=== PATIENT | female | born 1985 | race Caucasian/White ===

== ENCOUNTER → 2023-06-21 | Outpatient (CLI) | payer OTHER, SELFPAY ==
[2023-06-21 10:41] LABS: Allen Test Positive; Base Excess -2 mmol/L (-2 to +2); Bicarbonate 22.4 mmol/L (22-26); Mode Not entered; O2 Delivery Device Room Air; PO2 45 mmHG (75-100); SITE R Radial; SO2 82 % (95-99); Total Carbon Dioxide 24 mmol/L; pH 7.41 (7.35-7.45)
[2023-06-21 11:26] LABS: Blood Gas Specimen Type VEN
== END | disposition home or self-care (01) ==
PROVIDERS: PCP Radiologic Technologist Bone Densitometry; Referring Provider Nurse Practitioner Acute Care; Visit Provider Nurse Practitioner Acute Care
DX: E66.2 Morbid (severe) obesity with alveolar hypoventilation (principal)
CPT/HCPCS: 36600; 82803

== ENCOUNTER → 2023-07-11 | Outpatient (CLI) | payer OTHER, SELFPAY | END | disposition home or self-care (01) | LOC: SL 20:03 | PROVIDERS: PCP Radiologic Technologist Bone Densitometry; Referring Provider Nurse Practitioner Acute Care; Visit Provider Nurse Practitioner Acute Care | DX: G47.33 Obstructive sleep apnea (adult) (pediatric) (principal) | CPT/HCPCS: 95810 ==

== ENCOUNTER → 2023-07-15 | Outpatient (CLI) | payer OTHER, SELFPAY ==
[2023-07-15 13:10] LABS: Absolute Lymphocyte Count 2.37 X10^3/uL (0.83-4.51); Absolute Neutrophil Count 8.1 X10^3/uL (2.0-7.7); Basophil# 0.02 X10^3/uL; Basophil% 0.2 % (0-1); Eosinophil# 0.01 X10^3/uL; Eosinophils% 0.1 % (0-5); Hemoglobin 11.5 g/dL (12.0-15.0); Lymphocyte # 2.37 X10^3/ul (0.83-4.51); Lymphocyte % 21.8 % (19-41); Mean Corp Hgb Conc 30.3 g/dL (32-36); Mean Corpuscular Hgb 22.5 pg (27.0-32.0); Mean Corpuscular Volume 74.2 fL (81-99); Mean Platelet Vol. 10.5 fl (6.2-12.0); Monocyte# 0.37 X10^3/uL; Monocyte% 3.4 % (0-10); NRBC Flagged by Analyzer 0 % (0-5); Neutrophil # 8.06 X10^3/uL (2.7-7.7); Neutrophil % 73.9 % (47-70); Platelet Count 507 K/mm3 (150-450); RBC Distribution Width CV 15.8 % (11.6-14.6); RBC Distribution Width SD 41.9 fl (35.1-43.9); Red Blood Count 5.12 M/mm3 (4.2-5.4); White Blood Count 10.9 K/mm3 (4.4-11.0)
[2023-07-15 13:43] LABS: AST(SGOT) 28 U/L (15-37); Alanine Aminotransfer ALT/SGPT 63 U/L (13-56); Albumin, Serum 3.4 g/dL (3.2-5.0); Alkaline Phosphatase 202 U/L (45-117); Bilirubin, Direct 0.13 mg/dL (0.00-0.30); Ferritin 23 ng/mL (8-252); Free T3 2.4 pg/mL (2.18-3.98); GGTP 166 U/L (5-55); Globulin 4.5 g/dL (2.2-4.2); Iron 31 ug/dL (50-170); Iron Binding Capacity,Total 413 ug/dL (250-450); PERCENT IRON SATURATION 7.5 % (15.0-55.0); Protein, Total 7.9 g/dL (6.4-8.2); T4 Free Direct 1.03 ng/dL (0.76-1.46); Thyroid Stim Hormone (TSH) 2.88 uIU/mL (0.358-3.74)
== END | disposition home or self-care (01) ==
LOC: LAB 12:49
PROVIDERS: PCP Radiologic Technologist Bone Densitometry
DX: R94.6 Abnormal results of thyroid function studies (principal); R79.89 Other specified abnormal findings of blood chemistry; D64.9 Anemia, unspecified; D75.839 Thrombocytosis, unspecified
CPT/HCPCS: 36415; 80076; 82728; 82977; 83540; 83550; 84439; 84443; 84481; 85025

== ENCOUNTER → 2023-09-26 | Outpatient (CLI) | payer OTHER, SELFPAY ==
--- NOTE | 2023-09-26 08:03 | US_ITS ---
STUDY: ABDOMINAL ULTRASOUND - RIGHT UPPER QUADRANT REASON FOR VISIT: Female, 38 years old ELEVATED LFT TECHNIQUE: Ultrasound evaluation of the right upper quadrant was performed with real-time and static whipple-scale imaging. TECHNICAL QUALITY: Adequate. COMPARISON: None. FINDINGS: Liver: The liver is enlarged and measures 20.3 cm. There is increased echogenicity consistent with fatty infiltration. The bile ducts are within normal limits. There is hepatic color flow. The direction of portal flow is hepatopetal. There is no demonstrated mass lesion. Gallbladder: The patient is status post cholecystectomy. Common Bile Duct (C.B.D.): The common bile duct measures 4 mm. Pancreas: There is nonvisualization of the pancreas. Right Kidney: Normal size of the right kidney. The right kidney measures 12.1 cm x 6.6 x 5.6 cm. Normal renal cortex. The right cortex measures 1.6 cm. There is no demonstrated renal mass or cyst. There is no right hydronephrosis. US/Abdomen Limited IMPRESSION: Hepatomegaly. Fatty infiltration of the liver. The patient is status post cholecystectomy. Electronically Signed: Sergio Snow MD at 13:48 EDT ,
== END | disposition home or self-care (01) ==
LOC: US 08:02
PROVIDERS: PCP Radiologic Technologist Bone Densitometry
DX: R79.89 Other specified abnormal findings of blood chemistry (principal)
CPT/HCPCS: 76705

== ENCOUNTER 2024-02-02 17:30 | Emergency (ER) | payer OTHER, SELFPAY ==
[2024-02-02 17:31] VITALS: BP 176/102; PULSE 100; RESP 18; TEMP 36.3; O2SAT 100; BMI 59.9
--- NOTE | 2024-02-02 18:23 | EDS_ITS ---
HPI <BARRERA Ashley - Last Filed: 02/02/24 19:35> History of Present Illness Chief Complaint: Other, Pain/Inj Narrative Narrative: Patient presenting today with rectal pain that she has had since Tuesday or Tuesday of this week. She has felt what feels like an external hemorrhoid. She does report occasional constipation and straining on the toilet, she tries to avoid this by taking docusate and MiraLAX and over the last few days she has had looser stools. She has been using Preparation H on the area with minimal relief. She denies abdominal pain, fevers, and chills. PFSH <BARRERA Ashley - Last Filed: 02/02/24 19:35> [facility] Medical History Family history of heart disease Breast pain Snoring Cervical high risk HPV (human papillomavirus) test positive Family history of colon cancer in mother PMS (premenstrual syndrome) Oral contraceptive pill surveillance Adult acne Esophageal ulcer Pulmonary hypertension Anemia Vitamin D deficiency Obesity, morbid, BMI 50 or higher Erythema Anxiety Depression, endogenous GERD (gastroesophageal reflux disease) Constipation in female Family history of early CAD Fatigue COVID-19 Home Medications ?Medication ?Instructions ?Recorded ?Last Taken ?Type buspirone 5 mg tablet 5 mg PO BID 06/10/23 Unknown History omeprazole 40 mg capsule,delayed 40 mg PO BID 06/10/23 Unknown History release spironolactone 50 mg tablet 50 mg PO BID 06/10/23 Unknown History venlafaxine 150 mg 150 mg PO DAILY 06/10/23 Unknown History capsule,extended release 24 hr venlafaxine 75 mg capsule,extended 75 mg PO DAILY 06/10/23 Unknown History release 24 hr cholecalciferol (vitamin D3) 50 50 mcg PO DAILY 06/13/23 Unknown History mcg (2,000 unit) capsule docusate sodium 100 mg capsule 100 mg PO BID 06/13/23 Unknown History hydrocortisone 1 %-pramoxine 1 % 1 applic [place] TID #10 grams 02/02/24 Unknown Rx rectal foam (Proctofoam HC) lidocaine 5 % topical cream 1 applic topical TID PRN pain #15 02/02/24 Unknown Rx (RectiCare) grams ropinirole 0.25 mg tablet 0.25 mg PO QHS 02/02/24 Unknown History trazodone 50 mg tablet 50 - 100 mg PO QHS 02/02/24 Unknown History Allergy/AdvReac Type Severity Reaction Status Date / Time No Known Allergies Allergy Verified 02/02/24 17:31 Family History Mother , age 62 Colon cancer age 59 Hypertension Grandfather Heart disease Maternal Grandmother Heart disease maternal Aunt Hypertension Maternal Uncle Diabetes Paternal Grandmother Diabetes Paternal Surgical History History of tonsillectomy and adenoidectomy Hx of cholecystectomy H/O LEEP Social History household members: spouse current occupational status: employed Smoking Status: Never smoker alcohol intake: current alcohol intake frequency: holidays/special occasions only substance use type: does not use seatbelt use: always ROS <BARRERA Ashley - Last Filed: 02/02/24 19:35> ROS ED Constitutional Constitutional ED: Denies chills or fever(s) Cardiovascular Cardiovascular: Denies chest pain Respiratory/Chest Respiratory/Chest: Denies cough or dyspnea Gastrointestinal Gastrointestinal: Reports other Details: Rectal pain ; Denies abdominal pain, nausea or vomiting Musculoskeletal Musculoskeletal: Denies arthralgias or myalgias Integumentary Denies rash Neurologic Neurologic: Denies weakness EXAM <BARRERA Ashley - Last Filed: 02/02/24 19:35> Physical Exam Const Vital Signs: 02/02/24 17:31 02/02/24 18:56 Temperature 97.4 F L 97.4 F L Temperature Source Temporal Pulse Rate 100 90 Respiratory Rate 18 18 Blood Pressure 176/102 H 145/87 H Blood Pressure Mean 126 106 Pulse Ox 100 100 Oxygen Delivery Method Room Air Positive well nourished, well developed and no apparent distress General Appearance ED: well developed HEENT Reports normocephalic and head/scalp atraumatic Mouth ED: Yes moist mucous membranes normal Eyes PERRL and EOMs intact bilaterally Neck full ROM and supple Chest Wall inspection of chest normal Resp normal respiratory effort and clear to auscultation bilaterally Cardio regular rate and regular rhythm GI soft to palpation, non-tender, non-distended and no masses GI Narrative: Rectal: Small nonthrombosed external hemorrhoid at the 11 o'clock position, small anal fissure at the 5 o'clock position, small anal fissure at the 7 o'clock position Back/Spine normal ROM and normal to inspection Extremity normal to inspection and full ROM Neuro oriented x3, CN's II-XII intact bilaterally, moves all extremities, no focal motor deficits and no sensory deficits noted Sensorium / Orientation: awake and alert Psych mental status grossly normal and thought process normal Skin no rashes or lesions noted and no wounds <Dr. Saul Wong DO - Last Filed: 02/02/24 23:48> Physical Exam Const Vital Signs: 02/02/24 17:31 02/02/24 18:56 Temperature 97.4 F L 97.4 F L Temperature Source Temporal Pulse Rate 100 90 Respiratory Rate 18 18 Blood Pressure 176/102 H 145/87 H Blood Pressure Mean 126 106 Pulse Ox 100 100 Oxygen Delivery Method Room Air [facility] <BARRERA Ashley - Last Filed: 02/02/24 19:35> [facility] Narrative Medical decision making narrative: Patient presenting today with rectal pain she has had over the last several days. She is nontoxic-appearing and in no acute distress. She does have a small nonthrombosed external hemorrhoid and 2 small anal fissures that are causing her pain. She does not have any evidence of abscess or fluctuance. I will give her a prescription for Proctofoam, recommended sitz bath's, she can continue the stool softeners to help keep her bowel movements soft and regular. She does have a GI doctor she can follow-up with. She will be discharged home in stable condition. <Dr. Saul Wong DO - Last Filed: 02/02/24 23:48> [facility] Narrative Medical decision making narrative: Patient presenting today with rectal pain she has had over the last several days. She is nontoxic-appearing and in no acute distress. She does have a small nonthrombosed external hemorrhoid and 2 small anal fissures that are causing her pain. She does not have any evidence of abscess or fluctuance. I will give her a prescription for Proctofoam, recommended sitz bath's, she can continue the stool softeners to help keep her bowel movements soft and regular. She does have a GI doctor she can follow-up with. She will be discharged home in stable condition. Attending note: I have personally performed a face to face assessment of the patient and have reviewed the LUDY note. I personally made/approved the management plan and take responsibility for the patient management. I performed a substantive portion of the visit including all aspects of the following. My haney findings include: Rectal pain since Tuesday worse with sitting. No fevers or chills. No abdominal pain. Examination with the teasel setter nonthrombosed very small hemorrhoid anterior rectum. There are small fissures posteriorly no active bleeding. No indurations palpated around the anal region. No fluctuance. Discussed patient no clear abscess this time no thrombosed hemorrhoids. She will continue her stool softeners she is provided Proctofoam and topical lidocaine. Return precautions. All questions were answered. Discharge Plan Triage Chief Complaint: Other, Pain/Inj ED Midlevel Provider: Nydia Fraser ED Provider: Saul Wong Dx/Rx/DC Orders Clinical Impression: Hemorrhoid, Rectal fissure Instructions: ED Understanding Anal Fissures, ED Hemorrhoids Prescriptions: New lidocaine [RectiCare] 5 % cream 1 applic topical TID PRN (Reason: pain) Qty: 15 0RF Proctofoam HC 1-1 % foam 1 applic [place] TID Qty: 10 0RF No Action omeprazole 40 mg capsule,delayed release(DR/EC) 40 mg PO BID buspirone 5 mg tablet 5 mg PO BID venlafaxine 75 mg capsule,extended release 24hr 75 mg PO DAILY venlafaxine 150 mg capsule,extended release 24hr 150 mg PO DAILY spironolactone 50 mg tablet 50 mg PO BID cholecalciferol (vitamin D3) 50 mcg (2,000 unit) capsule 50 mcg PO DAILY docusate sodium 100 mg capsule 100 mg PO BID trazodone 50 mg tablet 50 - 100 mg PO QHS ropinirole 0.25 mg tablet 0.25 mg PO QHS Primary Care Provider: Vasquez Keen Referrals: Vasquez Keen MD [Primary Care Provider] - Activity Restrictions/Additional Instructions: Follow-up with GI, perform sitz bath's 2-3 times daily. Continue stool softe ners/fiber supplementation. Print Language: Ukrainian Disposition Disposition: Home, Self Care Discharge Date/Time: 02/02/24 18:58
[2024-02-02] MEDS: Lidocaine 1% /Epi 1:100 (20ml) 20 ML Vial 10 ML INFILT (18:29)
[2024-02-02 18:56] VITALS: BP 145/87; PULSE 90; RESP 18; TEMP 36.3; O2SAT 100
== END 2024-02-02 18:58 | disposition home or self-care (01) ==
PROVIDERS: Emergency Provider Emergency Medicine; PCP Radiologic Technologist Bone Densitometry; Visit Provider Emergency Medicine
DX: K64.9 Unspecified hemorrhoids (principal); K60.2 Anal fissure, unspecified; Z90.49 Acquired absence of other specified parts of digestive tract; Z86.16 Personal history of COVID-19; Z80.0 Family history of malignant neoplasm of digestive organs
CPT/HCPCS: 99282

== ENCOUNTER 2024-02-15 13:10 | Inpatient (IN) | payer OTHER, SELFPAY ==
[2024-02-15] VITALS (9 sets, daily range): BP systolic 134–178; BP diastolic 78–127; PULSE 116–138; RESP 18–30; TEMP 36.6–37.9; O2SAT 94–100; BMI 61.7; BMI 61.6
--- NOTE | 2024-02-15 13:34 | CT_ITS ---
STUDY: CTA CHEST REASON FOR EXAM: Female, 38 years old. pulmonary embolism s/p ebg this am PATIENT HAD EGD AT [facility] THIS MORNING. ON THE WAY HOME SHE STARTED TO EXPERIENCE SOB, CHILLS. SHE WAS TOLD THE HER SPO2 WENT LOW DURING THE PROCEDURE. RADIATION DOSAGE (If Supplied By Facility): CTDIvol = ( 15.04 ) mGy, DLP = ( 500.28 ) mGycm TECHNIQUE: The examination was performed with the intravenous administration of IV 100mL Isovue-370. Post-processing of the angiographic images was performed, with multiplanar reformation and 3D reconstruction. Individualized dose optimization techniques were used for this CT. COMPARISON: None. FINDINGS: Mild to moderate patchy consolidation is intermixed with linear atelectasis in the mid to inferior aspect of the left upper lobe with extension to the hilar region. Surrounding groundglass edema and tree-in-bud opacities are present in the same region. Mild patchy pneumonic consolidation with groundglass edema and tree-in-bud opacities are also seen in the lateral aspect of the left upper lobe from superior to inferior. The right lung is clear. No visualized pleural effusion. There is limited enhancement of the main pulmonary artery and right and left pulmonary arteries. There is limited enhancement of the bilateral peripheral pulmonary arteries. There is no demonstrated obvious a large pulmonary embolism. Normal thoracic aorta and visualized great vessels. There is no demonstrated aortic dissection. Normal heart and pericardium. There are no demonstrated calcifications of the coronary arteries. Normal mediastinum. Normal hilar regions. Normal visualized trachea and bronchi. The lungs are well expanded. Normal pleura. Normal chest wall structures. There are degenerative changes of thoracic spine. Normal visualized upper abdomen. CT/CTA Chest W/WO Contrast IMPRESSION: 1. Probable aspiration pneumonia = Mild to moderate patchy consolidation is intermixed with linear atelectasis in the mid to inferior aspect of the left upper lobe with extension to the hilar region. Surrounding groundglass edema and tree-in-bud opacities are present in the same region. Mild patchy pneumonic consolidation with groundglass edema and tree-in-bud opacities are also seen in the lateral aspect of the left upper lobe from superior to inferior. 2. The left lung consolidation should be followed up to resolution to ensure no underlying occult process. 3. Suboptimal contrast opacification of the pulmonary arteries = There is limited enhancement of the main pulmonary artery and right and left pulmonary arteries. There is limited enhancement of the bilateral peripheral pulmonary arteries. There is no demonstrated obvious a large pulmonary embolism. Consider nuclear medicine lung perfusion scan symptoms persist. Electronically Signed: Steven Polk MD at 14:55 EST ,
--- NOTE | 2024-02-15 13:40 | EX.ED.DYSGE1 ---
HPI History of Present Illness Chief Complaint: General Illness Informant: patient and parent Narrative Narrative: 38-year-old female presenting to the emergency room with dyspnea. Patient states she woke up this morning feeling fine. She went to [place] to [facility] and had upper endoscopy performed. She states on the way home she began to feel feverish and chilled. She felt short of breath and experienced nausea. Symptoms progressed and once they got home talked with her doctor who advised her coming to the hospital. States she feels her heart racing. It is worse with exertion. Surgeon noted that she did have an episode of hypoxia during the procedure but the anesthesiologist was able to remedy it. She notes a bit of a sore throat but states that was expected after the procedure. [facility] Medical History Family history of heart disease Breast pain Snoring Cervical high risk HPV (human papillomavirus) test positive Family history of colon cancer in mother PMS (premenstrual syndrome) Oral contraceptive pill surveillance Adult acne Esophageal ulcer Pulmonary hypertension Anemia Vitamin D deficiency Obesity, morbid, BMI 50 or higher Erythema Anxiety Depression, endogenous GERD (gastroesophageal reflux disease) Constipation in female Family history of early CAD Fatigue COVID-19 Home Medications ?Medication ?Instructions ?Recorded ?Last Taken ?Type buspirone 5 mg tablet 5 mg PO BID 06/10/23 Unknown History omeprazole 40 mg capsule,delayed 40 mg PO BID 06/10/23 Unknown History release spironolactone 50 mg tablet 50 mg PO BID 06/10/23 Unknown History venlafaxine 150 mg 150 mg PO DAILY 06/10/23 Unknown History capsule,extended release 24 hr venlafaxine 75 mg capsule,extended 75 mg PO DAILY 06/10/23 Unknown History release 24 hr cholecalciferol (vitamin D3) 50 50 mcg PO DAILY 06/13/23 Unknown History mcg (2,000 unit) capsule docusate sodium 100 mg capsule 100 mg PO BID 06/13/23 Unknown History hydrocortisone 1 %-pramoxine 1 % 1 applic MS TID #10 grams 02/02/24 Unknown Rx rectal foam (Proctofoam HC) lidocaine 5 % topical cream 1 applic topical TID PRN pain #15 02/02/24 Unknown Rx (RectiCare) grams ropinirole 0.25 mg tablet 0.25 mg PO QHS 02/02/24 Unknown History trazodone 50 mg tablet 50 - 100 mg PO QHS 02/02/24 Unknown History Allergy/AdvReac Type Severity Reaction Status Date / Time No Known Allergies Allergy Verified 02/15/24 13:14 Family History Mother , age 62 Colon cancer age 59 Hypertension Grandfather Heart disease Maternal Grandmother Heart disease maternal Aunt Hypertension Maternal Uncle Diabetes Paternal Grandmother Diabetes Paternal Surgical History History of tonsillectomy and adenoidectomy Hx of cholecystectomy H/O LEEP Social History household members: spouse current occupational status: employed Smoking Status: Never smoker alcohol intake: current alcohol intake frequency: holidays/special occasions only substance use type: does not use seatbelt use: always ROS ROS ED Constitutional Constitutional ED: Reports chills, fever(s) and subjective; Denies weight loss Eyes Eyes: Denies change in vision or diplopia ENT ENT ED: Denies ear pain, rhinorrhea or sore throat Cardiovascular Cardiovascular: Reports racing heartbeat; Denies chest pain, orthopnea or palpitations Respiratory/Chest Respiratory/Chest: Reports dyspnea; Denies cough or orthopnea Gastrointestinal Gastrointestinal: Reports nausea; Denies abdominal pain, diarrhea or vomiting Genitourinary Genitourinary ED: Denies dysuria, hematuria or urinary frequency Musculoskeletal Musculoskeletal: Denies arthralgias or myalgias Integumentary Denies abscess or rash Neurologic Neurologic: Denies headache(s) or weakness Psychiatric Psychiatric: Denies anxiety, depression, suicidal ideation or suicidal thoughts Endocrine Endocrinology: Denies polydipsia, polyphagia or polyuria Allergic/Immunologic Allergic/Immunologic ED: Denies mouth swelling, tongue swelling or urticaria EXAM Physical Exam Const Vital Signs: 02/15/24 13:11 02/15/24 13:12 02/15/24 14:48 Temperature 100.3 F H 99.3 F H Temperature Source Oral Oral Pulse Rate 138 H 124 H Respiratory Rate 22 H 18 Respiratory Effort Normal Respiratory Pattern Tachypnea Blood Pressure 178/127 H 134/78 H Blood Pressure Mean 144 96 Pulse Ox 100 95 Oxygen Delivery Method Room Air Room Air Positive well nourished, well developed and obese General Appearance ED: well developed and NAD Nutritional Appearance: obese HEENT Reports normocephalic, head/scalp atraumatic and moist mucous membranes HEENT Narrative: Mild oropharyngeal erythema is noted particularly around the soft palate. The uvula Eyes PERRL and EOMs intact bilaterally Neck no lymphadenopathy, supple and no JVD Resp normal respiratory effort and clear to auscultation bilaterally Cardio regular rate, regular rhythm and no murmurs Rate: tachycardic GI normal to inspection, nondistended, normoactive bowel sounds and non-tender Palpation: soft Back/Spine no CVA tenderness and normal ROM Extremity normal to inspection General Extremety ED: Negative for edema General Extremity: Negative for edema Neuro oriented x3 and CN's II-XII intact bilaterally Sensorium / Orientation: alert Motor Exam: strength 5/5 throughout Psych mental status grossly normal Mood & Affect: Negative for depressed or tearful Skin no rashes or lesions noted and no wounds MDM MDM MDM Narrative Medical decision making narrative: Differential diagnosis includes but not limited to esophageal perforation pneumothorax aspiration pneumonia viral syndrome dehydration cardiac dysrhythmia electrolyte abnormalities White count elevated 24.2 platelet count of 517 hemoglobin 11.4 BMP shows a sodium 134 glucose 143 lipase is 25 ALT 67 alk phos 223. CTA of the chest was obtained to the recent EGD. This shows changes consistent with pneumonia on the left. Went back and spoke with the patient. There is no report of vomiting or possible aspiration during the procedure only a brief episode of hypoxia was reported to the patient. She does note now that she has had a very mild URI symptoms over the past couple days. Patient received IV fluids and still remains tachycardic at around 133. With ambulation she has not become hypoxic but her heart rate does still remain elevated in the 140s. Patient received breathing treatment. For ceftriaxone and azithromycin but we did give consideration for possible aspiration. However given the recent URI over the past couple days it is difficult to say if this would be a community-acquired pneumonia instead. Patient has been resting comfortably not requiring oxygen. I am going to speak with the hospitalist regarding admission. Additional labs including lactic acid coags will be obtained in addition to blood cultures. History & Record Review Discussion w/independent historian: Patient and Significant other Lab Data Attestation: I reviewed the patient's lab results. Labs: Laboratory Results - last 24 hr 02/15/24 14:00 WBC 24.2 H RBC 5.21 Hgb 11.4 L Hct 38.3 MCV 73.5 L MCH 21.9 L MCHC 29.8 L RDW Std Deviation 44.0 H RDW Coeff of Lino 16.8 H Plt Count 517 H MPV 10.2 Immature Gran % (Auto) 0.600 Neut % (Auto) 91.4 H Lymph % (Auto) 6.1 L Toole % (Auto) 1.8 Eos % (Auto) 0.0 Baso % (Auto) 0.1 Absolute Neuts (auto) 22.1 H Absolute Lymphs (auto) 1.48 Nucleated RBC % 0 Differential Comment COMMENT Sodium 134 L Potassium 4.0 Chloride 102 Carbon Dioxide 27.0 Anion Gap 5 BUN 16 Creatinine 0.77 Estim Creat Clear Calc 161.86 Est GFR (MDRD) Af Amer 108 Est GFR (MDRD) Non-Af 89 BUN/Creatinine Ratio 20.7 H Glucose 143 H Calcium 9.7 Total Bilirubin 0.40 Direct Bilirubin 0.16 AST 25 ALT 67 H Alkaline Phosphatase 223 H Total Protein 8.3 H Albumin 3.7 Globulin 4.6 H Lipase 25 Radiography Diagnostic Testing: Clinical Impression(s) from Imaging Studies Chest CTA 02/15/24 13:34 IMPRESSION: 1. Probable aspiration pneumonia = Mild to moderate patchy consolidation is intermixed with linear atelectasis in the mid to inferior aspect of the left upper lobe with extension to the hilar region. Surrounding groundglass edema and tree-in-bud opacities are present in the same region. Mild patchy pneumonic consolidation with groundglass edema and tree-in-bud opacities are also seen in the lateral aspect of the left upper lobe from superior to inferior. 2. The left lung consolidation should be followed up to resolution to ensure no underlying occult process. 3. Suboptimal contrast opacification of the pulmonary arteries = There is limited enhancement of the main pulmonary artery and right and left pulmonary arteries. There is limited enhancement of the bilateral peripheral pulmonary arteries. There is no demonstrated obvious a large pulmonary embolism. Consider nuclear medicine lung perfusion scan symptoms persist. Electronically Signed: Steven Polk MD at 14:55 EST , EKG Initial EKG: Attestation: I personally reviewed and interpreted this EKG as follows: Comments: Sinus tachycardia ventricular rate of 129 beats Management Discussion w/another healthcare provider: Hospitalist (Dr Willoughby) Discharge Plan Triage Chief Complaint: General Illness ED Provider: Edy Christensen Dx/Rx/DC Orders Prescriptions: No Action omeprazole 40 mg capsule,delayed release(DR/EC) 40 mg PO BID buspirone 5 mg tablet 5 mg PO BID venlafaxine 75 mg capsule,extended release 24hr 75 mg PO DAILY venlafaxine 150 mg capsule,extended release 24hr 150 mg PO DAILY spironolactone 50 mg tablet 50 mg PO BID cholecalciferol (vitamin D3) 50 mcg (2,000 unit) capsule 50 mcg PO DAILY docusate sodium 100 mg capsule 100 mg PO BID trazodone 50 mg tablet 50 - 100 mg PO QHS ropinirole 0.25 mg tablet 0.25 mg PO QHS lidocaine [RectiCare] 5 % cream 1 applic topical TID PRN (Reason: pain) Qty: 15 0RF Proctofoam HC 1-1 % foam 1 applic MS TID Qty: 10 0RF Primary Care Provider: Vasquez Keen Referrals: Vasquez Keen MD [Primary Care Provider] - Print Language: Zimbabwean
--- NOTE | 2024-02-15 13:43 | EKG12_ITS ---
Test Reason : DYSP Blood Pressure : */* mmHG Vent. Rate : 129 BPM Atrial Rate : 129 BPM P-R Int : 150 ms QRS Dur : 90 ms QT Int : 302 ms P-R-T Axes : 45 68 8 degrees QTcB Int : 442 [address] N[address]pecific [address] abnormality Abnormal ECG Confirmed by KATHY LOPEZ, KAYDEN ([id number]), avid editor WINDY HAZEL ([id number]) on 02/16/2024 10:57:32 AM Referred By: EAN Confirmed By: KAYDEN CHAVEZ MD
[2024-02-15] MEDS: 0.9% Normal Saline (1000mL) 1,000 ML 1000 ML IV (13:59)
[2024-02-15 14:12] LABS: Absolute Lymphocyte Count 1.48 X10^3/uL (0.83-4.51); Absolute Neutrophil Count 22.1 X10^3/uL (2.0-7.7); Basophil# 0.03 X10^3/uL; Basophil% 0.1 % (0-1); Hematocrit 38.3 % (37-47); Hemoglobin 11.4 g/dL (12.0-15.0); Lymphocyte # 1.48 X10^3/ul (0.83-4.51); Lymphocyte % 6.1 % (19-41); Mean Corp Hgb Conc 29.8 g/dL (32-36); Mean Corpuscular Hgb 21.9 pg (27.0-32.0); Mean Corpuscular Volume 73.5 fL (81-99); Mean Platelet Vol. 10.2 fl (6.2-12.0); Monocyte# 0.44 X10^3/uL; Monocyte% 1.8 % (0-10); NRBC Flagged by Analyzer 0 % (0-5); Neutrophil # 22.11 X10^3/uL (2.7-7.7); Neutrophil % 91.4 % (47-70); POSITIVE DIFFERENTIAL YES; Platelet Count 517 K/mm3 (150-450); RBC Distribution Width CV 16.8 % (11.6-14.6); Red Blood Count 5.21 M/mm3 (4.2-5.4); White Blood Count 24.2 K/mm3 (4.4-11.0)
[2024-02-15 14:15] LABS: Differential Indicated SCAN CRITERIA MET
[2024-02-15 14:58] LABS: AST(SGOT) 25 U/L (15-37); Alanine Aminotransfer ALT/SGPT 67 U/L (13-56); Albumin, Serum 3.7 g/dL (3.2-5.0); Alkaline Phosphatase 223 U/L (45-117); Anion Gap 5 (5-15); BUN 16 mg/dL (7-18); BUN/Creat Ratio 20.7 RATIO (10-20); Bilirubin, Direct 0.16 mg/dL (0.00-0.30); Calcium,Total 9.7 mg/dL (8.5-10.1); Chloride 102 mmol/L (98-107); Creatinine, Serum 0.77 mg/dL (0.55-1.02); EST Glomerular Filtration Rate 89 mL/min (>60); Est Glom Filt Rate - Afr Amer 108 mL/min (>60); Estimated Creatinine Clearance 161.86 ml/min; Globulin 4.6 g/dL (2.2-4.2); Glucose 143 mg/dL (74-106); Lipase 25 U/L (13-75); Protein, Total 8.3 g/dL (6.4-8.2); Sodium Level 134 mmol/L (136-145)
[2024-02-15] MEDS: Ceftriaxone 1 GM/50 ML BAG IV (15:10)
[2024-02-15] MEDS: Ipratropium/Albuterol Sulfate 3 ML AMPUL.NEB INHALATION ×2 (15:19→20:16)
--- NOTE | 2024-02-15 15:32 | PCM.HP.STD ---
HPI - General General Date of Admission: 02/15/24 Date of Service: 02/15/24 Chief Complaint: SOB HPI Narrative CHIO BUCIO, is a 38-year-old female with history of current anxiety who presented [facility] ED 02/15/2024 with dyspnea. Woke up feeling fine but she went to [place] to [facility] and had upper endoscopy performed. On the way home she began to feel feverish and chilled as well as short of breath and experienced nausea. She had progressive symptoms when she got home and spoke with her doctor who advised her to come to the hospital. The surgeon did note that she had episode of hypoxia during procedure but resolved with anesthesiology intervention. In the ED she had white blood cell count of 24 with heart rate in 120s to 130s with Tmax 100.3. CTA showed left-sided consolidation and groundglass changes concerning for aspiration pneumonia. Patient given a breathing treatment and CAP coverage and hospitalist contacted for mission. Patient evaluated at bedside and reports she was encompass for an EGD, there was concern for an ulcer in June 2022 but her endoscopy was just scheduled now (reportedly only showed esophageal erosion) and she felt fine on her way down but on her way home she developed a headache and nausea with slight cough and shortness of breath and felt generally unwell. Had a little bit of a cough yesterday but denied any other URI-like symptoms. Is feeling little bit better after fluids, antibiotics, breathing treatment with her nausea resolving and breathing improving. Denies any chest pain or noted fever, no swelling or extremities, no changes in bowel or bladder. Slight sore throat after EGD. [facility] Medical History Family history of heart disease Breast pain Snoring Cervical high risk HPV (human papillomavirus) test positive Family history of colon cancer in mother PMS (premenstrual syndrome) Oral contraceptive pill surveillance Adult acne Esophageal ulcer Pulmonary hypertension Anemia Vitamin D deficiency Obesity, morbid, BMI 50 or higher Erythema Anxiety Depression, endogenous GERD (gastroesophageal reflux disease) Constipation in female Family history of early CAD Fatigue COVID-19 Home Medications ?Medication ?Instructions ?Recorded ?Last Taken ?Type buspirone 5 mg tablet 5 mg PO BID 06/10/23 Unknown History omeprazole 40 mg capsule,delayed 40 mg PO BID 06/10/23 Unknown History release spironolactone 50 mg tablet 50 mg PO BID 06/10/23 Unknown History venlafaxine 150 mg 150 mg PO DAILY 06/10/23 Unknown History capsule,extended release 24 hr venlafaxine 75 mg capsule,extended 75 mg PO DAILY 06/10/23 Unknown History release 24 hr cholecalciferol (vitamin D3) 50 50 mcg PO DAILY 06/13/23 Unknown History mcg (2,000 unit) capsule docusate sodium 100 mg capsule 100 mg PO BID 06/13/23 Unknown History hydrocortisone 1 %-pramoxine 1 % 1 applic ID TID #10 grams 02/02/24 Unknown Rx rectal foam (Proctofoam HC) lidocaine 5 % topical cream 1 applic topical TID PRN pain #15 02/02/24 Unknown Rx (RectiCare) grams ropinirole 0.25 mg tablet 0.25 mg PO QHS 02/02/24 Unknown History trazodone 50 mg tablet 50 - 100 mg PO QHS 02/02/24 Unknown History Allergy/AdvReac Type Severity Reaction Status Date / Time No Known Allergies Allergy Verified 02/15/24 13:14 Family History Mother , age 62 Colon cancer age 59 Hypertension Grandfather Heart disease Maternal Grandmother Heart disease maternal Aunt Hypertension Maternal Uncle Diabetes Paternal Grandmother Diabetes Paternal Surgical History History of tonsillectomy and adenoidectomy Hx of cholecystectomy H/O LEEP Social History household members: spouse current occupational status: employed Smoking Status: Never smoker alcohol intake: current alcohol intake frequency: holidays/special occasions only substance use type: does not use seatbelt use: always ROS ROS Narrative General: Did not note any fever at home HENT: Does have headache, denies stuffy nose, slight sore throat EYES: Denies changes in vision Resp: Cough, non productive, increased SOB Cardiac: Denies chest pain GI: Denies abdominal pain, denies changes in bowel, nausea resolved : Denies changes in urination Extremity: Denies swelling MSK: Denies weakness Neuro: Denies any numbness/tingling Heme: Denies any bleeding or bruising Skin: Denies rashes Psychiatric: No complaints voiced Vital Signs Vital Signs Vital Signs: 02/15/24 13:11 02/15/24 13:12 02/15/24 14:48 Temperature 100.3 F H 99.3 F H Temperature Source Oral Oral Pulse Rate 138 H 124 H Respiratory Rate 22 H 18 Respiratory Effort Normal Respiratory Pattern Tachypnea Blood Pressure 178/127 H 134/78 H Blood Pressure Mean 144 96 Pulse Ox 100 95 Oxygen Delivery Method Room Air Room Air 02/15/24 15:00 02/15/24 15:20 Temperature 97.9 F Temperature Source Temporal Pulse Rate 130 H 129 H Respiratory Rate 30 H 20 H Respiratory Effort Respiratory Pattern Normal Blood Pressure 158/109 H Blood Pressure Mean 125 Pulse Ox 98 Oxygen Delivery Method Room Air Weight Weight: 168.283 kg Body Mass Index (BMI) 61.7 Physical Exam Narrative General: Alert, oriented, no apparent distress HEENT: Atraumatic, normocephalic Eyes: Anicteric, normal conjunctiva, extraocular movements grossly intact Neck: Supple Respiratory: Slightly tachypneic, diminished at the bases with some coarse breath sounds on the left Cardiovascular: Sinus tachycardia GI: Soft, nontender, nondistended Extremities: No edema Musculoskeletal: Moving all extremities Neuro: No overt focal neurological deficits Skin: No rashes appreciated Psych: Cooperative Results Lab / Micro Data 02/15/24 14:00 02/15/24 14:00 Labs: Laboratory Results - last 24 hr 02/15/24 14:00: WBC 24.2 H, RBC 5.21, Hgb 11.4 L, Hct 38.3, MCV 73.5 L, MCH 21.9 L, MCHC 29.8 L, RDW Std Deviation 44.0 H, RDW Coeff of Lino 16.8 H, Plt Count 517 H, MPV 10.2, Immature Gran % (Auto) 0.600, Neut % (Auto) 91.4 H, Lymph % (Auto) 6.1 L, [place] % (Auto) 1.8, Eos % (Auto) 0.0, Baso % (Auto) 0.1, Absolute Neuts (auto) 22.1 H, Absolute Lymphs (auto) 1.48, Nucleated RBC % 0, Differential Comment COMMENT, Sodium 134 L, Potassium 4.0, Chloride 102, Carbon Dioxide 27.0, Anion Gap 5, BUN 16, Creatinine 0.77, Estim Creat Clear Calc 161.86, Est GFR (MDRD) Af Amer 108, Est GFR (MDRD) Non-Af 89, BUN/Creatinine Ratio 20.7 H, Glucose 143 H, Calcium 9.7, Total Bilirubin 0.40, Direct Bilirubin 0.16, AST 25, ALT 67 H, Alkaline Phosphatase 223 H, Total Protein 8.3 H, Albumin 3.7, Globulin 4.6 H, Lipase 25 Micro: Microbiology 02/15/24 14:00 Mucosa - Nasopharyngeal SARS-CoV-2, Influenza & RSV (PCR) - Final Imaging Radiology Impression Chest CTA 02/15/24 13:34 IMPRESSION: 1. Probable aspiration pneumonia = Mild to moderate patchy consolidation is intermixed with linear atelectasis in the mid to inferior aspect of the left upper lobe with extension to the hilar region. Surrounding groundglass edema and tree-in-bud opacities are present in the same region. Mild patchy pneumonic consolidation with groundglass edema and tree-in-bud opacities are also seen in the lateral aspect of the left upper lobe from superior to inferior. 2. The left lung consolidation should be followed up to resolution to ensure no underlying occult process. 3. Suboptimal contrast opacification of the pulmonary arteries = There is limited enhancement of the main pulmonary artery and right and left pulmonary arteries. There is limited enhancement of the bilateral peripheral pulmonary arteries. There is no demonstrated obvious a large pulmonary embolism. Consider nuclear medicine lung perfusion scan symptoms persist. Electronically Signed: Steven Polk MD at 14:55 EST Reading Location ID and State: [address] [place] [address] , Service support , Assessment & Plan Assessment/Plan (1) Pneumonia: PLAN: Plan # Pneumonia, suspect community-acquired -Imaging: CTA with left lung consolidation with some groundglass changes as well -Unclear if this is community-acquired pneumonia or aspiration pneumonia -Patient had slight cough yesterday but developed most symptoms today after EGD and her surgeon did note she was briefly hypoxic -Would not expect such significant changes on imaging and significance of white count however if this only happened a few hours ago though cannot rule it out -DuoNebs and as needed albuterol -Sputum culture, COVID negative, respiratory panel ordered -Urine antigens -Mucinex, I/S -Will cover for community-acquired pneumonia -CTA suboptimal contrast timing but no large clots appreciated # Esophageal erosion -Seen on EGD today -Continue patient's home PPI #Depression/anxiety -Continue home medications #Morbid obesity -BMI documented as 61.7 kg/m? at time of admission -Complicates treatment, prognosis, outcomes -Recommend weight loss and lifestyle changes #DVT ppx: Lovenox SQ twice daily Jo-Ann Willoughby MD Charges/Coding Visit Charges Inpatient E&M: 96757 Init Hosp L2
[2024-02-15] MEDS: Azithromycin 500 MG in Dextrose 5%-Water (250mL Bag) 250 ML 250 MG IV (15:59)
[2024-02-15 16:23] LABS: Lactic Acid 2.3 mmol/L (0.4-1.9)
[2024-02-15 16:50] LABS: Partial Thromboplast Time 27.6 Seconds (24.1-36.2); Prothrombin Time (Protime)PT. 13.2 SECONDS (11.7-14.9)
[2024-02-15] MEDS: 0.9% Normal Saline (1000mL) 1,000 ML 50 ML IV (16:58)
[2024-02-15] MEDS: Ampicillin/Sulbactam 3 GM in 0.9% Normal Saline (100mL MB+) 100 ML IV ×2 (17:43→23:32)
--- NOTE | 2024-02-15 17:49 | ECHOL_ITS ---
Reason For Study: EVALUATE EJECTION FRACTION Procedure This was a limited 2D transthoracic echocardiogram. Exam performed portable in patient room. Left Ventricle Normal LV size. Left ventricular systolic function is normal. The left ventricular ejection fraction is 65 %. No regional wall motion abnormalities noted. Right Ventricle Normal RV size. Normal systolic function. Great Vessels Normal aortic root. Pericardium/Pleural No pericardial effusion. MMode/2D Measurements & Calculations LVIDd: 4.4 cm IVSd: 1.0 cm LVOT diam: 2.1 cm LVIDs: 2.0 cm LVPWd: 0.97 cm LVOT area: 3.3 cm2 RVDd: 3.4 cm FS: 54.9 % LAV(MOD-bp): 55.9 ml LVAd ap4: 28.5 cm2 LVAd ap2: 23.4 cm2 LAV(MOD-bp) Indexed: 21.7 ml/m2 LVLd ap4: 8.4 cm LVLd ap2: 8.7 cm LAV(MOD-sp2): 58.1 ml EDV(MOD-sp4): 79.3 ml EDV(MOD-sp2): 53.8 ml LAV(MOD-sp4): 52.3 ml EDV(sp4-el): 82.7 ml EDV(sp2-el): 53.5 ml LVAs ap4: 14.0 cm2 LVAs ap2: 11.8 cm2 LVLs ap4: 7.2 cm LVLs ap2: 6.9 cm ESV(MOD-sp4): 24.8 ml ESV(MOD-sp2): 19.6 ml ESV(sp4-el): 23.1 ml ESV(sp2-el): 17.1 ml EF(MOD-sp4): 68.7 % EF(MOD-sp2): 63.6 % EF(sp4-el): 72.1 % SV(MOD-sp4): 54.5 ml SV(MOD-sp2): 34.2 ml SV(sp4-el): 59.6 ml SI(MOD-sp4): 21.2 ml/m2 SI(MOD-sp2): 13.3 ml/m2 Ao sinus diam: 2.8 cm LA A4 area: 18.8 cm2 LA dimension(2D): 4.2 cm TAPSE: 2.0 cm RA A4 area: 10.5 cm2 Time Measurements MV dec time: 0.19 sec Doppler Measurements & Calculations MV E max yoan: 94.8 cm/sec Lat Peak E' Yoan: 15.4 cm/sec Med Peak E' Yoan: 10.1 cm/sec MV A max yoan: 75.4 cm/sec E/E' lat: 6.2 E/E' med: 9.4 MV E/A: 1.3 MV dec slope: 510.0 cm/sec2 TR max yoan: 219.4 cm/sec TR max P.3 mmHg ECHO/Echo, Limited Study Interpretation Summary Normal LV size. Left ventricular systolic function is normal. The left ventricular ejection fraction is 65 %. No pericardial effusion. The study was technically limited. Ordering Physician: Jo-Ann Willoughby Performed By: Jo Lozano RDCS
--- NOTE | 2024-02-15 17:51 | PCM.HOSP.N ---
Hospitalist Note Given patient's persistent sinus tachycardia 120s to 140s despite being normotensive, afebrile, and not hypoxic we will order a limited echo to eval EF in the event there could be another underlying cause for her sinus tachycardia. Patient did have CTA on presentation without large PE but it was a suboptimal study, could always consider looking this further if this does not resolve or improve however given her lack of tachypnea, hypoxia, hypotension lower suspicion for this. Will check TSH
[2024-02-15 19:46] LABS: Reflex Lactate? Y
[2024-02-15 20:48] LABS: Lactic Acid 2.3 mmol/L (0.4-1.9)
[2024-02-15] MEDS: Acetaminophen 325 MG Tablet 650 MG PO (21:01)
[2024-02-15] MEDS: Spironolactone 50 MG Tablet PO (22:03)
[2024-02-15] MEDS: busPIRone 5 MG Tablet PO (22:03)
[2024-02-15] MEDS: traZODone 50 MG Tablet PO (22:04)
[2024-02-15] MEDS: Enoxaparin 40 MG/0.4 ML Syringe SC (22:04)
[2024-02-15] MEDS: Pantoprazole Sodium 40 MG Tablet PO (22:04)
[2024-02-15] MEDS: Pramipexole Di-HCl 0.125 MG Tablet PO (22:04)
[2024-02-16 04:00] VITALS: BP 143/98; PULSE 86; RESP 16; TEMP 36.8; TEMP 36.9; O2SAT 96
[2024-02-16] MEDS: Ampicillin/Sulbactam 3 GM in 0.9% Normal Saline (100mL MB+) 100 ML IV ×2 (05:39→12:48)
[2024-02-16 07:10] LABS: Absolute Neutrophil Count 14.7 X10^3/uL (2.0-7.7); Basophil# 0.03 X10^3/uL; Basophil% 0.2 % (0-1); Eosinophil# 0.03 X10^3/uL; Eosinophils% 0.2 % (0-5); Hematocrit 35.4 % (37-47); Hemoglobin 10.7 g/dL (12.0-15.0); Lymphocyte % 16.7 % (19-41); Mean Corp Hgb Conc 30.2 g/dL (32-36); Mean Corpuscular Hgb 22.1 pg (27.0-32.0); Mean Platelet Vol. 10.6 fl (6.2-12.0); Monocyte# 0.61 X10^3/uL; Monocyte% 3.3 % (0-10); NRBC Flagged by Analyzer 0 % (0-5); Neutrophil # 14.72 X10^3/uL (2.7-7.7); Neutrophil % 79.1 % (47-70); Platelet Count 476 K/mm3 (150-450); RBC Distribution Width CV 17.1 % (11.6-14.6); RBC Distribution Width SD 44.6 fl (35.1-43.9); Red Blood Count 4.85 M/mm3 (4.2-5.4); White Blood Count 18.6 K/mm3 (4.4-11.0)
[2024-02-16 08:03] LABS: Anion Gap 7 (5-15); BUN 13 mg/dL (7-18); BUN/Creat Ratio 21.3 RATIO (10-20); Calcium,Total 9.4 mg/dL (8.5-10.1); Chloride 107 mmol/L (98-107); Creatinine, Serum 0.61 mg/dL (0.55-1.02); EST Glomerular Filtration Rate 118 mL/min (>60); Est Glom Filt Rate - Afr Amer 143 mL/min (>60); Estimated Creatinine Clearance 204.09 ml/min; Glucose 113 mg/dL (74-106); Potassium 3.8 mmol/L (3.5-5.1); Sodium Level 139 mmol/L (136-145)
[2024-02-16 08:21] VITALS: O2SAT 93; O2SAT 98
[2024-02-16 09:18] VITALS: BP 149/92; PULSE 85; RESP 14; TEMP 36.6; O2SAT 95
[2024-02-16] MEDS: Azithromycin 500 MG in 0.9% Normal Saline (250mL Bag) 250 ML 250 MG IV (09:20)
[2024-02-16] MEDS: Venlafaxine XR 75 MG Capsule PO (09:21)
[2024-02-16] MEDS: Enoxaparin 40 MG/0.4 ML Syringe SC (09:21)
[2024-02-16] MEDS: busPIRone 5 MG Tablet PO (09:21)
[2024-02-16] MEDS: Pantoprazole Sodium 40 MG Tablet PO (09:21)
[2024-02-16] MEDS: Spironolactone 50 MG Tablet PO (09:21)
[2024-02-16] MEDS: Venlafaxine XR 150 MG Capsule PO (09:21)
--- NOTE | 2024-02-16 12:09 | CASEMGMT ---
RN CM Assessment ? Face to Face with patient for initial?transition planning/care coordination assessment. RN CM introduced self and role at [facility], pt voices understanding. Pt is A&Ox4 and is resting comfortably in bed and is calm. Patient at bedside. Care providers, pharmacy, and demographics verified. ? Admitting dx: ?pneumonia LACE Strata: ?1 PCP: ?Vasquez Nimeth Specialists: ?Kristin (GI), Rahat (GI), Dave (Hematology/Oncology) Preferred Pharmacy: ?[facility] Insurance: ?[facility] [employer] Prescription Benefit: Yes? LNOK: ?Jamar Chirinos () Living Arrangements: ?patient lives with her in a single-story home with a flat entrance ADLs/IADLs: independent? Transportation: ?self, . Denies concern DME: ?patient denies any DME uses or needs HHC/SNF: ?denies history or needs Pt?s goal:?return home Plan: ?anticipate discharge today. Patient states that she feel safe returning home. Per the RN O2 testing, the patient did not qualify for home oxygen. Six click score is 24. Patient denies the need for home healthcare, outpatient therapy, or CCN. Patient and patient request that the medication(s) be delivered to the patient bedside at time of DC. Patient inquires if [facility] can charge the ?s badge since he works at [employer] [facility] [employer]. Telephone call to [facility], [facility] states that they will be able to charge the patient's 's badge for the prescription costs. Patient and patient updated and aware. patient and patient deny any further questions or concerns at this time. Report given to [facility]PECT[facility] CM.
[2024-02-16 13:26] VITALS: PULSE 112; RESP 20
[2024-02-16] MEDS: Ipratropium/Albuterol Sulfate 3 ML AMPUL.NEB INHALATION (13:26)
--- NOTE | 2024-02-16 14:06 | PCM.DC.SUM ---
Providers Date of Admission: 02/15/24 Date of Discharge: 02/16/24 Primary Care Physician: Dr. Vasquez Keen MD Reason For Visit: PNEUMONIA Diagnosis Discharge Diagnosis (1) Pneumonia: Status: Acute Code(s): J18.9 - Pneumonia, unspecified organism Medications at Discharge Home Medications buspirone 5 mg tablet 5 mg PO BID anxiety 06/10/23 omeprazole 40 mg capsule,delayed release 40 mg PO BID md ordered 06/10/23 spironolactone 50 mg tablet 50 mg PO BID md ordered 06/10/23 venlafaxine 150 mg capsule,extended release 24 hr 150 mg PO DAILY depression 06/10/23 venlafaxine 75 mg capsule,extended release 24 hr 75 mg PO DAILY depression 06/10/23 cholecalciferol (vitamin D3) 50 mcg (2,000 unit) capsule 50 mcg PO DAILY md ordered 06/13/23 docusate sodium 100 mg capsule 100 mg PO BID md ordered 06/13/23 hydrocortisone 1 %-pramoxine 1 % rectal foam (Proctofoam HC) 1 applic MT TID md ordered #10 grams 02/02/24 lidocaine 5 % topical cream (RectiCare) 1 applic topical TID PRN pain #15 grams 02/02/24 ropinirole 0.25 mg tablet 0.25 mg PO QHS restless leg 02/02/24 trazodone 50 mg tablet 50 mg PO QHS md ordered 02/02/24 amoxicillin 875 mg-potassium clavulanate 125 mg tablet 1 tab PO BID #12 tabs 02/16/24 Hospital Course Operations None Procedures EKG and - (CTA chest) Summary of Care Provided Minutes Spent on Discharge: 37 Hospital Course: Ms Orozco is a 38-year-old white female who presented to the emergency department at [facility] on 02/15/2020 for complaining of shortness of breath. She indicated she woke up feeling fine and went to [place] to have an upper endoscopy performed at [facility]. She reported on the way home she began to feel feverish and chilled and was short of breath and had some nausea. Her symptoms progressively got worse and she spoke to her primary care physician who suggested she come to the emergency department. It was noted by the proceduralist at the outside hospital that there was an episode of hypoxia during the procedure but it resolved with anesthesiology intervention. Vital signs on presentation showed a temperature of 100.3, heart rate 138, respiratory rate 22, blood pressure was 178/127 with a repeat of 134/78 and pulse ox was 100% on room air. CBC showed a white count of 24.2 and a platelet count of 517,000. Chemistry panel showed mild hyponatremia with a sodium of 134 and hyperglycemia with a blood sugar of 143 however this was not fasting. Lipase was normal at 25. Her lactic was mildly elevated at 2.3 but resolved quickly. EKG showed sinus tachycardia. CTA of the chest was performed and demonstrated probable aspiration pneumonia with mild to moderate patchy consolidation in the left upper lobe with surrounding groundglass edema and tree-in-bud opacities with negative imaging for PE however contrast was not optimally times. Patient was admitted to hospital and placed on antibiotics for suspected aspiration pneumonia versus community-acquired pneumonia with Unasyn and azithromycin. She was given ceftriaxone emergency department. Aggressive pulmonary toilet and Mucinex were prescribed as well. Patient was found to be positive for rhinovirus. An echocardiogram was performed and showed a normal EF at 65% with no effusion or valvular abnormalities. No diastolic dysfunction was identified either. She was admitted due to the fact that her heart rate became quite fast with exertion up in the 140s. TSH was assessed and found to be normal at 1.62. She was never hypoxic during her hospital stay. Her tachycardia improved significantly to the point where she was in the 80s with intermittent rates in the low 100s with exertion. By the a.m. of 02/16/2024 her white count had come down to 18.6 and a platelet count had improved to 476,000. She was feeling much better and still not requiring any oxygen. Given the improvement in her heart rate and the fact that she was feeling much better we felt she was stable for discharge home. As noted above she was found to be rhinovirus positive but given the suspected aspiration event and the consolidation on her chest x-ray will completed 7-day course of antibiotics with Augmentin. Patient was able to be discharged in stable condition on 02/16/2024. She was encouraged to continue using incentive spirometer Acapella and asked to follow-up with her primary care physician within the next week after discharge. Discharge diagnoses: Rhinovirus infection Suspected aspiration pneumonia Leukocytosis Thrombocytosis Lactic acidosis Chronic microcytic anemia Esophageal erosions Morbid obesity Restless leg syndrome GERD Anxiety/depression Physical Exam Const alert, oriented x3, no apparent distress, no limitations and well nourished; Negative for average body habitus or healthy appearing Constitutional Narrative: Morbidly obese, white female, lying in bed, family at bedside, appears comfortable, nontoxic General Appearance: cooperative, comfortable, well kempt and well developed Orientation / Consciousness: awake, oriented to person, oriented to place and oriented to time Exam Limitations: no limitations Nutritional Appearance: morbidly obese HEENT normocephalic, head/scalp atraumatic, hearing grossly normal bilaterally and moist oral mucous membranes HEENT Narrative: Mallampati 3 Eyes EOMs intact bilaterally Eyes Narrative: No scleral icterus Neck supple Neck Narrative: Trachea midline Resp normal respiratory effort, no retractions, no use of accessory muscles and clear to auscultation bilaterally Auscultation: Negative for rales, rhonchi or wheezes Cardio regular rate, regular rhythm, S1 normal heart sound, S2 normal heart sound, no murmurs, no rub, no gallops and no clicks GI normal to inspection, nondistended, normoactive bowel sounds, soft to palpation and non-tender Extremity no clubbing, cyanosis or edema Extremity Narrative: 2+ pedal and radial pulses Skin no jaundice, no petechiae and no mottling Neuro oriented x3, moves all extremities and no focal motor deficits Speech: speech normal Psych affect normal Psych Narrative: Very pleasant, interacts appropriately Weight / BMI Weight Weight: 168 kg Body Mass Index (BMI) 61.6 ABG / Lab / Microbiology Data 02/16/24 06:45 02/16/24 06:45 Laboratory: Laboratory Results - last 24 hr 02/15/24 14:00: WBC 24.2 H, RBC 5.21, Hgb 11.4 L, Hct 38.3, MCV 73.5 L, MCH 21.9 L, MCHC 29.8 L, RDW Std Deviation 44.0 H, RDW Coeff of Lino 16.8 H, Plt Count 517 H, MPV 10.2, Immature Gran % (Auto) 0.600, Neut % (Auto) 91.4 H, Lymph % (Auto) 6.1 L, Oldham % (Auto) 1.8, Eos % (Auto) 0.0, Baso % (Auto) 0.1, Absolute Neuts (auto) 22.1 H, Absolute Lymphs (auto) 1.48, Nucleated RBC % 0, Differential Comment COMMENT, PT 13.2, INR 1.0, APTT 27.6, Sodium 134 L, Potassium 4.0, Chloride 102, Carbon Dioxide 27.0, Anion Gap 5, BUN 16, Creatinine 0.77, Estim Creat Clear Calc 161.86, Est GFR (MDRD) Af Amer 108, Est GFR (MDRD) Non-Af 89, BUN/Creatinine Ratio 20.7 H, Glucose 143 H, Calcium 9.7, Total Bilirubin 0.40, Direct Bilirubin 0.16, AST 25, ALT 67 H, Alkaline Phosphatase 223 H, Total Protein 8.3 H, Albumin 3.7, Globulin 4.6 H, Lipase 25 02/15/24 15:05: Lactic Acid 2.3 H* 02/15/24 19:38: Lactic Acid 2.3 H* 02/16/24 06:45: WBC 18.6 H, RBC 4.85, Hgb 10.7 L, Hct 35.4 L, MCV 73.0 L, MCH 22.1 L, MCHC 30.2 L, RDW Std Deviation 44.6 H, RDW Coeff of Lino 17.1 H, Plt Count 476 H, MPV 10.6, Immature Gran % (Auto) 0.500, Neut % (Auto) 79.1 H, Lymph % (Auto) 16.7 L, Oldham % (Auto) 3.3, Eos % (Auto) 0.2, Baso % (Auto) 0.2, Absolute Neuts (auto) 14.7 H, Absolute Lymphs (auto) 3.10, Nucleated RBC % 0, Sodium 139, Potassium 3.8, Chloride 107, Carbon Dioxide 25.0, Anion Gap 7, BUN 13, Creatinine 0.61, Estim Creat Clear Calc 204.09, Est GFR (MDRD) Af Amer 143, Est GFR (MDRD) Non-Af 118, BUN/Creatinine Ratio 21.3 H, Glucose 113 H, Calcium 9.4, TSH 1.620 Microbiology: Microbiology 02/15/24 17:08 Mucosa - Nasopharyngeal Respiratory Panel (PCR) - Final Rhinovirus 02/15/24 17:50 Urine, Clean Catch Legionella Antigen - Final 02/15/24 17:50 Urine, Clean Catch Streptococcus pneumoniae Antigen (M - Final 02/15/24 14:00 Mucosa - Nasopharyngeal SARS-CoV-2, Influenza & RSV (PCR) - Final Radiography Diagnostic Testing: Radiology Impression Chest CTA 02/15/24 13:34 IMPRESSION: 1. Probable aspiration pneumonia = Mild to moderate patchy consolidation is intermixed with linear atelectasis in the mid to inferior aspect of the left upper lobe with extension to the hilar region. Surrounding groundglass edema and tree-in-bud opacities are present in the same region. Mild patchy pneumonic consolidation with groundglass edema and tree-in-bud opacities are also seen in the lateral aspect of the left upper lobe from superior to inferior. 2. The left lung consolidation should be followed up to resolution to ensure no underlying occult process. 3. Suboptimal contrast opacification of the pulmonary arteries = There is limited enhancement of the main pulmonary artery and right and left pulmonary arteries. There is limited enhancement of the bilateral peripheral pulmonary arteries. There is no demonstrated obvious a large pulmonary embolism. Consider nuclear medicine lung perfusion scan symptoms persist. Electronically Signed: Steven Polk MD at 14:55 [facility] Reading Location ID and State: [address] [place] [address] , Service support , Echocardiogram 02/15/24 17:49 Interpretation Summary Normal LV size. Left ventricular systolic function is normal. The left ventricular ejection fraction is 65 %. No pericardial effusion. The study was technically limited. Ordering Physician: Jo-Ann Willoughby Performed By: Jo Lozano RDCS D/C Instructions Discharge Diet: Low fat / Low cholesterol Discharge Activity: Return to Normal Activity Return to work on: 02/17/24 DC O2, CPAP, BIPAP Needs RN Home O2 Qualification: Home O2 Qualification: Is the patient on home oxygen No 02/16/24 08:21 Home O2 Qualification: AT REST 1- Pulse Ox at rest 98 02/16/24 08:21 Home O2 Qualification: WITH AMBULATION 1- Pulse Ox with ambulation 93 02/16/24 08:21 1- Oxygen Flow Rate with 0 02/16/24 08:21 ambulation Home O2 Discharge instructions: No Meaningful Use Info Meaningful Use Meaningful Use Diagnoses (Choose all that apply): None applicable Ischemic Stroke Statin Dosing Therapy Reference: STATIN DOSE THERAPY REFERENCE: * Patients > 75 years receive moderate or high dose statin therapy. * Patients 75 years or YOUNGER should receive HIGH intensity statin dose unless contraindicated. You will be required to document reason for non-treatment if statin daily dose does not meet guidelines. HIGH DOSE STATIN THERAPY DAILY Atorvastatin > than or = to 40 mg Rosuvastatin > than or = to 20 mg Amlodipine + Atorvastatin > than or = to 2.5/40 mg Ezetimibe + Simvastatin 10/80 mg Simvastatin 80mg Discharge Plan Admission Admit Date/Time: 02/15/24 15:32 Primary Reason for Your Visit: Shortness of breath Attending Provider: Belgica Juarez Primary Care Provider: Vasquez Keen Consulting Providers: Jo-Ann Willoughby Discharge Orders/Prescriptions Prescriptions: New amoxicillin-pot clavulanate 875-125 mg tablet 1 tab PO BID Qty: 12 0RF Continued omeprazole 40 mg capsule,delayed release(DR/EC) 40 mg PO BID buspirone 5 mg tablet 5 mg PO BID venlafaxine 75 mg capsule,extended release 24hr 75 mg PO DAILY venlafaxine 150 mg capsule,extended release 24hr 150 mg PO DAILY spironolactone 50 mg tablet 50 mg PO BID cholecalciferol (vitamin D3) 50 mcg (2,000 unit) capsule 50 mcg PO DAILY docusate sodium 100 mg capsule 100 mg PO BID trazodone 50 mg tablet 50 mg PO QHS ropinirole 0.25 mg tablet 0.25 mg PO QHS lidocaine [RectiCare] 5 % cream 1 applic topical TID PRN (Reason: pain) Qty: 15 0RF Proctofoam HC 1-1 % foam 1 applic MT TID Qty: 10 0RF Referrals / Follow Up: Vasquez Keen MD [Primary Care Provider] - Within 1 Week Disposition Disposition (needs filled in before D/C Order can be placed): Home, Self Care Charges/Coding Visit Charges Inpatient E&M: 57791 Disch Hosp >30min
[2024-02-16 14:25] VITALS: BP 132/73; PULSE 95; RESP 11; TEMP 36.8; O2SAT 96
--- NOTE | 2024-02-16 15:36 | CASEMGMT ---
Patient has order for discharge. Patient does not qualify for home oxygen. RN CM in to discuss needs at discharge. Patient denies needs or help at discharge. Patient had no further questions or concerns.
== END 2024-02-16 15:55 | disposition home or self-care (01) | DRG 178 ==
LOC: ED 15:10 → PCU 15:44
PROVIDERS: Admitting Provider Internal Medicine; Emergency Provider Emergency Medicine; PCP Radiologic Technologist Bone Densitometry; Visit Provider Internal Medicine
DX: J69.0 Pneumonitis due to inhalation of food and vomit (principal); Z68.44 Body mass index [BMI] 60.0-69.9, adult; E87.20 Acidosis, unspecified; K22.10 Ulcer of esophagus without bleeding; F32.A Depression, unspecified; G25.81 Restless legs syndrome; D50.9 Iron deficiency anemia, unspecified; E66.01 Morbid (severe) obesity due to excess calories; K21.9 Gastro-esophageal reflux disease without esophagitis; F41.9 Anxiety disorder, unspecified; R00.0 Tachycardia, unspecified; Z86.16 Personal history of COVID-19; Z80.0 Family history of malignant neoplasm of digestive organs; B34.8 Other viral infections of unspecified site
CPT/HCPCS: 36415; 71275; 80048; 80076; 83605; 83690; 84443; 85025; 85610; 85730; 87040; 87449; 87631; 87633; 93005; 93308; 94640; 94668; 99285; Q9957; Q9967; A4216; J0295

== ENCOUNTER → 2024-02-25 | Outpatient (CLI) | payer OTHER, SELFPAY ==
--- NOTE | 2024-02-25 11:09 | RAD_ITS ---
INDICATION: PNEUMONIA INVOLVING LEFT LUNG -- J18.9 EXAMINATION/TECHNIQUE: X-RAY - XR Chest 2 Views COMPARISON: None. FINDINGS: The lungs are clear. The cardiomediastinal silhouette is unremarkable. No pleural effusion or pneumothorax. No acute osseous abnormalities. RAD/Chest PA and Lateral IMPRESSION: No acute radiographic abnormalities. Electronically Signed: Te Ferguson MD at 20:48 EST ,
== END | disposition home or self-care (01) ==
PROVIDERS: PCP Radiologic Technologist Bone Densitometry; Referring Provider Nurse Practitioner Family; Visit Provider Nurse Practitioner Family
DX: J18.9 Pneumonia, unspecified organism (principal)
CPT/HCPCS: 71046

== ENCOUNTER → 2024-08-09 | Outpatient (CLI) | payer OTHER, SELFPAY | END | disposition home or self-care (01) | LOC: SL 20:22 | PROVIDERS: PCP Radiologic Technologist Bone Densitometry; Referring Provider Internal Medicine Sleep Medicine; Visit Provider Internal Medicine Sleep Medicine | DX: G47.10 Hypersomnia, unspecified (principal); R06.81 Apnea, not elsewhere classified; R06.83 Snoring | CPT/HCPCS: 95810 ==

== ENCOUNTER → 2024-08-28 | Outpatient (CLI) | payer OTHER, SELFPAY | END | disposition home or self-care (01) | LOC: SL 10:05 | PROVIDERS: PCP Radiologic Technologist Bone Densitometry; Visit Provider Internal Medicine Sleep Medicine | DX: Z46.89 Encounter for fitting and adjustment of other specified devices (principal) ==

== ENCOUNTER → 2024-11-16 | Outpatient (CLI) | payer OTHER, SELFPAY ==
--- NOTE | 2024-11-16 12:40 | RAD_ITS ---
PROCEDURE: L/S SPINE MIN 4 VIEWS 11/16/2024 REASON FOR EXAM: LOW BACK PAIN TECHNIQUE: Procedure Code: [id number] Modality: DX Procedure: L/S SPINE MIN 4 VIEWS COMPARISON: None. FINDINGS: BONES: Five [id number] lumbar vertebral bodies. No fracture or focal osseous lesion. Anatomic spinal alignment. Mild lumbar levoscoliosis. DISC/DEGENERATIVE CHANGES: Disc spaces are preserved. SOFT TISSUES: No acute abnormality seen. Right mid abdominal surgical clips. RAD/L/S Spine Min 4 Views IMPRESSION: No acute abnormality. Reading Location: [id number]
== END | disposition home or self-care (01) ==
LOC: RAD 12:15
PROVIDERS: PCP Radiologic Technologist Bone Densitometry; Referring Provider Chiropractor; Visit Provider Chiropractor
DX: M54.50 Low back pain, unspecified (principal)
CPT/HCPCS: 72110

== ENCOUNTER 2024-11-30 11:00 | Outpatient (RCR) | payer OTHER, SELFPAY ==
--- NOTE | 2024-10-26 12:02 | HP.PTEVAL ---
Patient's Visit Information Visit Information Visit Information: CHIO BUCIO is a 39 year old F referred to Physical Therapy by Dr. Ayden Mchugh MD with a diagnosis of URGE INCONTINENCE. Date of Evaluation: 10/17/24 Physical Therapist: Daniella Menchaca PT, Cert MDT Visit Plan Frequency: 1x/Week Duration: 6-8 WKS Plan: BLADDER RETRAINING. PF THERAPY FOR STRENGTHENING AND ENDURANCE TRAINING. URINARY URGE AND FREQUENCY EDUCATION. HEALTHY BLADDER, BACK AND POSTURE HABIT EDUCATION. TRAINING IN COORDINATION OF PELVIC FLOOR MUSCULATURE WITH HIP AND CORE (TRANSVERSE ABDOMINUS) MUSCULATURE. CORE STRENGTHENING. GERALD LE ROM, STRETCHING AND STRENGTHENING. TRAINING IN ABDOMINAL CAVITY PRESSURE MGMT WITH ADL'S. 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 LIKES HIKING. Disability: NO Present symptoms: WAS HAVING URINARY INCONTINENCE AND FREQUENCY BUT CURRENTLY ONLY HAVING A FEW DROPS OF UI OCCASIONALLY WHEN WORKING AND DELAYS URINATING AND THEN TRYING TO MAKE IT TO THE BATHROOM. Present since: A COUPLE OF YEARS Pain Scale: N/A Is it getting better, worse or staying the same: GETTING BETTER Commenced as a result of: NO APPARENT REASON Worse: UNKNOWN Better: ESTROGEN CREAM - TOPICAL, METFORMIN Previous history/Previous treatment: NONE Treatment this episode: PRESCRIBED OXYBUTYNIN BY DR. MCHUGH BUT DID NOT TAKE IT. TOPICAL ESTROGEN CREAM STARTING 10/06/24 IN VAGINAL AREA AND METFORMIN PRESCRIBED BY DR. EARLY (OBGYN) VIA ONLINE [facility]. Coughing/sneezing: NOT CURRENTLY HAVING UI WITH COUGHING AND SNEEZING. Gait: NORMAL How long can you delay the need to urinate: 30 MIN Prolapse (Falling out feeling): NO Frequency of Urination: APPROX EVERY 2 HRS BUT NOT SURE. Fluid Intake: 6-8, 8 oz glasses a day. Ability to stop urine flow: PATIENT DOES NOT KNOW IF SHE CAN CURRENTLY Ability to initiate urine stream: NO Dyspareunia: NO Bowel Incontinence: NO Accidents: NO Unexplained weight loss: NO Imaging: NO PMH/Recent major surgery: CHRONIC LOW BACK PAIN TREATED WITH CHIROPRACTIC ADJUSTMENTS. CHRONIC SHLD TENSION TREATED WITH CHIROPRACTIC. Morbid obesity Cervical high risk HPV (human papillomavirus) test positive Esophageal ulcer Pulmonary hypertension Anemia Vitamin D deficiency Anxiety Depression, endogenous GERD (gastroesophageal reflux disease) Fatigue COVID-19 History of tonsillectomy and adenoidectomy Hx of cholecystectomy H/O LEEP Sleep Apnea Objective Objective: Sitting/Standing Posture: PATIENT STANDS IN ANT PELVIC TILT. INCREASED LORDOSIS. INCREASED KYPHOSIS. NO RELEVANT LATERAL LUMBAR SHIFT. Other Observations: INDEP GAIT AND TRANSFERS Sensory deficit: GERALD LE LIGHT TOUCH SENSATION GROSSLY INTACT AND SYMMETRICAL. ROM deficit: GERALD LE HIP FLEXOR AND CALF TIGHTNESS. GERALD HIP IR/ER TIGHTNESS. Motor deficit: GERALD LE'S GROSSLY 5/5 EXCEPT HIP ROTATORS AND ABDUCTORS 4/5. Dural Signs: NEGATIVE GERALD LE'S. Lumbar mvmt loss: flex - MOD ext - MOD R SG - MOD L SG - MOD PATIENT C/O LBP WITH LUMBAR EXT TESTING BUT NW A RESULT. REFUSES LB PALPATION AND STATES SHE REALLY DOESN'T LIKE ANYONE TO TOUCH IT AND EVEN THOUGH SHE GOES TO THE CHIROPRACTOR SHE REALLY DOESN'T TALK TO THEM ABOUT HER LOW BACK PAIN. STATES SHE HAS CONSIDERED TALKING TO HER PCP ABOUT HER LBP. Core strength: POOR Other: Issued Bladder Diary Pelvic organ prolapse distress inventory 6: 3 Colorectal-Anal distress inventory 8: 5 Urinary distress inventory 6: 21 Goals Goal 1:: NORMALIZE VOIDING FREQUENCEY TO EVERY 3-4 HOURS. Goal Time Frame: 4-6 Weeks Goal 2:: PATIENT ABLE TO STATE 5 OF 5 URGE SUPPRESSION/BLADDER RETRAINING STRATEGIES Goal Time Frame: 4-6 Weeks Goal 3:: PATIENT WILL SUCCESSFULLY DELAY VOIDING LONG NEEDED WHEN URGENCY OCCURS TO SUCCESSFULLY MAKE IT TO THE BATHROOM. Goal Time Frame: 6-8 Weeks Goal 4:: DEVELOP HEALTHY FLUID INTAKE HABITS WITH FLUID INTAKE OF ? BODY WEIGHT IN OUNCES PER DAY AND 2/3 BEING WATER. Goal Time Frame: 2-4 Weeks Goal 5:: IMPROVE PELVIC FLOOR MUSCLE STRENGTH AND ENDURANCE TO IMPROVE URINARY INCONTINENCE AND ORGAN SUPPORT. Goal Time Frame: 6-8 Weeks Goal 6:: PATIENT WILL BE INDEP WITH A HEP/HOME INSTRUCTIONS FOR CONTINUED IMPROVEMENT ONCE FORMAL PHYSICAL THERAPY CONCLUDES. Goal Time Frame: 6-8 Weeks Rehabilitation Potential Physical Therapy Diagnosis: URINARY FREQUENCY, CORE AND LE STIFFNESS AND WEAKNESS WITH SIGNS OF PELVIC FLOOR WEAKNESS AND MIXED INCONTINENCE. Rehabilitation Potential: Good Anticipated Interventions Patient/Client Instruction: Educate patient on: Condition, Plan of Care and Risk Factors For the Purpose of:: To improve self management Therapeutic Exercise to Include: Strength training, Body mechanics, Postural training, Flexibilty training and Neuromotor development For the Purpose of:: To improve muscle performance and motor function, To increase tolerance to activity/condition/position, To improve ability of physical actions for home/community/work/leisure, To improve self management and To improve ability to perform tasks related to life management Text: Thank you for the opportunity to evaluate your patient. For Medicare and Medicare HMO plans, please review the plan of care and approve it. It will need to be FAXED BACK to us at [phone] for Medicare purposes. For Medicare only, by signing this I certify the plan of care. Please let me know if there are questions or concerns regarding this plan of care. Physician Signature: Date:
--- NOTE | 2024-11-30 12:09 | HP.PTDCSUM_ITS ---
Discharge Summary D/C summary: It has been my pleasure to treat CHIO BUCIO referred by Dr. Ayden Vanegas MD, with the diagnosis of URGE INCONTINENCE for a total of 5 visit(s). Discharge Date: 11/30/24 Please see the following information for a summary of their discharge status. Subjective Subjective: PATIENT REPORTS IT IS GOING PRETTY GOOD WITH HER BLADDER RETRAINING AND HER FREQUENCY HAS DEFINATELY IMPROVED. SHE REPORTS SHE CAN DEFINATELY GO TW O SESSIONS INSTEAD OF JUST ONE WITHOUT GOING TO THE BATHROOM NOW. PATIENT REPORTS CANCELLING HER F/U LUDY'T WITH DR. VANEGAS. NO PELVIC AREA PAIN BUT IS HAVING INCREASED LOW BACK PAIN FOR NO APPARENT REASON. SAW HER CHIROPACTOR TUESDAY AND SHE THINKS IT MIGHT HAVE HELPED SOME. PLANS TO SEE HER PCP 12/06/24 ABOUT HER BACK PAIN. Overall Improvement % Improvement: 60 Objective Objective/Function: THIS PATIENT HAS MADE GOOD PROGRESS WITH BLADDER RETRAINING FOR URGE INCONTINENCE AND NO LONGER PLANS TO FOLLOW UP WITH DR. VANEGAS AT THIS TIME. SHE STATES SHE PLANS TO SEE HER PCP TO PURSUE TREATMENT FOR HER LOW BACK PAIN. SHE PLANS TO CONTINUE BLADDER MEDICATION THROUGH HER ONLINE OBGYN UNTIL INPERSON EXAM WITH AN OBGYN IN FEBRUARY 2025. AT THAT TIME SHE WILL CONSIDER FURTHER PELVIC FLOOR THERAPY. Pelvic organ prolapse distress inventory 6: 4 Colorectal-Anal distress inventory 8: 7 Urinary distress inventory 6: 11 Goals Goal 1:: NORMALIZE VOIDING FREQUENCEY TO EVERY 3-4 HOURS. Goal Progress: Progressing Goal 2:: PATIENT ABLE TO STATE 5 OF 5 URGE SUPPRESSION/BLADDER RETRAINING STRATEGIES Goal Progress: Goal Met Goal 3:: PATIENT WILL SUCCESSFULLY DELAY VOIDING LONG NEEDED WHEN URGENCY OCCURS TO SUCCESSFULLY MAKE IT TO THE BATHROOM. Goal Progress: Progressing Goal 4:: DEVELOP HEALTHY FLUID INTAKE HABITS WITH FLUID INTAKE OF ? BODY WEIGHT IN OUNCES PER DAY AND 2/3 BEING WATER. Goal Progress: Progressing Goal 5:: IMPROVE PELVIC FLOOR MUSCLE STRENGTH AND ENDURANCE TO IMPROVE URINARY INCONTINENCE AND ORGAN SUPPORT. Goal Progress: Progressing Goal 6:: PATIENT WILL BE INDEP WITH A HEP/HOME INSTRUCTIONS FOR CONTINUED IMPROVEMENT ONCE FORMAL PHYSICAL THERAPY CONCLUDES. Goal Progress: Goal Met Plan Plan: D/C OF PLEVIC FLOOR THERAPY FOR URGE INCONTINENCE WITH PATIENT REPORTING 60% IMPROVEMENT ON INDEP WITH HEP AND 5 BLADDER RETRAINING STRATEGIES. PATIENT AGREEABLE. D/C Information d/c sentence: If there are questions or concerns regarding this patient's physical therapy, please feel free to call me at [phone]. Thank you for the referral of this patient. Sincerely, Daniella Menchaca, PT, Cert MDT Balance/Gait/Functional tests Improvement % Improvement: 60
== END 2024-11-30 19:00 | disposition home or self-care (01) ==
LOC: PT 11:00
PROVIDERS: PCP Radiologic Technologist Bone Densitometry; Referring Provider Urology; Visit Provider Urology
DX: N39.46 Mixed incontinence (principal)
CPT/HCPCS: 97162; 97530

== ENCOUNTER → 2024-11-30 | Outpatient (CLI) | payer OTHER, SELFPAY ==
[2024-11-30 15:39] LABS: AST(SGOT) 35 U/L (<=31); Alanine Aminotransfer ALT/SGPT 65 U/L (<=34); Albumin, Serum 4.3 g/dL (3.5-5.0); Alkaline Phosphatase 139 U/L (35-104); Bilirubin, Direct 0.11 mg/dL (0.00-0.30); Globulin 3.1 g/dL (2.2-4.2)
== END | disposition home or self-care (01) ==
LOC: LAB 14:14
PROVIDERS: PCP Radiologic Technologist Bone Densitometry; Referring Provider Radiologic Technologist Bone Densitometry; Visit Provider Radiologic Technologist Bone Densitometry
DX: R79.89 Other specified abnormal findings of blood chemistry (principal)
CPT/HCPCS: 36415; 80076; 84439; 84443

== ENCOUNTER → 2024-12-05 | Outpatient (CLI) | payer OTHER, SELFPAY ==
--- NOTE | 2024-12-05 10:20 | RAD_ITS ---
EXAM: XR Lumbosacral Spine, 4 or 5 Views CLINICAL INDICATION: BACK PAIN TECHNIQUE: Frontal, lateral and bilateral oblique views of the lumbar spine. COMPARISON: No relevant prior studies available. FINDINGS: VERTEBRAE: Mild facet arthropathy of L3-S1. Normal alignment. No fracture or significant dynamic instability. SACRUM/COCCYX: Unremarkable as visualized. No acute fracture. DISC SPACES: No acute findings. No significant narrowing. SOFT TISSUES: Unremarkable. RAD/L/S Spine Comp/w Bending Views IMPRESSION: Degenerative changes as above. Reading Location: [id number]
== END | disposition home or self-care (01) ==
LOC: RAD 10:14
PROVIDERS: PCP Radiologic Technologist Bone Densitometry; Referring Provider Student in an Organized Health Care Education/Training Program; Visit Provider Student in an Organized Health Care Education/Training Program
DX: M54.9 Dorsalgia, unspecified (principal)
CPT/HCPCS: 72114

== ENCOUNTER → 2024-12-11 | Outpatient (CLI) | payer OTHER, SELFPAY ==
[2024-12-11 11:00] LABS: CORTISOL AM 0.58 ug/dL (6.02-18.40)
== END | disposition home or self-care (01) ==
LOC: MTLAB 07:55 → LAB 09:12
PROVIDERS: PCP Radiologic Technologist Bone Densitometry; Referring Provider Nurse Practitioner Family; Visit Provider Nurse Practitioner Family
DX: R63.5 Abnormal weight gain (principal)
CPT/HCPCS: 36415; 82024; 82533; 82627; 82626

== ENCOUNTER → 2024-12-17 | Outpatient (CLI) | payer OTHER, SELFPAY ==
--- NOTE | 2024-12-17 09:00 | MRI_ITS ---
PROCEDURE: SPINE LUMBAR (ROUTINE) 12/17/2024 REASON FOR EXAM: PAIN, BILATERAL RADICULOPATHY TECHNIQUE: Procedure Code: MRISPL Modality: MR Procedure: SPINE LUMBAR (ROUTINE) FINDINGS: Normal lumbar alignment and vertebral body height. Mildly limited study secondary to patient conditions. Normal conus. No tethered cord. Normal cauda equina. No subluxation. No marrow edema. No compression fracture. At L5-S1 there is a small central protrusion abutting the ventral thecal sac without nerve root compression MRI/Spine Lumbar (Routine) IMPRESSION: Small central protrusion at L5-S1 abutting the thecal sac without thecal sac co mpression or nerve impingement. Reading Location: [facility]
== END | disposition home or self-care (01) ==
LOC: MRI 08:54
PROVIDERS: PCP Radiologic Technologist Bone Densitometry; Referring Provider Student in an Organized Health Care Education/Training Program; Visit Provider Student in an Organized Health Care Education/Training Program
DX: M54.16 Radiculopathy, lumbar region (principal)
CPT/HCPCS: 72148

== ENCOUNTER → 2025-02-15 | Outpatient (CLI) | payer OTHER, SELFPAY ==
--- OUTSIDE RECORDS SUMMARY | 2025-02-15 09:41 | XMS RPT_ITS | CCD ---
Author Organization [facility] Care Team Providers Care Driver Merchandiser Name Role Phone Doup, Maryjo Horn Primary Care Provider JAIME JOHNSTON Attending Unavailab marck SNYDER, PHYSICIAN Primary Care Unavailable VASQUEZ IRWIN Primary Care UnavailSHANE Michael Attending Unavailable Vasquez Irwin Primary Care Provider Nancy HOLISTIC SPECIALIST, HOLISTIC SPECIALIST-C Maryann Attending Provider Vasquez Irwin MD Primary Care Provider VASQUEZ IRWIN Primary Care Unavailable DANICA V~[id number], DANICA GIACOMO Attending Un available DANICA V~[id number], DANICA MICHELIAN Referring Un available Vasquez Irwin Primary Care Provider [phone] Vasquez Irwin MD Primary Care Provider [phone] MARYANN CRUZ Referring Unavailable MARYANN CRUZ Referring Unavailable VASQUEZ IRWIN Primary Care Unavailable Dr. Vasquez Irwin MD Primary Care Provider Dr. Vasquez Irwin MD Referring Provider Nancy OTTO-CMaryann Attending Provider Dr. Bartolome Bella DO Attending Provider Dr. Bartolome Bella DO Referring Provider QUETA OLIVEIRA Attending Unavailable VASQUEZ IRWIN Primary Care UnavailHALEIGH Gonzales Attending Unavailable VASQUEZ IRWIN Primary Care UnavailQUETA Stone Attending Unavailable VASQUEZ IRWIN Primary Care Unavailsloan e RAN SNIDER II Referring Unavailabl e COOPERRIDRAN WOOTEN II Attending Unavailabl e NIMETH, VASQUEZ ESPARZA Primary Care Unavailabl e GABRIELLA MARQUES Attending Unavailable ALIDA, VASQUEZ ESPARZA Primary Care Unavailsloan e Alida LOPEZ, Dr. Ovalle Primary Care Physician [phone] Shayne ARITA, Dr. Mancuso Attending Physician Jeison LOPEZ, Dr. Ayden Willis Attending Physician Jeison LOPEZ, Dr. Ayden Willis Referring Provider Micheal LONG, Dr. Haider Dale Attending Physician Micheal LONG, Dr. Haider Dale Referring Provider Jeison LOPEZ, Dr. Ayden Willis Attending Physician Jeison LOPEZ, Dr. Ayden Willis Referring Provider Alida LOPEZ, Dr. Ovalle Attending Physician Alida LOPEZ, Dr. Ovalle Referring Provider ORALIA PROFESSOR OF RHETORIC~[id number], ORALIA JESSICA D Attend ing Unavailable ORALIA PROFESSOR OF RHETORIC~[id number], ORALIA JESSICA D Primar y Care Unavailable ORALIA PROFESSOR OF RHETORIC, JESSICA D Consulting Unavailab le ORALIA PROFESSOR OF RHETORIC~[id number], ORALIA JESSICA D Admitt ing Unavailable ORALIA PROFESSOR OF RHETORIC, JESSICA D Consulting Unavailab le ORALIA PROFESSOR OF RHETORIC, JESSICA D Consulting Unavailab le ORALIA PROFESSOR OF RHETORIC~[id number], ORALIA JESSICA D Attend ing Unavailable ORALIA PROFESSOR OF RHETORIC~[id number], ORALIA JESSICA D Primar y Care Unavailable ORALIA PROFESSOR OF RHETORIC~[id number], ORALIA JESSICA D Admitt ing Unavailable OARLIA PROFESSOR OF RHETORIC, JESSICA D Consulting Unavailab le ORALIA PROFESSOR OF RHETORIC~[id number], ORALIA JESSICA D Admitt ing Unavailable ORALIA PROFESSOR OF RHETORIC~[id number], ORALIA JESSICA D Attend ing Unavailable ORALIA PROFESSOR OF RHETORIC, JESSICA D Consulting Unavailab le ORALIA PROFESSOR OF RHETORIC~[id number], ORALIA JESSICA D Primar y Care Unavailable ORALIA PROFESSOR OF RHETORIC, JESSICA D Consulting Unavailab le ORALIA PROFESSOR OF RHETORIC~[id number], ORALIA JESSICA D Attend ing Unavailable ORALIA PROFESSOR OF RHETORIC, JESSICA D Consulting Unavailab le ORALIA PROFESSOR OF RHETORIC~[id number], ORALIA JESSICA D Primar y Care Unavailable ORALIA PROFESSOR OF RHETORIC~[id number], ORALIA JESSICA D Admitt ing Unavailable ORALIA PROFESSOR OF RHETORIC, JESSICA D Consulting Unavailab le ORALIA PROFESSOR OF RHETORIC~[id number], ORALIA JESSICA D Attend ing Unavailable ORALIA PROFESSOR OF RHETORIC, JESSICA D Consulting Unavailab le ORALIA PROFESSOR OF RHETORIC~[id number], ORALIA JESSICA D Primar y Care Unavailable ORALIA PROFESSOR OF RHETORIC~[id number], ORALIA JESSICA D Admitt ing Unavailable ORALIA PROFESSOR OF RHETORIC, JESSICA D Consulting Unavailab le ORALIA PROFESSOR OF RHETORIC~[id number], ORALIA JESSICA D Primar y Care Unavailable FLORI LOPEZ, DR LINDQUIST Attending Unavailsloan RUBY MD, DR LINDQUIST Admitting Unavailabl e ORALIA PROFESSOR OF RHETORIC, JESSICA D Consulting Unavailab le ORALIA PROFESSOR OF RHETORIC, JESSICA D Consulting Unavailab marck RUBY MD, DR LINDQUIST Consulting Unavailsloan RUBY MD, DR LINDQUIST Consulting Unavailabl e ORALIA PROFESSOR OF RHETORIC~[id number], ORALIA JESSICA D Primar y Care Unavailable FLORI LOPEZ, DR LINDQUIST Attending Unavailsloan RUBY MD, DR LINDQUIST Admitting Unavailabl e ORALIA PROFESSOR OF RHETORIC, JESSICA D Consulting Unavailab le ORALIA PROFESSOR OF RHETORIC, JESSICA D Consulting Unavailab marck RUBY MD, DR LINDQUIST Consulting Unavailsloan RUBY MD, DR LINDQUIST Consulting Unavailabl dashawn Irwin MD, Dr. Ovalle Primary Care Physician [phone] Dr. Bartolome Bella DO Attending Physician Jasmine Dias Attending Physician Jasmine Dias Referring Provider Oralia HOLISTIC SPECIALIST-C, Jessica Attending Physician [phone] Oralia HOLISTIC SPECIALIST-C, Jessica Referring Provider Vasquez Irwin Referring Unavailable Jasmine Heath Attending Unavailable Vasquez Irwin Primary Care Unavailable Nimeth, Vasquez Primary Care Unavailable Maryann Cruz NP Attending Unavailable Nimeth, Vasquez Referring Unavailable Nimeth, Vasquez Primary Care Unavailable Jo-Ann Willoughby Consulting Unavailable Jo-Ann Willoughby Admitting Unavailable Belgica Juarez Attending Unavailable Nimeth, Vasquez Primary Care Unavailable Kumar, Jasmine Referring Unavailable Kumar, Jasmine Attending Unavailable Oralia, Jessica Referring Unavailable Oralia, Jessica Attending Unavailable Nimeth, Vasquez Primary Care Unavailable Nimeth, Vasquez Primary Care Unavailable Bartolome Bella Referring Unavailable Bartolome Bella Attending Unavailable JeisonAyden Referring Unavailable Jeison, Goyo Attending Unavailable Nimeth, Vasquez Primary Care Unavailable Nimeth, Vasquez Primary Care Unavailable Bartolome Bella Attending Unavailable Harshanemetz, Haider J Referring Unavailable Stinemetz Haider J Attending Unavailable Nimeth, Vasquez Primary Care Unavailable Oralia, Jessica Attending Unavailable Nimeth, Vasquez Primary Care Unavailable Nimeth, Vasquez Primary Care Unavailable Kumar, Jasmine Referring Unavailable Kumar, Jasmine Attending Unavailable Nimeth, Vasquez Primary Care Unavailable Jeff Grigsby Attending Unavailable Nimeth, Vasquez Attending Unavailable Nimeth, Vasquez Primary Care Unavailable Nimeth, Vasquez Referring Unavailable Kumar, Jasmine Attending Unavailable Nimeth, Vasquez Primary Care Unavailable Kumar, Jasmine Referring Unavailable Oralia, Jessica Referring Unavailable Oralia, Jessica Attending Unavailable Nimeth, Vasquez Primary Care Unavailable Nimeth, Vasquez Primary Care Unavailable Saul Wong Attending Unavailable Nimeth, Vasquez Primary Care Unavailable Jo-Ann Willoughby Consulting Unavailable Jo-Ann Willoughby Admitting Unavailable Belgica Juarez Attending Unavailable Belgica Juarez Consulting Unavailable Jo-Ann Willoughby Attending Unavailable Nimeth, Vasquez Referring Unavailable Nimeth, Vasquez Primary Care Unavailable Kumar, Jasmine Attending Unavailable Allergies Allergy Classification Reported Allergen(s) Allergy Type Date of Onset Reaction(s) Facility (10 sources) Sulfonamides (Antibiotic); Translations: [SULFA (SULFONAMIDE ANTIBIOTICS)] Drug Allergy 4 Rash [facility] (6 sources) Amoxicillin-Pot Clavulanate; Translations: [AMOXICILLIN-POT CLAVULANATE] Propensity to adverse reactions to drug 5 Itching, Rash [facility] (5 sources) Amoxicillin Drug Allergy 5 Rash [facility] (5 sources) Clavulanate Drug Allergy 5 Rash [facility] (1 source) Amoxicillin / Clavulanate Drug Allergy [facility] (1 source) Amoxicillin Drug Allergy 5 [facility] (1 source) Clavulanate Drug Allergy 5 [facility] Medications Current Medications Medication Drug Class(es) Dates Sig (Normalized) Sig (Original) benoxinate hydrochloride 4 mg/ml / fluorescein sodium 3 mg/ml ophthalmic solution (5 sources) Diagnostic Dye Start: 09-26-2024 End: 09-26-2024 fluorescein-benoxi barbara 0.3-0.4 % 1 drop (FLURESS) Start: 09-26-2024 End: 09-26-2024 1 drop, BOTH EYES, DIRECT ED, Starting on Tue09/26/24 at 1100, Until Tue09/26/24 at 2259, Administer for applanation tonometry. In the event of a Fluress shortage, administer Steffanie-Fluor 1 drop into both eyes as directed for applanation tonometry Start: 09-21-2023 End: 09-21-2023 fluorescein-benoxinate 0.3-0 .4 % 1 Drop (FLURESS) Start: 08-25-2022 End: 08-26-2022 fluorescein-benoxinate 0.25- 0.4 % 1 Drop (FLURESS) busPIRone hydrochloride 5 mg oral tablet (17 sources) Start: 06-10-2023 take 1 tablet by [place]ver[place] twice daily Start: 09-17-2021 busPIRone 10 M G tablet Take by mouth 2 times daily. 09/17/2021 Active Comment on above: Take 5 mg by mouth t wice daily. cholecalciferol 0.05 mg oral capsule (11 sources) Vitamin D Start: 06-26-2024 take 1 capsule by mouth once daily Start: 06-13-2023 take 1 capsule by mouth once d aily Cholecalciferol (vitamin D) 4000 Units capsule (1 source) Start: 07-03-2023 Cholecalcifero l (vitamin D) 4000 Units capsule 07/03/2023 Active CPAP - Continuous Positive Airway Pressure([facility] INFORMATIONAL USE ONLY) (1 source) Start: 12-10-2024 CPAP - Continu ous Positive Airway Pressure([facility] INFORMATIONAL USE ONLY) Active 0 .Route .MEDSUPPLY December 10, 2024 12:00am AUTOCPAP 4-14 DME- DASCO MASK- RESMED P30i NASAL PILLOWS SMALL FRAME, SMALL CUSHION docusate sodium 100 mg oral capsule (7 sources) Start: 06-13-2023 take 1 capsule by mouth twice daily Start: 06-13-2023 take 100 mg by mouth twice essence ly Docusate Sodium Active 100 MG PO TWICE A DAY June 13, 2023 12:00am take 1 capsule by mo uth once daily docusate sodium (COLACE) 100 mg capsule Take 1 capsule (100 mg total) by mouth 1 (one) time each day. Active ergocalciferol 1.25 mg oral capsule (8 sources) Provitamin D2 Compound Start: 07-28-2019 VITAMIN D2 1,250 mcg (50,000 unit) capsule 07/28/2019 Active Start: 07-28-2019 take 1 capsule by mouth once V ITAMIN D2 1,250 mcg (50,000 unit) capsule TAKE 1 CAPSULE BY MOUTH EVERY TUESDAY AND Tuesday07/28/2019 Active Comment on above: TAKE 1 CAPSULE BY [facility] EVERY TUESDAY AND TUESDAY hydrocortisone acetate 10 mg/ml / pramoxine hydrochloride 10 mg/ml rectal foam (5 sources) Corticosteroid Start: 4 lidocaine 50 mg/ml rectal cream (5 sources) Antiarrhythmic, Amide Local Anesthetic Start: 4 lisdexamfetamine dimesylate 50 mg oral capsule (9 sources) Central Nervous System Stimulant Start: 5 lisdexamfetamine (VYVANSE) 50 mg capsule 08/27/2024 Active Start: 06-26-2024 take 1 capsule by mouth once d aily in the morning metFORMIN hydrochloride 850 mg oral tablet (1 source) Biguanide Start: 12-11-2024 nitrofurantoin, macrocrystals 25 mg / nitrofurantoin, monohydrate 75 mg oral capsule (2 sources) Nitrofuran Antibacterial Start: 09-11-2024 End: 09-18-2024 take 1 capsule by mouth twice daily nitrofurantoin monohydrate and macrocrystal (MACROBID) 100 mg capsule Indications: Acute cystitis without hematuria Take 1 capsule by mouth two times a day for 7 days. 14 capsule 09/11/2024 09/18/2024 Active omeprazole 40 mg delayed release oral capsule (16 sources) Proton Pump Inhibitor Start: 07-15-2022 take 1 capsule by mouth twice daily take 2 capsules by mouth twice d aily omeprazole (PriLOSEC) [address] capsule Take 2 capsules (40 mg total) by mouth 2 (two) times a day. Do not crush or chew. Active Comment on above: Take 40 mg by mouth. phenazopyridine hydrochloride 200 mg oral tablet (2 sources) Start: 09-12-19 End: 09-15-19 take 1 tablet by mouth three times daily as needed phenazopyridine (PYRIDIUM) 200 mg tablet Indications: Acute cystitis without hematuria Take 1 tablet by mouth three times a day as needed for up to 3 days. 9 tablet 09/11/2024 09/14/2024 Active phenylephrine hydrochloride 25 mg/ml ophthalmic solution (2 sources) alpha-1 Adrenergic Agonist Start: 09-21-19 End: 09-21-19 PHENYLephrine 2.5 % 1 Drop (AK-DILATE, NEREIDA-SYNEPHRINE) Polyethylene Glycols (1 source) polyethylene gly col 3350 (MIRALAX ORAL) Take by mouth 1 (one) time each day. Active polysaccharide iron complex 391 mg oral capsule (7 sources) Start: 09-01-19 take 1 capsule by mouth once PRO FE 180 mg iron cap Take 1 capsule by mouth every afternoon. 09/01/2023 Active psyllium husk (METAMUCIL ORAL) (1 source) psyllium husk (METAMUCIL ORAL) Take by mouth 1 (one) time each day. Active rOPINIRole 0.5 mg oral tablet (16 sources) Nonergot Dopamine Agonist Start: 06-02-19 take 1 tablet by mouth at bedtime Start: 02-02-2024 End: 06-26-2024 take 1 tablet by mouth at bedtime Ropinirole 0.25 mg tablet Discontinued 0.25 mg PO AT BEDTIME February 02, 2024 1:00am June 26, 2024 9:04am restless leg semaglutide (WEGOVY SUBQ) (1 source) semaglutide (WEG OVY SUBQ) Inject under the skin. Active semaglutide, weight loss, (WEGOVY) 0.25 mg/0.5 mL pen injector (4 sources) inject 0.25 mg by subcutaneous injection every week semaglutide, weight loss, (WEGOVY) 0.25 mg/0.5 mL pen injector Inject 0.25 mg subcutaneously one time a week. Active spironolactone 50 mg oral tablet (16 sources) Aldosterone Antagonist Start: 2019 take 1 tablet by mouth twice daily Comment on above: TAKE 1 TABLET BY [place] TWICE DAILY DO NOT GET ON THIS MEDICATION traZODone hydrochloride 50 mg oral tablet (13 sources) Serotonin Reuptake Inhibitor Start: 2023 take 1 tablet by mouth at bedtime tropicamide 10 mg/ml ophthalmic solution (5 sources) Anticholinergic Start: 2024 End: 2024 tropicamide 1 % 1 drop (MYDRIACYL) Start: 09-26-2024 End: 09-26-2024 1 drop, BOTH EYES, DIRECT ED, Starting on Tue09/26/24 at 1100, Until Tue09/26/24 at 2259, Administer for dilation Start: 09-21-2023 End: 09-21-2023 tropicamide 1 % 1 Drop (MYDR IACYL) Start: 08-25-2022 End: 08-26-2022 tropicamide 0.5 % 1 Drop (MY DRIACYL) 24 hr venlafaxine 75 mg extended release oral capsule (20 sources) Serotonin and Norepinephrine Reuptake Inhibitor Start: 06-10-2023 take 1 capsule by mouth once daily Start: 06-10-2023 take 1 capsule by [facility] once daily Start: 10-11-2018 Effexor XR 75 MG Cap SR 24HR capsule XR 10/11/2018 Active Start: 04-27-2018 take 1 capsule by [facility] once daily venlafaxine XR (EFFEXOR-XR) 150 mg 24 hr capsule Take 225 mg by mouth 1 (one) time each day at the same time. 04/27/2018 Active Start: 08-04-2016 Effexor XR 150 MG Cap SR 24HR capsule XR 08/04/2016 Active take 75 mg by mouth once daily v enlafaxine HCl (EFFEXOR ORAL) Take 75 mg by mouth once daily. Active venlafaxine HCl (EFFEXOR ORAL) Take by mouth. Active venlafaxine HCl (EFFEXOR ORAL) Take by mouth. 0 Active Comment on above: Take by mouth. Completed/Discontinued Medications Medication Drug Class(es) Dates Sig (Normalized) Sig (Original) amoxicillin 875 mg / clavulanate 125 mg oral tablet (5 sources) Penicillin-class Antibacterial Start: 02-16-2024 End: 06-26-2024 Amoxicillin-Pot Clavulanate 875-125 mg tablet Discontinued 1 {tbl} PO TWICE A DAY 12 0 February 16, 2024 1:00am June 26, 2024 9:03am Ethinyl Estradiol / Levonorgestrel (5 sources) Progestin, Estrogen, Progestin-containin g Intrauterine Device Start: 07-28-2019 End: 11-14-2023 take 1 tablet by mouth once daily AVIANE 0.1-20 mg-mcg per tablet Take 1 tablet by mouth once daily. 07/28/2019 11/14/2023 Discontinued (Course of therapy completed) Start: 07-28-2019 take 1 tablet by [place] th once daily AVIANE 0.1-20 mg-mcg per tablet Take 1 tablet by mouth once daily. 07/28/2019 Active Start: 07-28-2019 take 1 tablet by [place]ly th once daily AVIANE 0.1-20 mg-mcg per tablet Take 1 tablet by mouth once daily. 0 07/28/2019 Active Comment on above: Take 1 tablet by beverly th once daily. ferrous sulfate 325 mg delayed release oral tablet (5 sources) Start: 08-21-2019 End: 11-14-2023 take 1 tablet by mouth once daily ferrous sulfate 325 mg (65 mg iron) EC tablet Take 1 tablet by mouth once daily. 08/21/2019 11/14/2023 Discontinued (Course of therapy completed) Comment on above: Take 1 tablet by beverly th once daily. melatonin 1 mg oral tablet (5 sources) End: 11-14-2023 take 1 tablet by mouth once daily at bedtime melatonin 1 mg tab Take 1 mg by mouth daily at bedtime. 11/14/2023 Discontinued (Course of therapy completed) Comment on above: Take 1 mg by mouth d aily at bedtime. norgestimate-ethinyl estradiol (TRI-SPRINTEC, 28, ORAL) (5 sources) End: 11-14-2023 norgestimate-ethinyl estradiol (TRI-SPRINTEC, 28, ORAL) Take by mouth. 11/14/2023 Discontinued (Course of therapy completed) norgestimate-eth inyl estradiol (TRI-SPRINTEC, 28, ORAL) Take by mouth. Active norgestimate-eth inyl estradiol (TRI-SPRINTEC, 28, ORAL) Take by mouth. 0 Active Comment on above: Take by mouth. PARoxetine hydrochloride 40 mg oral tablet (5 sources) Serotonin Reuptake Inhibitor End: 11-14-19 take 1 tablet by mouth once daily PARoxetine (PAXIL) 40 mg tablet Take 40 mg by mouth once daily. 11/14/2023 Discontinued (Course of therapy completed) Comment on above: Take 40 mg by mouth once daily. 1000 ml sodium chloride 9 mg/ml injection (1 source) Start: 02-15-20 End: 02-19-20 take 50 mL intravenously every hour 50 mL/hr, intravenous, Continuous, Starting on Tue02/15/24 at 0830, Preprocedure vitamin b6 50 mg oral capsule (5 sources) End: 11-14-19 take 1 capsule by mouth once daily pyridoxine, vitamin B6, (VITAMIN B-6) 50 mg cap Take 50 mg by mouth once daily. 11/14/2023 Discontinued (Course of therapy completed) Comment on above: Take 50 mg by mouth once daily. Problems Active Problems Problem Classification Problem Date Documented Date Episodic/Chronic Anal and rectal conditions (5 sources) Disorder of rectum; Translations: [Anal fissure, unspecified] 02-10-2024 Episodic Blindness and vision defects (17 sources) Bilateral myopia of eyes; Translations: [Myopia, bilateral] Onset: 02-20-2014 Episodic Cardiac dysrhythmias (5 sources) Sinus tachycardia; Translations: [Tachycardia, unspecified] 02-15-2024 Episodic Deficiency and other anemia (5 sources) Anemia; Translations: [Anemia, unspecified] 09-15-2023 Episodic Deficiency and other anemia (3 sources) Iron deficiency anemia, unspecified; Translations: [IRON DEFICIENCY ANEMIA UNSPECIFIED] Onset: 09-03-2024 Episodic Diseases of white blood cells (1 source) Elevated white blood cell count, unspecified; Translations: [ELEVATED WHITE BLOOD CELL COUNT UNS] Onset: 05-17-2024 Chronic Esophageal disorders (3 sources) Ulcer of esophagus without bleeding; Translations: [Ulcer of esophagus] Onset: 02-15-2024 02-15-2024 Chronic Essential hypertension (1 source) Essential hypertension; Translations: [Essential (primary) hypertension] Onset: 10-02-2024 10-02-2024 Chronic Genitourinary symptoms and ill-defined conditions (1 source) Urinary incontinence; Translations: [Unspecified urinary incontinence] Onset: 10-02-2024 10-02-2024 Chronic Genitourinary symptoms and ill-defined conditions (2 sources) Increased frequency of urination; Translations: [Frequency of micturition] Onset: 09-11-2024 09-11-2024 Episodic Immunizations and screening for infectious disease (2 sources) Patient encounter status; Translations: [Encounter for screening for human papillomavirus (HPV)] 11-14-2023 Episodic Menstrual disorders (1 source) Excessive and frequent menstruation with regular cycle; Translations: [EXCESS FREQ MENSTRUATION W/REG CYCL] Onset: 05-17-2024 Chronic Miscellaneous mental health disorders (1 source) Binge eating disorder; Translations: [Binge eating disorder] Onset: 10-02-2024 10-02-2024 Chronic Nutritional deficiencies (2 sources) Vitamin D deficiency; Translations: [Vitamin D deficiency, unspecified] Onset: 05-29-2024 10-02-2024 Chronic Other hereditary and degenerative nervous system conditions (6 sources) Restless legs; Translations: [Restless legs syndrome] Onset: 10-02-2024 09-15-2023 Chronic Other inflammatory condition of skin (1 source) Psoriasis; Translations: [Psoriasis, unspecified] Onset: 10-02-2024 10-02-2024 Chronic Other injuries and conditions due to external causes (2 sources) Unspecified injury of head, initial encounter; Translations: [Unspecified injury of head, initial encounter] Onset: 07-31-2022 Episodic Other lower respiratory disease (1 source) Snoring; Translations: [Snoring] 07-18-2024 Episodic Other lower respiratory disease (1 source) Apnea; Translations: [Apnea, not elsewhere classified] 07-18-2024 Episodic Other nervous system disorders (9 sources) Narcolepsy; Translations: [Narcolepsy without cataplexy] Chronic Other nutritional; endocrine; and metabolic disorders (13 sources) Morbid obesity; Translations: [Morbid (severe) obesity due to excess calories] 06-13-2023 Chronic Other nutritional; endocrine; and metabolic disorders (6 sources) Alveolar hypoventilation; Translations: [Morbid (severe) obesity with alveolar hypoventilation] 06-13-2023 Chronic Other nutritional; endocrine; and metabolic disorders (1 source) Morbid (severe) obesity with alveolar hypoventilation; Translations: [Obesity hypoventilation syndrome] 06-13-2023 Chronic Other nutritional; endocrine; and metabolic disorders (2 sources) Morbid (severe) obesity due to excess calories; Translations: [Morbid obesity] Onset: 05-29-2024 06-13-2023 Chronic Other nutritional; endocrine; and metabolic disorders (1 source) Severe obesity; Translations: [Morbid (severe) obesity due to excess calories] 11-14-2023 Chronic Other nutritional; endocrine; and metabolic disorders (1 source) Body mass index (BMI) 60.0-69.9, adult; Translations: [Class 3 severe obesity without serious comorbidity with body mass index (BMI) of 60.0 to 69.9 in adult, unspecified obesity type (HCC)] Onset: 10-02-2024 Chronic Other nutritional; endocrine; and metabolic disorders (4 sources) Abnormal weight gain; Translations: [ABNORMAL WEIGHT GAIN] Onset: 12-06-2024 Episodic Other screening for suspected conditions (not mental disorders or infectious disease) (6 sources) Cancer cervix screening status; Translations: [Encounter for screening for malignant neoplasm of cervix] Onset: 05-29-2024 11-14-2023 Episodic Rehabilitation care; fitting of prostheses; and adjustment of devices (1 source) Encounter for fitting and adjustment of other specified devices; Translations: [Encounter for fitting and adjustment of other specified devices] Onset: 09-05-2024 Chronic Residual codes; unclassified (1 source) Hypersomnia; Translations: [Hypersomnia, unspecified] 07-18-2024 Chronic Residual codes; unclassified (1 source) Hypersomnia, unspecified; Translations: [Hypersomnia, unspecified] Onset: 08-15-2024 Chronic Residual codes; unclassified (4 sources) History of repair of tear of retina by laser photocoagulation; Translations: [Other specified postprocedural states] Episodic Residual codes; unclassified (1 source) Other specified postprocedural states; Translations: [History of repair of retinal tear by laser photocoagulation] Onset: 09-26-2024 Episodic Spondylosis; intervertebral disc disorders; other back problems (1 source) Arthritis of facet joint of lumbar spine; Translations: [Spondylosis without myelopathy or radiculopathy, lumbar region] 12-11-2024 Chronic Spondylosis; intervertebral disc disorders; other back problems (6 sources) Lumbar radiculopathy; Translations: [Radiculopathy, lumbar region] Onset: 12-24-2024 Episodic Sprains and strains (2 sources) Sprain of unspecified part of left wrist and hand, initial encounter; Translations: [Sprain of unspecified part of left wrist and hand, initial encounter] Onset: 07-31-2022 Episodic Superficial injury; contusion (4 sources) Contusion of left upper arm, initial encounter; Translations: [Abrasion of other part of head, initial encounter] Onset: 07-31-2022 Episodic Unclassified (1 source) ICD-10 ERRONEOUS ENCOUNTER-DISREGARD; Translations: [ICD-10 ERRONEOUS ENCOUNTER-DISREGARD] Onset: 07-03-2024 Unclassified (3 sources) G47.419 - Narcolepsy without cataplexy Unclassified (1 source) Class 3 severe obesity without serious comorbidity with body mass index (BMI) of 60.0 to 69.9 in adult, unspecified obesity type (HCC); Translations: [Class 3 severe obesity without serious comorbidity with body mass index (BMI) of 60.0 to 69.9 in adult, unspecified obesity type (HCC)] Onset: 10-02-2024 Unclassified (1 source) OTHER THROMBOCYTOSIS; Translations: [OTHER THROMBOCYTOSIS] Onset: 09-19-2024 Unclassified (2 sources) M54.16 - Radiculopathy, lumbar region Unclassified (1 source) Low back pain, unspecified; Translations: [Low back pain, unspecified] Onset: 11-28-2024 Urinary tract infections (2 sources) Acute cystitis; Translations: [Acute cystitis without hematuria] Onset: 09-11-2024 09-11-2024 Episodic Past or Other Problems Problem Classification Problem Date Documented Da te Episodic/Chronic Diabetes mellitus without complication (1 source) Prediabetes; Translations: [PREDIABETES] Onset: 05-29-2024 Episodic E Codes: Adverse effects of medical drugs (1 source) Adverse effect of iron and its compounds, initial encounter; Translations: [ADVRS EFF IRON ITS COMPOUND INITIAL] Onset: 05-17-2024 Episodic Hemorrhoids (6 sources) Hemorrhoids; Translations: [Unspecified hemorrhoids] Onset: 03-06-2024 02-10-2024 Episodic Malaise and fatigue (3 sources) Other fatigue; Translations: [Other fatigue] Onset: 07-25-2022 Episodic Other gastrointestinal disorders (1 source) Constipation, unspecified; Translations: [CONSTIPATION UNSPECIFIED] Onset: 05-17-2024 Episodic Other lower respiratory disease (1 source) Shortness of breath; Translations: [Shortness of breath] Onset: 03-01-2024 Episodic Pneumonia (except that caused by tuberculosis or sexually transmitted disease) (7 sources) Pneumonia; Translations: [Pneumonia, unspecified organism] Onset: 02-16-2024 02-15-2024 Episodic Residual codes; unclassified (6 sources) Family history of cancer of colon; Translations: [Family history of malignant neoplasm of digestive organs] Onset: 11-14-2023 11-14-2023 Episodic Retinal detachments; defects; vascular occlusion; and retinopathy (14 sources) Horseshoe tear of retina of left eye without detachment; Translations: [Horseshoe tear of retina without detachment, left eye] Onset: 02-20-2014 Episodic Unclassified (1 source) ICD-10 ERRONEOUS ENCOUNTER-DISREGAR D; Translations: [ICD-10 ERRONEOUS ENCOUNTER-DISREGAR D] Onset: 07-03-2024 Results Test Name Value Interpretation Reference Range Facility Orthopedic Visit Reporton Orthopedic Visit Report [facility] [address] [place] [address] OFFICE VISIT Date of Service: 01/07/25 MR#: [id number] Acct: [id number] Name: CHIO BUCIO Rep #: [id number] : 1985 Provider: BARRERA Perry Age/Sex: 39/F Location: [facility] Status: Signed Intake Vital Signs 12/11/24 08:15 01/07/25 09:06 Height 5 ft 5 in 5 ft 5 in Weight: 381 lb 380 lb BMI 63.3 63.2 Intake Visit Reasons: LUMBAR SPINE Chief Complaint: Lumbar spine MRI review Accompanied by: Is patient in pain?: Yes Pain scale (1-10): 4 Allergies amoxicillin (From Augmentin) Allergy (Verified 01/07/25 09:09) Rash clavulanic acid (From Augmentin) Allergy (Verified 01/07/25 09:09) Rash Medications ???Medication ???Instructions ???Recorded ???Confirmed ???Type buspirone 5 mg tablet 5 mg PO BID anxiety 06/10/2301/07 History omeprazole 40 mg capsule,delayed 40 mg PO BID md ordered 06/10/23 1 03/09/24 History release spironolactone 50 mg tablet 50 mg PO BID md ordered 06/10/23 1 03/09/24 History venlafaxine 150 mg 150 mg PO DAILY depression 4 01/07/25 History capsule,extended release 24 hr venlafaxine 75 mg capsule,extended 75 mg PO DAILY depression 01/07/25 History release 24 hr cholecalciferol (vitamin D3) 50 50 mcg PO DAILY md ordered 4 01/07/25 History mcg (2,000 unit) capsule docusate sodium 100 mg capsule 100 mg PO BID md ordered 06/13/23 01/07/25 History hydrocortisone 1 %-pramoxine 1 % 1 applic MA TID md ordered #10 07/2101/07/25 Rx rectal foam (Proctofoam HC) grams lidocaine 5 % topical cream 1 applic topical TID PRN pain #15 02/02/24 01/07/25 Rx (RectiCare) grams trazodone 50 mg tablet 50 mg PO QHS md ordered 02/02/24 1 03/09/24 History cholecalciferol (vitamin D3) 50 100 mcg PO QDAY 06/26/24 01/07/25 History mcg (2,000 unit) capsule lisdexamfetamine 30 mg capsule 30 mg PO QAM 06/26/24 01/07/25 His tory ropinirole 0.5 mg tablet 0.5 mg PO QHS 06/26/24 01/07/25 Hi story CPAP - Continuous Positive Airway 12/10/24 01/07/25 History Pressure([facility] INFORMATIONAL USE ONLY) metformin 850 mg tablet mg PO 12/11/24 01/07/25 History baclofen 5 mg tablet 5 - 10 mg PO Q8 PRN 01/07/2501/07 History celecoxib 100 mg capsule (Celebrex) 100 mg PO BID PRN pain #60 caps 01/07/25 01/07/25 Rx Have you fallen in the past year?: No [facility] Medical History Morbid obesity Family history of heart disease Breast pain Snoring Cervical high risk HPV (human papillomavirus) test positive Family history of colon cancer in mother PMS (premenstrual syndrome) Oral contraceptive pill surveillance Adult acne Esophageal ulcer Pulmonary hypertension Anemia Vitamin D deficiency Obesity, morbid, BMI 50 or higher Erythema Anxiety Depression, endogenous GERD (gastroesophageal reflux disease) Constipation in female Family history of early CAD Fatigue COVID-19 Surgical History History of tonsillectomy and adenoidectomy Hx of cholecystectomy H/O LEEP Family History Mother , age 62 Colon cancer age 59 Hypertension Grandfather Heart disease Maternal Grandmother Heart disease maternal Aunt Hypertension Maternal Uncle Diabetes Paternal Grandmother Diabetes Paternal Social History household members: spouse current occupational status: employed Smoking Status: Never smoker alcohol intake: current alcohol intake frequency: holidays/special occasions only substance use type: does not use seatbelt use: always HPI LUMBAR SPINE Details: This documentation accurately reflects the service provided and the decisions made by me, BARRERA Perry 01/07/25905. Part of today???s visit was documented by Cheryle Page MA, acting as scribe. CHIO BUCIO is a 39 year old F here today for lumbar spine MRI review. Patient states that her pain is a 4 today. She would like to go over the MRI results to discuss what the next step would be. Patient hasn't had any injections in her lower back. She is starting physical therapy today [facility]. She has seen Dr. Rivas who has given her baclofen, this has been mildly beneficial. Plans to follow-up with him after the MRI to discuss injections. HPI from 12/11/24: CHIO BUCIO is a 39 year old F here today for lumbar spine. Patient states that her pain is a 3 today. Her pain is going across the lower back. The pain goes into both glutes, equal on both sides. She states that the pain is "achy and throbbing" (more content not included)... [facility] Inital Evaluation (1) - PTon 12-28-2024 Inital Evaluation (1) - PT [facility] [address] [place] [address] / REHABILITATION SERVICES INITIAL EVALUATION MR#: [id number] Acct: [id number] Name: CHIO BUCIO Rep #: [id number] : 1985 39 From: Daniella Menchaca PT, Cert. MDT Referring Dr.: BARRERA Perry Status: REG RCR Insurance: [employer]/[facility] SELF PAY INSURANCE Patient's Visit Information Visit Information Visit Information: CHIO BUCIO is a 39 year old F referred to Physical Therapy by BARRERA Perry with a diagnosis of LUMBAR RADICULOPATHY. Date of Evaluation: 12/28/24 Physical Therapist: Daniella Menchaca, PT, Cert MDT Visit Plan Frequency: 2x /Week Duration: 6-8 WKS Plan: AQUATIC THERAPY FOR PAIN RELIEF, POSTURE CORRECTION/STRENGTHEN ING, INSTRUCTION IN APPROPRIATE BODY MECHANICS AND ACTIVITY MODIFICATIONS. DLS STARTING WITH A NEUTRAL SPINE PROGRESSING ROM TOLERATED. GERALD LE ROM, STRETCHING AND STRENGTHENING. HEP INSTRUCTION. 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 HOBBIES - ENJOYS HIKING. Present symptoms: LOW BACK PAIN R>L. LOW BACK WEAKNESS. GERALD LE PAIN TO FEET. LEG CRAMPS. LEGS GET HEAVY. LE'S ALSO GET TINGLY. Present since: CHRONIC. Pain Scale: WORST 8/10, LEAST 3/10 Currently: 3/10 Is it getting better, worse or staying the same: STAYING THE SAME Commenced as a result of: NO APPARENT REASON Symptoms at onset: LOW/UPPER BUTTOCK BACK PAIN Worse: STANDING, WALKING, BENDING, SITTING, CERTAIN SEATS, MORNING, R SDLY WHEN INFLAMMED. Better: ALEVE, TYLONOL, CHILDSPOSE STRETCH, Disturbed sleep: SOMETIMES Previous history/Previous treatment: CHIROPRACTIC - HURTS REALLY BAD BUT SOMETIMES HELPS HIP A LITTLE BIT IF IT IS OUT (LAST VISIT WAS ABOUT 6 WKS AGO. USUALLY GOES FOR NECK AND HEADACHES). MASSAGE - HURTS REALLY BAD - LAST VISIT WAS ABOUT 10 YEARS AGO. Treatment this episode: [facility] CONSULT AND REFERRAL TO PAIN MGMT WITH [facility] PENDING WITH DR. RIVAS Tuesday12/31/24. ORTHO F/U PENDING 01/07/25. Coughing/sneezing/str aining: NE THAT PATIENT IS AWARE OF. Gait: NO FALLS. LEGS START TO FEEL HEAVY AFTER ABOUT 6 TO 7 MIN OF WALKING. NO AD'S. SX'S ALLEVIATE IN SITTING. Bowel or Bladder Dysfunction: MIXED UI - FOLLOWING UP WITH [facility] AND ON BLADDER CONTROL MEDICATION. NO BOWEL INCONTINENCE. Accidents: NO Unexplained weight loss: NO. ON WEIGHT LOSS MEDICATION. Imagin12/17/24 LUMBAR MRI: IMPRESSION: Small central protrusion at L5-S1 abutting the thecal sac without thecal sac compression or nerve impingement. 12/11/24 [facility] LUMBAR X-RAY interpretation: X-rays show mild facet arthropathy from L3-S1. No significant degenerative disc disease. No instability on dynamic views. No acute fractures. PMH/Recent major surgery: PCOS, HTN, SLEEP APNEA, ANXIETY AND DEPRESSION, RLS, H/O ANEMIA. OTHER: PATIENT REPORTS SHE HAS TRIED NEW SHOES IN ORDER TO BE MORE ACTIVE (WALK ON TREADMILL, GO FOR HIKES) BUT UNABLE DUE TO BACK AND LEG PAIN/HEAVINESS/CRAMPS TO THE POINT OF CAUSING TEARS. DIFFICULTY TO EVEN PLAY POOL WITH - ENDS UP LEANING ON POOL TABLE TO TRY TO ALLEVIATE THE PAIN. Objective Objective: Objective: Sitting/Standing Posture: PATIENT STANDS IN ANT PELVIC TILT. INCREASED LORDOSIS. INCREASED KYPHOSIS. NO RELEVANT LATERAL LUMBAR SHIFT. Other Observations: INDEP GAIT AND TRANSFERS Sensory deficit: GERALD LE LIGHT TOUCH SENSATION GROSSLY INTACT AND SYMMETRICAL. ROM deficit: GERALD LE HIP FLEXOR AND CALF TIGHTNESS. GERALD HIP IR/ER TIGHTNESS. Motor deficit: GERALD LE'S GROSSLY 5/5 EXCEPT HIP ROTATORS AND ABDUCTORS 4/5. Dural Signs: NEGATIVE GERALD LE'S. Lumbar mvmt loss: flex - MOD ext - MOD R SG - MOD L SG - MOD PATIENT C/O LBP WITH LUMBAR EXT TESTING BUT NW A RESULT. REFUSES LB PALPATION AND STATES SHE REALLY DOESN'T LIKE ANYONE TO TOUCH IT AND EVEN THOUGH SHE GOES TO THE CHIROPRACTOR. Core strength: POOR Balance/Special Test Scores Oswestry Low Back Score: 20 Goals Goal 1:: DECREASE C/O BACK AND LE SX'S BY AT LEAST 50% TO EASE ADL'S. Goal Time Frame: 6-8 Weeks Goal 2:: IMPROVE LIFTING, WALKING, SITTING, STANDING, SOCIAL LIFE, TRAVEL, WORK AND HOMEMAKING FUNCTION WITH AT LEAST 5 POINT IMPROVMENT IN BACK OSWESTRY SCORE. Goal Time Frame: 6-8 Weeks Goal 3:: INSTRUCT IN PROPHYLAXIS Goal Time Frame: 6-8 Weeks Rehabilitation Potential Physical Therapy Diagnosis: CORE AND LE WEAKNESS AND STIFFNESS. Rehabilitation Potential: Good Anticipated Interventions Patient/Client Instruction: Educate patient on: Condition, Plan of Care and Risk Factors For the Purpose of:: To improve self management Therapeutic Exercise to Include: Strength training, Body mechanics, Postural training, Flexibilty training, Gait and locomotor training, Neuromotor development, "In an aquatic setting" a (more content not included)... [facility] Adrenocorticotropic Hormoneo n 12-27-2024 ACTH [facility] Comment on above: Order Comment: N Result Comment: TEST RESULTS LIMITS ACTH, Plasma 2.2 Low pg/mL 7.2-63.3 ACTH reference interval for samples collected between 7 and 10 AM. TESTING PERFORMED AT [facility]. ORIGINAL REPORT ON FILE IN LAB CONTAINS ADDITIONAL TEST SITE INFORMATION. Performed By: #### L 3300.1000, L3300.1500, L3410.9992, L509.6001 ####[facility] [address] [place], [address] DHEA Sulfateon 12-27-2024 DHEA SULFATE [facility] Comment on above: Order Comment: N Result Comment: TEST RESULTS LIMITS DHEA-Sulfate 108.0 ug/dL 57.3-279.2 [facility] ORIGINAL REPORT ON FILE IN LAB CONTAINS ADDITIONAL TEST SITE INFORMATION. Performed By: #### L 3300.1000, L3300.1500, L3410.9992, L509.6001 ####[facility] [address] [place], [address] L3410.9992on 12-17-2024 [facility] Misc. COMMENT Normal . [facility] Comment on above: Order Comment: [id number] 8DEXAMETHASONE SERUM FROZEN Result Comment: Test Ordered: [id number] Dexamethasone, Serum Dexamethasone, Serum 354 ng/dL ES Reference Range: . This test was developed and its performance characteristics determined by [employer]. It has not been cleared or approved by the Food and Drug Administration. Reference Range: Adults baseline: <30 8:00 AM following 1 mg dexamethasone previous evenin - 295 8:00 AM following 8 mg dexamethasone (4 x 2 mg doses) previous day: 1600 - 2850 Performed at: [facility] [address] [place] [id number] Oem Sales Manager: Ewa Persaud MD, Phone: [phone] Performed at: [facility] [id number] Oem Sales Manager: Eren Bedolla PhD, Phone: [phone] Performed By: #### L 3300.1000, L3300.1500, L3410.9992, L509.6001 ####[facility] [address] [place], [place], [id number] Spine Lumbar (Routine)on Spine Lumbar (Routine) [facility] Imaging Services [address] [place] [address] Spine Lumbar (Routine) MR#: [id number] Acct: [id number] Name: CHIO BUCIO Rep #: [id number] : 1985 F 39 From: Patrice Wilson MD PCP: Dr. Vasquez Irwin MD Status: REG CLI Study: Spine Lumbar (Routine) Date of Exam: 12/17/24 Exam# [id number] Ordering Dr: Jasmine Heath PROCEDURE: SPINE LUMBAR (ROUTINE) 12/17/2024 REASON FOR EXAM: PAIN, BILATERAL RADICULOPATHY TECHNIQUE: Procedure Code: MRISPL Modality: MR Procedure: SPINE LUMBAR (ROUTINE) FINDINGS: Normal lumbar alignment and vertebral body height. Mildly limited study secondary to patient conditions. Normal conus. No tethered cord. Normal cauda equina. No subluxation. No marrow edema. No compression fracture. At L5-S1 there is a small central protrusion abutting the ventral thecal sac without nerve root compression MRI/Spine Lumbar (Routine) IMPRESSION: Small central protrusion at L5-S1 abutting the thecal sac without thecal sac compression or nerve impingement. Reading [facility] CC: BARRERA Perry; Dr. Vasquez Irwin MD Forestry Aid Technician: Signed [facility] L509.6001on 12-11-2024 CORTISOL 0.58 ug/dL Low 6.02-18.40 [facility] Comment on above: Order Comment: N Result Comment: CEDRIC ENT WAS LATE FOR DR. OLIVEIRA BUT DID NOT RETURN FOR LABWORK Performed By: #### L 3300.1000, L3300.1500, L3410.9992, L509.6001 ####[facility] [address] [place], [address] Orthopedic Visit Reporton Orthopedic Visit Report [facility] [address] [place] [address] [address] [place] [address] OFFICE VISIT Date of Service: 12/11/24 MR#: [id number] Acct: [id number] Name: CHIO BUCIO Rep #: [id number] : 1985 Provider: BARRERA Perry Age/Sex: 39/F Location: [facility] Status: Signed Intake Vital Signs 06/26/24 07:51 12/11/24 08:15 Height 5 ft 5 in 5 ft 5 in Weight: 381 lb BMI 63.3 Intake Visit Reasons: LUMBAR SPINE Chief Complaint: Lumbar spine pain Accompanied by: Is patient in pain?: Yes Pain scale (1-10): 3 Allergies amoxicillin (From Augmentin) Allergy (Verified 12/11/24 08:22) Rash clavulanic acid (From Augmentin) Allergy (Verified 12/11/24 08:22) Rash Medications ???Medication ???Instructions ???Recorded ???Confirmed ???Type buspirone 5 mg tablet 5 mg PO BID anxiety 06/10/2312/11 History omeprazole 40 mg capsule,delayed 40 mg PO BID md ordered 06/10/23 1 History release spironolactone 50 mg tablet 50 mg PO BID md ordered 06/10/23 1 History venlafaxine 150 mg 150 mg PO DAILY depression 4 12/11/24 History capsule,extended release 24 hr venlafaxine 75 mg capsule,extended 75 mg PO DAILY depression 12/11/24 History release 24 hr cholecalciferol (vitamin D3) 50 50 mcg PO DAILY md ordered 4 12/11/24 History mcg (2,000 unit) capsule docusate sodium 100 mg capsule 100 mg PO BID md ordered 06/13/23 12/11/24 History hydrocortisone 1 %-pramoxine 1 % 1 applic MA TID md ordered #10 07/2112/11/24 Rx rectal foam (Proctofoam HC) grams lidocaine 5 % topical cream 1 applic topical TID PRN pain #15 02/02/24 12/11/24 Rx (RectiCare) grams trazodone 50 mg tablet 50 mg PO QHS md ordered 02/02/24 1 History cholecalciferol (vitamin D3) 50 100 mcg PO QDAY 06/26/24 12/11/24 History mcg (2,000 unit) capsule lisdexamfetamine 30 mg capsule 30 mg PO QAM 06/26/24 12/11/24 His tory ropinirole 0.5 mg tablet 0.5 mg PO QHS 06/26/24 12/11/24 Hi story CPAP - Continuous Positive Airway 12/10/24 12/11/24 History Pressure([facility] INFORMATIONAL USE ONLY) metformin 850 mg tablet mg PO 12/11/24 12/11/24 History Have you fallen in the past year?: No [facility] Medical History Morbid obesity Family history of heart disease Breast pain Snoring Cervical high risk HPV (human papillomavirus) test positive Family history of colon cancer in mother PMS (premenstrual syndrome) Oral contraceptive pill surveillance Adult acne Esophageal ulcer Pulmonary hypertension Anemia Vitamin D deficiency Obesity, morbid, BMI 50 or higher Erythema Anxiety Depression, endogenous GERD (gastroesophageal reflux disease) Constipation in female Family history of early CAD Fatigue COVID-19 Surgical History History of tonsillectomy and adenoidectomy Hx of cholecystectomy H/O LEEP Family History Mother , age 62 Colon cancer age 59 Hypertension Grandfather Heart disease Maternal Grandmother Heart disease maternal Aunt Hypertension Maternal Uncle Diabetes Paternal Grandmother Diabetes Paternal Social History household members: spouse current occupational status: employed Smoking Status: Never smoker alcohol intake: current alcohol intake frequency: holidays/special occasions only substance use type: does not use seatbelt use: always HPI LUMBAR SPINE Details: This documentation accurately reflects the service provided and the decisions made by me, BARRERA Perry 12/11/24 0815. Part of today???s visit was documented by Cheryle Page MA, acting as scribe. CHIO BUCIO is a 39 year old F here today for lumbar spine. Patient states that her pain is a 3 today. Her pain is going across the lower back. The pain goes into both glutes, equal on both sides. She states that the pain is "achy and throbbing". Patient has had this pain for 20 years. Her pain has been gradually getting worse. Says that it has been worsening over the last year. Walking and standing do not seem to worsen the pain. She states that she has always had this pain. Patient state that that she hasn't had any lower back surgeries. She hasn't injured anything. Patient states that when someone touches her lower back, the pain gets worse. Bending forward makes the pain worse. When she is walking she will get really bad tightness in her legs. Says that she gets muscle spasms in her calfs and feet bilaterally. She has not found any position that makes the pain better. She says that she lives w (more content not included)... [facility] Serum or plasma cortisol yulisa surement (mass/volume)Ordered By: Jessica Barton on 12-11-2024 Cortisol [Mass/Vol] 0.58 ug/dL Low 6.02-18.40 [facility] L/S Spine Comp/w Bending Vie wson 12-05-2024 L/S Spine Comp/w Bending Views [facility] Imaging Services [address] [place], [place] [address] L/S Spine Comp/w Bending Views MR#: [id number] Acct: [id number] Name: CHIO BUCIO LOWELL Rep #: [id number] : 1985 F 39 From: Charlie Wong MD PCP: Dr. Vasquez Irwin MD Status: REG CLI Study: L/S Spine Comp/w Bending Views Date of Exam: Exam# [id number] Ordering Dr: Jasmine Heath EXAM: XR Lumbosacral Spine, 4 or 5 Views CLINICAL INDICATION: BACK PAIN TECHNIQUE: Frontal, lateral and bilateral oblique views of the lumbar spine. COMPARISON: No relevant prior studies available. FINDINGS: VERTEBRAE: Mild facet arthropathy of L3-S1. Normal alignment. No fracture or significant dynamic instability. SACRUM/COCCYX: Unremarkable as visualized. No acute fracture. DISC SPACES: No acute findings. No significant narrowing. SOFT TISSUES: Unremarkable. RAD/L/S Spine Comp/w Bending Views IMPRESSION: Degenerative changes as above. Reading Location: [facility] CC: BARRERA Perry; Dr. Vasquez Irwin MD Forestry Aid Technician: Signed [facility] Bilirubin directOrdered By: Vasquez Irwin on 11-30-2024 Bilirubin.direct [Mass/Vol] 0.11 mg/dL 0.00-0.3 0 [facility] Bilirubin, totalOrdered By: Vasquez Irwin on 11-30-2024 Bilirubin [Mass/Vol] 0.28 mg/dL 0.00-1.30 [facility] Laboratory - Chemistry and C hemistry - challengeOrdered By: Vasquez Irwin on 11-30-2024 AST [Catalytic activity/Vol] 35 U/L High <32 [facility] Liver Profileon 11-30-2024 Albumin [Mass/Vol] 4.3 g/dL Normal 3.5-5.0 [facility] Comment on above: Performed By: #### M 200.1000 #### [facility] [address] [place], [address] ALK PHOS 139 U/L High 35-104 [facility] Comment on above: Performed By: #### M 200.1000 #### [facility] [address] [place], [address] ALT [Catalytic activity/Vol] 65 U/L High <=34 [facility] Comment on above: Performed By: #### M 200.1000 #### [facility] [address] [place], [address] AST [Catalytic activity/Vol] 35 U/L High <=31 [facility] Comment on above: Performed By: #### M 200.1000 #### [facility] [address] [place], [address] Bilirubin [Mass/Vol] 0.28 mg/dL Normal 0.00-1.30 [facility] Comment on above: Performed By: #### M 200.1000 #### [facility] [address] [place], [address] Bilirubin.direct [Mass/Vol] 0.11 mg/dL Normal 0.00-0.3 0 [facility] Comment on above: Performed By: #### M 200.1000 #### [facility] [address] [place], [address] Globulin (S) [Mass/Vol] 3.1 g/dL Normal 2.2-4.2 [facility] Comment on above: Performed By: #### M 200.1000 #### [facility] [address] [place], [address] T PROT 7.4 g/dL Normal 5.9-8.4 [facility] Comment on above: Performed By: #### M 200.1000 #### [facility] [address] [place], [address] PT D/C Summary (1)on 025 PT D/C Summary (1) [facility] [address] [place] [address] / REHABILITATION SERVICES DISCHARGE SUMMARY MR#: [id number] Acct: [id number] Name: CHIO BUCIO Rep #: [id number] : 1985 39 From: Daniella Menchaca PT, Cert. MDT Referring Dr.: Dr. Ayden Vanegas MD Status: REG RCR Insurance: [employer]/[facility] SELF PAY INSURANCE Discharge Summary D/C summary: It has been my pleasure to treat CHIO BUCIO referred by Dr. Ayden Vanegas MD, with the diagnosis of URGE INCONTINENCE for a total of 5 visit(s). Discharge Date: 11/30/24 Please see the following information for a summary of their discharge status. Subjective Subjective: PATIENT REPORTS IT IS GOING PRETTY GOOD WITH HER BLADDER RETRAINING AND HER FREQUENCY HAS DEFINATELY IMPROVED. SHE REPORTS SHE CAN DEFINATELY GO TWO SESSIONS INSTEAD OF JUST ONE WITHOUT GOING TO THE BATHROOM NOW. PATIENT REPORTS CANCELLING HER F/U [facility]UD[facility] WITH DR. VANEGAS. NO PELVIC AREA PAIN BUT IS HAVING INCREASED LOW BACK PAIN FOR NO APPARENT REASON. SAW HER CHIROPACTOR TUESDAY AND SHE THINKS IT MIGHT HAVE HELPED SOME. PLANS TO SEE HER PCP 12/06/24 ABOUT HER BACK PAIN. Overall Improvement % Improvement: 60 Objective Objective/Function: THIS PATIENT HAS MADE GOOD PROGRESS WITH BLADDER RETRAINING FOR URGE INCONTINENCE AND NO LONGER PLANS TO FOLLOW UP WITH DR. VANEGAS AT THIS TIME. SHE STATES SHE PLANS TO SEE HER PCP TO PURSUE TREATMENT FOR HER LOW BACK PAIN. SHE PLANS TO CONTINUE BLADDER MEDICATION THROUGH HER ONLINE OBGYN UNTIL INPERSON EXAM WITH AN OBGYN IN FEBRUARY 2025. AT THAT TIME SHE WILL CONSIDER FURTHER PELVIC FLOOR THERAPY. Pelvic organ prolapse distress inventory 6: 4 Colorectal-Anal distress inventory 8: 7 Urinary distress inventory 6: 11 Goals Goal 1:: NORMALIZE VOIDING FREQUENCEY TO EVERY 3-4 HOURS. Goal Progress: Progressing Goal 2:: PATIENT ABLE TO STATE 5 OF 5 URGE SUPPRESSION/BLADDER RETRAINING STRATEGIES Goal Progress: Goal Met Goal 3:: PATIENT WILL SUCCESSFULLY DELAY VOIDING LONG NEEDED WHEN URGENCY OCCURS TO SUCCESSFULLY MAKE IT TO THE BATHROOM. Goal Progress: Progressing Goal 4:: DEVELOP HEALTHY FLUID INTAKE HABITS WITH FLUID INTAKE OF ??? BODY WEIGHT IN OUNCES PER DAY AND 2/3 BEING WATER. Goal Progress: Progressing Goal 5:: IMPROVE PELVIC FLOOR MUSCLE STRENGTH AND ENDURANCE TO IMPROVE URINARY INCONTINENCE AND ORGAN SUPPORT. Goal Progress: Progressing Goal 6:: PATIENT WILL BE INDEP WITH A HEP/HOME INSTRUCTIONS FOR CONTINUED IMPROVEMENT ONCE FORMAL PHYSICAL THERAPY CONCLUDES. Goal Progress: Goal Met Plan Plan: D/C OF PLEVIC FLOOR THERAPY FOR URGE INCONTINENCE WITH PATIENT REPORTING 60% IMPROVEMENT ON INDEP WITH HEP AND 5 BLADDER RETRAINING STRATEGIES. PATIENT AGREEABLE. D/C Information d/c sentence: If there are questions or concerns regarding this patient's physical therapy, please feel free to call me at [phone]. Thank you for the referral of this patient. Sincerely, Daniella Menchaca, PT, Cert MDT Balance/Gait/Function al tests Improvement % Improvement: 60 11/30/24 1210 CC: Dr. Vasquez Irwin MD; Dr. Ayden Vanegas MD LATIA Signed Normal [facility] Serum globulin measurementOr dered By: Vasquez Irwin on 11-30-2024 Globulin (S) [Mass/Vol] 3.1 g/dL 2.2-4.2 [facility] Serum or plasma alanine hurtado otransferase (ALT) measurementOrdered By: Vasquez Irwin on 11-30-2024 ALT [Catalytic activity/Vol] 65 U/L High <35 [facility] Serum or plasma albumin israel urement (mass/volume)Ordered By: Vasquez Irwin on 11-30-2024 Albumin [Mass/Vol] 4.3 g/dL 3.5-5.0 [facility] Serum or plasma alkaline lisa sphatase measurementOrdered By: Vasquez Irwin on 11-30-2024 ALP [Catalytic activity/Vol] 139 U/L High 35-104 [facility] T4 Free Directon 11-30-2024 T4 FREE DIRECT 1.10 ng/dL Normal 0.76-1.46 [facility] Comment on above: Performed By: #### M 200.1000 #### [facility] [place], [address] T4 freeOrdered By: Vasquez martinez on 11-30-2024 Free T4 [Mass/Vol] 1.10 ng/dL 0.76-1.46 [facility] TSH DL <= 0.005 mIU/L QnOrde red By: Vasquez Irwin on 11-30-2024 TSH Qn 3.820 uIU/mL 0.300-4.20 0 [facility] Thyroid Stim Hormone (TSH)on 11-30-2024 TSH 3.820 uIU/mL Normal 0.300-4.20 0 [facility] Comment on above: Performed By: #### M 200.1000 #### [facility] [address] [place], [place], [address] Total proteinOrdered By: Gaby Irwin on 11-30-2024 Protein [Mass/Vol] 7.4 g/dL 5.9-8.4 [facility] L/S Spine Min 4 Viewson 10-29 L/S Spine Min 4 Views [facility] Imaging Services [address] [place], [place] [address] L/S Spine Min 4 Views MR#: [id number] Acct: [id number] Name: CHIO BUCIO LOWELL Rep #: [id number] : 1985 F 39 From: Jo Newman MD PCP: Dr. Vasquez Irwin MD Status: REG CLI Study: L/S Spine Min 4 Views Date of Exam: 11/16/24 Exam# [id number] Ordering Dr: Haider Burton PROCEDURE: L/S SPINE MIN 4 VIEWS 11/16/2024 REASON FOR EXAM: LOW BACK PAIN TECHNIQUE: Procedure Code: RADSPLS Modality: DX Procedure: L/S SPINE MIN 4 VIEWS COMPARISON: None. FINDINGS: BONES: Five [id number] lumbar vertebral bodies. No fracture or focal osseous lesion. Anatomic spinal alignment. Mild lumbar levoscoliosis. DISC/DEGENERATIVE CHANGES: Disc spaces are preserved. SOFT TISSUES: No acute abnormality seen. Right mid abdominal surgical clips. RAD/L/S Spine Min 4 Views IMPRESSION: No acute abnormality. Reading Location: [id number] CC: MERCEDES Burton; Dr. Vasquez Irwin MD Forestry Aid Technician: Signed Normal [facility] Inital Evaluation (1) - PTon 10-26-2024 Inital Evaluation (1) - PT [facility] [address] [place] [address] / REHABILITATION SERVICES INITIAL EVALUATION MR#: [id number] Acct: [id number] Name: CHIO BUCIO Rep #: [id number] : 1985 39 From: Daniella Menchaca PT, Cert. MDT Referring Dr.: Dr. Ayden Vanegas MD Status: REG RCR Insurance: [employer] SELF PAY INSURANCE Patient's Visit Information Visit Information Visit Information: CHIO BUCIO is a 39 year old F referred to Physical Therapy by Dr. Ayden Vanegas MD with a diagnosis of URGE INCONTINENCE. Date of Evaluation: 10/17/24 Physical Therapist: Daniella Menchaca, PT, Cert MDT Visit Plan Frequency: 1x/Week Duration: 6-8 WKS Plan: BLADDER RETRAINING. PF THERAPY FOR STRENGTHENING AND ENDURANCE TRAINING. URINARY URGE AND FREQUENCY EDUCATION. HEALTHY BLADDER, BACK AND POSTURE HABIT EDUCATION. TRAINING IN COORDINATION OF PELVIC FLOOR MUSCULATURE WITH HIP AND CORE (TRANSVERSE ABDOMINUS) MUSCULATURE. CORE STRENGTHENING. GERALD LE ROM, STRETCHING AND STRENGTHENING. TRAINING IN ABDOMINAL CAVITY PRESSURE MGMT WITH ADL'S. 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 LIKES HIKING. Disability: NO Present symptoms: WAS HAVING URINARY INCONTINENCE AND FREQUENCY BUT CURRENTLY ONLY HAVING A FEW DROPS OF UI OCCASIONALLY WHEN WORKING AND DELAYS URINATING AND THEN TRYING TO MAKE IT TO THE BATHR OOM. Present since: A COUPLE OF YEARS Pain Scale: N/A Is it getting better, worse or staying the same: GETTING BETTER Commenced as a result of: NO APPARENT REASON Worse: UNKNOWN Better: ESTROGEN CREAM - TOPICAL, METFORMIN Previous history/Previous treatment: NONE Treatment this episode: PRESCRIBED OXYBUTYNIN BY DR. VANEGAS BUT DID NOT TAKE IT. TOPICAL ESTROGEN CREAM STARTING 10/06/24 IN VAGINAL AREA AND METFORMIN PRESCRIBED BY DR. EARLY (OBGYN) VIA ONLINE LUDY. Coughing/sneezing: NOT CURRENTLY HAVING UI WITH COUGHING AND SNEEZING. Gait: NORMAL How long can you delay the need to urinate: 30 MIN Prolapse (Falling out feeling): NO Frequency of Urination: APPROX EVERY 2 HRS BUT NOT SURE. Fluid Intake: 6-8, 8 oz glasses a day. Ability to stop urine flow: PATIENT DOES NOT KNOW IF SHE CAN CURRENTLY Ability to initiate urine stream: NO Dyspareunia: NO Bowel Incontinence: NO Accidents: NO Unexplained weight loss: NO Imaging: NO PMH/Recent major surgery: CHRONIC LOW BACK PAIN TREATED WITH CHIROPRACTIC ADJUSTMENTS. CHRONIC SHLD TENSION TREATED WITH CHIROPRACTIC. Morbid obesity Cervical high risk HPV (human papillomavirus) test positive Esophageal ulcer Pulmonary hypertension Anemia Vitamin D deficiency Anxiety Depression, endogenous GERD (gastroesophageal reflux disease) Fatigue COVID-19 History of tonsillectomy and adenoidectomy Hx of cholecystectomy H/O LEEP Sleep Apnea Objective Objective: Sitting/Standing Posture: PATIENT STANDS IN ANT PELVIC TILT. INCREASED LORDOSIS. INCREASED KYPHOSIS. NO RELEVANT LATERAL LUMBAR SHIFT. Other Observations: INDEP GAIT AND TRANSFERS Sensory deficit: GERALD LE LIGHT TOUCH SENSATION GROSSLY INTACT AND SYMMETRICAL. ROM deficit: GERALD LE HIP FLEXOR AND CALF TIGHTNESS. GERALD HIP IR/ER TIGHTNESS. Motor deficit: GERALD LE'S GROSSLY 5/5 EXCEPT HIP ROTATORS AND ABDUCTORS 4/5. Dural Signs: NEGATIVE GERALD LE'S. Lumbar mvmt loss: flex - MOD ext - MOD R SG - MOD L SG - MOD PATIENT C/O LBP WITH LUMBAR EXT TESTING BUT NW A RESULT. REFUSES LB PALPATION AND STATES SHE REALLY DOESN'T LIKE ANYONE TO TOUCH IT AND EVEN THOUGH SHE GOES TO THE [facility] SHE REALLY DOESN'T TALK TO THEM ABOUT HER LOW BACK PAIN. STATES SHE HAS CONSIDERED TALKING TO HER PCP ABOUT HER LBP. Core strength: POOR Other: Issued Bladder Diary Pelvic organ prolapse distress inventory 6: 3 Colorectal-Anal distress inventory 8: 5 Urinary distress inventory 6: 21 Goals Goal 1:: NORMALIZE VOIDING FREQUENCEY TO EVERY 3-4 HOURS. Goal Time Frame: 4-6 Weeks Goal 2:: PATIENT ABLE TO STATE 5 OF 5 URGE SUPPRESSION/BLADDER RETRAINING STRATEGIES Goal Time Frame: 4-6 Weeks Goal 3:: PATIENT WILL SUCCESSFULLY DELAY VOIDING LONG NEEDED WHEN URGENCY OCCURS TO SUCCESSFULLY MAKE IT TO THE BATHROOM. Goal Time Frame: 6-8 Weeks Goal 4:: DEVELOP HEALTHY FLUID INTAKE HABITS WITH FLUID INTAKE OF ??? BODY WEIGHT IN OUNCES PER DAY AND 2/3 BEING WATER. Goal Time Frame: 2-4 Weeks Goal 5:: IMPROVE PELVIC FLOOR MUSCLE STRENGTH AND ENDURANCE TO IMPROVE URINARY INCONTINENCE AND ORGAN SUPPORT. Goal Time Frame: 6-8 Weeks Goal 6:: PATIENT WILL BE INDEP WITH A HEP/HOME INSTRUCTIONS FOR CONTINUED IMPROVEMENT ONCE FORMAL PHYSICAL THERAPY CONCLUDES. Goal Time Frame: 6-8 Weeks Rehabilitation Potential Physical Therapy Diagnosis: URINARY FREQUENCY, CORE AND LE STIFFNESS AND WEAKNESS (more content not included)... Normal [facility] 10-08-2024 [facility] Telephone (EIQ) CHIO BUCIO ([id number]) 1985 F Date Time Provider Department 10/08/24 RAN SNIDER II EIEdi During your visit today, we recorded the following information about you: Jeanette Shepard 10/08/2024 12:59 PM Signed Patient is calling and wanting to order her original contacts the clarity, please advise patient with any further questions Allergies As of Date: 10/08/2024 Noted Allergy Reaction AMOXICILLIN-POT CLAVULANATE 07/02/2024 9 - Itching 2 - Rash SULFA (SULFONAMIDE ANTIBIOTICS) 12/19/2013 2 - Rash Date Reviewed: 10/02/2024 Reviewed by: Haleigh Araujo APRN.CAR STOWER - Fully Assessed Reason for Visit: Patient Update [1234] Prescriptions as of 10/27/2024 - venlafaxine ER (EFFEXOR XR) 150 mg 24 hr capsule Take 150 mg by mouth once daily. - lisdexamfetamine (VYVANSE) 50 mg capsule - rOPINIRole (REQUIP) 0.5 mg tablet - traZODone (DESYREL) 50 mg tablet Take 50-100 mg by mouth daily at bedtime. - PRO FE 180 mg iron cap Take 1 capsule by mouth every afternoon. - omeprazole (PRILOSEC) 40 mg capsule Take 40 mg by mouth. - buspirone HCl (BUSPAR ORAL) Take 5 mg by mouth twice daily. - spironolactone (ALDACTONE) 50 mg tablet TAKE 1 TABLET BY MOUTH TWICE DAILY DO NOT GET ON THIS MEDICATION - venlafaxine HCl (EFFEXOR ORAL) Take 75 mg by mouth once daily. Problem List As Of Date 10/08/2024 Noted Resolved Horseshoe tear of retina without detachment [H3*02/20/2014 Myopia [H52.10] 02/20/2014 Family history of colon cancer in mother [Z80.0]11/14/2023 Restless legs syndrome [G25.81] 10/02/2024 Psoriasis [L40.9] 10/02/2024 Vitamin D deficiency [E55.9] 10/02/2024 Essential (primary) hypertension [I10] 10/02/2024 Urinary incontinence [R32] 10/02/2024 Binge eating disorder [F50.819] 10/02/2024 Encounter Status:Closed by JEANETTE SHEPARD on 10/27/24 [facility] CNOVon 10-02-2024 CNOV Office Visit (OBGYWM ) CHIO BUCIO ([id number]) 1985 F Date Time Provider Department 10/02/24 9:30 AM HALEIGH ARAUJO During your visit today, we recorded the following information about you: Blood pressure Weight Last Period 130/84 173.7 kg 10/01/24 Haleigh Araujo APRN.CAR STOWER 10/02/2024 7:26 PM Signed [facility] [place] [employer]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 Patient/authorized sales representative agreed to proceed CHIEF COMPLAINT: CC: Patient is a 39-year-old female presenting for concerns of suspected hormonal imbalance due to multiple health problems. HPI: HPI: Hormonal Imbalance: - Reports mood fluctuations, irritability, insomnia, fatigue, low libido, and urinary incontinence. - Experiences "sugar crashes" if not eating for about five hours. - Has difficulty losing weight and has dry skin diagnosed as psoriasis by a dye tub tender. - Menstrual periods occur every three weeks, lasting about five days; had an unusual shorter interval in June. - Sexually active; partner has had a vasectomy. - No diagnosis of PCOS; no history of male pattern baldness, hirsutism, irregular menses. - Has been on control in the past (Aviane and another unspecified pill). Medical History: - Diagnosed with major depressive disorder; seeing a therapist and taking Effexor XR. - Has restless leg syndrome, treated with Requip. - Diagnosed with sleep apnea; recently started using a CPAP machine. - Has binge eating disorder diagnosed by weight management, treated with Vyvanse. - Taking spironolactone since 3667-5667 for acne and high blood pressure. - Previously on Wegovy for weight management but discontinued due to severe stomach upset, constipation, and anal fissures. - Has vitamin D deficiency, currently taking 2000 IU of vitamin D3; previously required a weekly supplement. - Has anemia; received an iron infusion in March; cause of anemia is unknown despite endoscopy and colonoscopy. Menstrual flow is light/moderate. - Past medical history includes use of phentermine in 2019 for weight loss, resulting in a 15-pound loss. - Recent labs show a TSH of 5.250 with a normal free T4 level; primary care provider plans to retest in November. Weight History: - Began gaining weight about three years ago while working two jobs; has been unable to lose weight since. - Weight at high school graduation was approximately 180 pounds; current height is 5'5". HISTORY: OB History Gravida0 Para0 Term0 Preterm0 AB0 Living0 SAB0 IAB0 Ectopic0 Multiple0 Live Births0 Counterintelligence Analyst History LMP: 10/01/2024 (Exact Date), Having periods Age at Menarche: Age at First : Age at Menopause: Counterintelligence Analyst History Comments: Sexual Activity: Yes; Male Contraception: Vasectomy PAST MEDICAL HISTORY Diagnosis Date Anemia Depression Floaters Hypertension Retinal tear PAST SURGICAL HISTORY Procedure Laterality Date CERVIX UTERI CONIZA LP ELCTRO EXCI 2019 CHOLEYCYSTOGRAM GALL BLADDER MIDDLE EAR EXPL THRU POSTAUR/EAR CANAL INC PAST SURGICAL HISTORY OF Laser Photocoagulation, Retinal tear TONSILLECTOMY AND ADENOIDECTOMY HX FAMILY HISTORY Problem Relation Age of Onset Colon Cancer Mother 62 Cataract Mother Cataract Father Thyroid Paternal Grandfather Social History Tobacco Use Smoking status: Never Smokeless tobacco: Never Vaping Use Vaping status: Never Used Substance Use Topics Alcohol use: Yes Comment: social Drug use: No Current Outpatient Medications Medication Sig lisdexamfetamine (VYVANSE) 50 mg capsule rOPINIRole (REQUIP) 0.5 mg tablet traZODone (DESYREL) 50 mg tablet Take 50-100 mg by mouth daily at bedtime. omeprazole (PRILOSEC) 40 mg capsule Take 40 mg by mouth. buspirone HCl (BUSPAR ORAL) Take 5 mg by mouth twice daily. spironolactone (ALDACTONE) 50 mg tablet TAKE 1 TABLET BY MOUTH TWICE DAILY DO NOT GET ON THIS MEDICATION venlafaxine HCl (EFFEXOR ORAL) Take 75 mg by mouth once daily. venlafaxine ER (EFFEXOR XR) 150 mg 24 hr capsule Take 150 mg by mouth once daily. PRO FE 180 mg iron cap Take 1 capsule by mouth every afternoon. (Patient not taking: Reported on 09/11/2024) No current facility-administered medications for this visit. ALLERGIES Allergen Reactions Amoxicillin-Pot Cla* Itching, Rash Sulfa (Sulfonamide * Rash REVIEW OF SYSTEMS: Constitutional: (+) fatigue, (+) weight gain Genitourinary: (+) urinary incontinence, (+) decreased libido Skin: (+) dry skin, (-) alopecia Psychiatric: (+) mood swings, (+) irritability, (+) insomnia Endocrine: (+) hypoglycemic episodes Objective SENSITIVE EXAM: Sensitive exam not performed. PHYSICAL EXAM: BP 130/84 Wt 383 lb (173.7k (more content not included)... Normal [facility] Bacteria Ur Culton 5 Bacteria identified Cx Nom (U) ORGANISM ID: 1 10,000 -<50,000 CFU/ml Normal urogenital [place] Streptococcus agalactiae (Group B streptococcus) was identified in this specimen, which is clinically relevant if the individual is . Normal [facility] Comment on above: Performed By: #### 6 30-4 #### [facility] DIMITRISIA [id number] [address] [place] [address] [place] CNOVon 09-11-2024 CNOV Office Visit (WOUCA) CHIO BUCIO ([id number]) 1985 F Date Time Provider Department 09/11/24 12:30 PM GABRIELLA MARQUES During your visit today, we recorded the following information about you: Temperature Pulse Respiration Blood pressure 98.6 degrees 111/minute 16/minute 144/84 Weight 169.9 kg Gabriella Marques MD 09/11/2024 12:34 PM Signed Urinary Tract Infection Adult You have been diagnosed with a basic urinary tract infection (UTI). This means it does not involve your kidneys or areas other than your bladder. A UTI is an infection in your bladder. Your doctor diagnosed it by testing your urine. UTIs usually causes burning when you urinate (pee) or urinating often. It might make you feel like you have to urinate even when you don't. UTI is usually treated with antibiotics and medicine to help with pain. It is very important that you fill your prescription and take all of the antibiotics as directed. If a urinary tract infection goes untreated for too long, it can become a kidney infection. For Women: To reduce the risk of getting another UTI: Always urinate before and after sexual intercourse. Always wipe from front to back after urinating or having a bowel movement. Do not wipe from back to front. Drink plenty of fluids. Try to drink cranberry or blueberry juice. These juices have a chemical that stops bacteria from sticking to the bladder. Return here or go to the nearest Emergency Department immediately if: You have a fever (temperature higher than 100.4?F / 38?C) or shaking chills. You feel nauseated (sick to your stomach) or vomit (throw up). You have pain in your side or back. You don't get better after taking all of your antibiotics. You have any new symptoms or concerns. You feel worse or do not improve. If you can't follow up with your doctor, or if at any time you feel you need to be rechecked or seen again, come back here or go to the nearest emergency department. Gabriella Marques MD 09/11/2024 12:38 PM Signed [facility] Subjective Chio Bucio is a 38 year old female. Patient presents with: Urinary Frequency: Frequency and urgency x 2 days Pt here with 1 year hx of urinary urgency seen by her pcp and sent to urologist but last 2 days developed frequency and felt like a UTI no fever no chills no dysuria no n/v no abd/flank pain Review of Systems Constitutional: Negative for chills, fatigue and fever. Gastrointestinal: Negative for abdominal pain, nausea and vomiting. Genitourinary: Positive for frequency and urgency. Negative for dysuria, flank pain, hematuria and pelvic pain. Objective BP 144/84 Pulse 111 Temp 37 ?C (98.6 ?F) (Tympanic) Resp 16 Wt (!) 169.9 kg (374 lb 9 oz) LMP 11/04/2023 (Within Days) SpO2 98% BMI 62.33 kg/m? Physical Exam Vitals and nursing note reviewed. Constitutional: Appearance: Normal appearance. She is not ill-appearing. Abdominal: General: Bowel sounds are normal. Palpations: Abdomen is soft. Tenderness: There is no abdominal tenderness. There is no right CVA tenderness, left CVA tenderness, guarding or rebound. Neurological: General: No focal deficit present. Mental Status: She is alert and oriented to person, place, and time. Psychiatric: Behavior: Behavior normal. Results for orders placed or performed in visit on 09/11/24 UA DIP, URINE (POC) Result Value Ref Range GLUCOSE UA (POCT) Negative Negative mg/dL BILIRUBIN UA (POCT) Negative Negative KETONE UA (POCT) Negative Negative mg/dL SPECIFIC GRAVITY UA (POCT) 1.020 1.005 - 1.030 HEMOGLOBIN/BLOOD UA (POCT) Negative Negative PH UA (POCT) 8.0 4.5 - 8.0 PROTEIN UA (POCT) Negative Negative mg/dL UROBILINOGEN UA (POCT) 0.2 Normal E.U./dL NITRITE UA (POCT) Negative Negative LEUKOCYTES UA (POCT) Negative Negative COLOR UA (POCT) Yellow CLARITY UA (POCT) Clear {ASSESSMENT/PLAN: 1. Urinary frequency - ICD9: 788.41, ICD10: R35.0 (primary diagnosis) Follow up with urologist as arranged - UA DIP, URINE (POC) - BACTERIAL CULTURE, URINE 2. Acute cystitis without hematuria - ICD9: 595.0, ICD10: N30.00 - NITROFURANTOIN MONOHYDRATE AND MACROCRYSTAL 100 MG ORAL CAP - PHENAZOPYRIDINE 200 MG TABLET Gabriella Marques MD History and Record Review External record(s) reviewed: prior outpatient record. Differential Diagnoses - urinary urgency unknown cause is more likely for the following reason(s): suggested by HANDP and consistent with laboratory studies - uti is less likely for the following reason(s): pt treated but suspect negative culture, HANDP not suggestive and laboratory studies not suggestive Procedures Allergies As of Date: 09/11/2024 Noted Allergy Reaction AMOXICILLIN-POT CLAVULANATE 07/02/2024 9 - Itching 2 - Rash SULFA (SULFONAMIDE ANTIBIOTICS) 12/19/2013 2 - Rash Date Reviewed: 09/11/2024 Reviewed (more content not included)... Normal [facility] UA DIP, URINE (POC)on 2024 BILIRUBIN UA (POCT) Negative Negative [facility] CLARITY UA (POCT) Clear [facility] COLOR UA (POCT) [facility] GLUCOSE UA (POCT) Negative Negative mg/dL [facility] Hemoglobin Ql (U) Negative Negative [facility] KETONE UA (POCT) Negative Negative mg/dL [facility] LEUKOCYTES UA (POCT) Negative Negative [facility] NITRITE UA (POCT) Negative Negative [facility] PH UA (POCT) 8 4.5 - 8.0 [facility] Protein Ql (U) Negative Negative mg/dL [facility] SPECIFIC GRAVITY UA (POCT) 1.02 1 .005 - 1.030 [facility] UROBILINOGEN UA (POCT) 0.2 Luna l E.U./dL [facility] Location:[facility] [place], [address], [place], [place], [id number] [place] [address] POINT OF CARE [facility] CBC W Auto Differential pane l (Bld)on 09-03-2024 Basophils (Bld) [#/Vol] 0.02 10*3/uL Normal <=0.70 [facility] Comment on above: Performed By: #### 2 498-4, 2499- #### [facility] [address] [place] [address] Electric Arc Furnace Operator - Sydnie Funk CLIA [id number] Basophils/100 WBC (Bld) 0.2 % Normal <=2.0 [facility] Comment on above: Performed By: #### 2 498-4, 2499- #### [facility] [address] [place] [address] Electric Arc Furnace Operator - Sydnie SHANKSIA [id number] Eosinophils (Bld) [#/Vol] 0.01 10*3/uL Normal <=0.70 [facility] Comment on above: Performed By: #### 2 498-4, 2499-08 #### [facility] [address] [place] [address] Electric Arc Furnace Operator - Sydnie Funk CLIA [id number] Eosinophils/100 WBC (Bld) 0.1 % Normal <=10.0 [facility] Comment on above: Performed By: #### 2 498-4, 2499- #### [facility] [address] [place] [address] Electric Arc Furn[employer] Operator - Sydnie Funk CLIA [id number] Erythrocyte distribution width (RBC) [Entitic vol] 42.5 fL Normal 36.4-46.3 [facility] Comment on above: Performed By: #### 2 498-4, 2499- #### [facility] [address] [place] [address] Electric [employer] Furnace Operator - Sydnie SHANKSIA [id number] Hematocrit (Bld) [Volume fraction] 39.1 % Normal 37.0-47.0 [facility] Comment on above: Performed By: #### 2 498-4, 2499-08 #### [facility] [address] [place] [address] Electric Arc Furnace Operator - Sydnie SHANKSIA [id number] Hemoglobin (Bld) [Mass/Vol] 12.7 g/dL Normal 12.0-16. 0 [facility] Comment on above: Performed By: #### 2 498-4, 2499-08 #### [place] [address] [place] [address] Electric Arc Furnace Operator - Sydnie SHANKSIA [id number] Immature granulocytes (Bld) [#/Vol] 0.10 10*3/uL Normal <=0.10 [facility] Comment on above: Performed By: #### 2 498-4, 2499-08 #### [place] [address] [employer] - Sydnie SHANKSIA [id number] Immature granulocytes/100 WBC (Bld) 0.80 % Normal <=1.50 [facility] Comment on above: Performed By: #### 2 498-4, 2499-08 #### [address] [place] [address] [employer] - Sydnie Funk CLIA [id number] Lymphocytes (Bld) [#/Vol] 3.00 10*3/uL Normal 1.20-3.[address] [facility] Comment on above: Performed By: #### 2 498-4, 2499-08 #### [address] [place] [address] [employer] - Sydnie Funk CLIA [id number] Lymphocytes/100 WBC (Bld) 24.0 % Normal 20.0-40.0 [facility] Comment on above: Performed By: #### 2 498-4, 2499-08 #### [address] [place] [address] [employer] - Sydnie SHANKSIA [id number] MCH (RBC) [Entitic mass] 25.5 pg Low 27.0-31.0 [facility] Comment on above: Performed By: #### 2 498-4, 2499-08 #### [facility] [address] [place] [address] [employer] - Sydnie BANERJEE [id number] MCHC (RBC) [Mass/Vol] 32.5 g/dL Normal 32.0-36.0 [facility] Comment on above: Performed By: #### 2 498-4, 2499-08 #### [facility] [address] [place] [address] [employer] - Sydnie BANERJEE [id number] MCV (RBC) [Entitic vol] 78.4 fL Low 80.0-100.0 [facility] Comment on above: Performed By: #### 2 498-4, 2499-08 #### [place] [address] [facility]. [place] [address] [employer] - Sydnie BANERJEE [id number] Monocytes (Bld) [#/Vol] 0.46 10*3/uL Normal 0.10-0.60 [facility] Comment on above: Performed By: #### 2 498-4, 2499-08 #### [place] [address] [facility]. [place] [address] [employer] - Sydnie SHANKSIA [id number] Monocytes/100 WBC (Bld) 3.7 % Normal <=8.0 [facility] Comment on above: Performed By: #### 2 498-4, 2499-08 #### [facility] [address] [place] [address] [employer] - Sydnie SHANKSIA [id number] Neutrophils (Bld) [#/Vol] 8.91 10*3/uL High 1.40-6.[address] [facility] Comment on above: Performed By: #### 2 498-4, 2499-08 #### [facility] [address] [place] [address] [employer] - Sydnie Funk CLIA [id number] Neutrophils/100 WBC (Bld) 71.2 % High 50.0-70.0 [facility] Comment on above: Performed By: #### 2 498-4, 2499-08 #### [facility] [address] [place] [address] [employer] - Sydnie BANERJEE [id number] Nucleated RBC (Bld) [#/Vol] 0.00 10*3/uL Normal <=0.10 [facility] Comment on above: Performed By: #### 2 498-4, 2499-08 #### [facility] [address] [place] [address] [employer] - Sydnie BANERJEE [id number] Platelet mean volume (Bld) [Entitic vol] 10.6 fL Normal 9.0-13.0 [facility] Comment on above: Performed By: #### 2 498-4, 2499-08 #### [facility] [address] [place] [address] [employer] - Sydnie SHANKSIA [id number] Platelets (Bld) [#/Vol] 419 10*3/uL High 130-400 [facility] Comment on above: Performed By: #### 2 498-4, 2499-08 #### [facility] [address] [place] [address] [employer] - Sydnie BANERJEE [id number] RBC (Bld) [#/Vol] 4.99 10*6/uL Normal 4.00-6.30 [facility] Comment on above: Performed By: #### 2 498-4, 2499-08 #### [facility] [address] [place] [address] [employer] - Sydnie BANERJEE [id number] WBC (Bld) [#/Vol] 12.50 10*3/uL High 4.80-10.80 [facility] Comment on above: Performed By: #### 2 498-4, 2499-08 #### [facility] [address] [place] [address] [employer] - Sydnie BANERJEE [id number] FERRITINon 09-03-2024 Ferritin [Mass/Vol] 83 ng/mL Normal 6-137 [facility] Comment on above: Performed By: #### 2 276-4 #### [facility] [address] [place] [address] [employer] - Sydnie BANERJEE [id number] Iron and Iron binding capaci ty panelon 09-03-2024 Iron [Mass/Vol] 34 ug/dL Low 50-170 [facility] Comment on above: Performed By: #### 2 498-4, 2499-7 #### [facility] [address] [place] [address] [employer] - Sydnie BANERJEE [id number] Iron binding capacity [Mass/Vol] 327 ug/dL Normal 250-450 [facility] Comment on above: Performed By: #### 2 498-4, 2499-7 #### [facility] [address] [place] [address] [employer] - Sydnie BANERJEE [id number] Iron saturation [Mass fraction] 11 % Low 25-50 [facility] Comment on above: Performed By: #### 2 498-4, 2499-7 #### [facility] [address] [place] [address] [employer] - Sydnie BANERJEE [id number] THYROID PEROXIDASE Abon 07-0 Thyroid Peroxidase (TPO) Ab 12 IU/mL Normal 0-34 [facility] Comment on above: Performed By: #### 2 498-4, 2499-7 #### [facility] [address] [place] [address] [employer] - Sydnie BANERJEE [id number] Comprehensive metabolic 2000 panelon 08-28-2024 Albumin [Mass/Vol] 3.4 g/dL Normal 3.4-5.0 [facility] Comment on above: Performed By: #### 2 4323-8 #### [facility] [address] [place] [address] [employer] - Sydnie BANERJEE [id number] ALP [Catalytic activity/Vol] 171 U/L High 50-136 [facility] Comment on above: Performed By: #### 2 4323-8 #### [facility] [address] [place] [address] [employer] - Sydnie Funk CLIA [id number] ALT [Catalytic activity/Vol] 45 U/L Normal 14-59 [facility] Comment on above: Performed By: #### 2 4323-8 #### [facility] [address] [place] [address] [employer] - Sydnie Funk CLIA [id number] Anion gap [Moles/Vol] 9.0 mmol/L Normal <=15.0 [facility] Comment on above: Performed By: #### 2 4323-8 #### [facility] [address] [place] [address] [employer] - Sydnie Funk CLIA [id number] Bilirubin [Mass/Vol] 0.4 mg/dL Normal 0.2-1.0 [facility] Comment on above: Performed By: #### 2 4323-8 #### [facility] [address] [place] [address] [employer] - Sydnie Funk CLIA [id number] Calcium [Mass/Vol] 9.9 mg/dL Normal 8.5-10.1 [facility] Comment on above: Performed By: #### 2 4323-8 #### [facility] [address] [place] [address] [employer] - Sydnie Funk CLIA [id number] Chloride [Moles/Vol] 102 mmol/L Normal 98-107 [facility] Comment on above: Performed By: #### 2 4323-8 #### [facility] [address] [place] [address] [employer] - Sydnie Funk CLIA [id number] CO2 [Moles/Vol] 26 mmol/L Normal 21-32 [facility] Comment on above: Performed By: #### 2 4323-8 #### [facility] [address] [place] [address] [employer] - Sydnie Briggsrell CLIA [id number] Creatinine [Mass/Vol] 0.53 mg/dL Normal 0.51-0.95 [facility] Comment on above: Performed By: #### 2 4323-8 #### [facility] [address] [place] [address] [employer] - Sydnie BANERJEE [id number] GFR/1.73 sq M.predicted MDRD (S/P/Bld) [Vol rate/Area] mL/min/{1.73_m2} Normal >=60 [facility] Comment on above: Performed By: #### 2 4323-8 #### [facility] [address] [place] [address] [employer] - Sydnie BANERJEE [id number] Glucose [Mass/Vol] 94 mg/dL Normal 74-106 [facility] Comment on above: Performed By: #### 2 4323-8 #### [facility] [address] [place] [address] [employer] - Sydnie BANERJEE [id number] HGFR GLOMERULAR FILTRATIO N RATE INTERPRETATION~The eGFR is calculated using the MDRD equation.~This equation has been validated in patients with chronic kidney disease;~however, it underestimates the GFR in healthy patients with GFR's over 60 mL/min.~The equation is not valid in children under the age of 18.~NOTE: Criteria for Chronic Kidney Disease:~ ~1. Kidney damage for at least three months, as defined~by structural or functional abnormalities of the kidney,~with or without decreased glomerular filtration rate, manifested by either:~* Pathological abnormalities or~* Markers of Kidney damage, including abnormalities in~the composition of the blood or urine or abnormalities in imaging tests.~ ~2. GFR <60 mL/min/1.73 m squared for at least three months, with or without kidney damage.~ Normal [facility] Comment on above: Performed By: #### 2 4323-8 #### [facility] [address] [place] [address] [employer] - Sydnie BANERJEE [id number] Potassium [Moles/Vol] 4.3 mmol/L Normal 3.5-5.1 [facility] Comment on above: Performed By: #### 2 4323-8 #### [facility] [address] [place] [address] [employer] - Sydnie BANERJEE [id number] Protein [Mass/Vol] 7.0 g/dL Normal 6.4-8.2 [facility] Comment on above: Performed By: #### 2 4323-8 #### [facility] [address] [place] [address] [employer] - Sydnie BANERJEE [id number] Sodium [Moles/Vol] 137 mmol/L Normal 136-145 [facility] Comment on above: Performed By: #### 2 4323-8 #### [facility] [address] [place] [address] [employer] - Sydnie BANERJEE [id number] Urea nitrogen [Mass/Vol] 18 mg/dL High 7-17 [facility] Comment on above: Performed By: #### 2 4323-8 #### [facility] [address] [place] [address] [employer] - Sydnie BANERJEE [id number] FREE T4on 08-28-2024 Free T4 [Mass/Vol] 1.20 ng/dL Normal 0.76-1.46 [facility] Comment on above: Performed By: #### 2 498-4, 2499-7 #### [facility] [address] [place] [address] [employer] - Sydnie BANERJEE [id number] THYROID CASCADE PROFILEon TSH Qn 5.250 uIU/mL High 0.358-3.[address] [facility] Comment on above: Performed By: #### 2 498-4, 2499-7 #### [facility] [address] [place] [address] [employer] - Sydnie BANERJEE [id number] Pulmonary Visit Reporton Pulmonary Visit Report [facility] [address] [place] [address] OFFICE VISIT Date of Service: 06/26/24 MR#: [id number] Acct: [id number] Name: CHIO BUCIO Rep #: [id number] : 1985 Provider: MELISSA Cruz Age/Sex: 38/F Location: [facility] Status: Signed Assessment and Plan Assessment and Plan (1) Narcolepsy: Status: Acute Plan: Previous polysomnogram negative, however no REM sleep was witnessed. The patient has concerns for narcolepsy, which I explained we do not treat nor test for. For this reason, I am referring her to [facility] for evaluation and management. The patient may follow-up here as needed. (2) Super obese: Status: Chronic Plan: Complicates exam, plan, care and prognosis. There is certainly concern for obesity hypoventilation syndrome. Encourage weight loss. The patient has been successful at a 10 pound weight loss since starting Vyvanse. Orders: Referrals Neurology G47.419 - Narcolepsy without cataplexy Plan Details Additional Comments: This note was generated with Webstep dictation software. It may contain incorrect words, spelling, and punctuation that were not noted in checking the note before signing. HPI HEIDY Follow Up Chief Complaint: Test results HPI Comments Details: This patient presents to the office today to discuss test results. She is ambulatory, currently on room air and accompanied today by her . The patient reports that in approximately January she experienced a complication after an endoscopy. She was diagnosed with aspiration pneumonia requiring an overnight hospital stay. Unfortunately, she then found out that she is allergic to Augmentin. Since then, she has not been seen in the ED for any respiratory illness. She has not required any antibiotics or prednisone for breathing problems. She does have shortness of breath with exertion. She denies any cough, sputum production or hemoptysis. She denies any wheezing, chest tightness, chest pain or palpitations. She also denies any fever, chills or body aches. She does not feel rested in the morning. She was recently started on Vyvanse for weight loss and has noticed that it has helped with her daytime fatigue. She believes that she had undiagnosed ADHD as well, and has responded well to the Vyvanse. She continues to not feel rested upon arising in the morning. She uses trazodone, 25 mg of Benadryl and melatonin prior to bedtime each night. She wakes up at least 4 times nightly. Her reports that she snores significantly and he is concerned that she is having apneic events. She is a very restless sleeper. Her primary care doctor has concerns that the patient may have narcolepsy. Test results personally reviewed with patient: Polysomnogram completed on July 11, 2023. Overall AHI was 0.2 events per hour. No REM sleep documented. Overall the patient did have 97 minutes in the supine position. AHI in the supine position was 0.7 events per hour. Intake Vital Signs 02/15/24 16:28 06/26/24 07:51 Height 5 ft 5 in 5 ft 5 in Weight: 370 lb BMI 61.5 BP 131/93 H Blood Pressure Location Rt brachial Position Sitting Respiration 20 H Pulse 98 Pulse Source Monitor Temp 97.3 F L Temperature Source Temporal Artery Pulse Oximetry (%) 97 Oxygen Delivery Method room air Intake Visit Reasons: HEIDY Follow Up [employer] Required: No DME Vendor: n/a Accompanied by: Other Is patient in pain?: No Allergies amoxicillin (From Augmentin) Allergy (Verified 06/26/24 09:01) Rash clavulanic acid (From Augmentin) Allergy (Verified 06/26/24 09:01) Rash Medications ???Medication ???Instructions ???Recorded ???Confirmed ???Type buspirone 5 mg tablet 5 mg PO BID anxiety 06/10/2302/14 History omeprazole 40 mg capsule,delayed 40 mg PO BID md ordered 06/10/23 1 04/17/23 History release spironolactone 50 mg tablet 50 mg PO BID md ordered 06/10/23 1 04/17/23 History venlafaxine 150 mg 150 mg PO DAILY depression 4 02/15/24 History capsule,extended release 24 hr venlafaxine 75 mg capsule,extended 75 mg PO DAILY depression 02/15/24 History release 24 hr cholecalciferol (vitamin D3) 50 50 mcg PO DAILY md ordered 4 02/15/24 History mcg (2,000 unit) capsule docusate sodium 100 mg capsule 100 mg PO BID md ordered 06/13/23 02/15/24 History hydrocortisone 1 %-pramoxine 1 % 1 applic MA TID md ordered #10 07/2102/15/24 Rx rectal foam (Proctofoam HC) grams lidocaine 5 % topical cream 1 applic topical TID PRN pain #15 02/02/24 02/15/24 Rx (RectiCare) grams trazodone 50 mg tablet 50 mg PO QHS md ordered 02/02/24 1 04/17/23 History cholecalciferol (vitamin D3) 50 100 mcg PO QDAY 06/26/24 06/26/24 History (more content not included)... Normal [facility] 25-hydroxyvitamin D [Mass/Vo l]on 05-26-2024 25-hydroxyvitamin D3 [Mass/Vol] 31.5 ng/mL Normal 30.0-100.0 [facility] Comment on above: Performed By: #### 2 4323-8, 81554-0, 93663-8 #### [facility] [address] [place] [address] [employer] - Sydnie BANERJEE [id number] HVITD VITAMIN D INTERPRETATION VITAMIN D STATUS RANGE -------- DEFICIENCY <20 ng/mL INSUFFICIENCY 20-30 ng/mL SUFFICIENCY 30-100 ng/mL TOXICITY >100 ng/mL Normal [facility] Comment on above: Performed By: #### 2 4323-8, 63141-5, 98815-2 #### [facility] [address] [place] [address] [employer] - Sydnie BANERJEE [id number] CBC panel Auto (Bld)on 05-26 Erythrocyte distribution width (RBC) [Entitic vol] 48.7 fL High 36.4-46.3 [facility] Comment on above: Performed By: #### 2 498-4, 2500-7 #### [facility] [address] [place] [address] [employer] - Sydnie BANERJEE [id number] Hematocrit (Bld) [Volume fraction] 37.9 % Normal 37.0-47.0 [facility] Comment on above: Performed By: #### 2 498-4, 2499-7 #### [facility] [address] [place] [address] [employer] - Sydnie BANERJEE [id number] Hemoglobin (Bld) [Mass/Vol] 12.3 g/dL Normal 12.0-16. 0 [facility] Comment on above: Performed By: #### 2 498-4, 2499-08 #### [place] [address] [place] [address] [employer] - Sydnie BANERJEE [id number] MCH (RBC) [Entitic mass] 24.6 pg Low 27.0-31.0 [facility] Comment on above: Performed By: #### 2 498-4, 2499-08 #### [facility] [address] [place] [address] [employer] - Sydnie BANERJEE [id number] MCHC (RBC) [Mass/Vol] 32.5 g/dL Normal 32.0-36.0 [facility] Comment on above: Performed By: #### 2 498-4, 2499-08 #### [address] [place] [address] [employer] - Sydnie BANERJEE [id number] MCV (RBC) [Entitic vol] 76.0 fL Low 80.0-100.0 [facility] Comment on above: Performed By: #### 2 498-4, 2499- #### [facility] [address] [place] [address] [employer] - Sydnie BANERJEE [id number] Platelet mean volume (Bld) [Entitic vol] 10.7 fL Normal 9.0-13.0 [facility] Comment on above: Performed By: #### 2 498-4, 2499-7 #### [address] [place] [address] [employer] - Sydnie SHANKSIA [id number] Platelets (Bld) [#/Vol] 436 10*3/uL High 130-400 [facility] Comment on above: Performed By: #### 2 498-4, 2499-7 #### [facility] [address] [place] [address] [employer] - Sydnie SHANKSIA [id number] RBC (Bld) [#/Vol] 4.99 10*6/uL Normal 4.00-6.30 [facility] Comment on above: Performed By: #### 2 498-4, 2499-7 #### [address] [place] [address] [employer] - Sydnie SHANKSIA [id number] WBC (Bld) [#/Vol] 10.40 10*3/uL Normal 4.80-10.80 [facility] Comment on above: Performed By: #### 2 498-4, 2499-7 #### [address] [place] [address] [employer] - Sydnie SHANKSIA [id number] Comprehensive metabolic 2000 panelon 05-26-2024 Albumin [Mass/Vol] 3.8 g/dL Normal 3.4-5.0 [facility] Comment on above: Performed By: #### 2 4323-8, 06832-7, 38090-9 #### [place] [address] [place] [address] [employer] - Sydnie SHANKSIA [id number] ALP [Catalytic activity/Vol] 169 U/L High 50-136 [facility] Comment on above: Performed By: #### 2 4323-8, 50657-8, 52258-3 #### [facility] [address] [place] [address] [employer] - Sydnie SHANKSIA [id number] ALT [Catalytic activity/Vol] 74 U/L High 14-59 [facility] Comment on above: Performed By: #### 2 4323-8, 76618-4, 62514-0 #### [facility] [address] [place] [address] [employer] - Sydnie Funk CLIA [id number] Anion gap [Moles/Vol] 9.0 mmol/L Normal <=15.0 [facility] Comment on above: Performed By: #### 2 4323-8, 07731-3, 74099-7 #### [facility] [address] [place] [address] [employer] - Sydnie Funk CLIA [id number] AST [Catalytic activity/Vol] 28 U/L Normal 15-37 [facility] Comment on above: Performed By: #### 2 4323-8, 47717-3, 36553-0 #### [facility] [address] [place] [address] [employer] - Sydnie SHANKSIA [id number] Bilirubin [Mass/Vol] 0.4 mg/dL Normal 0.2-1.0 [facility] Comment on above: Performed By: #### 2 4323-8, 54015-1, 19421-9 #### [facility] [address] [place] [address] [employer] - Sydnie SHANKSIA [id number] Calcium [Mass/Vol] 10.0 mg/dL Normal 8.5-10.1 [facility] Comment on above: Performed By: #### 2 4323-8, 37251-0, 77105-4 #### [facility] [address] [place] [address] [employer] - Sydnie Funk CLIA [id number] Chloride [Moles/Vol] 102 mmol/L Normal 98-107 [facility] Comment on above: Performed By: #### 2 4323-8, 77500-3, 94620-1 #### [facility] [address] [place] [address] [employer] - Sydnie Funk CLIA [id number] CO2 [Moles/Vol] 28 mmol/L Normal 21-32 [facility] Comment on above: Performed By: #### 2 4323-8, 89473-5, 08560-5 #### [facility] [address] [place] [address] [employer] - Sydnie BANERJEE [id number] Creatinine [Mass/Vol] 0.58 mg/dL Normal 0.51-0.95 [facility] Comment on above: Performed By: #### 2 4323-8, 55230-4, 78600-1 #### [facility] [address] [place] [address] [employer] - Sydnie Briggsrell LAVONNE [id number] GFR/1.73 sq M.predicted MDRD (S/P/Bld) [Vol rate/Area] mL/min/{1.73_m2} Normal >=60 [facility] Comment on above: Performed By: #### 2 4323-8, 35274-0, 50189-6 #### [facility] [address] [place] [address] [employer] - Sydnie SHANKSIA [id number] Glucose [Mass/Vol] 91 mg/dL Normal 74-106 [facility] Comment on above: Performed By: #### 2 4323-8, 06417-5, 08432-1 #### [facility] [address] - Sydnie Funk LAVONNE [id number] HGFR GLOMERULAR FILTRATIO N RATE INTERPRETATION~The eGFR is calculated using the MDRD equation.~This equation has been validated in patients with chronic kidney disease;~however, it underestimates the GFR in healthy patients with GFR's over 60 mL/min.~The equation is not valid in children under the age of 18.~NOTE: Criteria for Chronic Kidney Disease:~ ~1. Kidney damage for at least three months, as defined~by structural or functional abnormalities of the kidney,~with or without decreased glomerular filtration rate, manifested by either:~* Pathological abnormalities or~* Markers of Kidney damage, including abnormalities in~the composition of the blood or urine or abnormalities in imaging tests.~ ~2. GFR <60 mL/min/1.73 m squared for at least three months, with or without kidney damage.~ Normal [facility] Comment on above: Performed By: #### 2 4323-8, 67048-8, 40436-8 #### [facility] [address] [place] [address] [employer] - Sydnie BANERJEE [id number] Potassium [Moles/Vol] 4.9 mmol/L Normal 3.5-5.1 [facility] Comment on above: Performed By: #### 2 4323-8, 18517-1, 45080-9 #### [facility] [address] [place] [address] [employer] - Sydnie SHANKSIA [id number] Protein [Mass/Vol] 7.4 g/dL Normal 6.4-8.2 [facility] Comment on above: Performed By: #### 2 4323-8, 32836-0, 81908-3 #### [facility] [address] [place] [address] [employer] - Sydnie BAENRJEE [id number] Sodium [Moles/Vol] 139 mmol/L Normal 136-145 [facility] Comment on above: Performed By: #### 2 4323-8, 07891-4, 94267-1 #### [facility] [address] [place] [address] [employer] - Sydnie BANERJEE [id number] Urea nitrogen [Mass/Vol] 21 mg/dL High 7-17 [facility] Comment on above: Performed By: #### 2 4323-8, 94319-9, 85391-1 #### [facility] [address] [place] [address] [employer] - Sydnie BANERJEE [id number] HbA1c Calc (Bld) [Mass fract ion]on 05-26-2024 Average glucose Estimated from glycated hemoglobin (Bld) [Mass/Vol] 108 mg/dL Normal 68-125 [facility] Comment on above: Performed By: #### 1 7855-8 #### [facility] [address] [place] [address] [employer] - Sydnie BANERJEE [id number] HA1C A1C INTERPRETATION %A1c (NGSP) Interpretation <5.7 Non-Diabetic Range 5.7 - 6.4 Prediabetic >6.5 Action Suggested The eAG (estimated average glucose) is an estimation of one?s average blood glucose level, calculated based on A1C test results, reported using the same units (mg/dL) seen on blood glucose meters. Normal [facility] Comment on above: Performed By: #### 1 7855-8 #### [facility] [address] [place] [address] [employer] - Sydnie BANERJEE [id number] HbA1c (Bld) [Mass fraction] 5.4 %A1C Normal 4.2-6.3 [facility] Comment on above: Performed By: #### 1 7855-8 #### [facility] [address] [place] [address] [employer] - Sydnie BANERJEE [id number] Lipid panel with direct LDLo n 05-26-2024 Cholesterol [Mass/Vol] 187 mg/dL Normal <=200 [facility] Comment on above: Performed By: #### 2 4323-8, 70887-1, 36681-0 #### [facility] [address] [place] [address] [employer] - Sydnie BANERJEE [id number] Cholesterol in HDL [Mass/Vol] 45 mg/dL Normal 40-59 [facility] Comment on above: Performed By: #### 2 4323-8, 94335-2, 08579-9 #### [facility] [address] [place] [address] [employer] - Sydnie BANERJEE [id number] Cholesterol in LDL [Mass/Vol] 111 mg/dL High 5-100 [facility] Comment on above: Performed By: #### 2 4323-8, 89189-2, 88903-2 #### [facility] [address] [place] [address] [employer] - Sydnie BANERJEE [id number] Cholesterol in LDL/Cholesterol in HDL [Mass ratio] 2.5 {ratio} Normal [facility] Comment on above: Performed By: #### 2 4323-8, 53471-9, 68867-8 #### [facility] [address] [place] [address] [employer] - Sydnie BANERJEE [id number] Cholesterol.total/Cholester ol in HDL [Mass ratio] 4.2 {ratio} Normal [facility] Comment on above: Performed By: #### 2 4323-8, 95685-5, 33068-2 #### [facility] [address] [facility] [place] [address] [employer] - Sydnie BANERJEE [id number] HCHOL CHOLESTEROL INTERPRETATION Desirable <200 Borderline High 200-239 High >[address] [facility] Comment on above: Performed By: #### 2 4323-8, 12203-1, 13550-3 #### [facility] [address] [facility] [place] [address] [employer] - Sydnie BANERJEE [id number] HLDL LDL INTERPRETATION Desirable <100 Near Optimal 100-129 Borderline High 130-159 High 160-190 Very High >[address] [facility] Comment on above: Performed By: #### 2 4323-8, 83681-2, 46215-2 #### [facility] [address] [facility] [place] [address] [employer] - Sydnie BANERJEE [id number] HLIPID ATEROSCLEROSIS RISK FACTORS FOR LDL, HDL, AND CHOLESTEROL RISK FACTOR SEX LDL/HDL CHOL/HDL 1/2 Average M 1.00 3.43 F 1.47 3.27 Average M 3.55 4.97 F 3.22 4.44 2X Average M 6.25 9.55 F 5.03 7.05 3X Average M 7.99 23.39 F 6.[address] [facility] Comment on above: Performed By: #### 2 4323-8, 46775-5, 94806-6 #### [facility] [address] [place] [address] [employer] - Sydnie BANERJEE [id number] HTRIG TRIGLYCERIDES INTERPRETATION Normal <150 Borderline High 150-199 High 200-499 Very High >[address] [facility] Comment on above: Performed By: #### 2 4323-8, 83121-5, 56641-0 #### [facility] [address] [place] [address] [employer] - Sydnie BANERJEE [id number] Triglyceride [Mass/Vol] 152 mg/dL High <=150 [facility] Comment on above: Performed By: #### 2 4323-8, 58794-4, 66907-2 #### [facility] [address] [place] [address] [employer] - Sydnie Funk CLIA [id number] CBC W Auto Differential pane l (Bld)on 05-11-2024 Basophils (Bld) [#/Vol] 0.02 10*3/uL Normal <=0.70 [facility] Comment on above: Performed By: #### 5 7021-8 #### [facility] [address] [place] [address] [employer] - Sydnie BANERJEE [id number] Basophils/100 WBC (Bld) 0.2 % Normal <=2.0 [facility] Comment on above: Performed By: #### 5 7021-8 #### [facility] [address] [place] [address] [employer] - Sydnie SHANKSIA [id number] Eosinophils (Bld) [#/Vol] 0.01 10*3/uL Normal <=0.70 [facility] Comment on above: Performed By: #### 5 7021-8 #### [facility] [address] [place] [address] [employer] - Sydnie Funk CLIA [id number] Eosinophils/100 WBC (Bld) 0.1 % Normal <=10.0 [facility] Comment on above: Performed By: #### 5 7021-8 #### [address] [place] [address] [employer] - Sydnie SHANKSIA [id number] Erythrocyte distribution width (RBC) [Entitic vol] 50.1 fL High 36.4-46.3 [facility] Comment on above: Performed By: #### 5 7021-8 #### [address] [place] [address] [employer] - Sydnie SHANKSIA [id number] Hematocrit (Bld) [Volume fraction] 38.2 % Normal 37.0-47.0 [facility] Comment on above: Performed By: #### 5 7021-8 #### [address] [place] [address] [employer] - Sydnie Funk CLIA [id number] Hemoglobin (Bld) [Mass/Vol] 12.3 g/dL Normal 12.0-16. 0 [facility] Comment on above: Performed By: #### 5 7021-8 #### [address] [place] [address] [employer] - Sydnie Funk CLIA [id number] Immature granulocytes (Bld) [#/Vol] 0.04 10*3/uL Normal <=0.10 [facility] Comment on above: Performed By: #### 5 7021-8 #### [address] [place] [address] [employer] - Sydnie Funk CLIA [id number] Immature granulocytes/100 WBC (Bld) 0.40 % Normal <=1.50 [facility] Comment on above: Performed By: #### 5 7021-8 #### [address] [place] [address] [employer] - Sydnie Funk CLIA [id number] Lymphocytes (Bld) [#/Vol] 2.55 10*3/uL Normal 1.20-3.[address] [facility] Comment on above: Performed By: #### 5 7021-8 #### [facility] [address] [facility] [place] [address] [employer] - Sydnie SHANKSIA [id number] Lymphocytes/100 WBC (Bld) 23.0 % Normal 20.0-40.0 [facility] Comment on above: Performed By: #### 5 7021-8 #### [address] [place] [address] [employer] - Sydnie BANERJEE [id number] MCH (RBC) [Entitic mass] 24.4 pg Low 27.0-31.0 [facility] Comment on above: Performed By: #### 5 7021-8 #### [address] [place] [address] [employer] - Sydnie BANERJEE [id number] MCHC (RBC) [Mass/Vol] 32.2 g/dL Normal 32.0-36.0 [facility] Comment on above: Performed By: #### 5 7021-8 #### [address] [place] [address] [employer] - Sydnie BANERJEE [id number] MCV (RBC) [Entitic vol] 75.6 fL Low 80.0-100.0 [facility] Comment on above: Performed By: #### 5 7021-8 #### [place] [address] [place] [address] [employer] - Sydnie SHANKSIA [id number] Monocytes (Bld) [#/Vol] 0.48 10*3/uL Normal 0.10-0.60 [facility] Comment on above: Performed By: #### 5 7021-8 #### [address] [place] [address] [employer] - Sydnie SHANKSIA [id number] Monocytes/100 WBC (Bld) 4.3 % Normal <=8.0 [facility] Comment on above: Performed By: #### 5 7021-8 #### [facility] [address] [place] [address] [employer] - Sydnie SHANKSIA [id number] Neutrophils (Bld) [#/Vol] 7.99 10*3/uL High 1.40-6.[address] [facility] Comment on above: Performed By: #### 5 7021-8 #### [facility] [address] [place] [address] [employer] - Sydnie SHANKSIA [id number] Neutrophils/100 WBC (Bld) 72.0 % High 50.0-70.0 [facility] Comment on above: Performed By: #### 5 7021-8 #### [place] [address] [place] [address] [employer] - Sydnie SHANKSIA [id number] Nucleated RBC (Bld) [#/Vol] 0.00 10*3/uL Normal <=0.10 [facility] Comment on above: Performed By: #### 5 7021-8 #### [facility] [address] [place] [address] [employer] - Sydnie SHANKSIA [id number] Platelet mean volume (Bld) [Entitic vol] 9.8 fL Normal 9.0-13.0 [facility] Comment on above: Performed By: #### 5 7021-8 #### [place] [address] [place] [address] [employer] - Sydnie SHANKSIA [id number] Platelets (Bld) [#/Vol] 428 10*3/uL High 130-400 [facility] Comment on above: Performed By: #### 5 7021-8 #### [place] [address] [place] [address] [employer] - Sydnie SHANKSIA [id number] RBC (Bld) [#/Vol] 5.05 10*6/uL Normal 4.00-6.30 [facility] Comment on above: Performed By: #### 5 7021-8 #### [facility] [place] [address] [employer] - Sydnie SHANKSIA [id number] WBC (Bld) [#/Vol] 11.09 10*3/uL High 4.80-10.80 [facility] Comment on above: Performed By: #### 5 7021-8 #### [place] [address] [employer] - Sydnie SHANKSIA [id number] CBC W Auto Differential pane l (Bld)on 03-23-2024 Basophils (Bld) [#/Vol] 0.02 10*3/uL Normal <=0.70 [facility] Comment on above: Performed By: #### 2 498-4, 2499-08 #### [place] [address] [employer] - Sydnie SHANKSIA [id number] Basophils/100 WBC (Bld) 0.2 % Normal <=2.0 [facility] Comment on above: Performed By: #### 2 498-4, 2499-7 #### [place] [address] [employer] - Sydnie SHANKSIA [id number] Eosinophils (Bld) [#/Vol] 0.05 10*3/uL Normal <=0.70 [facility] Comment on above: Performed By: #### 2 498-4, 2499-08 #### [place] [address] [employer] - Sydnie SHANKSIA [id number] Eosinophils/100 WBC (Bld) 0.4 % Normal <=10.0 [facility] Comment on above: Performed By: #### 2 498-4, 2499-7 #### [place] [address] [employer] - Sydnie SHANKSIA [id number] Erythrocyte distribution width (RBC) [Entitic vol] 41.7 fL Normal 36.4-46.3 [facility] Comment on above: Performed By: #### 2 498-4, 2500-7 #### [facility] [address] [place] [address] [employer] - Sydnie SHANKSIA [id number] Hematocrit (Bld) [Volume fraction] 36.8 % Low 37.0-47.0 [facility] Comment on above: Performed By: #### 2 498-4, 2499-08 #### [place] [address] [facility]. [place] [address] [employer] - Sydnie SHANKSIA [id number] Hemoglobin (Bld) [Mass/Vol] 11.8 g/dL Low 12.0-16. 0 [facility] Comment on above: Performed By: #### 2 498-4, 2499-08 #### [address] [place] [address] [employer] - Sydnie SHANKSIA [id number] Immature granulocytes (Bld) [#/Vol] 0.09 10*3/uL Normal <=0.10 [facility] Comment on above: Performed By: #### 2 498-4, 2499-08 #### [address] [place] [address] [employer] - Sydnie SHANKSIA [id number] Immature granulocytes/100 WBC (Bld) 0.70 % Normal <=1.50 [facility] Comment on above: Performed By: #### 2 498-4, 2499-08 #### [address] [place] [address] [employer] - Sydnie SHANKSIA [id number] Lymphocytes (Bld) [#/Vol] 3.01 10*3/uL Normal 1.20-3.[address] [facility] Comment on above: Performed By: #### 2 498-4, 2499-08 #### [address] [facility] [place] [address] [employer] - Sydnie SHANKSIA [id number] Lymphocytes/100 WBC (Bld) 24.1 % Normal 20.0-40.0 [facility] Comment on above: Performed By: #### 2 498-4, 2499-08 #### [facility] [address] [place] [address] [employer] - Sydnie BANERJEE [id number] MCH (RBC) [Entitic mass] 22.5 pg Low 27.0-31.0 [facility] Comment on above: Performed By: #### 2 498-4, 2499-08 #### [place] [address] [place] [address] [employer] - Sydnie BANERJEE [id number] MCHC (RBC) [Mass/Vol] 32.1 g/dL Normal 32.0-36.0 [facility] Comment on above: Performed By: #### 2 498-4, 2499-08 #### [place] [address] [place] [address] [employer] - Sydnie BANERJEE [id number] MCV (RBC) [Entitic vol] 70.2 fL Low 80.0-100.0 [facility] Comment on above: Performed By: #### 2 498-4, 2499-08 #### [address] [place] [address] [employer] - Sydnie BANERJEE [id number] Monocytes (Bld) [#/Vol] 0.49 10*3/uL Normal 0.10-0.60 [facility] Comment on above: Performed By: #### 2 498-4, 2499-08 #### [address] [place] [address] [employer] - Sydnie BANERJEE [id number] Monocytes/100 WBC (Bld) 3.9 % Normal <=8.0 [facility] Comment on above: Performed By: #### 2 498-4, 2499-08 #### [address] [facility] [place] [address] [employer] - Sydnie BANERJEE [id number] Neutrophils (Bld) [#/Vol] 8.82 10*3/uL High 1.40-6.[address] [facility] Comment on above: Performed By: #### 2 498-4, 2499-08 #### [facility] [address] [place] [address] [employer] - Sydnie SHANKSIA [id number] Neutrophils/100 WBC (Bld) 70.7 % High 50.0-70.0 [facility] Comment on above: Performed By: #### 2 498-4, 2499-08 #### [place] [address] [place] [address] [employer] - Sydnie BANERJEE [id number] Nucleated RBC (Bld) [#/Vol] 0.00 10*3/uL Normal <=0.10 [facility] Comment on above: Performed By: #### 2 498-4, 2499-08 #### [address] [facility] [place] [place] [address] [employer] - Sydnie SHANKSIA [id number] Platelet mean volume (Bld) [Entitic vol] 10.3 fL Normal 9.0-13.0 [facility] Comment on above: Performed By: #### 2 498-4, 2499-08 #### [address] [facility] [place] [place] [address] [employer] - Sydnie SHANKSIA [id number] Platelets (Bld) [#/Vol] 573 10*3/uL High 130-400 [facility] Comment on above: Performed By: #### 2 498-4, 2499-08 #### [address] [place] [address] [employer] - Sydnie SHANKSIA [id number] RBC (Bld) [#/Vol] 5.24 10*6/uL Normal 4.00-6.30 [facility] Comment on above: Performed By: #### 2 498-4, 2499-08 #### [place] [address] [place] [address] [employer] - Sydnie SHANKSIA [id number] WBC (Bld) [#/Vol] 12.48 10*3/uL High 4.80-10.80 [facility] Comment on above: Performed By: #### 2 498-4, 2499-7 #### [facility] [address] [place] [address] [employer] - Sydnietaisha BriggsFunk CLIA [id number] FERRITINon 03-23-2024 Ferritin [Mass/Vol] 17 ng/mL Normal 6-137 [facility] Comment on above: Performed By: #### 2 498-4, 2499-7 #### [facility] [address] [place] [address] [employer] - Sydnie Briggscalvin SHANKSIA [id number] IRONon 03-23-2024 Iron [Mass/Vol] 33 ug/dL Low 50-170 [facility] Comment on above: Performed By: #### 2 498-4, 2499-7 #### [facility] [address] [place] [address] [employer] - [facility] DIMITRISIA [id number] IRON BINDING CAPACITYon 03-01 Iron binding capacity [Mass/Vol] 403 ug/dL Normal 250-450 [facility] Comment on above: Performed By: #### 2 498-4, 2499-7 #### [facility] [address] [place] [address] [employer] - [facility] DIMITRISBERNIEC [id number] Chest PA and Lateralon 02-24 Chest PA and Lateral [facility] Services [address] [place], [place] [address] Chest PA and Lateral MR#: [id number] Acct: [id number] Name: CHIO BUCIO KEON LOWELL Rep #: [id number] : 1985 F 38 From: Te shrestha MD PCP: Dr. Vasquez Irwin MD Status: REG CLI Study: Chest PA and Lateral Date of Exam: 02/25/24 Exam# [id number] Ordering Dr: Jessica Barton HOLISTIC SPECIALIST-C [id number] INDICATION: PNEUMONIA INVOLVING LEFT LUNG -- J18.9 EXAMINATION/TECHNIQUE : X-RAY - XR Chest 2 Views COMPARISON: None. FINDINGS: The lungs are clear. The cardiomediastinal silhouette is unremarkable. No pleural effusion or pneumothorax. No acute osseous abnormalities. RAD/Chest PA and Lateral IMPRESSION: No acute radiographic abnormalities. Electronically Signed: Te Ferguson MD at 20:48 EST , CC: MELISSA Barton; Dr. 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 Normal [facility] Comment on above: Performed By: #### M 200.1000 #### [facility] [address] [facility] [place], [address] Pathology studyOrdered By: Mary Chavez on 02-17-2024 Citation Norbert (Reference lab test) k2hrsCGxFPFyt3ogPTDzp GFuZzEwMzNcZnRuYmpcdW ZtDWvcgmEiTYidz4EtP3D yMjAwMFxhbnNpXGRlZmxh jaqmQJQyIRZ2abWoWICjV VpqKTKgGJgdCe9gcRFtgL ijLqMoRZOgr9jfqfKPDQq pHPYAVRq1j6ftNRHvWkS9 tVRxTWtpD7gvkaXcxWAqE 0Sgt3PiJFc4kF87YYYfiA 7ujQKmTVakhcFjHgU2YAn vBQCrLbN3XRZslQPcVNFx V2qzKESpRAlbgkPhwmO9Z ZNgfLEuDJX0RDHqUJPrL1 KwAY2vNHQhmLWoVKz0e0i rlCxtMQNmUFH2u6roCVtx sfEfPX2xdg4qiBr2v1nrn zEgRGVmYXVsdCBQYXJhZ3 IimAkxZp5riBo8aEmmXzd eGXL8Itb6IY6tho71fzh2 vHhxSLJwquenBqZ1HHkoN QAmpdonIXw5VPptIXIrzX S5IZOknCQbR9WiWJCrQZ5 maqk1ZTR4MTgjNEDyEnT3 NDBcaGVhZGVyeTcyMFxmb 780QLZ1FqRwQJ9fT7Lxp8 O3vL8axSWmBOIjmXIzFlA aVPByiy3arULeAMtpr8Lx XUU7moZ1sQFqrQOrOIPlA R59Zzzii6ZxJbemUNJ7CR PhefLgv2Mlt9gkByMlhjQ yW1xgW7VyVWBkMRDaLOFh YeSjruTef1Jhq3HexFWjr Jw2n5xzKONzQFStjSmkh2 vwYMD6XABsL0X3sSMbe2d wLGywDBPxkTJ9jeM0NQBs uMBlD7RwvX6tNNKvNB7tb ln2v4lhOGQ8IPwsUUGiYq D4qeX4ERGofEAqXYLhzUq dHZhoo817OGO3FnDqOMVk x7IsO1LszManA21ayNevR 08qNNBcgXtdpW5nuSpusX 5cZjBcZnMyNFxxbFxwbGF dckmcOBcrakF3WYfbwhqq YYRxVEnoL0xjEoLwMNAjl LawHLnty9PyGQZyMEIhRb alabA5FPosNE91YZyblGB am2kad1MtP0xaeLbqvPG2 IO2sAEWpYTDiSTihl7Sqt P0haGFqSEDfwsJ4vRNxuC 45JMZxliU6MDAeg94wb9D gdGhpcyBjYXNlIHdhcyBw OQSpu9XfWOWnBZFdAJ03e aNsD7NsvLYvBHCuhjMePL zhrB3rw1q0ULwkLl8gJPd gn5HtzXPanZWxxPU2XCTq v1GcBmHtlmHjaPLsnrViY O4wFNAnmZRdbvLdSXA4NX UkTPSPNbBhMGUgn2GeRO1 zBPCgjHvbNSPvgM3qt3Ws WLLjg10hMRAiJENSXSGjg GFzIGRldGVybWluZWQgdG hhdCBzdWNoIGNsZWFyYW5 nCJNlknGkeIYqb1NopSGs rvCal8LxxhTfWWFxFMI9T pMSjNAyDVP4KUG7xoAitp HtsYXwQWJpj3MiN8mqlsq wXNwkkHGmlD9dHZUpLA9e RPNfs5CjSRUht8RfYoZdr dAtQTIzPLFwOISgsY22XA R5tMezxGgerpLyLJ1jHYK npkPlHCDtSHMjxS9vSLqp dcHsNCFzhhV0n9O1VLlpO KYhawIvDczqLSQ0jnKgXX Hmz6JgKWdmO2obL37ulVn dwDt0hNV3SOH9dA7nOKVf ZGVyIHRoZSBDbGluaWNhb GXUCDJkmsA5h7M0IPrudL HzlpJwCH62RFCeTP7boWA clBIam2GoKLj2ZO4tHYqo VXJoxzMfh8niJAVer4woA ZJjjv5qkrczxINducDjQ0 Oelvd9dS4ypTWmJLGsbe3 9KHA3OjBjQJ3ecBtlEUJm LE1dYPQuY3aceB6cqzg7C uHwv7nyfWMzTVMbpSLsIn TfEWSwVJNbr2sjJPAiuFJ uZzEwMzNcZnRuYmpcdWMx NFPxTxWok3rsk366fMMpk 8oiDKSfCbL9cYRoOXExT3 9jNGRYG464YDToZSiie9c nm4QwRSBtzYWht1Q5HNIK FHwfSICJOPl4rXqeU67ix 8B8SlmtO7eqTSNvYYWhX3 MsTT5yAMPfXuz5KRV5WFW 5ZHVoCZF4EBwsOTIyRFHy Xqv0WRJ1ZSmqkqEeWKDvV GdyZWVuMTQzXGJsdWUxND OaT4qrTTPqHQvmFAJlMBp ajCPmYWG3mJklx8E5hDOy aGVldHtcZjBcZnMyMiBOb 4DmHVk2zEowR3YiTCYsPw V5wRMnZOBuAWbsHGVaFCU nbuL1jB25IPyrlcN5pPEi h4Euo02yl156bE0cjDFrJ KR1KBAsZNUhcAVmXOChFF Q3FVCalHQqA2boVJRlRT2 hcmdyMTgwMFxtYXJndDE0 EFRvjSEzH8UcIBVrMSugR IEuccr5GoOrOa7ptYPsiU dzTDnep7iwo3wkdOKhQsz 0TDMxOrUhWfofQQqis6Iv e9mtDZPhjy0mODP7iZIdq Iasu4L2lBJwXBYrxCQzww LmOTUpTcT5LZhyAU2qhk8 7NZCrWOV5xo4rzPRylOvu vxSboELwVVftS9XuXYHqb 390SAKqM1CjZALtx8E3aa SrRmJpRKKlySV8qnM9QFW fPOw0qIYsulW0hmZrbVUv B6azmQ0iZOXmCN7vfclbw 0uvHVuvRAqqTUPmwFC8mx M6FPEgtPSrJ6WhwB3dAMP kADgtUWDemuj8RqMxEg8d dGVyeTcyMFxzYmtwYWdlX HBnbmNvbnRccGduZGVjXH BsYWluXHBsYWluXGYwXGZ pTlGhnRwnnZikzZ5fTcCz PiTgHOudVT2jWXQjU2amo XCaKAMfBLJpG5idEyXgiD 9jaFxmMVxjZjJcZnMxOFx iHIKqTRU1XGOezzhwGUrd J47edR5aXS54FVjepqWaU MZpb7QbHOGxYYYnPNljKT GssnQcPCeaoA6dw9q8CSo vRl1jBPJugnbiJMH8PyVt HF61GyqizHQwOAVFvbUdU ENvbHVtYnVzLCBPaGlvID NlWgQ2NjVCqJHsp9Aew7W dZzYlpLIejS4dsEwiulF8 MBSnnPVsCl5oyCZxPlaeU ZGcxMiqyV3fHaEkQtEpEL uoRQ9oDDYdN3tkuYXcIFE cVPFdR9ghCbAojS1riQfj MVxjZjNcZnMxOFxpXHBhc n19fQ== [employer] Work Phone: Microscopic description Norbert (Endomyocardium) n7xrfKCuRBAqxCGVRTP5N JItUF8ruAuuiHs4nThwSD WjqeM7cSIfPFubk3cbLJQ 9x0cuijGMNtgzWJUdSP4a SRntBMVuIU5rXjCkIRCmK mYyXHBhcGVydzEyMjQwXH ElzFRkaMZ6RIGfSE7zzzd fDKotOOuwUBDiyhC7ROFs iHYiB3DgBVEmNQ8crojhQ WV0DVWNMirgRs5psIMkwJ ANCntcZjFcZmNoYXJzZXQ dKGRtx0uqdkZTzlljgVr2 JZm8EYKxGKQdaWOsc3A8A Usoq1xpx8SvU7Whh7JwQV u8mD2RAiweMQL0XTITOxl xXjbvnBgyz6WxsPEaMYMd IFxcaWQgNTEwMDAgXFxkY pHRRkPzSjJ4GPThAGK6JH ZrJDg6QEwsOzRJOACkKHp xYsFrFLg7MZipOQuqgGBe NIJmQUFkUYUbZXjzjdF6j 5piLJPvqGGdPRF2SDkqu0 hpEJxzEVM6FCZuFfOzZSR oFN8NVlXaGUnbMVVpFDk7 SiS3CSf6XMFJMnFcUyVsV jE2AFinWyReKPy3CAl7FC nXKxE9AGQ7Xzn9JVH7RJA 8MnD9XXlsjHRhKMdlo4Yn FpMmCPYhEXhkxjO1BPQft dDcUAoabDwpnA5bKmEzGq SlEVKGZuIBbW7aPCVjWXR KCEP4gcuuDDU9SweotGEw blxsdHJjaFxmczIyXHBhc eGCKbdhRQHvAP0NOCLeGI kbYPq0ucOwGEVeHzIsBCQ hS51lx1HHm6RiMC6KFLz2 cnBhciANClxmMVxmczIwI SFmE1DdoeMzHYncKPTauo 9tyEllTLauBcQqAANlw2s 9nWR5vYFgdVM0xHVdmOzs SD8fqQGvCU9uIPZzMGK0j xzyWJLth9GcqSUwZMGhOZ EuJfQjZ26uwzZdXG9iHCK qmkU3bCFanKPwQgUsaFNr VwQaWM09DJAsLmDgGuiat IRlYCMroX10eaGuRR5uo5 ggYmFnIGFuZCBlbnRpcmV dxEJobBQhhAY3MKFrnR7p H8Atd4W7vKUmYIPrILLqm iANClxzYTMwXGVwaWNYc2 EzMCANCihMUlMpDQpcZXB aT57dq4NSp4Oky7vabEkl n6OzjCVlDI5qkBWhBK1Ad 3dgIBJycPHaKLB6NMuew2 aeUIzrECR2GKVpRhYiYUY rTS8XIlOtELycBMVsNTz8 HhZ7NAk4HMNRHxMnYqBuX kA4XGmdSvPqKMm8RYw3PE sIIvG2VFL2AfctWPkrBQS 9KdD2UTavkBVgRGmkd7Tr SmIyCJJmFXnbbfN5BEOns rAyj5IrEXBrVRVwO6jmJs EwNSANClxmMlxmczIyXGY tTOEmDvNaPv6vTYNuxQgc W9OyWSIAMBHzcZ7xwCspe iBCeDpcZjJcZnMyMlxwYX IgDQpccGFyZCANClxwbGF pblxsdHJjaFxmczIyXGVw sUMJASB0TR6ySKKKZlxgc PTlGPNyg0McWXridApfYI KtEsEwh7AuINndkWnuHFC hMzAgDQpcZjFcZnMyMCBS GDMdtIDnOHGsonTxa1LlN WxpbiBsYWJlbGVkIHdpdG ggdGhlIHBhdGllbnQncyB pQH8gHICkLTVmM5BuaoTo Y2Vdm21xFYHqGPZpYTLqG FglCJ19juEbXbCzjfM6TU Swt8F7MLLgoy3uCQAiUK1 qZxTqP65rMHTFrId1SHGo ZCBpbnRvIGEgbWVzaCBiY WdfLQ0vWBNtqUvlMCh5BW W5Eu6lsDJlPDMxxwMlGMO hPPJ2BUJRUH9SNufjgLuc KdApzEEkIbF9XJJgtKYlX LA1WI9xqLcwGWNqE6WcM0 SyyuI6EXSqdvPNBxoqCVG pLQ8BEJLnIXFwPiXlTYg0 [employer] Work Phone: Pathology report final diagnosis Narrative o1mazUMjSWWzkUHqQOdjJ rkqfrWsYKHxxDSfC7Voko psTQweGE1sSB3qzHpzkCE skOVzJMYvClWnp0hfo628 iFKlb4odQSRNvldoeVz1w YszR08ph0Y6HdieQ3ytLA QwXGdyZWVuMFxibHVlMDt 9XHBhcGVydzEyMjQwXHBh oQUfmGR3DPYyUJ0dkwzsD QfuVGyuZVFrifX7ZGRgxV OrC5ZeRZIbBI9ivxcyUET 8MCbbPYNoFTG3GyFdGDXu k4Gfgan0RjGrlNu9a4yvU IIzGZClzEazr9yqLLC9MQ HdbXJoQ7kveZ4wVCPbQL4 gmievz5gxURxiOXlcUOLu vTO6czX1VIPexQEnO5Zsi H4aLRNiZNTzhgNfzVpsfO 6cLhtoNaPaLTOfPTFKwY3 rYQEwVVAusA6xe4c9FNBy apOYbsNaYZgbDD0lPYT2s vZyUmV9sIWgEF56R98gUI Z1sSYqQI6hiOYkQ5nla46 qYfQwGTF8yjv1oMKcPTEf vyCHzQ53ic2mjKJpoiIed 3IgSGVsaWNvYmFjdGVyIH O0lR8ixUTcACR0XHCfMPD htnKgDCqjoSa5HG7yvYBg XBXfkfKEHuCdU4KikVElZ BZelArfM1AzoYRzrW4wrO ainfgjOxlxeHV1PzklPMQ aI5KunFRuSdQ6gOJpIG50 D90zSPW3wVHiPV9gcCZpH 5fas91tLhQwizVnKT4zGO Tor45oRHMzweHEYKpcyVd 5LFJbl3JwfJ99POF2wZ0i tUXfGDVuzTegl3fvYtraZ XJ9 [employer] Phone: [employer] Phone: Basic Metabolic Profile (BMP )on 02-16-2024 BUN/CRE 21.3 RATIO High 10-20 [facility] Comment on above: Performed By: #### L 100.0100, L500.2500, L501.9520 #### [facility] [address] [place], [address] CA,Total 9.4 mg/dL Normal 8.5-10.1 [facility] Comment on above: Performed By: #### L 100.0100, L500.2500, L501.9520 #### [facility] [address] [place], [address] Chloride [Moles/Vol] 107 mmol/L Normal 98-107 [facility] Comment on above: Performed By: #### L 100.0100, L500.2500, L501.9520 #### [facility] [address] [place], [address] CO2 [Moles/Vol] 25.0 mmol/L Normal 21.0-32.0 [facility] Comment on above: Performed By: #### L 100.0100, L500.2500, L501.9520 #### [facility] [address] [place], [address] Creatinine [Mass/Vol] 0.61 mg/dL Normal 0.55-1.02 [facility] Comment on above: Result Comment: The validity of the calculated GFR GFRAA in patients over 70 years has not been determined. Clinical correlation is essential. Performed By: #### L 100.0100, L500.2500, L501.9520 #### [facility] [address] [place], [address] ECRCL 204.09 ml/min Normal [facility] Comment on above: Performed By: #### L 100.0100, L500.2500, L501.9520 #### [facility] [address] [place], [address] EST GFR - AA 143 mL/min Normal >60 [facility] Comment on above: Result Comment: Afri can [place] GFR Calc Performed By: #### L 100.0100, L500.2500, L501.9520 #### [facility] [address] [place], [address] GAP 7 Normal 5-15 [facility] Comment on above: Performed By: #### L 100.0100, L500.2500, L501.9520 #### [facility] [address] [place], [address] GFR/1.73 sq M.predicted among non-blacks MDRD (S/P/Bld) [Vol rate/Area] 118 mL/min/{1.73_m2} Normal >60 [facility] Comment on above: Result Comment: Non- GFR Calc Performed By: #### L 100.0100, L500.2500, L501.9520 #### [facility] [address] [place], [address] Glucose [Mass/Vol] 113 mg/dL High 74-106 [facility] Comment on above: Result Comment: Fast ing Glucose result from 100 to 125 mg/dL suggests IMPAIRED HOMEOSTASIS per A.D.A. criteria. Performed By: #### L 100.0100, L500.2500, L501.9520 #### [facility] [address] [place], [address] Potassium [Moles/Vol] 3.8 mmol/L Normal 3.5-5.1 [facility] Comment on above: Performed By: #### L 100.0100, L500.2500, L501.9520 #### [facility] [address] [place], [address] Sodium [Moles/Vol] 139 mmol/L Normal 136-145 [facility] Comment on above: Performed By: #### L 100.0100, L500.2500, L501.9520 #### [facility] [address] [place], [address] Urea nitrogen [Mass/Vol] 13 mg/dL Normal 7-18 [facility] Comment on above: Performed By: #### L 100.0100, L500.2500, L501.9520 #### [facility] [address] [place], [address] CBC W/Diff, Automatedon 01-28 Absolute Lymph 3.10 X10 3/uL Normal 0.83-4.51 [facility] Comment on above: Performed By: #### L 100.0100, L500.2500, L501.9520 #### [facility] [address] [place], [address] Absolute Neut 14.7 X10 3/uL High 2.0-7.7 [facility] Comment on above: Performed By: #### L 100.0100, L500.2500, L501.9520 #### [facility] [address] [place], [address] Basophils/100 WBC (Bld) 0.2 % Normal 0-1 [facility] Comment on above: Performed By: #### L 100.0100, L500.2500, L501.9520 #### [facility] [address] [place], [address] Eosinophils/100 WBC (Bld) 0.2 % Normal 0-5 [facility] Comment on above: Performed By: #### L 100.0100, L500.2500, L501.9520 #### [facility] [address] [place], [address] Erythrocyte distribution width (RBC) [Ratio] 17.1 % High 11.6-14.6 [facility] Comment on above: Performed By: #### L 100.0100, L500.2500, L501.9520 #### [facility] [address] [place], [address] Hematocrit (Bld) [Volume fraction] 35.4 % Low 37-47 [facility] Comment on above: Performed By: #### L 100.0100, L500.2500, L501.9520 #### [facility] [address] [place], [address] Hemoglobin (Bld) [Mass/Vol] 10.7 g/dL Low 12.0-15. 0 [facility] Comment on above: Performed By: #### L 100.0100, L500.2500, L501.9520 #### [facility] [address] [place], [address] IG% 0.500 Normal 0.0-0.9 [facility] Comment on above: Result Comment: IG% - Immature Granulocytes (promyelocytes, myelocytes and metamyelocytes) > 1% indicates that a LEFT SHIFT is Present. Performed By: #### L 100.0100, L500.2500, L501.9520 #### [facility] [address] [place], [address] Lymphocytes/100 WBC (Bld) 16.7 % Low 19-41 [facility] Comment on above: Performed By: #### L 100.0100, L500.2500, L501.9520 #### [facility] [address] [place], [address] MCH (RBC) [Entitic mass] 22.1 pg Low 27.0-32.0 [facility] Comment on above: Performed By: #### L 100.0100, L500.2500, L501.9520 #### [facility] [address] [place], [address] MCHC (RBC) [Mass/Vol] 30.2 g/dL Low 32-36 [facility] Comment on above: Performed By: #### L 100.0100, L500.2500, L501.9520 #### [facility] [address] [place], [address] MCV (RBC) [Entitic vol] 73.0 fL Low 81-99 [facility] Comment on above: Performed By: #### L 100.0100, L500.2500, L501.9520 #### [facility] [address] [place], [address] Monocytes/100 WBC (Bld) 3.3 % Normal 0-10 [facility] Comment on above: Performed By: #### L 100.0100, L500.2500, L501.9520 #### [facility] [address] [place], [address] Neutrophils/100 WBC (Bld) 79.1 % High 47-70 [facility] Comment on above: Performed By: #### L 100.0100, L500.2500, L501.9520 #### [facility] [address] [place], [address] Nucleated RBC (Bld) [#/Vol] 0 10*3/uL Normal 0-5 [facility] Comment on above: Performed By: #### L 100.0100, L500.2500, L501.9520 #### [facility] [address] [place], [address] Platelet mean volume (Bld) [Entitic vol] 10.6 fL Normal 6.2-12.0 [facility] Comment on above: Performed By: #### L 100.0100, L500.2500, L501.9520 #### [facility] [address] [place], [address] Platelets (Bld) [#/Vol] 476 10*3/uL High 150-450 [facility] Comment on above: Performed By: #### L 100.0100, L500.2500, L501.9520 #### [facility] [address] [place], [address] RBC (Bld) [#/Vol] 4.85 10*6/uL Normal 4.2-5.4 [facility] Comment on above: Performed By: #### L 100.0100, L500.2500, L501.9520 #### [facility] [address] [place], [address] RDW SD 44.6 fl High 35.1-43.9 [facility] Comment on above: Performed By: #### L 100.0100, L500.2500, L501.9520 #### [facility] [address] [place], [address] WBC (Bld) [#/Vol] 18.6 10*3/uL High 4.4-11.0 [facility] Comment on above: Performed By: #### L 100.0100, L500.2500, L501.9520 #### [facility] [address] [place], [address] Thyroid Stim Hormone (TSH)on 02-16-2024 TSH 1.620 uIU/mL Normal 0.358-3.74 0 [facility] Comment on above: Performed By: #### L 100.0100, L500.2500, L501.9520 #### [facility] [address] [place], [address] 12 Lead EKGon 02-15-2024 12 Lead EKG [facility] [address] [place] [address] 12 Lead EKG 02/15/24 1351 MR#: [id number] Acct: [id number] Name: CHIO BUCIO Rep #: [id number] : 1985 38 From: Jeff Grigsby MD Attending Dr: Dr. Belgica Juarez, DO Status: ADM I N Ordering Dr: Edy Christensen DO Date: 02/15/24 Location: [facility] Sex: F C Admitted: 02/15/24 Test Reason : DYSP Blood Pressure : */* mmHG Vent. Rate : 129 BPM Atrial Rate : 129 BPM P-R Int : 150 ms QRS Dur : 90 ms QT Int : 302 ms P-R-T Axes : 45 68 8 degrees QTcB Int : 442 ms Sinus tachycardia Nonspecific ST abnormality Abnormal ECG Confirmed by KATHY LOPEZ, JEFF ([id number]), assistant film editor WINDY HAZEL ([id number]) on 02/16/2024 10:57:32 AM Referred By: EAN Confirmed By: JEFF GRIGSBY MD 02/16/24 1057 Date Jeff Grigsby MD CC: Dr. Vasquez Irwin MD; Dr. Edy Christensen DO; Dr. Belgica Juarez DO Signed Normal [facility] Basic Metabolic Profile (BMP )on 02-15-2024 BUN/CRE 20.7 RATIO High 10-20 [facility] Comment on above: Performed By: #### L 500.2500, L501.2450, L100.0100, L500.3400 ####[facility] [address] [place], [address] CA,Total 9.7 mg/dL Normal 8.5-10.1 [facility] Comment on above: Performed By: #### L 500.2500, L501.2450, L100.0100, L500.3400 ####[facility] [address] [place], [address] Chloride [Moles/Vol] 102 mmol/L Normal 98-107 [facility] Comment on above: Performed By: #### L 500.2500, L501.2450, L100.0100, L500.3400 ####[facility] [address] [place], [address] CO2 [Moles/Vol] 27.0 mmol/L Normal 21.0-32.0 [facility] Comment on above: Performed By: #### L 500.2500, L501.2450, L100.0100, L500.3400 ####[facility] [address] [place], [address] Creatinine [Mass/Vol] 0.77 mg/dL Normal 0.55-1.02 [facility] Comment on above: Result Comment: The validity of the calculated GFR GFRAA in patients over 70 years has not been determined. Clinical correlation is essential. Performed By: #### L 500.2500, L501.2450, L100.0100, L500.3400 ####[facility] [address] [place], [address] ECRCL 161.86 ml/min Normal [facility] Comment on above: Performed By: #### L 500.2500, L501.2450, L100.0100, L500.3400 ####[facility] [address] [place], [address] EST GFR - AA 108 mL/min Normal >60 [facility] Comment on above: Result Comment: Afri can [place] GFR Calc Performed By: #### L 500.2500, L501.2450, L100.0100, L500.3400 ####[facility] [address] [place], [address] GAP 5 Normal 5-15 [facility] Comment on above: Performed By: #### L 500.2500, L501.2450, L100.0100, L500.3400 ####[facility] [address] [place], [address] GFR/1.73 sq M.predicted among non-blacks MDRD (S/P/Bld) [Vol rate/Area] 89 mL/min/{1.73_m2} Normal >60 [facility] Comment on above: Result Comment: Non- GFR Calc Performed By: #### L 500.2500, L501.2450, L100.0100, L500.3400 ####[facility] [address] [place], [address] Glucose [Mass/Vol] 143 mg/dL High 74-106 [facility] Comment on above: Result Comment: Fast ing Glucose result greater than or equal to 126 mg/dL suggests DIABETES MELLITUS per A.D.A. criteria. Performed By: #### L 500.2500, L501.2450, L100.0100, L500.3400 ####[facility] [address] [place], [address] Potassium [Moles/Vol] 4.0 mmol/L Normal 3.5-5.1 [facility] Comment on above: Performed By: #### L 500.2500, L501.2450, L100.0100, L500.3400 ####[facility] [address] [place], [address] Sodium [Moles/Vol] 134 mmol/L Low 136-145 [facility] Comment on above: Performed By: #### L 500.2500, L501.2450, L100.0100, L500.3400 ####[facility] [address] [place], [address] Urea nitrogen [Mass/Vol] 16 mg/dL Normal 7-18 [facility] Comment on above: Performed By: #### L 500.2500, L501.2450, L100.0100, L500.3400 ####[facility] [address] [place], [address] CBC W/Diff, Automatedon 12- SMEAR COMMENT COMMENT Normal [facility] Comment on above: Result Comment: NEUT ROPHILIA. Performed By: #### L 500.2500, L501.2450, L100.0100, L500.3400 ####[facility] [address] [place], [address] CTA Chest W/WO Contraston CTA Chest W/WO Contrast [facility] Imaging Services [address] [place] [address] CTA Chest W/WO Contrast MR#: [id number] Acct: [id number] Name: CHIO BUCIO LOWELL Rep #: [id number] : 1985 F 38 From: Steven horn MD PCP: Dr. Vasquez Irwin MD Status: REG ER Study: CTA Chest W/WO Contrast Date of Exam: 02/15/24 Exam# [id number] Ordering Dr: Edy Christensen DO [id number] STUDY: CTA CHEST REASON FOR EXAM: Female, 38 years old. pulmonary embolism s/p ebg this am PATIENT HAD EGD AT [facility] THIS MORNING. ON THE WAY HOME SHE STARTED TO EXPERIENCE SOB, CHILLS. SHE WAS TOLD THE HER SPO2 WENT LOW DURING THE PROCEDURE. RADIATION DOSAGE (If Supplied By Facility): CTDIvol = ( 15.04 ) mGy, DLP = ( 500.28 ) mGycm TECHNIQUE: The examination was performed with the intravenous administration of IV 100mL Isovue-370. Post-processing of the angiographic images was performed, with multiplanar reformation and 3D reconstruction. Individualized dose optimization techniques were used for this CT. COMPARISON: None. FINDINGS: Mild to moderate patchy consolidation is intermixed with linear atelectasis in the mid to inferior aspect of the left upper lobe with extension to the hilar region. Surrounding groundglass edema and tree-in-bud opacities are present in the same region. Mild patchy pneumonic consolidation with groundglass edema and tree-in-bud opacities are also seen in the lateral aspect of the left upper lobe from superior to inferior. The right lung is clear. No visualized pleural effusion. There is limited enhancement of the main pulmonary artery and right and left pulmonary arteries. There is limited enhancement of the bilateral peripheral pulmonary arteries. There is no demonstrated obvious a large pulmonary embolism. Normal thoracic aorta and visualized great vessels. There is no demonstrated aortic dissection. Normal heart and pericardium. There are no demonstrated calcifications of the coronary arteries. Normal mediastinum. Normal hilar regions. Normal visualized trachea and bronchi. The lungs are well expanded. Normal pleura. Normal chest wall structures. There are degenerative changes of thoracic spine. Normal visualized upper abdomen. CT/CTA Chest W/WO Contrast IMPRESSION: 1. Probable aspiration pneumonia = Mild to moderate patchy consolidation is intermixed with linear atelectasis in the mid to inferior aspect of the left upper lobe with extension to the hilar region. Surrounding groundglass edema and tree-in-bud opacities are present in the same region. Mild patchy pneumonic consolidation with groundglass edema and tree-in-bud opacities are also seen in the lateral aspect of the left upper lobe from superior to inferior. 2. The left lung consolidation should be followed up to resolution to ensure no underlying occult process. 3. Suboptimal contrast opacification of the pulmonary arteries = There is limited enhancement of the main pulmonary artery and right and left pulmonary arteries. There is limited enhancement of the bilateral peripheral pulmonary arteries. There is no demonstrated obvious a large pulmonary embolism. Consider nuclear medicine lung perfusion scan symptoms persist. Electronically Signed: Steven Polk MD at 14:55 EST Reading Location ID and State: [facility] / [place] , Service support , CC: Dr. Vasquez Irwin MD; Dr. Edy Christensen DO Forestry Aid Technician: Signed [facility] 02-15-2024 [address] [facility] Patient Name: Chio Bucio Procedure Date: 02/15/2024 8:20 AM Date of : 1985 Age: 38 Gender: Female Procedure: Upper GI endoscopy Indications: Follow-up of esophageal ulcer Patient Profile: Refer to note in patient chart for documentation of history and physical. Providers: Giacomo Giang MD, ISAIAS CARUSO MD Referring MD: VASQUEZ IRWIN MD Medicines: See the Anesthesia note for documentation of the administered medications Moderate Sedation: Sedation provided by anesthesia provider Complications: No immediate complications. Procedure: Pre-Anesthesia Assessment: - Prior to the procedure, a History and Physical was performed, and patient medications and allergies were reviewed. The patient is competent. The risks and benefits of the procedure and the sedation options and risks were discussed with the patient. All questions were answered and informed consent was obtained. Patient identification and proposed procedure were verified by the physician in the pre-procedure area. Mental Status Examination: alert and oriented. Airway Examination: normal oropharyngeal airway and neck mobility. Respiratory Examination: clear to auscultation. CV Examination: normal. Prophylactic Antibiotics: The patient does not require prophylactic antibiotics. Prior Anticoagulants: The patient has taken no anticoagulant or antiplatelet agents. After reviewing the risks and benefits, the patient was deemed in satisfactory condition to undergo the procedure. The anesthesia plan was to use monitored anesthesia care (MAC). Immediately prior to administration of medications, the patient was re-assessed for adequacy to receive sedatives. The heart rate, respiratory rate, oxygen saturations, blood pressure, adequacy of pulmonary ventilation, and response to care were monitored throughout the procedure. The physical status of the patient was re-assessed after the procedure. After obtaining informed consent, the endoscope was passed under direct vision. Throughout the procedure, the patient's blood pressure, pulse, and oxygen saturations were monitored continuously. The [id number] Endoscope was introduced through the mouth, and advanced to the second part of duodenum. The upper GI endoscopy was accomplished without difficulty. The patient tolerated the procedure well. Findings: The examined esophagus was normal. The Z-line was irregular and was found 34 cm from the incisors. This was biopsied with a cold forceps for histology. A medium-sized hiatal hernia was found. The hiatal narrowing was 37 cm from the incisors. The Z-line was 34 cm from the incisors. A single erosion with no stigmata of recent bleeding was found in the gastric antrum. This was biopsied with a cold forceps for histology. The examined duodenum was normal. Procedure Code(s): --- Professional --- 80216, Esophagogastroduodeno scopy, flexible, transoral; with biopsy, single or multiple Diagnosis Code(s): --- Professional --- K22.89, Other specified disease of esophagus K44.9, Diaphragmatic hernia without obstruction or gangrene K31.89, Other diseases of stomach and duodenum K22.10, Ulcer of esophagus without bleeding CPT copyright 2021 [employer]. All rights reserved. The codes documented in this report are preliminary and upon primary special educator review may be revised to meet current compliance requirements. MD Giacomo Macias MD 02/15/2024 9:00:28 AM This report has been signed electronically. Estimated Blood Loss: Estimated blood loss: none. Number of Addenda: 0 Note Initiated On: 02/15/2024 8:20 AM Total Procedure Duration Time 0 hours 13 minutes 35 seconds [address] [place] [address] IMPRESSION: - Normal esophagus. - Z-line irregular, 34 cm from the incisors. Biopsied. - Medium-sized hiatal hernia. - Erosive gastropathy with no stigmata of recent bleeding. Biopsied. - Normal examined duodenum. Recommendation: - Discharge patient to home. - Patient has a contact number available for emergencies. The signs and symptoms of potential delayed complications were discussed with the patient. Return to normal activities tomorrow. Written discharge instructions were provided to the patient. - Advance diet as tolerated. - Continue present medications. - Await pathology results. Normal [facility] EGD Study observation Narrat donaldo 02-15-2024 - Normal esophagus. - Z-line irregular, 34 cm from the incisors. Biopsied. - Medium-sized hiatal hernia. - Erosive gastropathy with no stigmata of recent bleeding. Biopsied. - Normal examined duodenum. Recommendation: - Discharge patient to home. - Patient has a contact number available for emergencies. The signs and symptoms of potential delayed complications were discussed with the patient. Return to normal activities tomorrow. Written discharge instructions were provided to the patient. - Advance diet as tolerated. - Continue present medications. - Await pathology results. [facility] Patient Name: Chio Bucio Procedure Date: 02/15/2024 8:20 AM Date of : 1985 Age: 38 Gender: Female Procedure: Upper GI endoscopy Indications: Follow-up of esophageal ulcer Patient Profile: Refer to note in patient chart for documentation of history and physical. Providers: Giacomo Giang MD, ISAIAS CARUSO MD Referring MD: VASQUEZ IRWIN MD Medicines: See the Anesthesia note for documentation of the administered medications Moderate Sedation: Sedation provided by anesthesia provider Complications: No immediate complications. Procedure: Pre-Anesthesia Assessment: - Prior to the procedure, a History and Physical was performed, and patient medications and allergies were reviewed. The patient is competent. The risks and benefits of the procedure and the sedation options and risks were discussed with the patient. All questions were answered and informed consent was obtained. Patient identification and proposed procedure were verified by the physician in the pre-procedure area. Mental Status Examination: alert and oriented. Airway Examination: normal oropharyngeal airway and neck mobility. Respiratory Examination: clear to auscultation. CV Examination: normal. Prophylactic Antibiotics: The patient does not require prophylactic antibiotics. Prior Anticoagulants: The patient has taken no anticoagulant or antiplatelet agents. After reviewing the risks and benefits, the patient was deemed in satisfactory condition to undergo the procedure. The anesthesia plan was to use monitored anesthesia care (MAC). Immediately prior to administration of medications, the patient was re-assessed for adequacy to receive sedatives. The heart rate, respiratory rate, oxygen saturations, blood pressure, adequacy of pulmonary ventilation, and response to care were monitored throughout the procedure. The physical status of the patient was re-assessed after the procedure. After obtaining informed consent, the endoscope was passed under direct vision. Throughout the procedure, the patient's blood pressure, pulse, and oxygen saturations were monitored continuously. The GIF-H190 [id number] Endoscope was introduced through the mouth, and advanced to the second part of duodenum. The upper GI endoscopy was accomplished without difficulty. The patient tolerated the procedure well. Findings: The examined esophagus was normal. The Z-line was irregular and was found 34 cm from the incisors. This was biopsied with a cold forceps for histology. A medium-sized hiatal hernia was found. The hiatal narrowing was 37 cm from the incisors. The Z-line was 34 cm from the incisors. A single erosion with no stigmata of recent bleeding was found in the gastric antrum. This was biopsied with a cold forceps for histology. The examined duodenum was normal. Procedure Code(s): --- Professional --- 01753, Esophagogastroduodeno scopy, flexible, transoral; with biopsy, single or multiple Diagnosis Code(s): --- Professional --- K22.89, Other specified disease of esophagus K44.9, Diaphragmatic hernia without obstruction or gangrene K31.89, Other diseases of stomach and duodenum K22.10, Ulcer of esophagus without bleeding CPT copyright 2021 [employer]. All rights r (more content not included)... [facility] Giacomo Giang V - 02/15/2024 [facility] GI Patient Name: Chio Bucio Procedure Date: 02/15/2024 8:20 AM Date of : 1985 Age: 38 Gender: Female Procedure: Upper GI endoscopy Indications: Follow-up of esophageal ulcer Patient Profile: Refer to note in patient chart for documentation of history and physical. Providers: Giacomo Giang MD, ISAIAS CARUSO MD Referring MD: VASQUEZ IRWIN MD Medicines: See the Anesthesia note for documentation of the administered medications Moderate Sedation: Sedation provided by anesthesia provider Complications: No immediate complications. Procedure: Pre-Anesthesia Assessment: - Prior to the procedure, a History and Physical was performed, and patient medications and allergies were reviewed. The patient is competent. The risks and benefits of the procedure and the sedation options and risks were discussed with the patient. All questions were answered and informed consent was obtained. Patient identification and proposed procedure were verified by the physician in the pre-procedure area. Mental Status Examination: alert and oriented. Airway Examination: normal oropharyngeal airway and neck mobility. Respiratory Examination: clear to auscultation. CV Examination: normal. Prophylactic Antibiotics: The patient does not require prophylactic antibiotics. Prior Anticoagulants: The patient has taken no anticoagulant or antiplatelet agents. After reviewing the risks and benefits, the patient was deemed in satisfactory condition to undergo the procedure. The anesthesia plan was to use monitored anesthesia care (MAC). Immediately prior to administration of medications, the patient was re-assessed for adequacy to receive sedatives. The heart rate, respiratory rate, oxygen saturations, blood pressure, adequacy of pulmonary ventilation, and response to care were monitored throughout the procedure. The physical status of the patient was re-assessed after the procedure. After obtaining informed consent, the endoscope was passed under direct vision. Throughout the procedure, the patient's blood pressure, pulse, and oxygen saturations were monitored continuously. The GIF-[id number] Endoscope was introduced through the mouth, and advanced to the second part of duodenum. The upper GI endoscopy was accomplished without difficulty. The patient tolerated the procedure well. Findings: The examined esophagus was normal. The Z-line was irregular and was found 34 cm from the incisors. This was biopsied with a cold forceps for histology. A medium-sized hiatal hernia was found. The hiatal narrowing was 37 cm from the incisors. The Z-line was 34 cm from the incisors. A single erosion with no stigmata of recent bleeding was found in the gastric antrum. This was biopsied with a cold forceps for histology. The examined duodenum was normal. Procedure Code(s): --- Professional --- 23878, Esophagogastroduodeno scopy, flexible, transoral; with biopsy, single or multiple Diagnosis Code(s): --- Professional --- K22.89, Other specified disease of esophagus K44.9, Diaphragmatic hernia without obstruction or gangrene K31.89, Other diseases of stomach and duodenum K22.10, Ulcer of esophagus without bleeding CPT copyright 2021 [employer]. All rights reserved. The codes documented in this report are preliminary and upon primary special educator review may be revised to meet current compliance requirements. MD Giacomo Macias MD 02/15/2024 9:00:28 AM This report has been signed electronically. Estimated Blood Loss: Estimated blood loss: none. Number of Addenda: 0 Note Initiated On: 02/15/2024 8:20 AM Total Procedure Duration Time 0 hours 13 minutes 35 seconds [address] [place] [address] IMPRESSION: - Normal esophagus. - Z-line irregular, 34 cm from the incisors. Biopsied. - Medium-sized hiatal hernia. - Erosive gastropathy with no stigmata of recent bleeding. Biopsied. - Normal examined duodenum. Recommendation: - Discharge patient to home. - Patient has a contact number available for emergencies. The signs and symptoms of potential delayed complications were discussed with the patient. Return to normal activities tomorrow. Written discharge instructions were provided to the patient. - Advance diet as tolerated. - Continue present medications. - Await pathology results. [facility] Radiology Study observation (narrative) [facility] Echo, Limited Studyon 2023 Echo, Limited Study [facility] [address] [place] [address] Echo, Limited Study 02/16/24 0839 MR#: [id number] Acct: [id number] Name: CHIO BUCIO Rep #: [id number] : 1985 38 From: Jeff Grigsby MD Attending Dr: Dr. Belgica Juarez, DO Status: ADM I N Ordering Dr: Jo-Ann Willoughby MD Date: 02/15/24 Location: [facility] Sex: F C Admitted: 02/15/24 Reason For Study: EVALUATE EJECTION FRACTION Procedure This was a limited 2D transthoracic echocardiogram. Exam performed portable in patient room. Left Ventricle Normal LV size. Left ventricular systolic function is normal. The left ventricular ejection fraction is 65 %. No regional wall motion abnormalities noted. Right Ventricle Normal RV size. Normal systolic function. Great Vessels Normal aortic root. Pericardium/Pleural No pericardial effusion. MMode/2D Measurements Calculations LVIDd: 4.4 cm IVSd: 1.0 cm LVOT diam: 2.1 cm LVIDs: 2.0 cm LVPWd: 0.97 cm LVOT area: 3.3 cm2 RVDd: 3.4 cm FS: 54.9 % LAV(MOD-bp): 55.9 ml LVAd ap4: 28.5 cm2 LVAd ap2: 23.4 cm2 LAV(MOD-bp) Indexed: 21.7 ml/m2 LVLd ap4: 8.4 cm LVLd ap2: 8.7 cm LAV(MOD-sp2): 58.1 ml EDV(MOD-sp4): 79.3 ml EDV(MOD-sp2): 53.8 ml LAV(MOD-sp4): 52.3 ml EDV(sp4-el): 82.7 ml EDV(sp2-el): 53.5 ml LVAs ap4: 14.0 cm2 LVAs ap2: 11.8 cm2 LVLs ap4: 7.2 cm LVLs ap2: 6.9 cm ESV(MOD-sp4): 24.8 ml ESV(MOD-sp2): 19.6 ml ESV(sp4-el): 23.1 ml ESV(sp2-el): 17.1 ml EF(MOD-sp4): 68.7 % EF(MOD-sp2): 63.6 % EF(sp4-el): 72.1 % SV(MOD-sp4): 54.5 ml SV(MOD-sp2): 34.2 ml SV(sp4-el): 59.6 ml SI(MOD-sp4): 21.2 ml/m2 SI(MOD-sp2): 13.3 ml/m2 Ao sinus diam: 2.8 cm LA A4 area: 18.8 cm2 LA dimension(2D): 4.2 cm TAPSE: 2.0 cm RA A4 area: 10.5 cm2 Time Measurements MV dec time: 0.19 sec Doppler Measurements Calculations MV E max farzana: 94.8 cm/sec Lat Peak E' Farzana: 15.4 cm/sec Med Peak E' Farzana: 10.1 cm/sec MV A max farzana: 75.4 cm/sec E/E' lat: 6.2 E/E' med: 9.4 MV E/A: 1.3 MV dec slope: 510.0 cm/sec2 TR max farzana: 219.4 cm/sec TR max P.3 mmHg ECHO/Echo, Limited Study Interpretation Summary Normal LV size. Left ventricular systolic function is normal. The left ventricular ejection fraction is 65 %. No pericardial effusion. The study was technically limited. Ordering Physician: Jo-Ann Willoughby Performed By: Jo Lozano RDCS 02/16/24 105 Date Jeff Grigsby MD CC: Dr. Vasquez Irwin MD; Dr. Belgica Juarez DO; Dr. Jo-Ann Willoughby MD Date Dictated: 02/16/2439 Date Transcribed: 02/16/24 1053 Forestry Aid Technician: Signed [facility] Emergency Department Summary on 02-15-2024 Emergency Department Summary [facility] Medical Records Department [address] [place] [address] Emergency Department Summary 02/15/24 MR#: [id number] Acct: [id number] Name: CHIO BUCIO Rep #: [id number] : 1985 38 From: Edy Christensen DO PCP: Dr. Vasquez Irwin MD Status:ADM IN Location: [place] [id number] HPI History of Present Illness Chief Complaint: General Illness Informant: patient and parent Narrative Narrative: 38-year-old female presenting to the emergency room with dyspnea. Patient states she woke up this morning feeling fine. She went to [place] to [facility] and had upper endoscopy performed. She states on the way home she began to feel feverish and chilled. She felt short of breath and experienced nausea. Symptoms progressed and once they got home talked with her doctor who advised her coming to the hospital. States she feels her heart racing. It is worse with exertion. Surgeon noted that she did have an episode of hypoxia during the procedure but the anesthesiologist was able to remedy it. She notes a bit of a sore throat but states that was expected after the procedure. [facility] Medical History Family history of heart disease Breast pain Snoring Cervical high risk HPV (human papillomavirus) test positive Family history of colon cancer in mother PMS (premenstrual syndrome) Oral contraceptive pill surveillance Adult acne Esophageal ulcer Pulmonary hypertension Anemia Vitamin D deficiency Obesity, morbid, BMI 50 or higher Erythema Anxiety Depression, endogenous GERD (gastroesophageal reflux disease) Constipation in female Family history of early CAD Fatigue COVID-19 Home Medications ???Medication ???Instructions ???Recorded ???Last Taken ???Type buspirone 5 mg tablet 5 mg PO BID 06/10/23 Unknown History omeprazole 40 mg capsule,delayed 40 mg PO BID 06/10/23 Unknown History release spironolactone 50 mg tablet 50 mg PO BID 06/10/23 Unknown History venlafaxine 150 mg 150 mg PO DAILY 06/10/23 Unknown History capsule,extended release 24 hr venlafaxine 75 mg capsule,extended 75 mg PO DAILY 06/10/23 Unknown History release 24 hr cholecalciferol (vitamin D3) 50 50 mcg PO DAILY 06/13/23 Unknown History mcg (2,000 unit) capsule docusate sodium 100 mg capsule 100 mg PO BID 06/13/23 Unknown History hydrocortisone 1 %-pramoxine 1 % 1 applic MA TID #10 grams 02/02/24 Unknown Rx rectal foam (Proctofoam HC) lidocaine 5 % topical cream 1 applic topical TID PRN pain #15 02/02/24 Unknown Rx (RectiCare) grams ropinirole 0.25 mg tablet 0.25 mg PO QHS 02/02/24 Unknown History trazodone 50 mg tablet 50 - 100 mg PO QHS 02/02/24 Unknown History Allergy/AdvReac Type Severity Reaction Status Date / Time No Known Allergies Allergy Verified 02/15/24 13:14 Family History Mother , age 62 Colon cancer age 59 Hypertension Grandfather Heart disease Maternal Grandmother Heart disease maternal Aunt Hypertension Maternal Uncle Diabetes Paternal Grandmother Diabetes Paternal Surgical History History of tonsillectomy and adenoidectomy Hx of cholecystectomy H/O LEEP Social History household members: spouse current occupational status: employed Smoking Status: Never smoker alcohol intake: current alcohol intake frequency: holidays/special occasions only substance use type: does not use seatbelt use: always ROS ROS ED Constitutional Constitutional ED: Reports chills, fever(s) and subjective; Denies weight loss Eyes Eyes: Denies change in vision or diplopia ENT ENT ED: Denies ear pain, rhinorrhea or sore throat Cardiovascular Cardiovascular: Reports racing heartbeat; Denies chest pain, orthopnea or palpitations Respiratory/Chest Respiratory/Chest: Reports dyspnea; Denies cough or orthopnea Gastrointestinal Gastrointestinal: Reports nausea; Denies abdominal pain, diarrhea or vomiting Genitourinary Genitourinary ED: Denies dysuria, hematuria or urinary frequency Musculoskeletal Musculoskeletal: Denies arthralgias or myalgias Integumentary Denies abscess or rash Neurologic Neurologic: Denies headache(s) or weakness Psychiatric Psychiatric: Denies anxiety, depression, suicidal ideation or suicidal thoughts Endocrine Endocrinology: Denies polydipsia, polyphagia or polyuria Allergic/Immunologic Allergic/Immunologic ED: Denies mouth swelling, tongue swelling or urticaria EXAM Physical Exam Const Vital Signs: 02/15/24 13:11 02/15/24 13:12 02/15/24 14:48 Temperature 100.3 F H 99.3 F H Temperature Source Oral O (more content not included)... [facility] H AND P Exam - [facility] 02-15-2024 H&P Exam - Hospitalist [facility] Medical Records Department [address] [place] [address] H P Exam - Hospitalist 02/15/24 1532 MR#: [id number] Acct: [id number] Name: CHIO BUCIO LOWELL Rep #: [id number] : 1985 38 From: Jo-Ann Willoughby MD PCP: Dr. Vasquez Irwin MD Status:ADM IN Location: [facility] ALC302-5 HPI - General General Date of Admission: 02/15/24 Date of Service: 02/15/24 Chief Complaint: SOB HPI Narrative CHIO BUCIO, is a 38-year-old female with history of current anxiety who presented [facility] ED 02/15/2024 with dyspnea. Woke up feeling fine but she went to [place] to [facility] and had upper endoscopy performed. On the way home she began to feel feverish and chilled as well as short of breath and experienced nausea. She had progressive symptoms when she got home and spoke with her doctor who advised her to come to the hospital. The surgeon did note that she had episode of hypoxia during procedure but resolved with anesthesiology intervention. In the ED she had white blood cell count of 24 with heart rate in 120s to 130s with Tmax 100.3. CTA showed left-sided consolidation and groundglass changes concerning for aspiration pneumonia. Patient given a breathing treatment and CAP coverage and hospitalist contacted for mission. Patient evaluated at bedside and reports she was encompass for an EGD, there was concern for an ulcer in June 2022 but her endoscopy was just scheduled now (reportedly only showed esophageal erosion) and she felt fine on her way down but on her way home she developed a headache and nausea with slight cough and shortness of breath and felt generally unwell. Had a little bit of a cough yesterday but denied any other URI-like symptoms. Is feeling little bit better after fluids, antibiotics, breathing treatment with her nausea resolving and breathing improving. Denies any chest pain or noted fever, no swelling or extremities, no changes in bowel or bladder. Slight sore throat after EGD. [facility] Medical History Family history of heart disease Breast pain Snoring Cervical high risk HPV (human papillomavirus) test positive Family history of colon cancer in mother PMS (premenstrual syndrome) Oral contraceptive pill surveillance Adult acne Esophageal ulcer Pulmonary hypertension Anemia Vitamin D deficiency Obesity, morbid, BMI 50 or higher Erythema Anxiety Depression, endogenous GERD (gastroesophageal reflux disease) Constipation in female Family history of early CAD Fatigue COVID-19 Home Medications ???Medication ???Instructions ???Recorded ???Last Taken ???Type buspirone 5 mg tablet 5 mg PO BID 06/10/23 Unknown History omeprazole 40 mg capsule,delayed 40 mg PO BID 06/10/23 Unknown History release spironolactone 50 mg tablet 50 mg PO BID 06/10/23 Unknown History venlafaxine 150 mg 150 mg PO DAILY 06/10/23 Unknown History capsule,extended release 24 hr venlafaxine 75 mg capsule,extended 75 mg PO DAILY 06/10/23 Unknown History release 24 hr cholecalciferol (vitamin D3) 50 50 mcg PO DAILY 06/13/23 Unknown History mcg (2,000 unit) capsule docusate sodium 100 mg capsule 100 mg PO BID 06/13/23 Unknown History hydrocortisone 1 %-pramoxine 1 % 1 applic MA TID #10 grams 02/02/24 Unknown Rx rectal foam (Proctofoam HC) lidocaine 5 % topical cream 1 applic topical TID PRN pain #15 02/02/24 Unknown Rx (RectiCare) grams ropinirole 0.25 mg tablet 0.25 mg PO QHS 02/02/24 Unknown History trazodone 50 mg tablet 50 - 100 mg PO QHS 02/02/24 Unknown History Allergy/AdvReac Type Severity Reaction Status Date / Time No Known Allergies Allergy Verified 02/15/24 13:14 Family History Mother , age 62 Colon cancer age 59 Hypertension Grandfather Heart disease Maternal Grandmother Heart disease maternal Aunt Hypertension Maternal Uncle Diabetes Paternal Grandmother Diabetes Paternal Surgical History History of tonsillectomy and adenoidectomy Hx of cholecystectomy H/O LEEP Social History household members: spouse current occupational status: employed Smoking Status: Never smoker alcohol intake: current alcohol intake frequency: holidays/special occasions only substance use type: does not use seatbelt use: always ROS ROS Narrative General: Did not note any fever at home HENT: Does have headache, denies stuffy nose, slight sore throat EYES: Denies changes in vision Resp: Cough, non productive, increased SOB Cardiac: Denies chest pain GI: Denies abdominal pain, denies changes in bowel, nausea resolved : Denies changes in (more content not included)... [facility] Lactic Acidon 02-15-2024 Lactate [Moles/Vol] 2.3 mmol/L Invalid Interpretation Code 0.4-1.9 [facility] Comment on above: Result Comment: Crit ical Result(s) Called at: 20:47:09 02/15/2024 by: Mechelle bain [facility]. Results read back by [facility]. Performed By: #### M 200.1000 #### [facility] [address] [place], [address] Lactate [Moles/Vol] 2.3 mmol/L Invalid Interpretation Code 0.4-1.9 [facility] Comment on above: Order Comment: Y Result Comment: Crit ical Result(s) Called at: 16:22:43 02/15/2024 by: FUNMI WELCH. Results read back by Raudel Arreola Performed By: #### L 503.2305, L300.3900, L300.4310 #### [facility] [address] [place], [address] Legionella Antigen Urineon 1 04-17-2023 LEGU Comments: Only Recommended for severe cases of pneumonia Only Recommended for severe cases of pneumonia URINE, CLEAN CATCH Legionella Antigen result interpretation: L pneumo Ag Ur Ql Negative Presumptive negative for Legionella pneumophila serogroup 1 antigen in urine, suggesting no recent or current infection. Legionella Ag, Urine Negative (See interpretation below) [facility] Comment on above: Performed By: #### M 300.4600, M300.4500 #### [facility] [address] [place], [address] Lipaseon 02-15-2024 Lipase [Catalytic activity/Vol] 25 U/L Normal 13-75 [facility] Comment on above: Result Comment: Kim carrera note: LIPASE revised reference range effective 22. New Lipase methodology. Expected to produce lower values than the previous assay method. NEW Reference Range: 13 - 75 U/L Performed By: #### L 500.2500, L501.2450, L100.0100, L500.3400 ####[facility] [address] [place], [address] Liver Profileon 02-15-2024 Albumin [Mass/Vol] 3.7 g/dL Normal 3.2-5.0 [facility] Comment on above: Performed By: #### L 500.2500, L501.2450, L100.0100, L500.3400 ####[facility] [address] [place], [address] ALK P 223 U/L High 45-117 [facility] Comment on above: Performed By: #### L 500.2500, L501.2450, L100.0100, L500.3400 ####[facility] [address] [place], [address] ALT [Catalytic activity/Vol] 67 U/L High 13-56 [facility] Comment on above: Performed By: #### L 500.2500, L501.2450, L100.0100, L500.3400 ####[facility] [address] [place], [address] AST [Catalytic activity/Vol] 25 U/L Normal 15-37 [facility] Comment on above: Performed By: #### L 500.2500, L501.2450, L100.0100, L500.3400 ####[facility] [address] [place], [address] Bilirubin [Mass/Vol] 0.40 mg/dL Normal 0.20-1.00 [facility] Comment on above: Result Comment: For patients on eltrombopag therapy, use of Dimension [place] TBIL is not recommended. Performed By: #### L 500.2500, L501.2450, L100.0100, L500.3400 ####[facility] [address] [place], [address] Bilirubin.direct [Mass/Vol] 0.16 mg/dL Normal 0.00-0.3 0 [facility] Comment on above: Performed By: #### L 500.2500, L501.2450, L100.0100, L500.3400 ####[facility] [address] [place], [address] Globulin (S) [Mass/Vol] 4.6 g/dL High 2.2-4.2 [facility] Comment on above: Performed By: #### L 500.2500, L501.2450, L100.0100, L500.3400 ####[facility] [address] [place], [address] T PROT 8.3 g/dL High 6.4-8.2 [facility] Comment on above: Performed By: #### L 500.2500, L501.2450, L100.0100, L500.3400 ####[facility] [address] [place], [address] M100.678on 02-15-2024 M100.678 Pending SARS-CoV-2 (COVID 19) Negative INFLUENZA A Negative INFLUENZA B Negative RSV PCR Negative [facility] Comment on above: Performed By: #### M 200.1000 #### [facility] [address] [place], [address] Partial Thromboplast Timeon 02-15-2024 aPTT Coag (Bld) [Time] 27.6 s Normal 24.1-36.2 [facility] Comment on above: Performed By: #### L 503.6005, L300.3900, L300.4310 ####[facility] [address] [place], [address] Pathology studyon 02-15-2024 Pathology study A. Stomach, biopsy: Antral and fundic type mucosa with mild chronic gastritis. Immunostain for Helicobacter pylori bacteria is negative. B. Gastroesophageal junction, biopsy: Gastric type mucosa with mild chronic inflammation. Negative for intestinal metaplasia. A. Stomach, Gastric Bx: Received in formalin labeled with the patient's name and "gastric biopsy" are 2 fragments of dobbins tissue from 0.1-0.6 cm. Filtered into a mesh bag and entirely submitted in cassette A1. (LRS) B. Esophagus, GE junction Bx: Received in formalin labeled with the patient's name and "GE junction" are 2 fragments of whipple tissue from 0.1-0.2 cm. Filtered into a mesh bag and entirely submitted in cassette B1. Any immunohistochemistry or special stain used in the interpretation of this case was performed at [facility]. These tests have not been cleared or approved by the U.S. Food and Drug Administration. The FDA has determined that such clearance or approval is not necessary. These tests are used for clinical purposes and should not be regarded as investigational or for research. This laboratory is certified to perform high complexity testing under the Clinical Laboratory Improvement Amendments of 1988. All controls show appropriate reactivity. The technical component was performed at [facility] [facility], [address] [place] [address]. Microscopic examination was performed. Normal [facility] Comment on above: Performed By: #### 1 1526-1 #### [facility] ([facility] [address] [place] [address] Prothrombin Time w/INRon INR Coag (PPP) [Relative time] 1.0 {INR} Normal [facility] Comment on above: Performed By: #### L 503.6005, L300.3900, L300.4310 ####[facility] [address] [place], [address] PT Coag (PPP) [Time] 13.2 s Normal 11.7-14.9 [facility] Comment on above: Performed By: #### L 503.6005, L300.3900, L300.4310 ####[facility] [address] [place], [address] RESPIRATORY PANEL MOLECULARo n 02-15-2024 RP PANEL ADENOVIRUS Not Detected INFLUENZA A Not Detected INFLUENZA A (SUBTYPE H1) Not Detected INFLUENZA A (SUBTYPE H3) Not Detected INFLUENZA B Not Detected HUMAN METAPHNEUMO Not Detected PARAINFLUENZA 1 Not Detected PARAINFLUENZA 2 Not Detected PARAINFLUENZA 3 Not Detected PARAINFLUENZA 4 Not Detected RHINOVIRUS A Positive for RHINOVIRUS by NAAT technology A RSV A Not Detected RSV B Not Detected RHINOVIRUS Normal [facility] Comment on above: Performed By: #### M 100.638 #### [facility] [address] [place], [address] Strep pneumoniae Antig(UR,CS F)on 02-15-2024 STPAG Comments: Only Recommended for severe cases of pneumonia Only Recommended for severe cases of pneumonia URINE, CLEAN CATCH URINE INTERPRETATION Strep pneumoniae Antig(UR,CSF) Strep pneumoniae Antig(UR,CSF) Negative Urine Presumptive negative for pneumococcal pneumonia, suggesting no current or recent pneumococcal infection. Infection due to S pneumoniae cannot be ruled out since the antigen present in the sample may be below the detection limit of the test. Strep pneumo Test Negative URINE (See interpretation below) Normal [facility] Comment on above: Performed By: #### M 300.0290, M300.4501 #### [facility] [address] [place], [address] Emergency Department Summary on 02-02-2024 Emergency Department Summary [facility] Medical Records Department [address] [place] [address] Emergency Department Summary 02/02/24 MR#: [id number] Acct: [id number] Name: CHIO BUCIO Rep #: [id number] : 1985 38 From: Nydia RUST PCP: Dr. Vasquez Irwin MD Status:DEP ER Location: ED HPI History of Present Illness Chief Complaint: Other, Pain/Inj Narrative Narrative: Patient presenting today with rectal pain that she has had since Tuesday or Tuesday of this week. She has felt what feels like an external hemorrhoid. She does report occasional constipation and straining on the toilet, she tries to avoid this by taking docusate and MiraLAX and over the last few days she has had looser stools. She has been using Preparation H on the area with minimal relief. She denies abdominal pain, fevers, and chills. [facility] Medical History Family history of heart disease Breast pain Snoring Cervical high risk HPV (human papillomavirus) test positive Family history of colon cancer in mother PMS (premenstrual syndrome) Oral contraceptive pill surveillance Adult acne Esophageal ulcer Pulmonary hypertension Anemia Vitamin D deficiency Obesity, morbid, BMI 50 or higher Erythema Anxiety Depression, endogenous GERD (gastroesophageal reflux disease) Constipation in female Family history of early CAD Fatigue COVID-19 Home Medications ???Medication ???Instructions ???Recorded ???Last Taken ???Type buspirone 5 mg tablet 5 mg PO BID 06/10/23 Unknown History omeprazole 40 mg capsule,delayed 40 mg PO BID 06/10/23 Unknown History release spironolactone 50 mg tablet 50 mg PO BID 06/10/23 Unknown History venlafaxine 150 mg 150 mg PO DAILY 06/10/23 Unknown History capsule,extended release 24 hr venlafaxine 75 mg capsule,extended 75 mg PO DAILY 06/10/23 Unknown History release 24 hr cholecalciferol (vitamin D3) 50 50 mcg PO DAILY 06/13/23 Unknown History mcg (2,000 unit) capsule docusate sodium 100 mg capsule 100 mg PO BID 06/13/23 Unknown History hydrocortisone 1 %-pramoxine 1 % 1 applic MA TID #10 grams 02/02/24 Unknown Rx rectal foam (Proctofoam HC) lidocaine 5 % topical cream 1 applic topical TID PRN pain #15 02/02/24 Unknown Rx (RectiCare) grams ropinirole 0.25 mg tablet 0.25 mg PO QHS 02/02/24 Unknown History trazodone 50 mg tablet 50 - 100 mg PO QHS 02/02/24 Unknown History Allergy/AdvReac Type Severity Reaction Status Date / Time No Known Allergies Allergy Verified 02/02/24 17:31 Family History Mother , age 62 Colon cancer age 59 Hypertension Grandfather Heart disease Maternal Grandmother Heart disease maternal Aunt Hypertension Maternal Uncle Diabetes Paternal Grandmother Diabetes Paternal Surgical History History of tonsillectomy and adenoidectomy Hx of cholecystectomy H/O LEEP Social History household members: spouse current occupational status: employed Smoking Status: Never smoker alcohol intake: current alcohol intake frequency: holidays/special occasions only substance use type: does not use seatbelt use: always ROS ROS ED Constitutional Constitutional ED: Denies chills or fever(s) Cardiovascular Cardiovascular: Denies chest pain Respiratory/Chest Respiratory/Chest: Denies cough or dyspnea Gastrointestinal Gastrointestinal: Reports other Details: Rectal pain ; Denies abdominal pain, nausea or vomiting Musculoskeletal Musculoskeletal: Denies arthralgias or myalgias Integumentary Denies rash Neurologic Neurologic: Denies weakness EXAM Physical Exam Const Vital Signs: 02/02/24 17:31 02/02/24 18:56 Temperature 97.4 F L 97.4 F L Temperature Source Temporal Pulse Rate 100 90 Respiratory Rate 18 18 Blood Pressure 176/102 H 145/87 H Blood Pressure Mean 126 106 Pulse Ox 100 100 Oxygen Delivery Method Room Air Positive well nourished, well developed and no apparent distress General Appearance ED: well developed HEENT Reports normocephalic and head/scalp atraumatic Mouth ED: Yes moist mucous membranes normal Eyes PERRL and EOMs intact bilaterally Neck full ROM and supple Chest Wall inspection of chest normal Resp normal respiratory effort and clear to auscultation bilaterally Cardio regular rate and regular rhythm GI soft to palpation, non-tender, non-distended and no masses GI Narrative: Rectal: Small nonthrombosed external hemorrhoid at the 11 o'clock position, small anal fissure at the 5 o'clock position, small anal fissure at the 7 o'clock positi (more content not included)... 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 Comment on above: Result Comment: JAK2 is a cytoplasmic tyrosine kinase with a haney role in signal transduction from multiple hematopoietic growth factor receptors. A point mutation within exon 14 of the JAK2 gene ([id number]) encoding a valine to phenylalanine substitution at position 617 of the JAK2 protein (V617F) has been identified in most patients with polycythemia vera, and in about half of those with either essential thrombocythemia or idiopathic myelofibrosis. The V617F has also been detected, although infrequently, in other myeloid disorders such as chronic myelomonocytic leukemia and chronic neutrophilic luekemia. V617F is an acquired mutation that alters a highly conserved valine present in the negative regulatory JH2 domain of the JAK2 protein and is predicted to dysregulate kinase activity. . Methodology: Total genomic DNA was extracted and subjected to TaqMan real-time PCR amplification/detection. Two amplification products per sample were monitored by real-time PCR using primers/probes specific to JAK2 wild type (WT) and JAK2 mutant V617F. The [id number] Absolute Quantitation software will compare the patient specimen valuse to the standard curves and generate percent values for wild type and mutant type. In vitro studies have indicated that this assay has an analytical sensitivity of 1%. . References: Pj LOMAX, Farooq LUCAS, Forrest PJ, et al. Acquired mutation of the tyrosine kinase JAK2 in human myeloproliferative disorders. Lancet. 2005 May 16; 365(9272):6319-7532. Octaviano Cancino, Karlo V, Marck Beth JP. A unique clonal JAK2 mutation leading to constitutive signaling causes polycythaemia vera. Nature. 2005 Jun 25; 492(0073):4866-3047. Chaitanya R, Lili F, Poly , et al. A umup-un-knvcvzwn mutation of JAK2 in myeloproliferative disorders. N Engl J Med. 2005 Jun 25; 352(82):8947-6194. Performed at: [facility] Performed By: #### 2 498-4, 2499-7 #### [facility] [address] [place] [address] [employer] - Sydnie BANERJEE [id number] Director Review: Comment [facility] Comment on above: Result Comment: Tech nical Component performed at [employer] RTP Professional Component performed by: [employer] Halle Carcamo, PhD, [facility] Director, Molecular Oncology [address] [place] [address] This test was developed and its performance characteristics determined by [employer]. It has not been cleared or approved by the Food and Drug Administration. Performed at: [facility] Performed By: #### 2 498-4, 2499-7 #### [facility] [address] [place] [address] [employer] - Sydnie BANERJEE [id number] JAK2 V617F mutation detection Comment [facility] Comment on above: Result Comment: Resu lt: NEGATIVE for the JAK2 V617F mutation. . Interpretation: The G to T nucleotide change encoding the V617F mutation was not detected. This result does not rule out the presence of the JAK2 mutation at a level below the sensitivity of detection of this assay, or the presence of other mutations within JAK2 not detected by this assay. This result does not rule out a diagnosis of polycythemia vera, essential thrombocythemia or idiopathic myelofibrosis as the V617F mutation is not detected in all patients with these disorders. . Performed at: [facility] Performed By: #### 2 498-4, 2499-7 #### [facility] [address] [place] [address] [employer] - Sydnie BANERJEE [id number] PAPO BY IFA WITH REFLEXon Antinuclear Antibodies, IFA Negative [facility] Comment on above: Result Comment: Nega tive <1:80 Borderline 1:80 Positive >1:80 ICAP nomenclature: AC-0 For more information about Hep-2 cell patterns use ANApatterns.org, the official website for the International Consensus on Antinuclear Antibody (PAPO) Patterns (ICAP). Performed By: #### 2 498-4, 2499-7 #### [facility] [address] [facility]. [place] [address] [employer] - Sydnie BANERJEE [id number] Please Note: Comment Normal [facility] Comment on above: Result Comment: PAPO Multiplex methodology was designed to detect up to 11 antibodies of the 100+ antibodies that may be detected by PAPO IFA methodology. Performed By: #### 2 498-4, 2499-7 #### [facility] [address] [facility]. [place] [address] [employer] - Sydnie BANERJEE [id number] CELIAC DISEASE Abson 024 Deamidated Gliadin Abs, IgA 4 units Normal [address] [place] [address] Comment on above: Result Comment: Nega tive 0 - 19 Weak Positive 20 - 30 Moderate to Strong Positive >30 Performed By: #### 2 498-4, 2499-7 #### [facility] [address] [facility]. [place] [address] [employer] - Sydnie BANERJEE [id number] Deamidated Gliadin Abs, IgG 3 units Normal [address] [place] [address] Comment on above: Result Comment: Nega tive 0 - 19 Weak Positive 20 - 30 Moderate to Strong Positive >30 Performed By: #### 2 498-4, 2499-7 #### [facility] [address] [facility]. [place] [address] [employer] - Sydnie SHANKSIA [id number] Endomysial Antibody IgA Negative Normal Negative [facility] Comment on above: Performed By: #### 2 498-4, 2499-7 #### [facility] [address] [facility]. [place] [address] [employer] - Sydnie SHANKSIA [id number] Immunoglobulin A, Qn, Serum 148 mg/dL Normal 87-352 [facility] Comment on above: Performed By: #### 2 498-4, 7 #### [facility] [address] [place] [address] [employer] - Sydnie BANERJEE [id number] t-Transglutaminase (tTG) IgA <2 Normal 0-3 [facility] Comment on above: Result Comment: Nega tive 0 - 3 Weak Positive 4 - 10 Positive >10 . Tissue Transglutaminase (tTG) has been identified as the endomysial antigen. Studies have demonstr- ated that endomysial IgA antibodies have over 99% specificity for gluten sensitive enteropathy. Performed By: #### 2 498-4, 2499- #### [facility] [address] [place] [address] [employer] - Sydnie BANERJEE [id number] t-Transglutaminase (tTG) IgG 3 U/mL Normal 0-5 [facility] Comment on above: Result Comment: Nega tive 0 - 5 Weak Positive 6 - 9 Positive >9 Performed By: #### 2 498-4, 2499- #### [facility] [address] [place] [address] [employer] - Sydnie BANERJEE [id number] BCR/ABL BLOOD OR BONE MARROW ,T(9;22),QUANTon 12-21-2023 Receiving Status Accessioned in Lab Normal [facility] Comment on above: Performed By: #### B CR/ABL BLOOD OR BONE MARROW,T(9;22),QUANT #### [facility] (DEFAULT) [address] [place] [address] C REACTIVE PROTEINon 024 CRP [Mass/Vol] 29 mg/L High <=10 [facility] Comment on above: Performed By: #### 2 498-4, 2499-7 #### [facility] [address] [place] [address] [employer] - Sydnie BANERJEE [id number] CBC W Auto Differential pane l (Bld)on 12-21-2023 Basophils (Bld) [#/Vol] 0.02 10*3/uL Normal <=0.70 [facility] Comment on above: Performed By: #### 2 498-4, 2499-08 #### [facility] [address] [place] [address] [employer] - Sydnie Funk CLIA [id number] Basophils/100 WBC (Bld) 0.2 % Normal <=2.0 [facility] Comment on above: Performed By: #### 2 498-4, 2499-08 #### [facility] [address] [place] [address] [employer] - Sydnie SHANKSIA [id number] Eosinophils (Bld) [#/Vol] 0.01 10*3/uL Normal <=0.70 [facility] Comment on above: Performed By: #### 2 498-4, 2499-08 #### [place] [address] [facility]. [place] [address] [employer] - Sydnie Funk CLIA [id number] Eosinophils/100 WBC (Bld) 0.1 % Normal <=10.0 [facility] Comment on above: Performed By: #### 2 498-4, 2499-08 #### [facility] [address] [facility]. [place] [address] [employer] - Sydnie SHANKSIA [id number] Erythrocyte distribution width (RBC) [Entitic vol] 42.6 fL Normal 36.4-46.3 [facility] Comment on above: Performed By: #### 2 498-4, 2499-08 #### [facility] [address] [facility] [place] [address] [employer] - Sydnie SHANKSIA [id number] Hematocrit (Bld) [Volume fraction] 37.1 % Normal 37.0-47.0 [facility] Comment on above: Performed By: #### 2 498-4, 2499-08 #### [facility] [address] [facility]. [place] [address] [employer] - Sydnie SHANKSIA [id number] Hemoglobin (Bld) [Mass/Vol] 11.5 g/dL Low 12.0-16. 0 [facility] Comment on above: Performed By: #### 2 498-4, 2499-08 #### [facility] [address] [place] [address] [employer] - Sydnie SHANKSIA [id number] Immature granulocytes (Bld) [#/Vol] 0.04 10*3/uL Normal <=0.10 [facility] Comment on above: Performed By: #### 2 498-4, 2499-08 #### [facility] [address] [place] [address] [employer] - Sydnie SHANKSIA [id number] Immature granulocytes/100 WBC (Bld) 0.40 % Normal <=1.50 [facility] Comment on above: Performed By: #### 2 498-4, 2499-08 #### [place] [address] [facility]. [place] [address] [employer] - Sydnie Funk CLIA [id number] Lymphocytes (Bld) [#/Vol] 2.16 10*3/uL Normal 1.20-3.[address] [facility] Comment on above: Performed By: #### 2 498-4, 2499-08 #### [facility] [address] [place] [address] [employer] - Sydnie SHANKSIA [id number] Lymphocytes/100 WBC (Bld) 20.9 % Normal 20.0-40.0 [facility] Comment on above: Performed By: #### 2 498-4, 2499-08 #### [facility] [address] [facility] [place] [address] [employer] - Sydnie SHANKSIA [id number] MCH (RBC) [Entitic mass] 22.2 pg Low 27.0-31.0 [facility] Comment on above: Performed By: #### 2 498-4, 2499-08 #### [facility] [address] [place] [address] [employer] - Sydnie SHANKSIA [id number] MCHC (RBC) [Mass/Vol] 31.0 g/dL Low 32.0-36.0 [facility] Comment on above: Performed By: #### 2 498-4, 2499-08 #### [facility] [address] [place] [address] [employer] - Sydnie SHANKSIA [id number] MCV (RBC) [Entitic vol] 71.5 fL Low 80.0-100.0 [facility] Comment on above: Performed By: #### 2 498-4, 2499-08 #### [facility] [address] [place] [address] [employer] - Sydnie SHANKSIA [id number] Monocytes (Bld) [#/Vol] 0.35 10*3/uL Normal 0.10-0.60 [facility] Comment on above: Performed By: #### 2 498-4, 2499-08 #### [place] [address] [place] [address] [employer] - Sydnie Funk CLIA [id number] Monocytes/100 WBC (Bld) 3.4 % Normal <=8.0 [facility] Comment on above: Performed By: #### 2 498-4, 2499-08 #### [place] [address] [place] [address] [employer] - Sydnie SHANKSIA [id number] Neutrophils (Bld) [#/Vol] 7.75 10*3/uL High 1.40-6.[address] [facility] Comment on above: Performed By: #### 2 498-4, 2499-08 #### [facility] [address] [place] [address] [employer] - Sydnie Funk CLIA [id number] Neutrophils/100 WBC (Bld) 75.0 % High 50.0-70.0 [facility] Comment on above: Performed By: #### 2 498-4, 2499-08 #### [facility] [address] [place] [address] [employer] - Sydnie Funk CLIA [id number] Nucleated RBC (Bld) [#/Vol] 0.00 10*3/uL Normal <=0.10 [facility] Comment on above: Performed By: #### 2 498-4, 2499- #### [facility] [address] [place] [address] [employer] - Sydnie BANERJEE [id number] Platelet mean volume (Bld) [Entitic vol] 11.0 fL Normal 9.0-13.0 [facility] Comment on above: Performed By: #### 2 498-4, 2499- #### [facility] [address] [place] [address] [employer] - Sydnie BANERJEE [id number] Platelets (Bld) [#/Vol] 496 10*3/uL High 130-400 [facility] Comment on above: Performed By: #### 2 498-4, 2499-08 #### [place] [address] [place] [address] [employer] - Sydnie SHANKSIA [id number] RBC (Bld) [#/Vol] 5.19 10*6/uL Normal 4.00-6.30 [facility] Comment on above: Performed By: #### 2 498-4, 2499-08 #### [facility] [address] [place] [address] [employer] - Sydnie SHANKSIA [id number] WBC (Bld) [#/Vol] 10.33 10*3/uL Normal 4.80-10.80 [facility] Comment on above: Performed By: #### 2 498-4, 2499- #### [facility] [address] [place] [address] [employer] - Sydnie BANERJEE [id number] CRP [Mass/Vol]on 12-21-2023 HCRP CRP INTERPRETATION A single CRP determination is of limited diagnostic value while serial determinations help in establishing the trend of an ongoing inflammatory process. CRP values must be interpreted together with other clinical symptoms. "Normal" values should only be used as a guide. Normal [facility] Comment on above: Performed By: #### 2 498-4, 2499-08 #### [facility] [address] [place] [address] [employer] - Sydnie BANERJEE [id number] Comprehensive metabolic 2000 panelon 12-21-2023 Albumin [Mass/Vol] 3.8 g/dL Normal 3.4-5.0 [facility] Comment on above: Performed By: #### 2 498-4, 2499-08 #### [facility] [address] [place] [address] [employer] - Sydnie SHANKSIA [id number] ALP [Catalytic activity/Vol] 244 U/L High 50-136 [facility] Comment on above: Performed By: #### 2 498-4, 2499-08 #### [facility] [address] [place] [address] [employer] - Sydnie SHANKSIA [id number] ALT [Catalytic activity/Vol] 159 U/L High 14-59 [facility] Comment on above: Performed By: #### 2 498-4, 2499-08 #### [facility] [address] [place] [address] [employer] - Sydnie SHANKSIA [id number] Anion gap [Moles/Vol] 10.0 mmol/L Normal <=15.0 [facility] Comment on above: Performed By: #### 2 498-4, 2499-08 #### [facility] [address] [place] [address] [employer] - Sydnie SHANKSIA [id number] AST [Catalytic activity/Vol] 69 U/L High 15-37 [facility] Comment on above: Performed By: #### 2 498-4, 2499-08 #### [facility] [address] [place] [address] [employer] - Sydnie SHANKSIA [id number] Bilirubin [Mass/Vol] 0.5 mg/dL Normal 0.2-1.0 [facility] Comment on above: Performed By: #### 2 498-4, 2499-08 #### [facility] [address] [place] [address] [employer] - Sydnie SHANKSIA [id number] Calcium [Mass/Vol] 9.9 mg/dL Normal 8.5-10.1 [facility] Comment on above: Performed By: #### 2 498-4, 2499- #### [facility] [address] [place] [address] [employer] - Sydnie Funk CLIA [id number] Chloride [Moles/Vol] 106 mmol/L Normal 98-107 [facility] Comment on above: Performed By: #### 2 498-4, 2499-08 #### [facility] [address] [place] [address] [employer] - Sydnie SHANKSIA [id number] CO2 [Moles/Vol] 23 mmol/L Normal 21-32 [facility] Comment on above: Performed By: #### 2 498-4, 2499-08 #### [facility] [address] [place] [address] [employer] - Sydnie SHANKSIA [id number] Creatinine [Mass/Vol] 0.57 mg/dL Normal 0.51-0.95 [facility] Comment on above: Performed By: #### 2 498-4, 2499-08 #### [facility] [address] [place] [address] [employer] Operator - Sydnie SHANKSIA [id number] GFR/1.73 sq M.predicted MDRD (S/P/Bld) [Vol rate/Area] mL/min/{1.73_m2} Normal >=60 [facility] Comment on above: Performed By: #### 2 498-4, 2499-08 #### [facility] [address] [place] [address] [employer] Furn[employer] Operator - Sydnie SHANKSIA [id number] Glucose [Mass/Vol] 119 mg/dL High 74-106 [facility] Comment on above: Performed By: #### 2 498-4, 2499-08 #### [facility] [address] [place] [address] Electric Arc Furnace Operator - Sydnie BANERJEE [id number] HGFR GLOMERULAR FILTRATIO N RATE INTERPRETATION~The eGFR is calculated using the MDRD equation.~This equation has been validated in patients with chronic kidney disease;~however, it underestimates the GFR in healthy patients with GFR's over 60 mL/min.~The equation is not valid in children under the age of 18.~NOTE: Criteria for Chronic Kidney Disease:~ ~1. Kidney damage for at least three months, as defined~by structural or functional abnormalities of the kidney,~with or without decreased glomerular filtration rate, manifested by either:~* Pathological abnormalities or~* Markers of Kidney damage, including abnormalities in~the composition of the blood or urine or abnormalities in imaging tests.~ ~2. GFR <60 mL/min/1.73 m squared for at least three months, with or without kidney damage.~ Normal [facility] Comment on above: Performed By: #### 2 498-4, 2499-08 #### [facility] [address] [facility] [place] [address] Electric Arc Furnace Operator - [facility] BANERJEE [id number] Potassium [Moles/Vol] 3.9 mmol/L Normal 3.5-5.1 [facility] Comment on above: Performed By: #### 2 498-4, 2499-08 #### [facility] [address] [facility] [place] [address] Electric Arc Furnace Operator - Sydnie BANERJEE [id number] Protein [Mass/Vol] 7.8 g/dL Normal 6.4-8.2 [facility] Comment on above: Performed By: #### 2 498-4, 2499-7 #### [facility] [address] [place] [address] Electric Arc Furnace Operator - Sydnie BANERJEE [id number] Sodium [Moles/Vol] 139 mmol/L Normal 136-145 [facility] Comment on above: Performed By: #### 2 498-4, 2499- #### [facility] [address] [place] [address] Electric Arc Furnace Operator - Sydnie BANERJEE [id number] Urea nitrogen [Mass/Vol] 18 mg/dL High 7-17 [facility] Comment on above: Performed By: #### 2 498-4, 2499-08 #### [facility] [address] [place] [address] Electric Arc Furnace Operator - Sydnie BANERJEE [id number] FERRITINon 12-21-2023 Ferritin [Mass/Vol] 23 ng/mL Normal 6-137 [facility] Comment on above: Performed By: #### 2 498-4, 2499-08 #### [facility] [address] [place] [address] Electric Arc Furnace Operator - Sydnie BANERJEE [id number] FOLATEon 12-21-2023 Folate [Mass/Vol] 18.2 ng/mL High 3.1-17.5 [facility] Comment on above: Performed By: #### 2 498-4, 2499-08 #### [facility] [address] [place] [address] Electric Arc Furnace Operator - Sydnie BANERJEE [id number] IRONon 12-21-2023 Iron [Mass/Vol] 31 ug/dL Low 50-170 [facility] Comment on above: Performed By: #### 2 498-4, 2499-08 #### [facility] [address] [place] [address] Electric Arc Furnace Operator - Sydnie BANERJEE [id number] IRON BINDING CAPACITYon 11-29 Iron binding capacity [Mass/Vol] 399 ug/dL Normal 250-450 [facility] Comment on above: Performed By: #### 2 498-4, 2499-08 #### [facility] [address] [place] [address] Electric Arc Furnace Operator - Sydnie BANERJEE [id number] VITAMIN B12on 12-21-2023 Cobalamin (Vitamin B12) [Mass/Vol] 789 pg/mL Normal 254-1320 [facility] Comment on above: Performed By: #### 2 498-4, 2499- #### [facility] [address] [place] [address] Electric Arc Furnace Operator - Sydnie BANERJEE [id number] STOOL OCCULT BLOOD SCREENon 12-20-2023 Occult blood panel (Stl) Positive Abnormal NEGATIVE [facility] Comment on above: Performed By: #### 2 498-4, 2500-7 #### [facility] [address] [place] [address] Electric Arc Furnace Operator - Sydnie Funk DIMITRISBERNICE [id number] CNOVon 11-14-2023 CNOV Office Visit (OBGYWM ) FORTUNATOCHIO Jer ([id number]) 1985 F Date Time Provider Department 11/14/23 10:00 AM QUETA OLIVEIRA OBGYWM During your visit today, we recorded the following information about you: Blood pressure Weight Height Last Period 132/86 171.5 kg 1.651 m 11/04/23 Queta Oliveira APRN.CNM 11/14/2023 12:11 PM Signed Freight Loading Supervisor offered: Patient declines. Chio is a 38 year old who presents for an annual gynecologic exam without complaints. Yuli Barton NP. Has prediabetes, hgbA1C elevated at 6. 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 Menses: cycles every 30 days and 5 days of flow. Contraception: vasectomy HPV vaccine: One dose Last Pap: July 2022 - Abnormal cells HPV: July 2022 - Positive HPV History of abnormal pap: Yes, has had LEEP and multiple Colposcopies Last mammogram: never Sexually active: Yes Time with current partner: , current partner x 3 years Pain with intercourse: No Postcoital bleeding: No Exercise: 30 minutes of walking 3-4 times a week Diet: No restrictions Seatbelt use: Yes OB History T0 L0 SAB0 IAB0 Ectopic0 Multiple0 Live Births0 Counterintelligence Analyst History LMP: 11/04/2023 (Within Days), Having periods Age at Menarche: Age at First : Age at Menopause: Counterintelligence Analyst History Comments: Sexual Activity: Yes; Male Contraception: Vasectomy PAST MEDICAL HISTORY Diagnosis Date Anemia Depression Floaters Hypertension Retinal tear PAST SURGICAL HISTORY Procedure Laterality Date CERVIX UTERI CONIZA LP ELCTRO EXCI 2019 CHOLEYCYSTOGRAM GALL BLADDER MIDDLE EAR EXPL THRU POSTAUR/EAR CANAL INC PAST SURGICAL HISTORY OF Laser Photocoagulation, Retinal tear TONSILLECTOMY AND ADENOIDECTOMY HX FAMILY HISTORY Problem Relation Age of Onset Cataract Father Cancer Mother Hypertension Mother Cataract Mother Thyroid Paternal Grandfather SOCIAL HISTORY Social History Tobacco Use Smoking status: Never Smokeless tobacco: Never Vaping Use Vaping status: Never Used Substance Use Topics Alcohol use: Yes Comment: social Drug use: No REVIEW OF SYSTEMS Abdomen: No abdominal pain, nausea, vomiting, diarrhea, or constipation. No bloating, early satiety, indigestion, or increased flatulence. Bladder: No dysuria, gross hematuria, urinary frequency, urinary urgency, or incontinence. Breast: No breast lumps, nipple d/c, overlying skin changes, redness or skin retraction. Allergies and current medication updated:Yes SENSITIVE EXAM: The sensitive examination was discussed with the Patient or Patient's Authorized Side Show Entertainer. As applicable, any other physician, advance practice provider, medical student, or other health professional student that will be observing or involved in the sensitive examination for educational or training purposes was discussed with the Patient or Authorized Side Show Entertainer. The Patient or Authorized Side Show Entertainer has agreed to proceed with the sensitive examination. (Sensitive examination includes inspection and/or palpation of the breasts, pelvis, prostate and anorectal regions). EXAM: BP 132/86 Ht 5' 5" (1.65m) Wt 378 lb (171.5kg) LMP 11/04/2023 BMI 62.90 kg/(m2). GENERAL: pleasant, female in no apparent distress HEENT: Normocephalic, atraumatic, mucus membranes moist, and no lesions NECK: Supple, full range of motion, no adenopathy, and thyroid normal DERMATOLOGY: Normal, without lesions, non-icteric, and non-hirsute BREAST: soft, non-tender, symmetric, no dominant mass, normal nipple-areolar complex, no lymphadenopathy, and no nipple discharge CHEST: Normal inspiratory effort ABDOMEN: soft, non-tender, and no masses PELVIC: external genitalia normal, normal Bartholin's glands, urethra, Blencoe's glands, no vulvar lesions, no cervical lesions, good vaginal support, physiologic discharge present, normal appearing perineal body and perianal region. Difficulty reaching cervix during exam, used blue speculum and able to reach. Tolerated well. Strong vaginal tone and patient with difficulty letting legs open to the side. BIMANUAL: uterus normal size, shape and consistency, no adnexal masses, and non-tender RECTOVAGINAL: deferred. NEURO: alert and oriented x3,exam grossly non-focal EXTREMITIES: normal ASSESSMENT/PLAN: 1. Encounter for gynecological examination (general) (routine) with abnormal findings - ICD9: V72.31, ICD10: Z01.411 (primary diagnosis) - Completed pelvic and breast exam - Encouraged monthly BSE - Follow up for annual exam in one year. - PAP TEST 2. Screening for cervical cancer - ICD9: V76.2, ICD10: Z12.4 - Completed pelvic and breast exam - Encouraged monthly BSE - Follow up for annual exam in one year. - PAP TEST 3. Encounter for screening for human papillomavi (more content not included)... Normal [facility] HIGH RISK HUMAN PAPILLOMA JUANY (HPV), PCR FOR DETECTION AND GENOTYPINGon 11-14-2023 HPV 16 Ag Ql (Unsp spec) Not detected Normal Not detected [facility] Comment on above: Order Comment: Speci men Type: FLUID SPECIMEN Ordering Facility: [facility] Address: [address] [place] [address] Performed By: #### L [id number], HPVHRT #### [facility] CLIA [id number] [address] [place] [address] [place] HPV 18 Ag Ql (Unsp spec) Not detected Normal Not detected [facility] Comment on above: Order Comment: Speci men Type: FLUID SPECIMEN Ordering Facility: [facility] Address: [address] [place] [address] Performed By: #### L [id number], HPVHRT #### [facility] CLIA [id number] [address] [place] [address] [place] HPV 31+33+35+39+45+51+52+56+58+ 59+66+68 DNA MERARI+probe Ql (Cvx) Not detected Normal Not detected [facility] Comment on above: Order Comment: Speci men Type: FLUID SPECIMEN Ordering Facility: [facility] Address: [address] [place] [address] Result Comment: High Risk HPV Other Type includes HPV types 31, 33, 35, 39, 45, 51, 52, 56, 58, 59, 66 and 68. Performed By: #### L [id number], HPVHRT #### [facility] CLIA [id number] [address] [place] [address] [place] PAP TESTon 11-14-2023 ADEQUACY Satisfactory for interpretation. Normal [facility] Comment on above: Order Comment: Speci men Type: FLUID SPECIMEN Ordering Facility: [facility] Address: [address] [place] [address] Performed By: #### L [id number], HPVHRT #### [facility] CLIA [id number] [address] [place] [address] [place] CASE REPORT Normal [facility] Comment on above: Order Comment: Speci men Type: FLUID SPECIMEN Ordering Facility: [facility] Address: [address] [place] [address] Result Comment: Gyne cologic Cytology Report Case: [id number] Authorizing Provider: Queta Oliveira APRN.CNM Collected: 11/14/2023 10:33 AM Ordering Location: OB/Gynecology Received: 11/14/2023 01:41 PM First Screen: Perry Miller Tech Specimen: Pap Test, ThinPrep, Cervix Performed By: #### L [id number], HPVHRT #### [facility] CLIA [id number] [address] [place] [address] [place] CLINICAL HISTORY, CYTOLOGY, ELECTRONIC EQUIPMENT TRADES WORKER Previous Abnormal Pap Normal [facility] Comment on above: Order Comment: Speci men Type: FLUID SPECIMEN Ordering Facility: [facility] Address: [address], [place] [address] Performed By: #### L [id number], HPVHRT #### [facility] CLIA [id number] [address] [place] [address] [place] CYTOLOGY PAP OTHER INT Predominance of coccobacilli consistent with shift in vaginal kamille Normal [facility] Comment on above: Order Comment: Speci men Type: FLUID SPECIMEN Ordering Facility: [facility] Address: [address] [place] [address] Performed By: #### L [id number], HPVHRT #### [facility] CLIA [id number] [address] [place] [address] [place] FINAL PERFORMING LAB Normal [facility] Comment on above: Order Comment: Speci men Type: FLUID SPECIMEN Ordering Facility: [facility] Address: [address] [place] [address] Result Comment: Tech nical component, food service representative screening performed at [facility], [address] [place], [place] [id number] CLIA# [id number] Diagnostic interpretation performed at [facility], [address] [place] [address] [place] [address] CLIA# [id number] Steel Construction Worker: Charles Fry M.D. Performed By: #### L [id number], HPVHRT #### [facility] CLIA [id number] [address] [place] [address] [place] HPV REFLEX Yes HPV Normal [facility] Comment on above: Order Comment: Speci men Type: FLUID SPECIMEN Ordering Facility: [facility] Address: [address] [place], [place] [id number] Performed By: #### L [id number], HPVHRT #### [facility] CLIA [id number] [address] [place] [address] [place] INTERPRETATION, CYTOLOGY, ELECTRONIC EQUIPMENT TRADES WORKER Normal [facility] Comment on above: Order Comment: Speci men Type: FLUID SPECIMEN Ordering Facility: [facility] Address: [address] [place], [place] [address] Result Comment: Nega tive for intraepithelial lesion or malignancy. Performed By: #### L [id number], HPVHRT #### [facility] CLIA [id number] [address] [place] [address] [place] LMP 11/04/2023 Normal [facility] Comment on above: Order Comment: Speci men Type: FLUID SPECIMEN Ordering Facility: [facility] Address: [address] [place] [address] Performed By: #### L [id number], HPVHRT #### [facility] CLIA [id number] [address] [place] [address] [place] PAP DISCLAIMER COMMENT The Pap Smear is a screening test for cervical cancer. False negative results occur with all screening tests, emphasizing the need for rescreening at recommended intervals, and clinical correlation. Normal [facility] Comment on above: Order Comment: Speci men Type: FLUID SPECIMEN Ordering Facility: [facility] Address: [address] [place] [address] Performed By: #### L [id number], HPVHRT #### [facility] CLIA [id number] [address] [place] [address] [place] PAP RECHECKER COMMENT This specimen has been analyzed by the ThinPrep Imaging System, an automated imaging and review system, which assists the laboratory in evaluating cells on ThinPrep Pap tests. Following automated imaging, selected anderson from every slide are reviewed by a food service representative. Normal [facility] Comment on above: Order Comment: Speci men Type: FLUID SPECIMEN Ordering Facility: [facility] Address: [address] [place] [address] Performed By: #### L [id number], HPVHRT #### [facility] CLIA [id number] [address] [place] [address] [place] Assessment of wrist artery p atency prior to arterial punctureOrdered By: Maryann Cruz on 06-21-2023 Arterial patency Wrist artery --pre arterial puncture Positive [facility] Base excessOrdered By: Lorne makimaikel Cruz on 06-21-2023 Base excess Calc (BldV) [Moles/Vol] -2 mmol/L -2-2 [facility] Basophil percentageOrdered B y: Maryann Cruz on 06-21-2023 Basophil percentage 24 mmol/L [facility] Basophils/100 WBC (Bld) 82 % 95-99 [facility] Measurement, pHOrdered By: Julita Cruz on 06-21-2023 pH (Unsp spec) 7.41 [pH] 7.35-7.45 [facility] No Panel InformationOrdered By: Maryann Cruz on 06-21-2023 Arterial Blood Partial Pressure CO2 35.0 mmHg 35-45 [facility] Arterial Blood Partial Pressure O2 45 mmHG 75-100 [facility] Blood Gas Bicarbonate Actual 22.4 mmol/L 22-26 [facility] Blood Gas Notified Whom Venkatesh CRUZ [facility] Blood Gas Sample Site R Radial [facility] Blood Gas Specimen Type DANIAL [facility] Comment on above: Previous reported re sult: ART Edited by: WBBARBER on 06/21/23:1125 AMENDED REPORT 06/21/23 1125 BLD GAS TYPE previously reported as: ART RESULTED. CHANGING RESULT TO VENOUS. Blood Gas Vent Mode Not entered [facility] Oxygen Delivery Device Room Air [facility] XR HAND LEFT 3+ VIEWS (STAND BING)on 07-31-2022 XR HAND LEFT 3+ VIEWS (STANDARD) EXAMINATION: XR HAND LEFT 3+ VIEWS (STANDARD) HISTORY: fall COMPARISON: None. TECHNIQUE: 3 left hand views are submitted. FINDINGS: No fracture or dislocation is seen. Joint spaces are well maintained. Soft tissues are unremarkable. IMPRESSION: No definitive acute fracture of the left hand. Workstation ID: [id number] Dictated by: ROBERTA HERNANDEZ on [facility] Jul 31, 2022 10:09:03 PM EDT Transcribed by: ROBERTA HERNANDEZ on [facility] Jul 31, 2022 10:09:03 PM EDT Finalized by: ROBERTA HERNANDEZ on [facility] Jul 31, 2022 10:09:03 PM EDT [facility] Comment on above: Order Comment: Injur y/Trauma or Illness?:Injury/Trauma How long have you had these symptoms (acute/chronic)?:Acute Reason for exam?:Left hand pain History of cancer?:u Surgeries, chemotherapy, or radiation?:u Type of Exam?:Initial Mechanism of injury?:Fall XR HUMERUS LEFT 2+ VIEWS (ST ANDARD)on 07-31-2022 XR HUMERUS LEFT 2+ VIEWS (STANDARD) EXAMINATION: XR HUMERUS LEFT 2+ VIEWS (STANDARD) EXAM DATE: 07/31/2022 9:25 pm HISTORY: ORDERING SYSTEM PROVIDED HISTORY: pain injury, TECHNOLOGIST PROVIDED HISTORY: Injury/Trauma Reason for exam: Left upper arm pain Cancer History: u Surgery, RadiationHistory: u Encounter Type: Initial Mechanism of injury: Fall ORDERING SYSTEM PROVIDED DIAGNOSIS CODES: COMPARISON: None TECHNIQUE: AP and lateral views left humerus FINDINGS: There is no acute fracture or dislocation. The soft tissues are unremarkable. There are no arthritic changes. IMPRESSION: No fracture Workstation ID: [id number] Dictated by: FERNANDO ZAVALA on [facility] Jul 31, 2022 10:04:52 PM EDT Transcribed by: FERNANDO ZAVALA on [facility] Jul 31, 2022 10:04:52 PM EDT Finalized by: FERNANDO ZAVALA on [facility] Jul 31, 2022 10:04:52 PM EDT [facility] Comment on above: Order Comment: Injur y/Trauma or Illness?:Injury/Trauma How long have you had these symptoms (acute/chronic)?:Acute Reason for exam?:Left upper arm pain History of cancer?:u Surgeries, chemotherapy, or radiation?:u Type of Exam?:Initial Mechanism of injury?:Fall COVID-19, MOLECULARon 2022 SARS-CoV-2 (COVID-19) Ab IA Ql Not detected Normal Not Detected [facility] Comment on above: Result Comment: This test was performed under the FDA's Emergency Use Authorization (EUA). Testing was performed using the Griffin ID NOW COVID-19 assay on the ID NOW platform. This test has not been approved for use in asymptomatic patients and its performance in this patient population has not been evaluated. Negative results do not rule out the presence of SARS-CoV-2/COVID-19. Fact sheets for the EUA can be found at the following links: For Healthcare Providers: https://www.fda.gov/media/485427/download For Patients: https://www.fda.gov/media/153023/download Auto Diffon 07-12-2018 Basophils #/vol (Bld) 0.1 E3/mcL Normal 0.0-0.2 [facility] Comment on above: Order Comment: Order Added by Discern Expert. Performed By: #### 2 [id number] #### TROY RemHemo [address] [place] [address] Basophils/100 WBC (Bld) 1.3 % Normal 0.0-2.0 [facility] Comment on above: Order Comment: Order Added by Discern Expert. Performed By: #### 2 [id number] #### TROY SonamHemo [address] [place] [address] Eos Absolute 0.1 E3/mcL Normal 0.0-0.7 [facility] Comment on above: Order Comment: Order Added by Discern Expert. Performed By: #### 2 [id number] #### TROY RemHemo [address] [place] [address] Eosinophils/100 WBC (Bld) 1.0 % Normal 0.0-11.0 [facility] Comment on above: Order Comment: Order Added by Mary Expert. Performed By: #### 2 [id number] #### TROY SonamHemo [address] [place] [address] Lymphocytes #/vol (Bld) 2.8 E3/mcL Normal 1.2-3.4 [facility] Comment on above: Order Comment: Order Added by Discern Expert. Performed By: #### 2 [id number] #### TROY RemHemo [address] [place] [address] Lymphocytes/100 WBC (Bld) 27.3 % Normal 20.0-55.0 [facility] Comment on above: Order Comment: Order Added by Discern Expert. Performed By: #### 2 [id number] #### TROY RemHemo [facility] [place] [address] Stanton Absolute 0.3 E3/mcL Normal 0.0-0.7 [facility] Comment on above: Order Comment: Order Added by Discern Expert. Performed By: #### 2 853539 #### TROY RemHemo [address] [place] [address] Monocytes/100 WBC (Bld) 3.1 % Normal 0.0-10.0 [facility] Comment on above: Order Comment: Order Added by Discern Expert. Performed By: #### 2 [id number] #### TROY RemHemo [address] [place] [address] Neutro Absolute 6.8 E3/mcL High 1.4-6.5 [facility] Comment on above: Order Comment: Order Added by Discern Expert. Performed By: #### 2 [id number] #### TROY RemHemo [address] [place] [address] Neutro Auto 67.3 % Normal 37.0-75.0 [facility] Comment on above: Order Comment: Order Added by Discern Expert. Performed By: #### 2 [id number] #### TROY RemHemo [address] [place] [id number] BhCG Qualon 07-12-2018 HCG.beta subunit Qn Negative Normal Negative [facility] Comment on above: Performed By: #### 2 [id number] #### TROY Chemistry Manual Subsection [address] [place] [address] CBC w/ Auto Diffon 9 Erythrocyte distribution width Ratio (RBC) 15.1 % High 11.5-14.5 [facility] Comment on above: Performed By: #### 2 093512 #### TROY RemHemo [address] [place] [address] Hematocrit Volume Fraction (Bld) 36.0 % Normal 36.0-48.0 [facility] Comment on above: Performed By: #### 2 447286 #### TROY RemHemo [address] [place] [address] Hemoglobin mass conc (Bld) 11.6 g/dL Low 12.0-16.0 [facility] Comment on above: Performed By: #### 2 [id number] #### TROY RemHemo [address] [place] [address] MCH Entitic mass (RBC) 25.4 pg Low 27.0-31.0 [facility] Comment on above: Performed By: #### 2 370697 #### TROY RemHemo [address] [place] [address] MCHC mass conc (RBC) 32.1 g/dL Low 33.0-37.0 [facility] Comment on above: Performed By: #### 2 470826 #### TROY RemHemo [address] [place] [address] MCV Entitic volume (RBC) 79.1 fL Normal 78.0-100.0 [facility] Comment on above: Performed By: #### 2 [id number] #### TROY RemHemo [address] [place] [address] Platelet mean volume Entitic volume (Bld) 9.3 fL Normal 7.4-11.0 [facility] Comment on above: Performed By: #### 2 [id number] #### TROY RemHemo [address] [place] [address] Platelets #/vol (Bld) 372 E3/mcL Normal 130-400 [facility] Comment on above: Performed By: #### 2 [id number] #### TROY RemHemo [address] [place] [address] RBC #/vol (Bld) 4.55 E6/mcL Normal 3.90-5.40 [facility] Comment on above: Performed By: #### [id number] #### TROY RemHemo [address] [place] [address] WBC #/vol (Bld) 10.1 E3/mcL Normal 3.6-11.0 [facility] Comment on above: Performed By: #### 2 [id number] #### TROY RemHemo [address] [place] [address] Morphon 07-12-2018 RBC morphology finding Nom (Bld) NORMAL Normal [facility] Comment on above: Order Comment: Order Added by Discern Expert. Performed By: #### 1 [id number] #### TROY RemHemo [address] [place] [id number] Troponin-Ion 07-12-2018 Troponin I.cardiac mass conc ng/mL Normal 0.00-0.03 [facility] Comment on above: Performed By: #### 2 [id number] #### TROY RemHemo [address] [place] [address] XR Chest 2 Viewson 9 XR Chest 2 Views Exam Date/Time: 07/12/2018 19:10 EDT Reason for Exam: Chest pain Report STUDY: XR Chest 2 Views; 07/12/2018 7:10 pm INDICATION: Chest pain. COMPARISON: None. ACCESSION NUMBER(S): [id number] ORDERING CLINICIAN: Ender Tolliver FINDINGS: PA and lateral views of the chest were obtained. No focal infiltrate, pleural effusion or pneumothorax is identified. The cardiac silhouette is within normal limits for size. IMPRESSION: No focal infiltrate or pneumothorax. FINAL REPORT Dictated: 07/12/2018 7:37 pm Larry Felix MD Signed (Electronic Signature): 07/12/2018 7:37 pm Signed by: Larry Felix MD Technologist: [facility] [email or web address] morphon 07-12-2018 Platelet morphology finding Nom (Bld) NORMAL [facility] Comment on above: Performed By: #### 9 [id number] #### TROY RemHemo [address] [place] [address] Platelets #/vol (Bld) NORMAL Normal [facility] Comment on above: Performed By: #### 9 [id number] #### TROY RemHemo [address] [place] [address] Vital Signs Date Time Vital Sign Value Performing Clinician Facility 12-11-2024 08:[id number] Body height 165.[address] Vasquez Irwin MD Work Phone: [facility] 12-11-2024 08:15-0400 Body mass index (BMI) [Ratio] 63.3 kg/m2 Dr. Vasquez Irwin MD Work Phone: [facility] 12-11-2024 08:15-0400 Body weight 172.[address] Vasquez Irwin MD Work Phone: [facility] 09-11-2024 12:27-0400 Body mass index (BMI) [Ratio] 62.33 kg/m2 Gabriella Marques MD Work Phone: [facility] 09-11-2024 12:27-0400 Body temperature 98.6 [degF] Gabriella Marques MD Work Phone: [facility] 09-11-2024 12:27-0400 Body weight 169.9 kg Gabriella Marques MD Work Phone: [facility] 09-11-2024 12:27-0400 Diastolic blood pressure 84 mm[Hg] Gabriella Marques MD Work Phone: [facility] 09-11-2024 12:27-0400 Heart rate 111 /min Gabriella Marques MD Work Phone: [facility] 09-11-2024 12:27-0400 Respiratory rate 16 /min Gabriella Marques MD Work Phone: [facility] 09-11-2024 12:27-0400 SaO2% (BldA) [Mass fraction] 98 % Gabriella Marques MD Work Phone: [facility] 09-11-2024 12:27-0400 Systolic blood pressure 144 mm[Hg] Gabriella Marques MD Work Phone: [facility] 06-26-2024 07:51-0400 Body height 165.[address] Vasquez Irwin MD Work Phone: [facility] 06-26-2024 07:51-0400 Body mass index (BMI) [Ratio] 61.5 kg/m2 Dr. Vasquez Irwin MD Work Phone: [facility] 06-26-2024 07:51-0400 Body temperature 97.3 [degF] Dr. Vasquez Irwin MD Work Phone: [facility] 06-26-2024 07:51-0400 Body weight 167.[address] Vasquez Irwin MD Work Phone: [facility] 06-26-2024 07:51-0400 Diastolic blood pressure 93 mm[Hg] Dr. Vasquez Irwin MD Work Phone: [facility] 06-26-2024 07:51-0400 Heart rate 98 /min Dr. Vasquez Irwin MD Work Phone: [facility] 06-26-2024 07:51-0400 Respiratory rate 20 /min Dr. Vasquez Irwin MD Work Phone: [facility] 06-26-2024 07:51-0400 SaO2% (BldA) [Mass fraction] 97 % Dr. Vasquez Irwin MD Work Phone: [facility] 06-26-2024 07:51-0400 Systolic blood pressure 131 mm[Hg] Dr. Vasquez Irwin MD Work Phone: [facility] 02-15-2024 09:30-0500 Diastolic blood pressure 76 mm[Hg] [address] 02-15-2024 09:30-0500 Heart rate 87 /min [address] 02-15-2024 09:30-0500 Respiratory rate 21 /min [address] 02-15-2024 09:30-0500 SaO2% (BldA) [Mass fraction] 97 % [address] 02-15-2024 09:30-0500 Systolic blood pressure 123 mm[Hg] [address] 02-15-2024 09:00-0500 Body temperature 97.39 [degF] [address] 02-15-2024 08:15-0500 Body height 165.[address] 02-15-2024 08:15-0500 Body mass index (BMI) [Ratio] 61.74 kg/m2 [address] 02-15-2024 08:15-0500 Body weight 168.[address] 11-14-2023 10:00-0400 Body height 165.1 cm Queta Oliveira APRN.CNM Work Phone: [facility] 11-14-2023 10:00-0400 Body mass index (BMI) [Ratio] 62.9 kg/m2 Queta Oliveira APRN.CNM Work Phone: [facility] 11-14-2023 10:00-0400 Body weight 171.46 kg Queta Oliveira APRN.CNM Work Phone: [facility] 11-14-2023 10:00-0400 Diastolic blood pressure 86 mm[Hg] Queta Oliveira APRN.CNM Work Phone: [facility] 11-14-2023 10:00-0400 Systolic blood pressure 132 mm[Hg] Queta Oliveira APRN.CNM Work Phone: [facility] 06-13-2023 10:26-0400 Body height 165.1 cm HOLISTIC SPECIALIST-C Maryann Cruz HOLISTIC SPECIALIST Work Phone: [facility] 06-13-2023 10:26-0400 Body mass index (BMI) [Ratio] 62 kg/m2 HOLISTIC SPECIALIST-C Maryann Cruz HOLISTIC SPECIALIST Work Phone: [facility] 06-13-2023 10:26-0400 Body temperature 97.3 [degF] HOLISTIC SPECIALIST-C Maryann Cruz HOLISTIC SPECIALIST Work Phone: [facility] 06-13-2023 10:26-0400 Body weight 169.18 kg HOLISTIC SPECIALIST-C Maryann Cruz HOLISTIC SPECIALIST Work Phone: [facility] 06-13-2023 10:26-0400 Diastolic blood pressure 77 mm[Hg] HOLISTIC SPECIALIST-C Maryann Cruz HOLISTIC SPECIALIST Work Phone: [facility] 06-13-2023 10:26-0400 Heart rate 101 /min HOLISTIC SPECIALIST-C Maryann Cruz HOLISTIC SPECIALIST Work Phone: [facility] 06-13-2023 10:26-0400 Respiratory rate 22 /min HOLISTIC SPECIALIST-C Maryann Cruz HOLISTIC SPECIALIST Work Phone: [facility] 06-13-2023 10:26-0400 SaO2% (BldA) [Mass fraction] 98 % HOLISTIC SPECIALIST-C Maryann Cruz HOLISTIC SPECIALIST Work Phone: [facility] 06-13-2023 10:26-0400 Systolic blood pressure 146 mm[Hg] HOLISTIC SPECIALIST-C Maryann Cruz HOLISTIC SPECIALIST Work Phone: [facility] Encounters Encounter Date Encounter Type Care Provider Facility Start: 03-01-2025 ambulatory ORALIA MATALEY PROFESSOR OF RHETORIC~[id number] Facility:[facility] Start: 01-09-2025 ambulatory [facility] Start: 01-07-2025 End: 01-07-2025 ambulatory [facility] Start: 12-17-2024 End: 12-17-2024 ambulatory [facility] Facility:[facility] Start: 12-11-2024 End: 12-11-[address] Vasquez Irwin MD Work Phone: -[facility] Start: 12-11-2024 End: 12-11-2024 Patient encounter procedure Jasmine RUST -[facility] Work Phone: Start: 12-11-2024 End: 12-11-2024 ambulatory Jessica Barton Facility:[facility] Start: 12-06-2024 ambulatory ROALIA Hernandez ORALIA PROFESSOR OF RHETORIC~[id number] Facility:[facility] Start: 12-05-2024 End: 12-05-2024 Patient encounter procedure Jasmine RUST -Radiology [facility] Work Phone: Start: 12-05-2024 End: 12-05-2024 ambulatory Jasmine Heath Facility:[facility] Start: 11-30-[address] Vasquez Irwin MD -Laboratory Work Phone: Start: 11-30-2024 End: 11-30-[address] Vasquez Irwin MD Work Phone: -Physical Therapy Start: 11-30-2024 End: 11-30-[address] Ayden Vanegas MD -Physical Therapy Work Phone: Start: 11-30-2024 End: 11-30-2024 [facility] Start: 11-23-2024 ambulatory ORALIA MATALEY PROFESSOR OF RHETORIC~[id number] Facility:[facility] Start: 11-16-2024 End: 11-16-[address] Vasquez Irwin MD Work Phone: -Radiology [facility] Start: 11-16-2024 End: 11-16-[address] Haider Burton DC -Radiology [facility] Work Phone: Start: 11-16-[address] Ayden Vanegas MD -Physical Therapy Work Phone: Start: 11-16-2024 End: 11-16-2024 ambulatory Haider Burton Facility:[facility] Start: 10-08-2024 End: 10-27-2024 Telephone encounter Ran Snider OD Work Phone: [facility] Comment on above: Patient Update Start: 10-02-2024 End: 10-02-2024 ambulatory HALEIGH ARAUJO Facility:[facility] Start: 10-01-2024 ambulatory QUETA OLIVEIRA Facility: [facility] Start: 09-26-2024 End: 09-26-2024 ambulatory RAN SNIDER II Facility:[facility] Start: 09-26-2024 End: 09-26-2024 Patient encounter procedure Ran Snider OD Work Phone: Optometry Comment on above: Myopia of both eyes (Primary Dx); Regular astigmatism, bilateral; Horseshoe tear of retina of left eye without detachment; History of repair of retinal tear by laser photocoagulation Start: 09-13-2024 End: 09-13-2024 Follow-up encounter David RUST Work Phone: [facility] Start: 09-11-2024 End: 09-11-2024 Office outpatient new 45 minutes Gabriella Marques MD Work Phone: [facility] Comment on above: Urinary frequency (P rimary Dx); Acute cystitis without hematuria Start: 09-11-2024 End: 09-11-2024 ambulatory GABRIELLA MARQUES Facility:[facility] Start: 09-03-2024 End: 12-03-2024 ambulatory ORALIA Hernandez ORALIA PROFESSOR OF RHETORIC~[id number] Facility:[facility] Start: 08-28-2024 End: 08-28-[address] Vasquez Irwin MD Work Phone: -Sleep Lab Start: 08-28-2024 End: 08-28-[address] Bartolome Bella DO -Sleep Lab Work Phone: Start: 08-28-2024 End: 08-28-2024 ambulatory ORALIA Hernandez ORALIA PROFESSOR OF RHETORIC~[id number] Facility:[facility] Start: 08-28-2024 End: 08-28-2024 ambulatory Vasquez [facility] Facility:[facility] Start: 08-09-2024 End: 08-09-[address] Vasquez Irwin MD Work Phone: [facility] Work Phone: Start: 08-09-2024 End: 08-09-[address] Bartolome Bella DO -Sleep Lab Work Phone: Start: 08-09-2024 End: 08-09-2024 ambulatory Vasquez Irwin Facility:[facility] Start: 07-18-2024 End: 07-18-2024 Telemedicine consultation with patient Bartolome Julita Shayne ARITA Work Phone: Sleep Medicine [facility] Comment on above: Hypersomnia (Primary Dx); Snoring; Witnessed episode of apnea Start: 07-18-2024 ambulatory MARYANN Carmona ty:[facility] Start: 07-03-2024 ambulatory MARYANN Carmona ty:[facility] Start: 06-26-2024 End: 06-26-2024 Patient encounter procedure Maryann [facility] Work Phone: Start: 06-26-2024 End: 06-26-2024 ambulatory Vasquez Irwin [facility] Start: 05-29-2024 Encounter for genera l adult medical examination without abnormal findings ORALIA BARTON PROFESSOR OF RHETORIC~[id number] [facility] Start: 05-26-2024 End: 05-26-2024 ambulatory JESSICA BARTON BEVERLY Facility:[facility] Start: 05-26-2024 End: 05-26-2024 Encounter for general adult medical examination without abnormal findings JESSICA BARTON BEVERLY Facility:[facility] Start: 02-25-2024 End: 02-25-2024 ambulatory Jessica Barton Facility:[facility] Start: 02-16-2024 ambulatory Vasquez Nimeth [facility] Start: 02-15-2024 ambulatory Vasquez Nimeth [facility] Start: 02-15-2024 End: 02-16-2024 Evaluation and management of inpatient Vasquez Nimeth Facility:[facility] Start: 02-15-2024 [facility] Start: 02-15-2024 End: 02-15-2024 Evaluation and management of inpatient McSa Proc Rm [address] [facility] Start: 02-15-2024 End: 02-15-2024 Subsequent hospital visit by physician Giacomo Giang Work Phone: [facility] Comment on above: Ulcer of esophagus w ithout bleeding Start: 02-02-2024 End: 02-02-2024 [facility] Start: 12-13-2023 End: 08-10-2024 ambulatory ORALIA BARTON PROFESSOR OF RHETORIC~[id number] Facility:[facility] Start: 11-14-2023 End: 11-14-2023 ambulatory QUETA OLIVEIRA Facility:[facility] Start: 11-14-2023 End: 11-14-2023 Patient encounter procedure Queta Oliveira APRN.CNTisha Work Phone: OB/Gynecology Comment on above: Encounter for gyneco logical examination (general) (routine) with abnormal findings (Primary Dx); Screening for cervical cancer; Encounter for screening for human papillomavirus (HPV); Family history of colon cancer in mother; Need for prophylactic vaccination/inoculation against viral disease; Class 3 severe obesity without serious comorbidity with body mass index (BMI) of 60.0 to 69.9 in adult, unspecified obesity type (HCC) Start: 11-14-2023 End: 11-14-2023 Patient encounter status Queta Oliveira APRN.CNM Work Phone: [facility] Start: 10-17-2023 End: 10-17-2023 Telephone encounter Queta Oliveira APREliaCNM Work Phone: OB/Gynecology Start: 09-21-2023 End: 09-21-2023 Patient encounter procedure Ran Snider OD Work Phone: Optometry Comment on above: Myopia of both eyes (Primary Dx); Regular astigmatism, bilateral; Horseshoe tear of retina of left eye without detachment; History of repair of retinal tear by laser photocoagulation Start: 06-21-2023 End: 06-21-2023 ambulatory HOLISTIC SPECIALIST-C Maryann Cruz HOLISTIC SPECIALIST Work Phone: [facility] Work Phone: Start: 06-21-2023 End: 06-21-2023 Patient encounter procedure HOLISTIC SPECIALISTRickey Cruz HOLISTIC SPECIALIST Work Phone: [facility]-Pulmonary Services/Neurology Work Phone: Start: 06-13-2023 End: 06-13-2023 Patient encounter procedure HOLISTIC SPECIALISTRickey Cruz HOLISTIC SPECIALIST Work Phone: [facility] Work Phone: Start: 08-25-2022 End: 08-25-2022 Patient encounter procedure Ran Snider OD Work Phone: Optometry Comment on above: Myopia of both eyes (Primary Dx); Horseshoe tear of retina of left eye without detachment; History of repair of retinal tear by laser photocoagulation Start: 07-31-2022 End: 08-01-2022 Emergency department patient visit [facility] Start: 07-25-2022 End: 07-25-2022 [facility] Start: 10-08-2021 End: 10-08-2021 Patient encounter procedure Ran Snider OD Work Phone: Optometry Comment on above: Horseshoe tear of re maki of left eye without detachment (Primary Dx); History of repair of retinal tear by laser photocoagulation; Myopia of both eyes Procedures Date Procedure Procedure Detail Performing Clinician Start: 12-11-[address] Vasquez Irwin MD Work Phone: Comment on above: Test Ordered: [id number] Dexamethasone, Seru mDexamethasone, Serum 354 ng/dL ES Reference Range: .This test was developed and its performance characteristicsdetermined by [employer]. It has not been cleared or approvedby the Food and Drug Administration.Reference Range:Adults baseline: <308:00 AM following 1 mg dexamethasone previous evenin - 2958:00 AM following 8 mg dexamethasone(4 x 2 mg doses) previous day: 1600 - 2850Performed at: ES [facility] [address] [id number] Director: Ewa Persaud MD, Phone: [phone] at: [facility] [address] [id number] Director: Eren Bedolla PhD, Phone: [phone] Start: 12-05-2024 Radex spine lumbscrl compl w/bending views min 6 Dr. Vasquez Irwin MD Work Phone: Start: 11-16-2024 X-ray of lumbosacral spine Dr. Vasquez martinez MD Work Phone: Start: 09-11-2024 Urnls dip stick/tablet rgnt auto w/o microscopy Gabriella Marques MD Work Phone: Start: 02-15-2024 Esophagogastroduodenoscopy Giacomo Giang Work Phone: Start: 02-15-2024 Level iv surg pathology gross&microscopic exam Giacomo Giang Work Phone: Plan of Treatment Date Care Activity Detail Author Start: 03-30-2031 DTaP,Tdap,and Td Vaccines (9 - Td or Tdap) DTaP,Tdap,and Td Vaccines (9 - Td or Tdap) [facility] Start: 03-30-2031 Tetanus vaccination TETANUS [facility] Start: 03-30-2031 Urine microalbumin profile DTaP,Tdap,Td Vaccine (8 - Td or Tdap) [facility] Start: 11-13-2028 Screening for malignant neoplasm of cervix [facility] Start: 10-02-2025 End: 10-02-2025 Patient encounter procedure 10/02/2025 10:00 AM EDT Office Visit [facility] [address] [place] [address] Ran Snider II, OD [address] [place] [address] contact exam/VSP Optometry Comment on above: contact exam/VSP Start: 12-17-2024 MRI of lumbar spine Spine Lumbar (Routine) [facility] Start: 12-17-2024 Patient encounter procedure Registered Clinical -MRI - [facility] Work Phone: Start: 11-20-2024 End: 11-20-2024 Patient encounter procedure 11/20/2024 11:30 AM EDT Office Visit OB/Gynecology [address] [place] [address] Queta Oliveira APRN.CNM [address] [place] [address] Annual OB/Gynecology Comment on above: Annual Start: 11-14-2024 End: 11-14-2024 Patient encounter procedure 11/14/2024 11:30 AM EDT Office Visit OB/Gynecology [address] [address] Queta Oliveira APRN.CNTisha [address] [place] [address] (Fax) Annual OB/Gynecology Comment on above: Annual Start: 10-29-2024 Influenza vaccination [facility] Start: 10-01-2024 End: 10-01-2024 Patient encounter procedure 10/01/2024 2:45 PM EDT Office Visit OB/Gynecology [address] [place] [address] Queta Oliveira APRN.CNM [address] [place] [address] Hormone check and control OB/Gynecology Comment on above: Hormone check and control Start: 09-26-2024 End: 09-26-2024 Patient encounter procedure 09/26/2024 10:00 AM EDT Office Visit [facility] [address] [place] [address] Ran Snider II, OD [address] [place] [address] contact exam/VSP Optometry Comment on above: contact exam/VSP Start: 06-26-2024 Patient referral [facility] Work Phone: Start: 01-13-2024 9vhpv vacc 2/3 dose sched im use HPV VACCINE, 9-VALENT (GARDASIL 9) Immunization/Injection Routine Expected: 01/13/2024 (Approximate) [facility] Comment on above: Expected: 01/13/2024 (Approximate) Start: 12-12-2023 HPV Vaccine (2 - 3-dose SCDM series) HPV Vaccine (2 - 3-dose SCDM series) [facility] Start: 12-12-2023 HPV Vaccines (2 - 3-dose SCDM series) HPV Vaccines (2 - 3-dose SCDM series) [facility] Start: 11-14-2023 End: 11-14-2023 Patient encounter procedure 11/14/2023 10:00 AM EDT Office Visit OB/Gynecology [address] [place] [address] Queta Oliveira APRN.CNTisha [address] [place] [address] new annual OB/Gynecology Comment on above: new annual Start: 10-30-2023 Covid-19 Vaccine ( season) Covid-19 Vaccine ( season) [facility] Start: 10-30-2023 COVID-19 Vaccine ( season) COVID-19 Vaccine ( season) [facility] Start: 10-30-2023 Influenza vaccination Influenza Vaccine (#1) [facility] Start: 10-29-2022 Covid-19 Vaccine ( season) Covid-19 Vaccine () [facility] Start: 10-29-2022 Influenza vaccination INFLUENZA (Season Ended) [facility] Start: 02-28-2022 DEPRESSION ASSESSMENT DEPRESSION ASSESSMENT [facility] Start: 10-29-2021 Influenza vaccination INFLUENZA (#1) [facility] Start: 09-24-2021 Adolescent depression screening assessment Depression Screening [facility] Start: 09-24-2021 Hepatitis C screening Hepatitis C Screening [facility] Start: 09-24-2021 HIV screening HIV Screening [facility] Start: 09-24-2021 Lipid panel Cholesterol Screening (Lipid Panel) [facility] Start: 09-24-2021 Social Influencers of Health Screening Social Influencers of Health Screening [facility] Start: 06-14-2021 COVID-19 VACCINE (3 - Booster for Pfizer series) COVID-19 VACCINE (3 - Booster for Pfizer series) [facility] Start: 03-11-2021 COVID-19 VACCINE (3 - Booster for Pfizer series) COVID-19 VACCINE (3 - Booster for Pfizer series) [facility] Start: 09-24-2017 HPV TESTING HPV TESTING [facility] Start: 09-24-2008 PAP TESTING PAP TESTING [facility] Start: 09-24-2008 Screening for malignant neoplasm of cervix [facility] Start: 09-24-2006 Urine microalbumin profile DTAP,TDAP,TD (1 - Tdap) [facility] Start: 09-24-2005 Annual PCP Team Chronic Disease Visit Annual PCP Team Chronic Disease Visit [facility] Start: 09-24-2005 Anxiety Screening Anxiety Screening [facility] Start: 09-24-2005 Depression Screening Depression Screening [facility] Start: 09-24-2005 HEPATITIS C SCREENING HEPATITIS C SCREENING [facility] Start: 09-24-2005 Hepatitis C screening Hepatitis C Screening [facility] Start: 09-24-2005 HIV SCREENING HIV SCREENING [facility] Start: 09-24-2005 HIV screening HIV Screening [facility] Start: 09-24-2002 HIV screening HIV SCREENING DISCUSSION [facility] Start: 1999 Adult depression screening assessment DEPRESSION SCREENING [facility] Start: 1987 HEPATITIS B (1 of 3 - 3-dose series) HEPATITIS B (1 of 3 - 3-dose series) [facility] Start: 1987 Hepatitis C screening HEPATITIS C VIRUS SCREENING [facility] Bacteria identified in Urine by Culture BACTERIAL CULTURE, URINE Microbiology Routine Urinary frequency 09/11/2024 1:17 PM EDT [facility] Work Phone: End: 02-15-2024 Choriogonadotropin ( test) [Presence] in Urine [facility] Work Phone: Comment on above: Once for 1 Occurrences starting 02/15/20 24 until 02/15/2024 Corticotropin [Mass/ volume] in Plasma [facility] Dehydroepiandrostero ne sulfate (DHEA-S) [Mass/volume] in Serum or Plasma [facility] PAP TEST PAP TEST Lab Jagdish melendrez Encounter for gynecological examination (general) (routine) with abnormal findings Screening for cervical cancer Encounter for screening for human papillomavirus (HPV) 11/14/2023 10:33 AM EDT [facility] Patient referral [facility] Work Phone: Polysomnography [facility] Therapeutic prophyla ctic/dx injection subq/im THER/PROPH/DIAG INJ, SC/IM Procedures Routine Need for prophylactic vaccination/inoculatio n against viral disease Ordered: 11/14/2023 [facility] Work Phone: Comment on above: Ordered: 11/14/2023 Immunizations Immunization Date Immunization Notes Care Provider Karthikeyan lerner 11-14-2023 Human Papillomavirus 9-valent vaccine Queta Oliveira APRN.CNM Work Phone: [facility] 11-14-2023 HPV, unspecified formulation McSa 01 [facility] 12-10-2020 influenza virus vacc ine, unspecified formulation Ran Snider II OD Work Phone: [facility] Payers Date Payer Category Payer Self-pay 2023 Managed Care (unspecified) [employer]OR[employer]ES [id number] 2023 Unknown [id number] 2023 Unknown [id number] 2022 Private Health Insurance [id number] 2022 Unknown [id number] 2021 Private Health Insurance [id number] 1987 Unknown [id number] 1987 Unknown [id number] 1987 Unknown [id number] 1987 Unknown [id number] 1987 Unknown [id number] 2.16.840.1.216559.3.579.2 .594 1985 Unknown [id number] 2.16.840.1.747923.3.579.2 .419 1985 Unknown [id number] 2.16.840.1.237237.3.579.2 .419 1985 Unknown [id number] 2.16.840.1.478031.3.579.2 .419 1985 Unknown [id number] 2.16.840.1.573163.3.579.2 .419 1985 Unknown [id number] 2..840.1.269953.3.579.2 .419 1985 Unknown [id number] 2..840.1.217643.3.579.2 .419 1985 Unknown [id number] 2..840.1.065950.3.579.2 .419 Unknown [id number] 2.840.1.637026.3.579.2 .462 Unknown [id number] 2.840.1.699970.3.579.2 .462 Unknown [id number] 2.840.1.448925.3.579.2 .462 Unknown [id number] 2.840.1.642771.3.579.2 .462 Unknown [id number] 2.16840.1.421750.3.579.2 .462 Unknown [id number] 2.840.1.615370.3.579.2 .462 Unknown [id number] 2.840.1.705518.3.579.2 .462 Unknown [id number] 2.840.1.565345.3.579.2 .462 Unknown [id number] 2.840.1.573846.3.579.2 .462 Unknown [id number] 2.16.840.1.274733.3.579.2 .462 Unknown 1960 2.16.840.1.845764.3.579.2 .462 Unknown [id number] 2.840.1.971809.3.579.2 .462 Unknown [id number] 2.16.840.1.007205.3.579.2 .462 Unknown [id number] 2.16.840.1.703232.3.579.2 .462 Unknown [id number] 2.16.840.1.064164.3.579.2 .462 Unknown [id number] 2.16.840.1.177033.3.579.2 .462 Unknown [id number] 2.16.840.1.550773.3.579.2 .462 Unknown [id number] 2.16.840.1.732449.3.579.2 .462 Unknown [id number] 2.16.840.1.719501.3.579.2 .462 Social History Date Type Detail Facility Start: 12-19-2013 End: 02-15-2024 Tobacco smoking status DEIS Never smoked tobacco [facility] Start: 12-19-2013 End: 08-25-2022 Tobacco use and exposure Smokeless tobacco non-user [facility] Start: 10-08-2021 End: 10-02-2024 Alcohol intake Current drinker of alcohol (finding) [facility] Start: 08-29-2018 History SDOH Alcohol Comment social [facility] Start: 1985 Sex Assigned At Not on file [facility] Start: 09-28-2021 End: 10-08-2021 Exposure to SARS-CoV-2 (event) Not sure [facility] Start: 06-13-2023 Tobacco smoking stat us DEIS Unknown if ever smoked [facility] Start: 1985 Sex Assigned At Female [facility] Start: 08-25-2022 End: 10-02-2024 History of Social function [facility] Start: 08-25-2022 End: 10-02-2024 Tobacco use panel [facility] Start: 01-30-2012 National Score (1-10 0), lower number is lower risk 89 [facility] Start: 07-13-2022 Alcohol Comment socially [facility] Start: 02-15-2024 Gender identity Identifies as female gender (finding) [facility] Start: 02-15-2024 Sexual orientation Heterosexual (jillian hutchinson) [email or web address] Start: 07-29-2016 Sex Female (finding) [facility] Start: 07-02-2024 Sexual orientation Choose not to dis close [facility] Clinical Notes 10-08-2021 to 12-11-2024 Note Date & Type Note Facility 12-11-[address] [facility] Services 11-30-2024 Discharge summary Note Date/Time November 30, 2024 12:10pm [facility] [address] [place] [address] / REHABILITATION SERVICES DISCHARGE SUMMARY MR#: [id number] Acct: [id number] Name: CHIO BUCIO Rep #: [id number] : 1985 39 From: Daniella Menchaca PT, Cert. MDT Referring Dr.: Dr. Ayden Vanegas MD Stat us: REG RCR Insurance: [employer]/[facility] SELF PAY INSURANCE Discharge Summary D/C summary: It has been my pleasure to treat CHIO BUCIO referred by Dr. Ayden Vanegas MD, with the diagnosis of URGE INCONTINENCE for a total of 5visit(s). Discharge Date: 11/30/24 Please see the following information for a summary of their discharge status. Subjective Subjective: PATIENT REPORTS IT IS GOING PRETTY GOOD WITH HER BLADDER RETRAINING AND HER FREQUENCY HAS DEFINATELY IMPROVED. SHE REPORTS SHE CAN DEFINATELY GO TWO SESSIONS INSTEAD OF JUST ONE WITHOUT GOING TO THE BATHROOM NOW. PATIENT REPORTS CANCELLING HER F/U LUDY'T WITH DR. VANEGAS. NO PELVIC AREA PAIN BUT IS HAVING INCREASED LOW BACK PAIN FOR NO APPARENT REASON. SAW HER CHIROPACTOR TUESDAY AND SHE THINKS IT MIGHT HAVE HELPED SOME. PLANS TO SEE HER PCP 12/06/24 ABOUT HER BACK PAIN. Overall Improvement % Improvement: 60 Objective Objective/Function: THIS PATIENT HAS MADE GOOD PROGRESS WITH BLADDER RETRAINING FOR URGE INCONTINENCE AND NO LONGER PLANS TO FOLLOW UP WITH DR. VANEGAS AT THIS TIME. SHE STATES SHE PLANS TO SEE HER PCP TO PURSUE TREATMENT FOR HER LOW BACK PAIN. SHE PLANS TO CONTINUE BLADDER MEDICATION THROUGH HER ONLINE OBGYN UNTIL INPERSONEXAM WITH AN OBGYN IN FEBRUARY 2025. AT THAT TIME SHE WILL CONSIDER FURTHER PELVIC FLOOR THERAPY. Pelvic organ prolapse distress inventory 6: 4 Colorectal-Anal distress inventory 8: 7 Urinary distress inventory 6: 11 Goals Goal 1:: NORMALIZE VOIDING FREQUENCEY TO EVERY 3-4 HOURS. Goal Progress: Progressing Goal 2:: PATIENT ABLE TO STATE 5 OF 5 URGE SUPPRESSION/BLADDER RETRAINING STRATEGIES Goal Progress: Goal Met Goal 3:: PATIENT WILL SUCCESSFULLY DELAY VOIDING LONG NEEDED WHEN URGENCY OCCURS TO SUCCESSFULLY MAKE IT TO THE BATHROOM. Goal Progress: Progressing Goal 4:: DEVELOP HEALTHY FLUID INTAKE HABITS WITH FLUID INTAKE OF ? BODY WEIGHT IN OUNCES PER DAY AND 2/3 BEING WATER. Goal Progress: Progressing Goal 5:: IMPROVE PELVIC FLOOR MUSCLE STRENGTH AND ENDURANCE TO IMPROVE URINARY INCONTINENCE AND ORGAN SUPPORT. Goal Progress: Progressing Goal 6:: PATIENT WILL BE INDEP WITH A HEP/HOME INSTRUCTIONS FOR CONTINUED IMPROVEMENT ONCE FORMAL PHYSICAL THERAPY CONCLUDES. Goal Progress: Goal Met Plan Plan: D/C OF PLEVIC FLOOR THERAPY FOR URGE INCONTINENCE WITH PATIENT REPORTING 60% IMPROVEMENT ON INDEP WITH HEP AND 5 BLADDER RETRAINING STRATEGIES. PATIENT AGREEABLE. D/C Information d/c sentence: If there are questions or concerns regarding this patient's physical therapy, please feel free to call me at [phone]. Thank you for the referral of thispatient. Sincerely, Daniella Menchaca PT, Cert MDT Balance/Gait/Functional tests Improvement % Improvement: 60 <Electronically signed by Cert. Humphreys PT MDT> 11/30/24 1210 CC: Dr. Vasquez Irwin MD; Dr. Ayden Vanegas MD ~ LAT[place] Signed [facility] Work Phone: 1(834) 574-645610-03-2025 Discharge summary [facility] [address] [place] [address]. [address] [place] [address] / REHABILITATION SERVICES DISCHARGE SUMMARY MR#: [id number] Acct: [id number] Name: CHIO BUCIO LOWELL Rep #: [id number] : 1985 39 From: Daniella A Cross PT, Cert. MDT Referring Dr.: Dr. Ayden Vanegas MD Stat us: REG RCR [id number] [place] SELF PAY INSURANCE Discharge Summary D/C summary: It has been my pleasure to treat CHIO BUCIO referred by Dr. Ayden Vanegas MD, with the diagnosis of URGE INCONTINENCE for a total of 5visit(s). Discharge Date: 11/30/24 Please see the following information for a summary of their discharge status. Subjective Subjective: PATIENT REPORTS IT IS GOING PRETTY GOOD WITH HER BLADDER RETRAINING AND HER FREQUENCY HAS DEFINATELY IMPROVED. SHE REPORTS SHE CAN DEFINATELY GO TWO SESSIONS INSTEAD OF JUST ONE WITHOUT GOING TO THE BATHROOM NOW. PATIENT REPORTS CANCELLING HER F/U LUDY'T WITH DR. VANGEAS. NO PELVIC AREA PAIN BUT IS HAVING INCREASED LOW BACK PAIN FOR NO APPARENT REASON. SAW HER CHIROPACTOR TUESDAY AND SHE THINKS IT MIGHT HAVE HELPED SOME. PLANS TO SEE HER PCP 12/06/24 ABOUT HER BACK PAIN. Overall Improvement % Improvement: 60 Objective Objective/Function: THIS PATIENT HAS MADE GOOD PROGRESS WITH BLADDER RETRAINING FOR URGE INCONTINENCE AND NO LONGER PLANS TO FOLLOW UP WITH DR. VANEGAS AT THIS TIME. SHE STATES SHE PLANS TO SEE HER PCP TO PURSUE TREATMENT FOR HER LOW BACK PAIN. SHE PLANS TO CONTINUE BLADDER MEDICATION THROUGH HER ONLINE OBGYN UNTIL INPERSONEXAM WITH AN OBGYN IN FEBRUARY 2025. AT THAT TIME SHE WILL CONSIDER FURTHER PELVIC FLOOR THERAPY. Pelvic organ prolapse distress inventory 6: 4 Colorectal-Anal distress inventory 8: 7 Urinary distress inventory 6: 11 Goals Goal 1:: NORMALIZE VOIDING FREQUENCEY TO EVERY 3-4 HOURS. Goal Progress: Progressing Goal 2:: PATIENT ABLE TO STATE 5 OF 5 URGE SUPPRESSION/BLADDER RETRAINING STRATEGIES Goal Progress: Goal Met Goal 3:: PATIENT WILL SUCCESSFULLY DELAY VOIDING LONG NEEDED WHEN URGENCY OCCURS TO SUCCESSFULLY MAKE IT TO THE BATHROOM. Goal Progress: Progressing Goal 4:: DEVELOP HEALTHY FLUID INTAKE HABITS WITH FLUID INTAKE OF ? BODY WEIGHT IN OUNCES PER DAY AND 2/3 BEING WATER. Goal Progress: Progressing Goal 5:: IMPROVE PELVIC FLOOR MUSCLE STRENGTH AND ENDURANCE TO IMPROVE URINARY INCONTINENCE AND ORGAN SUPPORT. Goal Progress: Progressing Goal 6:: PATIENT WILL BE INDEP WITH A HEP/HOME INSTRUCTIONS FOR CONTINUED IMPROVEMENT ONCE FORMAL PHYSICAL THERAPY CONCLUDES. Goal Progress: Goal Met Plan Plan: D/C OF PLEVIC FLOOR THERAPY FOR URGE INCONTINENCE WITH PATIENT REPORTING 60% IMPROVEMENT ON INDEP WITH HEP AND 5 BLADDER RETRAINING STRATEGIES. PATIENT AGREEABLE. D/C Information d/c sentence: If there are questions or concerns regarding this patient's physical therapy, please feel free to call me at [phone]. Thank you for the referral of thispatient. Sincerely, Daniella Menchaca, PT, Cert MDT Balance/Gait/Functional tests Improvement % Improvement: 60 11/30/24 1210 CC: Dr. Vasquez Irwin MD; Dr. Ayden Vanegas MD ~ [place] Signed [facility]09-21-2025 Radiology Diagnostic study note [facility] Imaging Services [address] [place], [place] [address] L/S Spine Min 4 Views MR#: [id number] Acct: [id number] Name: CHIO BUCIO LOWELL Rep #: [id number] : 1985 F 39 From: Tito Newman MD PCP: Dr. Vasquez Irwin MD Status: REG Julita SOLIS Study:L/S Spine Min 4 Views Date of Exam: 11/16/24 Exam# [id number] Ordering Dr: Haider Guadalupe D.C. PROCEDURE: L/S SPINE MIN 4 VIEWS 11/16/2024 REASON FOR EXAM: LOW BACK PAIN TECHNIQUE: Procedure Code: RADSPLS Modality: DX Procedure: L/S SPINE MIN 4 VIEWS COMPARISON: None. FINDINGS: BONES: Five [id number]-[id number] lumbar vertebral bodies. No fracture or focal osseous lesion. Anatomic spinal alignment. Mild lumbar levoscoliosis. DISC/DEGENERATIVE CHANGES: Disc spaces are preserved. SOFT TISSUES: No acute abnormality seen. Right mid abdominal surgical clips. RAD/L/S Spine Min 4 Views IMPRESSION: No acute abnormality. Reading Location: [facility] CC: MERCEDES Burton; Dr. Vasquez Irwin MD ~ Forestry Aid Technician: Signed [facility]08-11-2025 Telephone encounter Note* Telephone Encounter - Jeanette Shepard - 10/08/2024 12:56 PM EDT Patient is calling and wanting to order her original contacts the clarity, please advise patient with any further questions [facility]08-11-2025 Miscellaneous Notes* Telephone Encounter - Rashad Shepardrie - 10/08/2024 12:56 PM EDT Patient is calling and wanting to order her original contacts the clarity, please advise patient with any further questions [facility]25 NoteHNO ID: [id number] Author: HALEIGH ARAUJO APRN.CAR STOWER Service: ? 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 Patient/authorized sales representative agreed to proceed CHIEF COMPLAINT: CC: Patient is a 39-year-old female presenting for concerns of suspected hormonal imbalance due to multiple health problems. HPI: HPI: Hormonal Imbalance: - Reports mood fluctuations, irritability, insomnia, fatigue, low libido, and urinary incontinence. - Experiences "sugar crashes" if not eating for about five hours. - Has difficulty losing weight and has dry skin diagnosed as psoriasis by a dye tub tender. - Menstrual periods occur every three weeks, lasting about five days; had an unusual shorter interval in June. - Sexually active; partner has had a vasectomy. - No diagnosis of PCOS; no history of male pattern baldness, hirsutism, irregular menses. - Has been on control in the past (Aviane and another unspecified pill). Medical History: - Diagnosed with major depressive disorder; seeing a therapist and taking Effexor XR. - Has restless leg syndrome, treated with Requip. - Diagnosed with sleep apnea; recently started using a CPAP machine. - Has binge eating disorder diagnosed by weight management, treated with Vyvanse. - Taking spironolactone since 0165-5507 for acne and high blood pressure. - Previously on Wegovy for weight management but discontinued due to severe stomach upset, constipation, and anal fissures. - Has vitamin D deficiency, currently taking 2000 IU of vitamin D3; previously required a weekly supplement. - Has anemia; received an iron infusion in March; cause of anemia is unknown despite endoscopy and colonoscopy. Menstrual flow is light/moderate. - Past medical history includes use of phentermine in 2019 for weight loss, resulting in a 15-pound loss. - Recent labs show a TSH of 5.250 with a normal free T4 level; primary care provider plans to retest in November. Weight History: - Began gaining weight about three years ago while working two jobs; has been unable to lose weight since. - Weight at high school graduation was approximately 180 pounds; current height is 5'5". HISTORY: OB History Gravida0 Para0 Term0 Preterm0 AB0 Living0 SAB0 IAB0 Ectopic0 Multiple0 Live Births0 Counterintelligence Analyst History LMP: 10/01/2024 (Exact Date), Having periods Age at Menarche: Age at First : Age at Menopause: Counterintelligence Analyst History Comments: Sexual Activity: Yes; Male Contraception: Vasectomy PAST MEDICAL HISTORY Diagnosis Date Anemia Depression Floaters Hypertension Retinal tear PAST SURGICAL HISTORY Procedure Laterality Date CERVIX UTERI CONIZA LP ELCTRO EXCI 2019 CHOLEYCYSTOGRAM GALL BLADDER MIDDLE EAR EXPL THRU POSTAUR/EAR CANAL INC PAST SURGICAL HISTORY OF Laser Photocoagulation, Retinal tear TONSILLECTOMY AND ADENOIDECTOMY HX FAMILY HISTORY Problem Relation Age of Onset Colon Cancer Mother 62 Cataract Mother Cataract Father Thyroid Paternal Grandfather Social History Tobacco Use Smoking status: Never Smokeless tobacco: Never Vaping Use Vaping status: Never Used Substance Use Topics Alcohol use: Yes Comment: social Drug use: No Current Outpatient Medications Medication Sig lisdexamfetamine (VYVANSE) 50 mg capsule rOPINIRole (REQUIP) 0.5 mg tablet traZODone (DESYREL) 50 mg tablet Take 50-100 mg by mouth daily at bedtime. omeprazole (PRILOSEC) 40 mg capsule Take 40 mg by mouth. buspirone HCl (BUSPAR ORAL) Take 5 mg by mouth twice daily. spironolactone (ALDACTONE) 50 mg tablet TAKE 1 TABLET BY MOUTH TWICE DAILY DO NOT GET ON THIS MEDICATION venlafaxine HCl (EFFEXOR ORAL) Take 75 mg by mouth once daily. venlafaxine ER (EFFEXOR XR) 150 mg 24 hr capsule Take 150 mg by mouth once daily. PRO FE 180 mg iron cap Take 1 capsule by mouth every afternoon. (Patient not taking: Reported on 09/11/2024) No current facility-administered medications for this visit. ALLERGIES Allergen Reactions Amoxicillin-Pot Cla* Itching, Rash Sulfa (Sulfonamide * Rash REVIEW OF SYSTEMS: Constitutional: (+) fatigue, (+) weight gain Genitourinary: (+) urinary incontinence, (+) decreased libido Skin: (+) dry skin, (-) alopecia Psychiatric: (+) mood swings, (+) irritability, (+) insomnia Endocrine: (+) hypoglycemic episodes Objective SENSITIVE EXAM: Sensitive exam not performed. PHYSICAL EXAM: BP 130/84 Wt 383 lb (173.7kg) LMP 10/01/2024 GENERAL: Pleasant; in no apparent distress PULMONARY: normal inspiratory effort : No hirsutism NEURO: alert and oriented x3 Assessment AND Plan ASSESSMENT AND PLAN: 1. Depression, unspecified depression type ( (more content not included)... [facility] Instructions* Patient Instructions* Ran Snider II, OD - 09/26/2024 10:54 AM EDT Assessment and Plan H52.13 Myopia of both eyes (primary encounter diagnosis) H52.223 Regular astigmatism, bilateral Comment: Ocular health maintained with contact lens use. Good fit but end of day dryness. Giordano stable. To try new materials to see if better end of day comfort. Recheck in one year. H33.312 Horseshoe tear of retina of left eye without detachment Z98.890 History of repair of retinal tear by laser photocoagulation Comment: Stable repair. Monitor. I have confirmed and edited as necessary the relevant HPI, ophthalmic history, ROS, and the neuro exam findings as obtained by others. I have seen and examined Chio Bucio. I have discussed the case and the management of this patient's care with the Resident/Fellow, if applicable. I also have reviewed and agree with the assessment and plan as stated above and agree withall of its relevant components. [facility]25 NoteHNO ID: [id number] Author: RAN SNIDER II, OD Service: ? Author Type: WEAVE ROOM SUPERVISOR Type: Progress Notes Filed: 09/26/2024 10:55 Note Text: Assessment and Plan H52.13 Myopia of both eyes (primary encounter diagnosis) H52.223 Regular astigmatism, bilateral Comment: Ocular health maintained with contact lens use. Good fit but end of day dryness. Giordano stable. To try new materials to see if better end of day comfort. Recheck in one year. H33.312 Horseshoe tear of retina of left eye without detachment Z98.890 History of repair of retinal tear by laser photocoagulation Comment: Stable repair. Monitor. I have confirmed and edited as necessary the relevant HPI, ophthalmic history, ROS, and the neuro exam findings as obtained by others. I have seen and examined Chio Bucio. I have discussed the case and the management of this patient's care with the Resident/Fellow, if applicable. I also have reviewed and agree with the assessment and plan as stated above and agree with all of its relevant components.[facility] History of Present illness Narrative* Ran Snider II, OD - 09/26/2024 10:53 AM EDT Assessment and Plan H52.13 Myopia of both eyes (primary encounter diagnosis) H52.223 Regular astigmatism, bilateral Comment: Ocular health maintained with contact lens use. Good fit but end of day dryness. Giordano stable. To try new materials to see if better end of day comfort. Recheck in one year. H33.312 Horseshoe tear of retina of left eye without detachment Z98.890 History of repair of retinal tear by laser photocoagulation Comment: Stable repair. Monitor. I have confirmed and edited as necessary the relevant HPI, ophthalmic history, ROS, and the neuro exam findings as obtained by others. I have seen and examined Chio Bucio. I have discussed the case and the management of this patient's care with the Resident/Fellow, if applicable. I also have reviewed and agree with the assessment and plan as stated above and agree withall of its relevant components. documented [facility]Reg[facility]07-[facility]-2025 Telephone encounter Note * Telephone Encounter - Anita Flowers LPN - 09/13/2024 10:36 AM EDT MyChart message sent to pt with providers message, Pt is active on her MyChart and has viewed her results 09/13/24. Anita Flowers LPN [facility]07-[facility] Miscellaneous Notes* Telephone Encounter - Anita Flowers LPN - 09/13/2024 10:36 AM EDT MyChart message sent to pt with providers message, Pt is active on her MyChart and has viewed her results 09/13/24. Anita Flowers LPN * Telephone Encounter - David Mehta PA - 09/13/2024 8:08 AM EDT Please contact patient let her know urine culture revealed normal bacterial growth. No UTI. Please follow-up with PCP for persistent symptoms documented in [facility]Reg[facility]07-[facility]-2025 Telephone encounter Note * Telephone Encounter - David Mehta PA - 09/13/2024 8:08 AM EDT Please contact patient let her know urine culture revealed normal bacterial growth. No UTI. Please follow-up with PCP for persistent symptoms [facility] Work Phone: 1(753) 168-867207-15-2025 NoteHNO ID: [id number] Author: GABRIELLA MARQUES MD Service: ? Author Type: Physician Type: Progress Notes Filed: 09/11/2024 12:38 Note Text: URGENT CARE JEFRY Bucio is a 38 year old female. Patient presents with: Urinary Frequency: Frequency and urgency x 2 days Pt here with 1 year hx of urinary urgency seen by her pcp and sent to urologist but last 2 days developed frequency and felt like a UTI no fever no chills no dysuria no n/v no abd/flank pain Review of Systems Constitutional: Negative for chills, fatigue and fever. Gastrointestinal: Negative for abdominal pain, nausea and vomiting. Genitourinary: Positive for frequency and urgency. Negative for dysuria, flank pain, hematuria and pelvic pain. Objective BP 144/84 Pulse 111 Temp 37 ?C (98.6 ?F) (Tympanic) Resp 16 Wt (!) 169.9 kg (374 lb 9 oz) LMP 11/04/2023 (Within Days) SpO2 98% BMI 62.33 kg/m? Physical Exam Vitals and nursing note reviewed. Constitutional: Appearance: Normal appearance. She is not ill-appearing. Abdominal: General: Bowel sounds are normal. Palpations: Abdomen is soft. Tenderness: There is no abdominal tenderness. There is no right CVA tenderness, left CVA tenderness, guarding or rebound. Neurological: General: No focal deficit present. Mental Status: She is alert and oriented to person, place, and time. Psychiatric: Behavior: Behavior normal. Results for orders placed or performed in visit on 09/11/24 UA DIP, URINE (POC) Result Value Ref Range GLUCOSE UA (POCT) Negative Negative mg/dL BILIRUBIN UA (POCT) Negative Negative KETONE UA (POCT) Negative Negative mg/dL SPECIFIC GRAVITY UA (POCT) 1.020 1.005 - 1.030 HEMOGLOBIN/BLOOD UA (POCT) Negative Negative PH UA (POCT) 8.0 4.5 - 8.0 PROTEIN UA (POCT) Negative Negative mg/dL UROBILINOGEN UA (POCT) 0.2 Normal E.U./dL NITRITE UA (POCT) Negative Negative LEUKOCYTES UA (POCT) Negative Negative COLOR UA (POCT) Yellow CLARITY UA (POCT) Clear {ASSESSMENT/PLAN: 1. Urinary frequency - ICD9: 788.41, ICD10: R35.0 (primary diagnosis) Follow up with urologist as arranged - UA DIP, URINE (POC) - BACTERIAL CULTURE, URINE 2. Acute cystitis without hematuria - ICD9: 595.0, ICD10: N30.00 - NITROFURANTOIN MONOHYDRATE AND MACROCRYSTAL 100 MG ORAL CAP - PHENAZOPYRIDINE 200 MG TABLET Gabriella Marques MD History and Record Review External record(s) reviewed: prior outpatient record. Differential Diagnoses - urinary urgency unknown cause is more likely for the following reason(s): suggested by HANDP and consistent with laboratory studies - uti is less likely for the following reason(s): pt treated but suspect negative culture, HANDP not suggestive and laboratory studies not suggestive ProceduresCommunity [facility] History of Present illness Narrative* Gabriella Marques MD - 09/11/2024 12:34 PM EDT [facility] [place] Isma Bucio is a 38 year old female. Patient presents with: Urinary Frequency: Frequency and urgency x 2 days Pt here with 1 year hx of urinary urgency seen by her pcp and sent to urologist but last 2 days developed frequency and felt like a UTI no fever no chills no dysuria no n/v no abd/flank pain Review of Systems Constitutional: Negative for chills, fatigue and fever. Gastrointestinal: Negative for abdominal pain, nausea and vomiting. Genitourinary: Positive for frequency and urgency. Negative for dysuria, flank pain, hematuria and pelvic pain. Objective BP 144/84 Pulse 111 Temp 37 C (98.6 F) (Tympanic) Resp 16 Wt (!) 169.9 kg (374 lb 9 oz) LMP 11/04/2023 (Within Days) SpO2 98% BMI 62.33 kg/m Physical Exam Vitals and nursing note reviewed. Constitutional: Appearance: Normal appearance. She is not ill-appearing. Abdominal: General: Bowel sounds are normal. Palpations: Abdomen is soft. Tenderness: There is no abdominal tenderness. There is no right CVA tenderness, left CVA tenderness, guarding or rebound. Neurological: General: No focal deficit present. Mental Status: She is alert and oriented to person, place, and time. Psychiatric: Behavior: Behavior normal. Results for orders placed or performed in visit on 09/11/24 UA DIP, URINE (POC) Result Value Ref Range GLUCOSE UA (POCT) Negative Negative mg/dL BILIRUBIN UA (POCT) Negative Negative KETONE UA (POCT) Negative Negative mg/dL SPECIFIC GRAVITY UA (POCT) 1.020 1.005 - 1.030 HEMOGLOBIN/BLOOD UA (POCT) Negative Negative PH UA (POCT) 8.0 4.5 - 8.0 PROTEIN UA (POCT) Negative Negative mg/dL UROBILINOGEN UA (POCT) 0.2 Normal E.U./dL NITRITE UA (POCT) Negative Negative LEUKOCYTES UA (POCT) Negative Negative COLOR UA (POCT) Yellow CLARITY UA (POCT) Clear {ASSESSMENT/PLAN: 1. Urinary frequency - ICD9: 788.41, ICD10: R35.0 (primary diagnosis) Follow up with urologist as arranged - UA DIP, URINE (POC) - BACTERIAL CULTURE, URINE 2. Acute cystitis without hematuria - ICD9: 595.0, ICD10: N30.00 - NITROFURANTOIN MONOHYDRATE & MACROCRYSTAL 100 MG ORAL CAP - PHENAZOPYRIDINE 200 MG TABLET Gabriella Marques MD History and Record Review External record(s) reviewed: prior outpatient record. Differential Diagnoses - urinary urgency unknown cause is more likely for the following reason(s): suggested by H&P and consistent with laboratory studies - uti is less likely for the following reason(s): pt treated but suspect negative culture, H&P not suggestive and laboratory studies not suggestive [facility] Instructions* Patient Instructions* Gabriella Marques MD - 09/11/2024 12:34 PM EDT Urinary Tract Infection Adult You have been diagnosed with a basic urinary tract infection (UTI). This means it does not involve your kidneys or areas other than your bladder. A UTI is an infection in your bladder. Your doctor diagnosed it by testing your urine. UTIs usuallycauses burning when you urinate (pee) or urinating often. It might make you feel like you have to urinate even when you don't. UTI is usually treated with antibiotics and medicine to help with pain. It is very important that you fill your prescription and take all of the antibiotics as directed. If a urinary tract infection goes untreated for too long, it can become a kidney infection. For Women: To reduce the risk of getting another UTI: Always urinate before and after sexual intercourse. Always wipe from front to back after urinating or having a bowel movement. Do not wipe from back tofront. Drink plenty of fluids. Try to drink cranberry or blueberry juice. These juices have a chemical that stops bacteria from sticking to the bladder. Return here or go to the nearest Emergency Department immediately if: You have a fever (temperature higher than 100.4 F / 38 C) or shaking chills. You feel nauseated (sick to your stomach) or vomit (throw up). You have pain in your side or back. You don't get better after taking all of your antibiotics. You have any new symptoms or concerns. You feel worse or do not improve. If you can't follow up with your doctor, or if at any time you feel you need to be rechecked or seen again, come back here or go to the nearest emergency department. [facility] History of Present illness Narrative* Bartolome Bella DO - 07/18/2024 8:00 AM EDT Images from the original note were not included. CC- Chief Complaint Patient presents with Sleep Problem Daytime Sleepiness HPI- Chio Bucio is 38 y.o. female who presents with daytime sleepiness, had negative study last year Problems with sleep onset taking trazodone, melatonin, benadryl Also with restless leg syndrome symptoms but improved on ropinirole Previous sleep study: Yes Positive airway pressure (PAP) device use: No She goes to bed at 2330 on weekdays and 0100 on weekends. She awakens at 1000 on weekdays and 1130 on weekends. She estimates a total sleep time of 10 hours each night. She falls asleep in 60 minutes, and awakens 3 times per night. Naps: Yes ( [3] per week for [60] min). Abnormal work hours (outside 6 am-7 pm): Yes. Sleep disordered breathing symptoms (last month) Loud Snoring 3-4 times a week Snorting or gasping 3-4 times a week Breathing stops, chokes, or struggles Never Sleepiness and fatigue frequency (last month) Tired upon awakening 5-7 times a week Very sleepy during the day 5-7 times a week Involuntarialy falling asleep Never Tired or Fatigued 5-7 times a week Fallen asleep driving No Insomnia severity (last month). Currently having any of the following: Yes Difficulty falling asleep Moderate Difficulty staying asleep Mild Problems waking up too early None Abnormal behaviors frequency (last month) Problems disturb bed partner s sleep Rarely (less than once a week) Unusual behaviors during sleep Never Kicking while asleep 1-2 times a week Acting out dreams Never Violent behaviors while asleep Never Hypnagogic hallucinations Never Sleep paralysis Never Cataplexy (ever experienced) No Restless Leg Symptoms (Ever had these symptoms) hx of iron deficiency had iron infusion On ropinirole with benefit Unpleasant sensations in legs and urge to move Yes Feelings in your legs occur mainly or only at rest Yes Feelings in your legs improve with movement Yes Feelings worse in the evening or night than in the morning Yes Sleepiness with driving: No Motor vehicle collisions or near misses due to drowsy driving: No Taking trazodone, melatonin, benadryl Caffeine intake is [ (Patient-Rptd) 1 ] drinks per day, up until [ (Patient- Rptd) 6 ] hours before bed. Smoking- no Drug- Denies Alcohol - few times a year SLEEP SCALES/TEST- 07/02/2024 4:58 PM 07/17/2024 9:45 PM Sleep Medicine Patient Reported Outcomes ESS 5 7 FOSQ 10.5 11 MELIZA 16 18 IRLS 21 MVAP 0.895 0.895 Patient-reported Results of each individual test reviewed Review of Systems Weight has had [ 50 lbs gained], [ lbs lost] in the last year. Patient reported positive symptoms in the past month include: daytime fatigue All other systems are negative. Medical Hx Restless leg syndrome Htn Anxiety depression Surgical Hx She has a past surgical history that includes tonsillectomy adenoidectomy; insertion ear tube; removal biliary duct/gallbladder calculi/debris percutaneous w/ image guidance add-on px; and wisdom teeth extraction. Family Hx Known family history of sleep disorders: yes Social Hx She reports that she has never smoked. She has never used smokeless tobacco. She reports current alcohol use. She reports that she does not use drugs. 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 Cholecalciferol (vitamin D) 4000 Units capsule Effexor XR 150 MG Cap SR 24HR capsule XR Effexor XR 75 MG Cap SR 24HR capsule XR omeprazole [address] capsule Take 1 capsule by mouth 2 times daily. rOPINIRole 0.5 MG tablet traZODone 50 MG tablet Take 1-2 tablets by mouth. No facility-administered medications prior to visit. Allergies She is allergic to amoxicillin-pot clavulanate. MEDICAL RECORDS AND PERTINENT LABS: reviewed, ROS/PHYSICAL EXAMINATION General: No acute distress. No unintentional weight loss, fevers, chills or sweats. Well groomed Eyes: no recent change in vision or eye pain. Conjunctivae clear, no icterus, extraocular movementsintact, no discharge, no ptosis ENMT: normal neck circumference Cardiovascular: Regular rate, no chest pain or shortness of breath Respiratory: Normal respiratory effort, no dyspnea Integumentary: no observed rashes, lesions, or ulcerations Musculoskeletal: normal gait and mobility, normal range of motion, no swollen or erythematous joints Neurological: Alert, normal speech, No dystonia, tremors, tics or choreoathetoid movements Psychiatric: Cooperative, goal-directed linear thought process, broad range of affect, euthymic PREVIOUS SLEEP STUDY - ASSESSMENT: At risk for Sleep Apnea with snoring, daytime sleepiness/tiredness, apneic episodes, and elevated BMI Although had negative study last year with some supine sleep captured Daytime sleepiness - in context with sleep onset difficulties, no REM intrusion symptoms, no cataplexy thus narcolepsy type 1 less likely, low sleep efficiency and TST on previous study, also less suggestive of primary hypersomnia, ESS normal Restless leg syndrome/PLMs - has had iron infusions without benefit, is currently on ropinirole which has been helpful Insomnia - struggles with sleep onset, taking trazodone and diphenhydramine PLAN: Polysomnogram - will repeat with more supine sleep, [place] Treatment options discussed, pt plans to decide based on results of sleep study Slow discussed optimized timing of melatonin, with hopes that she will be able to reduce benadryl and trazodone which may contribute to daytime sleepiness. Reviewed risks associated with untreated obstructive sleep apnea including cardiovascular, metabolic, mood disorders. Recommend avoidance of alcohol or sedative medications that can worsen sleep apnea. Recommend weight loss to improve symptoms. Discussed optimal sleep hygiene practices Strongly advised not to drive if experiencing sleepiness, arrange transportation with family/friends, public, ride share Follow up: ~4 months, sooner if needed. [facility] Instructions* Patient Instructions* Bartolome Bella DO - 07/18/2024 8:00 AM EDT Images from the original note were not included. Patient information on appointments: You will have 2 appointments scheduled today at the front office. The first is your sleep study. THE SLEEP STUDY IS DONE AT THE SLEEP LABORATORY, NOT IN THE CLINIC. You will be provided with directions to the sleep laboratory as well as instructions. The second appointment is your follow up visit with the sleep physician IN THE SLEEP CLINIC to discuss the results and treatment options, if appropriate. 2-3 weeks after your sleep study is done, you will receive the results through [employer]. Contact Information: [facility] Sleep Laboratory: [phone] [facility] Sleep Clinic: [phone] Monitoring Your Sleep: Sleep Lab Testing During a sleep study, sensors track and record body functions. Checking your sleep during a nighttime sleep study is often the only way to find out if you have conditions such as sleep apnea or other sleep problems. A sleep study records how your lungs, heart, brain, and other parts of your body function while you re asleep. It s painless, risk-free, and in most cases takes a single, full night. Testing in a sleep clinic If you spend the night in a sleep clinic, you will have a private bedroom. A sales technician home theater will attachmany sensors to your body, then go into another room. As you sleep, your heart rate, breathing, oxygen level, brain activity, and other functions will be tracked. A microphone and video camera will record your breathing sounds and body movements. The sales technician home theater will keep watch nearby. If you need an air pressure device to help you breathe, one will be available. Tips for testing in a sleep lab Before your sleep study, bathe and wash your hair. Don t use conditioners, oils, or makeup. Stick to your normal routine. If you usually drink alcohol, exercise, or take medicine before bed, ask your healthcare provider whether you should do so the night of your study. Most people who have a sleep study done should take all of their medicines as they typically would at home. But it is best to check with your healthcare provider to confirm. Bring your toothbrush, sleepwear, pillow, something to read, and anything else that will help you sleep well. Before the testing starts, feel free to ask the sales technician home theater any questions you may have. Getting the results The results of your sleep study need to be scored and interpreted. Once this is done, your healthcare provider will discuss the findings with you. The sleep study results will show whether you have sleep apnea. It can also tell how severe the apnea is. The findings help your healthcare provider know which treatment or treatments may be the right ones for you. Date Last Reviewed: 09/28/201619994244-3872 The [employer]. [address] [place] [address]. All rights reserved. This information is not intended as a substitute for professional medical care. Always follow yourhealthcare professional's instructions. Obstructive Sleep Apnea Obstructive sleep apnea is a condition that causes your air passages to become narrowed or blocked during sleep. As a result, breathing stops for short periods. Your body wakes up enough for breathing to begin again, though you don't remember it. The cycle of stopped breathing and brief awakenings can repeat dozens of times a night. This prevents the body from getting to the deeper stages of sleep that are needed for good rest and may cause your body's oxygen level to fall. Signs of sleep apnea include loud snoring, noisy breathing, and gasping sounds during sleep. Daytime symptoms include waking up tired after a full night's sleep, waking up with headaches, feeling very sleepy or falling asleep during the day, and having problems with memory or concentration. Risk factors for sleep apnea include: Being overweight Being a man, or a woman in menopause Smoking Using alcohol or sedating medicines Having enlarged structures in the nose or throat Home care Lifestyle changes that can help treat snoring and sleep apnea include the following: If you are overweight, lose weight. Talk to your healthcare provider about a weight-loss plan for you. Avoid alcohol for 3 to 4 hours before bedtime. Avoid sedating medications. Ask your healthcare provider about the medicines you take. If you smoke, talk to your healthcare provider about ways to quit. Sleep on your side. This can help prevent gravity from pulling relaxed throat tissues into your breathing passages. If you have allergies or sinus problems that block your nose, ask your healthcare provider for help. Follow-up care Follow up with your healthcare provider, or as advised. A diagnosis of sleep apnea is made with a sleep study. Your healthcare provider can tell you more about this test. When to seek medical advice Sleep apnea can make you more likely to have certain health problems. These include high blood pressure, heart attack, stroke, and sexual dysfunction. If you have sleep apnea, talk to your healthcareprovider about the best treatments for you. Date Last Reviewed: 05/29/201619994661-0817 [employer] [address] [place] [address]. All rights reserved. This information is not intended as a substitute for professional medical care. Always follow yourhealthcare professional's instructions. Continuous Positive Air Pressure (CPAP) A mask over the nose gently directs air into the throat to keep the airway open. Continuous positive air pressure (CPAP) uses gentle air pressure to hold the airway open. CPAP is often the most effective treatment for sleep apnea and severe snoring. It works very well for many people. But keep in mind that it can take several adjustments before the setup is right for you. How CPAP works The CPAP machine is a small portable pump that sits beside the bed. The pump sends air through a hose, which is held over your nose alone, or nose and mouth by a mask. Mild air pressure is gently pushed through your airway. The air pressure nudges sagging tissues aside. This widens the airway so you can breathe better. CPAP may be combined with other kinds of therapy for sleep apnea. Types of air pressure treatments There are different types of CPAP. Your doctor or CPAP sales technician home theater will help you decide which type is best for you: Basic CPAP keeps the pressure constant all night long. A bilevel device (BiPAP) provides more pressure when you breathe in and less when you breathe out. A BiPAP machine also may be set to provide automatic breaths to maintain breathing if you stop breathing while sleeping. An autoCPAP device automatically adjusts pressure throughout the night and in response to changes such as body position, sleep stage, and snoring. Date Last Reviewed: 09/28/201619990379-7176 [employer]. [address] [place] [address]. All rights reserved. This information is not intended as a substitute for professional medical care. Always follow yourhealthcare professional's instructions. Facts About Drowsy Driving Getting Behind the Wheel: The National Highway Traffic Safety Administration conservatively estimates that 100,000 police-reported crashes each year are caused primarily by drowsy driving and that such crashes result in more than 1,550 deaths, 71,000 injuries and $12.5 billion in monetary losses. While National Sleep Foundation surveys show Americans consistently report that they have driven drowsy, the problem is the greatest among young drivers. This brochure outlines the important facts about sleepiness behind the wheel and offers tips to help you drive alert and arrive alive. Watch Out for Signs of Sleepiness Most people are not very good at predicting when they are about to fall asleep. But there are haney warning signs to tell you when you are too tired to drive, including: Trouble focusing, keeping your eyes open or your head up Yawning or rubbing your eyes repeatedly Daydreaming and wandering thoughts Slower reaction time, poor judgment Drifting from your asa, tailgating and missing signs or exits Turning up the radio or rolling down the window These are signs that you may be at risk of falling asleep behind the wheel. If you experience any of these, cake puller immediately at a safe place, switch drivers, take a short nap, consume caffeine or find a place to sleep for the night. Drowsy Driving - Who s Most at Risk? Anyone who drives is at risk of falling asleep at the wheel, but some groups of people are more at risk than others. They include: Young drivers - Combining inexperience with sleepiness and a tendency to drive at night puts young people at risk, especially males aged 16-25 years. Shift workers and people working long hours - People who work night shifts, rotating shifts, double shifts or work more than one job have a six-fold increase in drowsy drivingcrashes. Commercial drivers - Those who drive a high number of miles and drive at night are at significantlyhigher risk for fall-asleep crashes. Commercial drivers have also been found to be at a high risk for sleep disorders. People with untreated sleep disorders such as obstructive sleep apnea (HEIDY) - People with untreatedOSA are up to seven times more likely to have a drowsy driving crash. For some people insomnia can increase fatigue. Business travelers - Frequent travelers who may be suffering from jet lag and crossing time zones, spending long hours behind the wheel or getting too little sleep. Preventing a Fall-Asleep Crash: DO Get a good night s sleep before a long drive. Ensure you follow your doctor's advice about the treatment for your sleep disorder. For example, ifyou have sleep apnea and use CPAP, ensure you use it fully the night before your trip. Avoid alcohol both the night before and during your trip. Alcohol will disrupt sleep and make you more tired the next day. Sleepiness and alcohol are additive in increasing impairment of your drivingability. Avoid any sedative medications, including sedative antihistamines that are often contained in cold or allergy medications, the night before you drive as they may have long lasting effects the next day. Travel during non-sleeping hours. Accidents due to sleepiness are more common during the nighttime hours. Get off the road if you notice any of the warning signs of fatigue. Take a nap - find a safe place to take a 15 to 20-minute nap. Consume caffeine - the equivalent of 2 cups of coffee can increase alertness for several hours, butDO NOT rely on it for long periods. Drive with a friend. A passenger who remains awake can help watch for signs of fatigue in the driver/sales workers and can take a turn driving, if necessary. Always wear your seatbelt. When we drive, we take responsibility for our own safety and the safety of others on the road with us. No trip is worth a life. Before you hit the road, keep these tips in mind so that you can drive alert and arrive alive. DON T Drive if you are tired or on medication that may cause drowsiness. (Check medication labels and speak to your doctor.) Rely on the radio, an open window or other tricks to keep you awake. Drive at times when you would normally be sleeping. Drink even a small amount of alcohol, especially if you are sleepy. NATIONAL SLEEP FOUNDATION Waking [place] to the Importance of Sleep www.sleepfoundation.org 2006 National Sleep Foundation documented in this encounterU [facility] Evaluation note * Diagnosis Onset Date Resolution Status Admit Date Narcolepsy acute June 26 8:57am Super obese chronic June 26 8:57am [facility] Work Phone: [phone]) 515-938912-19-2024 [facility] Medical Records Department [address] [place] [id number] Discharge Summary 02/16/24 1406 MR#: [id number] Acct: [id number] Name: CHIO BUCIO Rep #: [id number] : 1985 38 From: [place] Juarez DO PCP: Dr. Vasquez Irwin MD Status:ADM IN [facility] Date of Admission: 02/15/24 Date of Discharge: 02/16/24 Primary Care Physician: Dr. Vasquez Irwin MD Reason For Visit: PNEUMONIA Diagnosis Discharge Diagnosis (1) Pneumonia: Status: Acute Code(s): J18.9 - Pneumonia, unspecified organism Medications at Discharge Home Medications buspirone 5 mg tablet 5 mg PO BID anxiety 06/10/23 omeprazole 40 mg capsule,delayed release 40 mg PO BID md ordered 06/10/23 spironolactone 50 mg tablet 50 mg PO BID md ordered 06/10/23 venlafaxine 150 mg capsule,extended release 24 hr 150 mg PO DAILY depression 06/10/23 venlafaxine 75 mg capsule,extended release 24 hr 75 mg PO DAILY depression 06/10/23 cholecalciferol (vitamin D3) 50 mcg (2,000 unit) capsule 50 mcg PO DAILY md ordered 06/13/23 docusate sodium 100 mg capsule 100 mg PO BID md ordered 06/13/23 hydrocortisone 1 %-pramoxine 1 % rectal foam (Proctofoam HC) 1 applic MA TID md ordered #10 grams 02/02/24 lidocaine 5 % topical cream (RectiCare) 1 applic topical TID PRN pain #15 grams 02/02/24 ropinirole 0.25 mg tablet 0.25 mg PO QHS restless leg 02/02/24 trazodone 50 mg tablet 50 mg PO QHS md ordered 02/02/24 amoxicillin 875 mg-potassium clavulanate 125 mg tablet 1 tab PO BID #12 tabs 02/16/24 Hospital Course Operations None Procedures EKG and - (CTA chest) Summary of Care Provided Minutes Spent on Discharge: 37 Hospital Course: Ms Bucio is a 38-year-old white female who presented to the emergency department at [facility] on 02/15/2020 for complaining of shortness of breath. She indicated she woke up feeling fine and went to [place] to have an upper endoscopy performed at [facility]. She reported on the way home she began to feel feverish and chilled and was short of breath and had some nausea. Her symptoms progressively got worse and she spoke to her primary care physician who suggested she come to the emergency department. It was noted by the proceduralist at the outside hospital that there was an episode of hypoxia during the procedure but it resolved with anesthesiology intervention. Vital signs on presentation showed a temperature of 100.3, heart rate 138, respiratory rate 22, blood pressure was 178/127 with a repeat of 134/78 and pulse ox was 100% on room air. CBC showed a white count of 24.2 and a platelet count of 517,000. Chemistry panel showed mild hyponatremia with a sodium of 134 and hyperglycemia with a blood sugar of 143 however this was not fasting. Lipase was normal at 25. Her lactic was mildly elevated at 2.3 but resolved quickly. EKG showed sinus tachycardia. CTA of the chest was performed and demonstrated probable aspiration pneumonia with mild to moderate patchy consolidation in the left upper lobe with surrounding groundglass edema and tree-in-bud opacities with negative imaging for PE however contrast was not optimally times. Patient was admitted to hospital and placed on antibiotics for suspected aspiration pneumonia versus community-acquired pneumonia with Unasyn and azithromycin. She was given ceftriaxone emergency department. Aggressive pulmonary toilet and Mucinex were prescribed as well. Patient was found to be positive for rhinovirus. An echocardiogram was performed and showed a normal EF at 65% with no effusion or valvular abnormalities. No diastolic dysfunction was identified either. She was admitted due to the fact that her heart rate became quite fast with exertion up in the 140s. TSH was assessed and found to be normal at 1.62. She was never hypoxic during her hospital stay. Her tachycardia improved significantly to the point where she was in the 80s with intermittent rates in the low 100s with exertion. By the a.m. of 02/16/2024 her white count had come down to 18.6 and a platelet count had improved to 476,000. She was feeling much better and still not requiring any oxygen. Given the improvement in her heart rate and the fact that she was feeling much better we felt she was stable for discharge home. As noted above she was found to be rhinovirus positive but given the suspected aspiration event and the consolidation on her chest x-ray will completed 7-day course of antibiotics with Augmentin. Patient was able to be discharged in stable condition on 02/16/2024. She was encouraged to continue using incentive spirometer Acapella and asked to follow-up with her primary care physician within the next week after discharge. Discharge diagnoses: Rhinovirus infection Suspected aspiration pneumonia Leukocytosis Thrombocytosis Lactic acidosis Chronic (more content not included)...[facility]12-18-2024 Hospital Discharge instructions* Discharge Instructions* Stephy Almazan RN - 02/15/2024 9:14 AM EST Follow up with your Primary Care Physician and Dr. Giacomo Giang . can be reached at [phone]. Endoscopy Discharge Instructions Your Procedure Was: Esophagogastroduodenoscopy (EGD) Follow-up Care Any problems call Dr. Giacomo Giang Biopsies were done. Your results should be available in 1-2 weeks. If you have not heard back in 1-2 weeks contact your doctor. Call 911 if you have difficulty breathing or chest pain. 2. Call your doctor or go to the emergency room if you have: A fever greater than 101 or chills Intense or severe pain Heavy bleeding (a few streaks of blood are not unusual) Nausea and vomiting that does not go away Trouble swallowing Increased abdominal bloating Call your doctor with any other questions or problems. 3. Sedation You received sedation for your procedure today and it may take 24 hours to leave your system. You may have some drowsiness, lightheadedness, and may not remember your procedure. You should have an adult stay with you for 24 hours. Do not take any other sedatives or drink alcohol today. Do not drive or operate machinery (power tools, lawn mowers, etc.), cook, make business decisions or shop online for 24 hours. Although you may feel alert, your reactions may be slower. 4. Diet Eat lightly for your first meal. Avoid anything spicy or greasy until gas or bloating has been resolved. 5. If polyps were removed N/A 6. Post-Procedure Care If a red streak or a knot appears around the intravenous site, apply a warm wet cloth to the area 3-4 times for _10 minutes for 24 hours. If this should persist longer than 2-3 days, call your doctor. 7. Activity You may resume normal activity in 24 hours. 8. Medications Resume current medication * Attachments The following attachments cannot be sent through Care Everywhere. * EGD (Upper Endoscopy): Post-op (Tai[place]ese) * Hiatal Hernia ([place]ese) documented in [facility] encounterSub[facility] [id number] Attending History and physical note* Giacomo Giang V - 02/15/2024 8:30 AM EST I have seen and evaluated the patient. I concur with the findings of the H&P. There are no significant changes. The patient is appropriate to proceed with the planned procedure. Follows with Dr. Foster for esophageal ulcer, GERD well controlled on PPI BID Giacomo Giang Source Note - BARRERA Craig - 02/15/2024 8:30 AM EST Images from the original note were not included. BARRERA Craig [facility] Hospitalists History and Physical Same Day Surgery Patient Name:Chio Bucio :1985 Admit Date: Physicians: Vasquez Irwin (PCP) Perpetual Assessment: Chio Bucio is a 38 y.o. female who presented for EGD procedure, per therequest of Dr. Giang. [facility] has been asked to see the patient for a pre-operative risk assessment. ASSESSMENT AND PLAN Esophageal Ulcer GERD -Last EGD 06/2022: esophageal ulcer with no bleeding and no stigmata of recent bleeding. Normal stomach. Normal examined duodenum. Recommend 40mg PPI BID and repeat EGD in 3 months to check for healing. -Denies any difficulty or painful swallowing -Presents today for EGD with Dr. Giang -Continue home PPI 40mg BID post-procedure Anxiety Depression -Home regimen: buspar 10mg BID, Effexor 225mg (75 + 150) daily -Mood and affect appropriate on exam -Continue home regimen Chronic Constipation -Continue home miralax and metamucil daily Essential Hypertension -Home regimen: spironolactone 50mg BID -Continue home regimen post-procedure Pre-Diabetes Morbid Obesity -Per chart review, A1c elevated at 6, although unable to verify through chart review -BMI 59.91 -Maintained on weekly Wegovy injections (last dose 01/11/24) -Encourage continued lifestyle modifications as able Family History of Colon Cancer -Per chart review, pt with family history of colon cancer in her mother and uncle -Last c-scope 06/2022: non-bleeding internal hemorrhoids. Two 3-5mm polyps in rectum removed with cold snare. Examined portion of the ileum was normal. Otherwise normal. Repeat colonoscopy pending pathology results Comments/Disposition: History Chief Complaint: Pre-op eval HPI: Chio Bucio is a 38 y.o. female with past history of anxiety, depression, constipation, GERD, pre-diabetes, and obesity who presents today for EGD with Dr. Giang. Reports she is feeling welloverall. Denies any acute complaints including difficulty/painful swallowing, chest pain, SOB, abdominal pain, N/V, and fever/chills. No history of CAD, CHF, CVD, CKD, IDDM. No history of COPD, asthma, HEIDY. No bleeding or clotting disorders. No AC/AP use. Has undergone anesthesia in the past without issues. Functional status greater than 4 METS without exertional symptoms. ROS: The following system(s) were reviewed. Pertinent positive and negative findings are noted in the HPI. [x] Const [x] ENT [x] CV [] [] Musc [] Psych [x] Allergy [] Eyes [x] Resp [x] GI [x] Neuro [] Skin [] Endo [x] Heme/Lymph PMH/PSH/SH/FH: Past Medical History: Diagnosis Date Anal fissure Anxiety Constipation Depression Diarrhea Family history of colorectal cancer Mother GERD (gastroesophageal reflux disease) Hypertension Morbid obesity with BMI of 50.0-59.9, adult ([facility]) Prediabetes Restless leg Wears contact lenses Past Surgical History: Procedure Laterality Date CHOLECYSTECTOMY COLONOSCOPY N/A 07/14/2022 ESOPHAGOGASTRODUODENOSCOPY N/A 07/14/2022 HERNIA REPAIR WISDOM TOOTH EXTRACTION Family History Problem Relation Name Age of Onset Colon cancer Mother Colon polyps Maternal Cousin Colon cancer Mother's Brother Social History Socioeconomic History Marital status: Spouse name: Not on file Number of children: Not on file Years of education: Not on file Highest education level: Not on file Occupational History Not on file Tobacco Use Smoking status: Never Smokeless tobacco: Never Vaping Use Vaping status: Never Used Substance and Sexual Activity Alcohol use: Yes Comment: socially Drug use: Never Sexual activity: Not on file Other Topics Concern Not on file Social History Narrative Not on file Allergy Information: I have reviewed the patient's allergies. Patient has no known allergies. Home Medications: Prior to Admission medications Medication Sig Start Date End Date Taking? Authorizing Provider busPIRone (BUSPAR) 10 mg tablet Take by mouth 2 (two) times a day. Historical Provider, docusate sodium (COLACE) 100 mg capsule Take 1 capsule (100 mg total) by mouth 1 (one) time each day. Historical Provider, omeprazole (PriLOSEC) [address] capsule Take 2 capsules (40 mg total) by mouth 2 (two) times a day. Do not crush or chew. Historical Provider, polyethylene glycol 3350 (MIRALAX ORAL) Take by mouth 1 (one) time each day. Historical Provider, psyllium husk (METAMUCIL ORAL) Take by mouth 1 (one) time each day. Historical Provider, semaglutide (WEGOVY SUBQ) Inject under the skin. Historical Provider, spironolactone (ALDACTONE) 50 mg tablet Take 1 tablet (50 mg total) by mouth 2 (two) times a day. 08/08/19 Historical Provider, MD venlafaxine (EFFEXOR) 75 mg tablet Take 1 tablet (75 mg total) by mouth 1 (one) time each day. Historical Provider, venlafaxine XR (EFFEXOR-XR) 150 mg 24 hr capsule Take 225 mg by mouth 1 (one) time each day at the same time. 04/27/18 Historical Provider, Physical Examination Vital Signs: GENERAL: No acute distress. Pleasant EYES: Conjunctiva clear ENT: Hearing intact CV: RRR, no murmurs RESP: Clear to auscultation of lungs, no increased wob, on room air GI: Soft, non-tender NEURO: Alert, Ox3. No obvious focal deficits noted PSYCH: Mood and affect are appropriate. Laboratory and Additional Data Acquired or Reviewed: [x] Laboratory [x] Radiology [x] Cardiology [x] Medications [x] Transcriptions [] Microbiology [x] Outside Records [] Family [employer] Phone: 1([phone] 382-375512-18-2024 History and physical note* BARRERA Craig - 02/15/2024 8:30 AM EST Images from the original note were not included. BARRERA Craig [facility] Hospitalists History and Physical Same Day Surgery Patient Name:Chio Bucio :1985 Admit Date: Physicians: Vasquez Irwin (PCP) Perpetual Assessment: Chio Bucio is a 38 y.o. female who presented for EGD procedure, per therequest of Dr. Giang. [facility] has been asked to see the patient for a pre-operative risk assessment. ASSESSMENT AND PLAN Esophageal Ulcer GERD -Last EGD 06/2022: esophageal ulcer with no bleeding and no stigmata of recent bleeding. Normal stomach. Normal examined duodenum. Recommend 40mg PPI BID and repeat EGD in 3 months to check for healing. -Denies any difficulty or painful swallowing -Presents today for EGD with Dr. Giang -Continue home PPI 40mg BID post-procedure Anxiety Depression -Home regimen: buspar 10mg BID, Effexor 225mg (75 + 150) daily -Mood and affect appropriate on exam -Continue home regimen Chronic Constipation -Continue home miralax and metamucil daily Essential Hypertension -Home regimen: spironolactone 50mg BID -Continue home regimen post-procedure Pre-Diabetes Morbid Obesity -Per chart review, A1c elevated at 6, although unable to verify through chart review -BMI 59.91 -Maintained on weekly Wegovy injections (last dose 01/11/24) -Encourage continued lifestyle modifications as able Family History of Colon Cancer -Per chart review, pt with family history of colon cancer in her mother and uncle -Last c-scope 06/2022: non-bleeding internal hemorrhoids. Two 3-5mm polyps in rectum removed with cold snare. Examined portion of the ileum was normal. Otherwise normal. Repeat colonoscopy pending pathology results Comments/Disposition: History Chief Complaint: Pre-op eval HPI: Chio Bucio is a 38 y.o. female with past history of anxiety, depression, constipation, GERD, pre-diabetes, and obesity who presents today for EGD with Dr. Giang. Reports she is feeling welloverall. Denies any acute complaints including difficulty/painful swallowing, chest pain, SOB, abdominal pain, N/V, and fever/chills. No history of CAD, CHF, CVD, CKD, IDDM. No history of COPD, asthma, HEIDY. No bleeding or clotting disorders. No AC/AP use. Has undergone anesthesia in the past without issues. Functional status greater than 4 METS without exertional symptoms. ROS: The following system(s) were reviewed. Pertinent positive and negative findings are noted in the HPI. [x] Const [x] ENT [x] CV [] [] Musc [] Psych [x] Allergy [] Eyes [x] Resp [x] GI [x] Neuro [] Skin [] Endo [x] Heme/Lymph PMH/PSH/SH/FH: Past Medical History: Diagnosis Date Anal fissure Anxiety Constipation Depression Diarrhea Family history of colorectal cancer Mother GERD (gastroesophageal reflux disease) Hypertension Morbid obesity with BMI of 50.0-59.9, adult (CMS/HCC) Prediabetes Restless leg Wears contact lenses Past Surgical History: Procedure Laterality Date CHOLECYSTECTOMY COLONOSCOPY N/A 07/14/2022 ESOPHAGOGASTRODUODENOSCOPY N/A 07/14/2022 HERNIA REPAIR WISDOM TOOTH EXTRACTION Family History Problem Relation Name Age of Onset Colon cancer Mother Colon polyps Maternal Cousin Colon cancer Mother's Brother Social History Socioeconomic History Marital status: Spouse name: Not on file Number of children: Not on file Years of education: Not on file Highest education level: Not on file Occupational History Not on file Tobacco Use Smoking status: Never Smokeless tobacco: Never Vaping Use Vaping status: Never Used Substance and Sexual Activity Alcohol use: Yes Comment: socially Drug use: Never Sexual activity: Not on file Other Topics Concern Not on file Social History Narrative Not on file Allergy Information: I have reviewed the patient's allergies. Patient has no known allergies. Home Medications: Prior to Admission medications Medication Sig Start Date End Date Taking? Authorizing Provider busPIRone (BUSPAR) 10 mg tablet Take by mouth 2 (two) times a day. Historical Provider, docusate sodium (COLACE) 100 mg capsule Take 1 capsule (100 mg total) by mouth 1 (one) time each day. Historical Provider, omeprazole (PriLOSEC) [address] capsule Take 2 capsules (40 mg total) by mouth 2 (two) times a day. Do not crush or chew. Historical Provider, polyethylene glycol 3350 (MIRALAX ORAL) Take by mouth 1 (one) time each day. Historical Provider, psyllium husk (METAMUCIL ORAL) Take by mouth 1 (one) time each day. Historical Provider, semaglutide (WEGOVY SUBQ) Inject under the skin. Historical Provider, spironolactone (ALDACTONE) 50 mg tablet Take 1 tablet (50 mg total) by mouth 2 (two) times a day. 08/08/19 Historical ProviderMD venlafaxine (EFFEXOR) 75 mg tablet Take 1 tablet (75 mg total) by mouth 1 (one) time each day. Historical Provider, venlafaxine XR (EFFEXOR-XR) 150 mg 24 hr capsule Take 225 mg by mouth 1 (one) time each day at the same time. 04/27/18 Historical ProviderMD Physical Examination Vital Signs: GENERAL: No acute distress. Pleasant EYES: Conjunctiva clear ENT: Hearing intact CV: RRR, no murmurs RESP: Clear to auscultation of lungs, no increased wob, on room air GI: Soft, non-tender NEURO: Alert, Ox3. No obvious focal deficits noted PSYCH: Mood and affect are appropriate. Laboratory and Additional Data Acquired or Reviewed: [x] Laboratory [x] Radiology [x] Cardiology [x] Medications [x] Transcriptions [] Microbiology [x] Outside Records [] Family [employer] Phone: [phone] 321-415112-18-2024 History and physical note* Giacomo Giang V - 02/15/2024 8:30 AM EST I have seen and evaluated the patient. I concur with the findings of the H&P. There are no significant changes. The patient is appropriate to proceed with the planned procedure. Follows with Dr. Foster for esophageal ulcer, GERD well controlled on PPI BID Giacomo Giang Source Note - BARRERA Craig - 02/15/2024 8:30 AM EST Images from the original note were not included. BARRERA Craig [facility] Hospitalists History and Physical Same Day Surgery Patient Name:Chio Bucio :1985 Admit Date: Physicians: Vasquez Irwin (PCP) Perpetual Assessment: Chio Buico is a 38 y.o. female who presented for EGD procedure, per therequest of Dr. Giang. [facility] has been asked to see the patient for a pre-operative risk assessment. ASSESSMENT AND PLAN Esophageal Ulcer GERD -Last EGD 06/2022: esophageal ulcer with no bleeding and no stigmata of recent bleeding. Normal stomach. Normal examined duodenum. Recommend 40mg PPI BID and repeat EGD in 3 months to check for healing. -Denies any difficulty or painful swallowing -Presents today for EGD with Dr. Giang -Continue home PPI 40mg BID post-procedure Anxiety Depression -Home regimen: buspar 10mg BID, Effexor 225mg (75 + 150) daily -Mood and affect appropriate on exam -Continue home regimen Chronic Constipation -Continue home miralax and metamucil daily Essential Hypertension -Home regimen: spironolactone 50mg BID -Continue home regimen post-procedure Pre-Diabetes Morbid Obesity -Per chart review, A1c elevated at 6, although unable to verify through chart review -BMI 59.91 -Maintained on weekly Wegovy injections (last dose 01/11/24) -Encourage continued lifestyle modifications as able Family History of Colon Cancer -Per chart review, pt with family history of colon cancer in her mother and uncle -Last c-scope 06/2022: non-bleeding internal hemorrhoids. Two 3-5mm polyps in rectum removed with cold snare. Examined portion of the ileum was normal. Otherwise normal. Repeat colonoscopy pending pathology results Comments/Disposition: History Chief Complaint: Pre-op eval HPI: Chio Bucio is a 38 y.o. female with past history of anxiety, depression, constipation, GERD, pre-diabetes, and obesity who presents today for EGD with Dr. Giang. Reports she is feeling welloverall. Denies any acute complaints including difficulty/painful swallowing, chest pain, SOB, abdominal pain, N/V, and fever/chills. No history of CAD, CHF, CVD, CKD, IDDM. No history of COPD, asthma, HEIDY. No bleeding or clotting disorders. No AC/AP use. Has undergone anesthesia in the past without issues. Functional status greater than 4 METS without exertional symptoms. ROS: The following system(s) were reviewed. Pertinent positive and negative findings are noted in the HPI. [x] Const [x] ENT [x] CV [] [] Musc [] Psych [x] Allergy [] Eyes [x] Resp [x] GI [x] Neuro [] Skin [] Endo [x] Heme/Lymph PMH/PSH/SH/FH: Past Medical History: Diagnosis Date Anal fissure Anxiety Constipation Depression Diarrhea Family history of colorectal cancer Mother GERD (gastroesophageal reflux disease) Hypertension Morbid obesity with BMI of 50.0-59.9, adult (CMS/HCC) Prediabetes Restless leg Wears contact lenses Past Surgical History: Procedure Laterality Date CHOLECYSTECTOMY COLONOSCOPY N/A 07/14/2022 ESOPHAGOGASTRODUODENOSCOPY N/A 07/14/2022 HERNIA REPAIR WISDOM TOOTH EXTRACTION Family History Problem Relation Name Age of Onset Colon cancer Mother Colon polyps Maternal Cousin Colon cancer Mother's Brother Social History Socioeconomic History Marital status: Spouse name: Not on file Number of children: Not on file Years of education: Not on file Highest education level: Not on file Occupational History Not on file Tobacco Use Smoking status: Never Smokeless tobacco: Never Vaping Use Vaping status: Never Used Substance and Sexual Activity Alcohol use: Yes Comment: socially Drug use: Never Sexual activity: Not on file Other Topics Concern Not on file Social History Narrative Not on file Allergy Information: I have reviewed the patient's allergies. Patient has no known allergies. Home Medications: Prior to Admission medications Medication Sig Start Date End Date Taking? Authorizing Provider busPIRone (BUSPAR) 10 mg tablet Take by mouth 2 (two) times a day. Historical Provider, docusate sodium (COLACE) 100 mg capsule Take 1 capsule (100 mg total) by mouth 1 (one) time each day. Historical Provider, omeprazole (PriLOSEC) [address] capsule Take 2 capsules (40 mg total) by mouth 2 (two) times a day. Do not crush or chew. Historical Provider, polyethylene glycol 3350 (MIRALAX ORAL) Take by mouth 1 (one) time each day. Historical Provider, psyllium husk (METAMUCIL ORAL) Take by mouth 1 (one) time each day. Historical Provider, semaglutide (WEGOVY SUBQ) Inject under the skin. Historical Provider, spironolactone (ALDACTONE) 50 mg tablet Take 1 tablet (50 mg total) by mouth 2 (two) times a day. 08/08/19 Historical ProviderMD venlafaxine (EFFEXOR) 75 mg tablet Take 1 tablet (75 mg total) by mouth 1 (one) time each day. Historical Provider, venlafaxine XR (EFFEXOR-XR) 150 mg 24 hr capsule Take 225 mg by mouth 1 (one) time each day at the same time. 04/27/18 Historical ProviderMD Physical Examination Vital Signs: GENERAL: No acute distress. Pleasant EYES: Conjunctiva clear ENT: Hearing intact CV: RRR, no murmurs RESP: Clear to auscultation of lungs, no increased wob, on room air GI: Soft, non-tender NEURO: Alert, Ox3. No obvious focal deficits noted PSYCH: Mood and affect are appropriate. Laboratory and Additional Data Acquired or Reviewed: [x] Laboratory [x] Radiology [x] Cardiology [x] Medications [x] Transcriptions [] Microbiology [x] Outside Records [] Family * BARRERA Craig - 02/15/2024 8:30 AM EST Images from the original note were not included. BARRERA Craig [facility] Hospitalists History and Physical Same Day Surgery Patient Name:Chio Bucio :1985 Admit Date: Physicians: Vasquez Irwin (PCP) Perpetual Assessment: Chio Bucio is a 38 y.o. female who presented for EGD procedure, per therequest of Dr. Giang. [facility] has been asked to see the patient for a pre-operative risk assessment. ASSESSMENT AND PLAN Esophageal Ulcer GERD -Last EGD 06/2022: esophageal ulcer with no bleeding and no stigmata of recent bleeding. Normal stomach. Normal examined duodenum. Recommend 40mg PPI BID and repeat EGD in 3 months to check for healing. -Denies any difficulty or painful swallowing -Presents today for EGD with Dr. Giang -Continue home PPI 40mg BID post-procedure Anxiety Depression -Home regimen: buspar 10mg BID, Effexor 225mg (75 + 150) daily -Mood and affect appropriate on exam -Continue home regimen Chronic Constipation -Continue home miralax and metamucil daily Essential Hypertension -Home regimen: spironolactone 50mg BID -Continue home regimen post-procedure Pre-Diabetes Morbid Obesity -Per chart review, A1c elevated at 6, although unable to verify through chart review -BMI 59.91 -Maintained on weekly Wegovy injections (last dose 01/11/24) -Encourage continued lifestyle modifications as able Family History of Colon Cancer -Per chart review, pt with family history of colon cancer in her mother and uncle -Last c-scope 06/2022: non-bleeding internal hemorrhoids. Two 3-5mm polyps in rectum removed with cold snare. Examined portion of the ileum was normal. Otherwise normal. Repeat colonoscopy pending pathology results Comments/Disposition: History Chief Complaint: Pre-op eval HPI: Chio Bucio is a 38 y.o. female with past history of anxiety, depression, constipation, GERD, pre-diabetes, and obesity who presents today for EGD with Dr. Giang. Reports she is feeling welloverall. Denies any acute complaints including difficulty/painful swallowing, chest pain, SOB, abdominal pain, N/V, and fever/chills. No history of CAD, CHF, CVD, CKD, IDDM. No history of COPD, asthma, HEIDY. No bleeding or clotting disorders. No AC/AP use. Has undergone anesthesia in the past without issues. Functional status greater than 4 METS without exertional symptoms. ROS: The following system(s) were reviewed. Pertinent positive and negative findings are noted in the HPI. [x] Const [x] ENT [x] CV [] [] Musc [] Psych [x] Allergy [] Eyes [x] Resp [x] GI [x] Neuro [] Skin [] Endo [x] Heme/Lymph PMH/PSH/SH/FH: Past Medical History: Diagnosis Date Anal fissure Anxiety Constipation Depression Diarrhea Family history of colorectal cancer Mother GERD (gastroesophageal reflux disease) Hypertension Morbid obesity with BMI of 50.0-59.9, adult ([facility]) Prediabetes Restless leg Wears contact lenses Past Surgical History: Procedure Laterality Date CHOLECYSTECTOMY COLONOSCOPY N/A 07/14/2022 ESOPHAGOGASTRODUODENOSCOPY N/A 07/14/2022 HERNIA REPAIR WISDOM TOOTH EXTRACTION Family History Problem Relation Name Age of Onset Colon cancer Mother Colon polyps Maternal Cousin Colon cancer Mother's Brother Social History Socioeconomic History Marital status: Spouse name: Not on file Number of children: Not on file Years of education: Not on file Highest education level: Not on file Occupational History Not on file Tobacco Use Smoking status: Never Smokeless tobacco: Never Vaping Use Vaping status: Never Used Substance and Sexual Activity Alcohol use: Yes Comment: socially Drug use: Never Sexual activity: Not on file Other Topics Concern Not on file Social History Narrative Not on file Allergy Information: I have reviewed the patient's allergies. Patient has no known allergies. Home Medications: Prior to Admission medications Medication Sig Start Date End Date Taking? Authorizing Provider busPIRone (BUSPAR) 10 mg tablet Take by mouth 2 (two) times a day. Historical ProviderMD docusate sodium (COLACE) 100 mg capsule Take 1 capsule (100 mg total) by mouth 1 (one) time each day. Historical ProviderMD omeprazole (PriLOSEC) [address] capsule Take 2 capsules (40 mg total) by mouth 2 (two) times a day. Do not crush or chew. Historical ProviderMD polyethylene glycol 3350 (MIRALAX ORAL) Take by mouth 1 (one) time each day. Historical ProviderMD psyllium husk (METAMUCIL ORAL) Take by mouth 1 (one) time each day. Historical ProviderMD semaglutide (WEGOVY SUBQ) Inject under the skin. Historical ProviderMD spironolactone (ALDACTONE) 50 mg tablet Take 1 tablet (50 mg total) by mouth 2 (two) times a day. 08/08/19 Historical ProviderMD venlafaxine (EFFEXOR) 75 mg tablet Take 1 tablet (75 mg total) by mouth 1 (one) time each day. Historical ProviderMD venlafaxine XR (EFFEXOR-XR) 150 mg 24 hr capsule Take 225 mg by mouth 1 (one) time each day at the same time. 04/27/18 Historical ProviderMD Physical Examination Vital Signs: GENERAL: No acute distress. Pleasant EYES: Conjunctiva clear ENT: Hearing intact CV: RRR, no murmurs RESP: Clear to auscultation of lungs, no increased wob, on room air GI: Soft, non-tender NEURO: Alert, Ox3. No obvious focal deficits noted PSYCH: Mood and affect are appropriate. Laboratory and Additional Data Acquired or Reviewed: [x] Laboratory [x] Radiology [x] Cardiology [x] Medications [x] Transcriptions [] Microbiology [x] Outside Records [] Family documented in this encounterSub[facility] [id number] Nurse Note* Jazmin Chavez RN - 02/14/2024 11:57 AM EST Nothing to eat or drink past midnight Utilization Specialist: Patient scheduled for surgery on 02/15/24 Arrive: 7:30 am Medications as instructed with sips of water on the morning of surgery: Please ensure you have a driver/sales workers, age 18 or greater, and someone with your for 24 hours after anesthesia. No big decisions day after surgery due to anesthesia Will accept blood: yes [facility] [id number] Procedure note* Jazmin Chavez RN - 02/14/2024 11:57 AM EST Nothing to eat or drink past midnight Utilization Specialist: Patient scheduled for surgery on 02/15/24 Arrive: 7:30 am Medications as instructed with sips of water on the morning of surgery: Please ensure you have a driver/sales workers, age 18 or greater, and someone with your for 24 hours after anesthesia. No big decisions day after surgery due to anesthesia Will accept blood: yes documented in this encounterSuburban Community [id number] Consult note Pathology Doc ({Setting})[facility] on above: Performed By: #### BCRQ #### Performed for [address] [id number] Instructions* Patient Instructions* Queta Oliveira APRN.YORDAN - 11/14/2023 10:25 AM EDT Gardasil Gardasil is a vaccine to protect against Human Papillomavirus (HPV) types 6, 11, 16, 18, 31,33,45, 52, 58. These viruses cause cancer and precancerous lesions on the cervix (opening between vagina and uterus), in the vagina and on the vulva (skin around the outside of the vagina) as well as genitalwarts. The vaccine cannot cause these diseases and cannot treat them if already present. Gardasil works best if given before contact with HPV. Most people are exposed to HPV soon after starting sexual activity. The vaccine is recommended between the ages of 9 and 45. Gardasil does not protect against all strains of HPV. Women who receive the vaccine still need to have regular pelvic exams and cervical cancer screening with the pap smear. You should ask your doctor if Gardasil is right for you if you have a weakened immune system, a bleeding disorder, plan to become soon or have a current illness causing fever. Gardasil is not recommended for women. You should be sure your doctor is aware of any allergies you have and all medications and herbal supplements you take. Gardasil is given to those ages 9-14 in 2 doses at 0 and 8 months. In ages 15- 45, three injections are given at 0,2,6 months. Common side effects include pain, redness, itching and swelling at the injection site, nausea, fever, dizziness and fainting. Rare but potentially serious reactions have been reported. These include allergic reaction, swollen glands, joint and muscle pain, weakness and Guillain-Edroy syndrome. documented in this encounterRegional Medical Center09-16-2024 NoteHNO ID: [id number] Author: QUETA OLIVEIRA APRN.CNM Service: ? Author Type: Ladle Watcher Type: Progress Notes Filed: 11/14/2023 12:11 Note Text: Freight Loading Supervisor offered: Patient declinesMarilynn Castle is a 38 year old who presents for an annual gynecologic exam without complaints. Yuli Barton NP. Has prediabetes, hgbA1C elevated at 8. 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 Menses: cycles every 30 days and 5 days of flow. Contraception: vasectomy HPV vaccine: One dose Last Pap: July 2022 - Abnormal cells HPV: July 2022 - Positive HPV History of abnormal pap: Yes, has had LEEP and multiple Colposcopies Last mammogram: never Sexually active: Yes Time with current partner: , current partner x 3 years Pain with intercourse: No Postcoital bleeding: No Exercise: 30 minutes of walking 3-4 times a week Diet: No restrictions Seatbelt use: Yes OB History T0 L0 SAB0 IAB0 Ectopic0 Multiple0 Live Births0 Counterintelligence Analyst History LMP: 11/04/2023 (Within Days), Having periods Age at Menarche: Age at First : Age at Menopause: Counterintelligence Analyst History Comments: Sexual Activity: Yes; Male Contraception: Vasectomy PAST MEDICAL HISTORY Diagnosis Date Anemia Depression Floaters Hypertension Retinal tear PAST SURGICAL HISTORY Procedure Laterality Date CERVIX UTERI CONIZA LP ELCTRO EXCI 2019 CHOLEYCYSTOGRAM GALL BLADDER MIDDLE EAR EXPL THRU POSTAUR/EAR CANAL INC PAST SURGICAL HISTORY OF Laser Photocoagulation, Retinal tear TONSILLECTOMY AND ADENOIDECTOMY HX FAMILY HISTORY Problem Relation Age of Onset Cataract Father Cancer Mother Hypertension Mother Cataract Mother Thyroid Paternal Grandfather SOCIAL HISTORY Social History Tobacco Use Smoking status: Never Smokeless tobacco: Never Vaping Use Vaping status: Never Used Substance Use Topics Alcohol use: Yes Comment: social Drug use: No REVIEW OF SYSTEMS Abdomen: No abdominal pain, nausea, vomiting, diarrhea, or constipation. No bloating, early satiety, indigestion, or increased flatulence. Bladder: No dysuria, gross hematuria, urinary frequency, urinary urgency, or incontinence. Breast: No breast lumps, nipple d/c, overlying skin changes, redness or skin retraction. Allergies and current medication updated:Yes SENSITIVE EXAM: The sensitive examination was discussed with the Patient or Patient's Authorized Side Show Entertainer. As applicable, any other physician, advance practice provider, medical student, or other health professional student that will be observing or involved in the sensitive examination for educational or training purposes was discussed with the Patient or Authorized Side Show Entertainer. The Patient or Authorized Side Show Entertainer has agreed to proceed with the sensitive examination. (Sensitive examination includes inspection and/or palpation of the breasts, pelvis, prostate and anorectal regions). EXAM: BP 132/86 Ht 5' 5" (1.65m) Wt 378 lb (171.5kg) LMP 11/04/2023 BMI 62.90 kg/(m2). GENERAL: pleasant, female in no apparent distress HEENT: Normocephalic, atraumatic, mucus membranes moist, and no lesions NECK: Supple, full range of motion, no adenopathy, and thyroid normal DERMATOLOGY: Normal, without lesions, non-icteric, and non-hirsute BREAST: soft, non-tender, symmetric, no dominant mass, normal nipple-areolar complex, no lymphadenopathy, and no nipple discharge CHEST: Normal inspiratory effort ABDOMEN: soft, non-tender, and no masses PELVIC: external genitalia normal, normal Bartholin's glands, urethra, Blencoe's glands, no vulvar lesions, no cervical lesions, good vaginal support, physiologic discharge present, normal appearing perineal body and perianal region. Difficulty reaching cervix during exam, used blue speculum and able to reach. Tolerated well. Strong vaginal tone and patient with difficulty letting legs open to the side. BIMANUAL: uterus normal size, shape and consistency, no adnexal masses, and non-tender RECTOVAGINAL: deferred. NEURO: alert and oriented x3,exam grossly non-focal EXTREMITIES: normal ASSESSMENT/PLAN: 1. Encounter for gynecological examination (general) (routine) with abnormal findings - ICD9: V72.31, ICD10: Z01.411 (primary diagnosis) - Completed pelvic and breast exam - Encouraged monthly BSE - Follow up for annual exam in one year. - PAP TEST 2. Screening for cervical cancer - ICD9: V76.2, ICD10: Z12.4 - Completed pelvic and breast exam - Encouraged monthly BSE - Follow up for annual exam in one year. - PAP TEST 3. Encounter for screening for human papillomavirus (HPV) - ICD9: V73.81, ICD10: Z11.51 - PAP TEST 4. Family history of colon cancer in mother - ICD9: V16.0, ICD10: Z80.0 -Will follow with PCP, up to date 5. Need for prophylactic vaccination/inoculation against viral disease - ICD9: V04.89, ICD10: Z23 - THER/P (more content not included)...[facility] History of Present illness Narrative* Queta Oliveira APRN.[facility] - 11/14/2023 9:55 AM EDT Freight Loading Supervisor offered: Patient declines. Chio is a 38 year old who presents for an annual gynecologic exam without complaints. Yuli Barton NP. Has prediabetes, hgbA1C elevated at 8. 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 Menses: cycles every 30 days and 5 days of flow. Contraception: vasectomy HPV vaccine: One dose Last Pap: July 2022 - Abnormal cells HPV: July 2022 - Positive HPV History of abnormal pap: Yes, has had LEEP and multiple Colposcopies Last mammogram: never Sexually active: Yes Time with current partner: , current partner x 3 years Pain with intercourse: No Postcoital bleeding: No Exercise: 30 minutes of walking 3-4 times a week Diet: No restrictions Seatbelt use: Yes OB History T0 L0 SAB0 IAB0 Ectopic0 Multiple0 Live Births0 Counterintelligence Analyst History LMP: 11/04/2023 (Within Days), Having periods Age at Menarche: Age at First : Age at Menopause: Counterintelligence Analyst History Comments: Sexual Activity: Yes; Male Contraception: Vasectomy PAST MEDICAL HISTORY Diagnosis Date Anemia Depression Floaters Hypertension Retinal tear PAST SURGICAL HISTORY Procedure Laterality Date CERVIX UTERI CONIZA LP ELCTRO EXCI 2019 CHOLEYCYSTOGRAM GALL BLADDER MIDDLE EAR EXPL THRU POSTAUR/EAR CANAL INC PAST SURGICAL HISTORY OF Laser Photocoagulation, Retinal tear TONSILLECTOMY AND ADENOIDECTOMY HX FAMILY HISTORY Problem Relation Age of Onset Cataract Father Cancer Mother Hypertension Mother Cataract Mother Thyroid Paternal Grandfather SOCIAL HISTORY Social History Tobacco Use Smoking status: Never Smokeless tobacco: Never Vaping Use Vaping status: Never Used Substance Use Topics Alcohol use: Yes Comment: social Drug use: No REVIEW OF SYSTEMS Abdomen: No abdominal pain, nausea, vomiting, diarrhea, or constipation. No bloating, early satiety, indigestion, or increased flatulence. Bladder: No dysuria, gross hematuria, urinary frequency, urinary urgency, or incontinence. Breast: No breast lumps, nipple d/c, overlying skin changes, redness or skin retraction. Allergies and current medication updated:Yes SENSITIVE EXAM: The sensitive examination was discussed with the Patient or Patient's Authorized Side Show Entertainer. As applicable, any other physician, advance practice provider, medical student, or other health professional student that will be observing or involved in the sensitive examination for educational or training purposes was discussed with the Patient or Authorized Side Show Entertainer. The Patient or Authorized Side Show Entertainer has agreed to proceed with the sensitive examination. (Sensitive examination includes inspection and/or palpation of the breasts, pelvis, prostate and anorectal regions). EXAM: BP 132/86 Ht 5' 5" (1.65m) Wt 378 lb (171.5kg) LMP 11/04/2023 BMI 62.90 kg/(m^2). GENERAL: pleasant, female in no apparent distress HEENT: Normocephalic, atraumatic, mucus membranes moist, and no lesions NECK: Supple, full range of motion, no adenopathy, and thyroid normal DERMATOLOGY: Normal, without lesions, non-icteric, and non-hirsute BREAST: soft, non-tender, symmetric, no dominant mass, normal nipple-areolar complex, no lymphadenopathy, and no nipple discharge CHEST: Normal inspiratory effort ABDOMEN: soft, non-tender, and no masses PELVIC: external genitalia normal, normal Bartholin's glands, urethra, Blencoe's glands, no vulvar lesions, no cervical lesions, good vaginal support, physiologic discharge present, normal appearing perineal body and perianal region. Difficulty reaching cervix during exam, used blue speculum and ableto reach. Tolerated well. Strong vaginal tone and patient with difficulty letting legs open to the side. BIMANUAL: uterus normal size, shape and consistency, no adnexal masses, and non-tender RECTOVAGINAL: deferred. NEURO: alert and oriented x3,exam grossly non-focal EXTREMITIES: normal ASSESSMENT/PLAN: 1. Encounter for gynecological examination (general) (routine) with abnormal findings - ICD9: V72.31, ICD10: Z01.411 (primary diagnosis) - Completed pelvic and breast exam - Encouraged monthly BSE - Follow up for annual exam in one year. - PAP TEST 2. Screening for cervical cancer - ICD9: V76.2, ICD10: Z12.4 - Completed pelvic and breast exam - Encouraged monthly BSE - Follow up for annual exam in one year. - PAP TEST 3. Encounter for screening for human papillomavirus (HPV) - ICD9: V73.81, ICD10: Z11.51 - PAP TEST 4. Family history of colon cancer in mother - ICD9: V16.0, ICD10: Z80.0 -Will follow with PCP, up to date 5. Need for prophylactic vaccination/inoculation against viral disease - ICD9: V04.89, ICD10: Z23 - THER/PROPH/DIAG INJ, SC/IM 6. Class 3 severe obesity without serious comorbidity with body mass index (BMI) of 60.0 to 69.9 inadult, unspecified obesity type (HCC) - ICD9: 278.01, V85.44, ICD10: E66.01, Z68.44 1) Health maintenance: Pap done with HPV. Nutrition, exercise and routine health maintenance exams reviewed. Calcium/Vitamin D supplementation information provided. Colon cancer screening: up to date with screening Lipids/glucose: followed by PCP Vitamin D: followed by PCP HPV vaccine: interested, literature given 2) Contraception: vasectomy. Contraceptive options reviewed and information provided. 3) STD screening: Declined STD check. 4) Follow up one year or sooner as needed Queta Oliveira APRN.CNM Patient identified by name and date of . Chio Bucio is here for her HPV Gardasil vaccination, injection # two of the series. Patient ?No Gardasil injection was given without incident. See immunizations for details of immunizations administered today. VIS sheet provided: Yes Patient advised to follow up in 4 months from the 2nd injection Provider Queta Oliveira APRN CNM was present in office at time of injection. Bam Fulton MA documented in this encounterRegional [facility] Center08-19-2024 Telephone encounter Note * Telephone Encounter - Nataliia Patten RN - 10/17/2023 8:55 AM EDT Records received from [facility]-Dr. Irwin. Pt has new appt with 11/14/23. Records placed in scanning. Nataliia Patten RN [facility] Miscellaneous Notes* Telephone Encounter - Nataliia Patten RN - 10/17/2023 8:55 AM EDT Records received from [facility]-Dr. Irwin. Pt has new appt with SHASHI 11/14/23. Records placed in scanning. Nataliia Patten RN documented in this encounterRegional Medical Center07-24-2024 Instructions* Patient Instructions* Ran Snider II, OD - 09/21/2023 10:40 AM EDT Assessment and Plan H52.13 Myopia of both eyes (primary encounter diagnosis) H52.223 Regular astigmatism, bilateral Comment: Ocular health maintained with contact lens use. Good fit. Giordano stable. Recheck in one year. H33.312 Horseshoe tear of retina of left eye without detachment Z98.890 History of repair of retinal tear by laser photocoagulation Comment: Repair stable. Monitor yearly. I have confirmed and edited as necessary the relevant HPI, ophthalmic history, ROS, and the neuro exam findings as obtained by others. I have seen and examined Chio Bucio. I have discussed the case and the management of this patient's care with the Resident/Fellow, if applicable. I also have reviewed and agree with the assessment and plan as stated above and agree withall of its relevant components. documented in this encounterRegional Medical Center07-24-2024 History of Present illness Narrative* Ran Snider II, OD - 09/21/2023 10:28 AM EDT Assessment and Plan H52.13 Myopia of both eyes (primary encounter diagnosis) H52.223 Regular astigmatism, bilateral Comment: Ocular health maintained with contact lens use. Good fit. Giordano stable. Recheck in one year. H33.312 Horseshoe tear of retina of left eye without detachment Z98.890 History of repair of retinal tear by laser photocoagulation Comment: Repair stable. Monitor yearly. I have confirmed and edited as necessary the relevant HPI, ophthalmic history, ROS, and the neuro exam findings as obtained by others. I have seen and examined Chio Bucio. I have discussed the case and the management of this patient's care with the Resident/Fellow, if applicable. I also have reviewed and agree with the assessment and plan as stated above and agree withall of its relevant components. documented in this encounterRegional Medical Center06-28-2023 Instructions* Patient Instructions* Ran Snider II, OD - 08/25/2022 3:49 PM EDT Assessment and Plan H52.13 Myopia of both eyes (primary encounter diagnosis) Comment: Ocular health maintained with contact lens use. Good fit. Giordano stable. Recheck in one year. H33.312 Horseshoe tear of retina of left eye without detachment Z98.890 History of repair of retinal tear by laser photocoagulation Comment: Past tear and repair stable. Monitor for change. I have confirmed and edited as necessary the relevant ophthalmic history, ROS, and the neuro exam findings as obtained by others. I have seen and examined Chio Bucio. I have discussed the case and the management of this patient's care with the Resident/Fellow, if applicable. I also have reviewed and agree with the assessment and plan as stated above and agree withall of its relevant components. Ran Snider II, OD documented in this encounterRegional Medical Center06-28-2023 History of Present illness Narrative* Ran Snider II, OD - 08/25/2022 3:47 PM EDT Assessment and Plan H52.13 Myopia of both eyes (primary encounter diagnosis) Comment: Ocular health maintained with contact lens use. Good fit. Giordano stable. Recheck in one year. H33.312 Horseshoe tear of retina of left eye without detachment Z98.890 History of repair of retinal tear by laser photocoagulation Comment: Past tear and repair stable. Monitor for change. I have confirmed and edited as necessary the relevant ophthalmic history, ROS, and the neuro exam findings as obtained by others. I have seen and examined Chio Bucio. I have discussed the case and the management of this patient's care with the Resident/Fellow, if applicable. I also have reviewed and agree with the assessment and plan as stated above and agree withall of its relevant components. Ran Snider II, OD documented in this encounterRegional Medical Center08-11-2022 Instructions* Patient Instructions* Ran Snider II, OD - 10/08/2021 11:51 AM EDT Assessment and Plan H33.312 Horseshoe tear of retina of left eye without detachment (primary encounter diagnosis) Z98.890 History of repair of retinal tear by laser photocoagulation Comment: Peripheral retinal atrophic changes all flat and stable. Discussed symptoms of retinal tear/detachment and if seen will return to clinic without delay. Recheck in 1 year. H52.13 Myopia of both eyes Comment: Ocular health maintained with contact lens use. Good fit. Will try stronger power to see if improves distance clarity. Recheck in one year. I have confirmed and edited as necessary the relevant ophthalmic history, ROS, and the neuro exam findings as obtained by others. I have seen and examined Chio Randle Gabyluis manuelgraham. I have discussed the case and the management of this patient's care with the Resident/Fellow, if applicable. I also have reviewed and agree with the assessment and plan as stated above and agree withall of its relevant components. Ran Snider II, OD documented in this encounterRegional Medical Center08-11-2022 History of Present illness Narrative* Ran Snider II, OD - 10/08/2021 11:49 AM EDT Assessment and Plan H33.312 Horseshoe tear of retina of left eye without detachment (primary encounter diagnosis) Z98.890 History of repair of retinal tear by laser photocoagulation Comment: Peripheral retinal atrophic changes all flat and stable. Discussed symptoms of retinal tear/detachment and if seen will return to clinic without delay. Recheck in 1 year. H52.13 Myopia of both eyes Comment: Ocular health maintained with contact lens use. Good fit. Will try stronger power to see if improves distance clarity. Recheck in one year. I have confirmed and edited as necessary the relevant ophthalmic history, ROS, and the neuro exam findings as obtained by others. I have seen and examined Chio Bucio. I have discussed the case and the management of this patient's care with the Resident/Fellow, if applicable. I also have reviewed and agree with the assessment and plan as stated above and agree withall of its relevant components. Ran Snider II, OD documented in this encounterRegional Medical CenterEvaluation note* Diagnosis Horseshoe tear of retina of left eye without detachment- Primary Horseshoe tear of retina without detachment History of repair of retinal tear by laser photocoagulation Myopia of both eyes Myopia documented in this encounter [facility]* Diagnosis Myopia of both eyes- Primary Myopia Horseshoe tear of retina of left eye without detachment Horseshoe tear of retina without detachment History of repair of retinal tear by laser photocoagulation documented in this encounter [facility]* Diagnosis Onset Date Resolution Status Obesity hypoventilation syndrome acute Morbid obesity [facility] Work Phone: Evaluation note* Diagnosis Myopia of both eyes- Primary Myopia Regular astigmatism, bilateral Horseshoe tear of retina of left eye without detachment Horseshoe tear of retina without detachment History of repair of retinal tear by laser photocoagulation documented in this encounter [facility]* Diagnosis Encounter for gynecological examination (general) (routine) with abnormal findings- Primary Screening for cervical cancer Screening for malignant neoplasm of the cervix Encounter for screening for human papillomavirus (HPV) Special screening examination for human papillomavirus (HPV) Family history of colon cancer in mother Need for prophylactic vaccination/inoculation against viral disease Need for prophylactic vaccination and inoculation against other viral diseases Class 3 severe obesity without serious comorbidity with body mass index (BMI) of 60.0 to 69.9 in adult, unspecified obesity type (HCC) documented in this encounter [facility] note* Diagnosis Ulcer of esophagus without bleeding documented in this encounter [facility] Diagnosis Hypersomnia- Primary Hypersomnia, unspecified Snoring Other dyspnea and respiratory abnormality Witnessed episode of apnea [facility] Urinary frequency- Primary Acute cystitis without hematuria Acute cystitis [facility] Diagnosis Myopia of both eyes- Primary Myopia Regular astigmatism, bilateral Horseshoe tear of retina of left eye without detachment Horseshoe tear of retina without detachment History of repair of retinal tear by laser photocoagulation [facility] this [facility] noteNo assessment information availableWMagruder Hospital Work Phone: Evaluation note* Diagnosis Onset Date Resolution Status Admit Date Lumbar radiculopathy acute Octo 2024 8:13am Facet arthritis of lumbar region noneactive December 11 8:13am [facility] Work Phone: Hospital Discharge instructionsAmbulatory Orders* Physical Therapy Referral Location: None Selected * Pain Management Location: None Selected [facility] Work Phone: Progress note Author Jasmine Heath [facility] Note Date/Time December 11, 2024 8 :47am [facility] [address] [place] [address] OFFICE VISIT Date of Service: 12/11/24 MR#: [id number] Acct: [id number] Name: CHIO BUCIO Radha p #: [phone] : 1985 Provider: BARRERA Perry Age/Sex: 39/F Location[facility] Status: Signed Intake Vital Signs 06/26/24 07:51 12/11/24 08:15 Height 5 ft 5 in 5 ft 5 in Weight: 381 lb BMI 63.3 Intake Visit Reasons: LUMBAR SPINE Chief Complaint: Lumbar spine pain Accompanied by: Is patient in pain?: Yes Pain scale (1-10): 3 Allergies amoxicillin (From Augmentin) Allergy (Verified 12/11/24 08:22) Rash clavulanic acid (From Augmentin) Allergy (Verified 12/11/24 08:22) Rash Medications ?Medication ?Instructions ?Recorded ?Confirmed ?Type buspirone 5 mg tablet 5 mg PO BID anxiety 06/10/23 12/11/24 History omeprazole 40 mg capsule,delayed 40 mg PO BID md order ed 06/10/23 12/11/24 History release spironolactone 50 mg tablet 50 mg PO BID md ordered 12/11/24 History venlafaxine 150 mg 150 mg PO DAILY depression 0 06/10/23 12/11/24 History capsule,extended release 24 hr venlafaxine 75 mg capsule,extended 75 mg PO DAILY depr ession 06/10/23 12/11/24 History release 24 hr cholecalciferol (vitamin D3) 50 50 mcg PO DAILY ord ered 06/13/23 12/11/24 History mcg (2,000 unit) capsule docusate sodium 100 mg capsule 100 mg PO BID md todd d 06/13/23 12/11/24 History hydrocortisone 1 %-pramoxine 1 % 1 applic MA TID md nhan landry #10 02/02/24 12/11/24 Rx rectal foam (Proctofoam HC) grams lidocaine 5 % topical cream 1 applic topical TID PRN p ain #15 02/02/24 12/11/24 Rx ([facility]) grams trazodone 50 mg tablet 50 mg PO QHS md ordered 07/2112/11/24 History cholecalciferol (vitamin D3) 50 100 mcg PO QDAY 12/11/24 History mcg (2,000 unit) capsule lisdexamfetamine 30 mg capsule 30 mg PO QAM 06/26/24 1 History ropinirole 0.5 mg tablet 0.5 mg PO QHS 06/26/2412/11 History CPAP - Continuous Positive Airway 12/10/24 12/11/24 H istory Pressure([facility] INFORMATIONAL USE ONLY) metformin 850 mg tablet mg PO 12/11/24 12/11/24 Hist ory Have you fallen in the past year?: No PFSH Medical History Morbid obesity Family history of heart disease Breast pain Snoring Cervical high risk HPV (human papillomavirus) test positive Family history of colon cancer in mother PMS (premenstrual syndrome) Oral contraceptive pill surveillance Adult acne Esophageal ulcer Pulmonary hypertension Anemia Vitamin D deficiency Obesity, morbid, BMI 50 or higher Erythema Anxiety Depression, endogenous GERD (gastroesophageal reflux disease) Constipation in female Family history of early CAD Fatigue COVID-19 Surgical History History of tonsillectomy and adenoidectomy Hx of cholecystectomy H/O LEEP Family History Mother , age 62 Colon cancer age 59 Hypertension Grandfather Heart disease Maternal Grandmother Heart disease maternal Aunt Hypertension Maternal Uncle Diabetes Paternal Grandmother Diabetes Paternal Social History household members: spouse current occupational status: employed Smoking Status: Never smoker alcohol intake: current alcohol intake frequency: holidays/special occasions only substance use type: does not use seatbelt use: always HPI LUMBAR SPINE Details: This documentation accurately reflects the service provided and the decisions made by me, BARRERA Perry 12/11/24 0815. Part of today?s visit was documentedby Cheryle Page MA, acting as scribe. CHIO BUCIO is a 39 year old F here today for lumbar spine. Patient states that her pain is a 3 today. Her pain is going across the lower back. The pain goes into both glutes, equal on both sides. She states that the pain is "achy and throbbing". Patient has had this pain for 20 years. Her pain has been gradually getting worse. Says that it has been worsening over the lastyear. Walking and standing do not seem to worsen the pain. She states that shehas always had this pain. Patient state that that she hasn't had any lower back surgeries. She hasn't injured anything. Patient states that when someone touchesher lower back, the pain gets worse. Bending forward makes the pain worse. When she is walking she will get really bad tightness in her legs. Says that she gets muscle spasms in her calfs and feet bilaterally. She has not found any position that makes the pain better. She says that she lives with a constant ache in her lower back. [facility]. No recent physical therapy for herlower back. Patient states that she hasn't had any injections in her lower back. Patient states that she doesn't have any diabetes, or blood thinners. No heart or lung issues. Patient states that she doesn't smoke, or do any drugs. Patient states that her balance is pretty good. She will take Tylenol as neededwithout any significant benefit. She will also take Aleve as needed however sheis not supposed to take it due to a history of an ulcer. Ortho Exam General General: Yes no acute distress Neurologic: Yes alert and Yes oriented x3 Psychologic: Yes reasonable and appropriate Spine SPINE TESTING CERVICAL THORACIC LUMBAR Musculoskeletal Strength 0=absent - 5=normal Details: Neurological exam of the lower extremities shows 5x5 power. Normal sensations across all dermatomes. No hyperreflexia. There is midline and bilateral paraspinal tenderness. Coding Level of Care Code Off vis,new,level 4 Diagnoses Lumbar radiculopathy M54.16 Facet arthritis of lumbar region M47.816 Assessment and Plan Assessment and Plan (1) Lumbar radiculopathy: Status: Acute (2) Facet arthritis of lumbar region: Orders: Orders Spine Lumbar (Routine) Today M54.16 - Radiculopathy, lumbar region Referrals Pain Management M54.16 - Radiculopathy, lumbar region Physical Therapy Referral M54.16 - Radiculopathy, lumbar region Plan Reviewed prior lumbar x-rays today in the clinic. Independent interpretation ofthe x-rays was performed. X-rays show mild facet arthropathy from L3-S1. No significant degenerative disc disease. No instability on dynamic views. No acute fractures. No lumbar MRI. Explained imaging findings in detail. At this time due to the patient's 20-yearhistory of low back pain with it worsening over the last year recommend an MRI at this time to further assess. The patient has done pelvic floor therapy at [facility] completing 6 weeks of this therapy. She reports that this therapy did seem to exacerbate some of her lower back symptoms. The patient gets pain that extends down into her bilateral glutes and also causes muscle pain and spasms in her calves and feet. Recommended pain management for evaluation for injections. Referral will be sent to Dr. Rivas. Also recommended physical therapy for specific lumbar stretches and exercises. [facility] She will follow-up after the MRI to review the results. Patient is in agreement to the plan. Clinical Quality Measures Falls Risk Screening/Assistive Devices Have you fallen in the past year?: No 12/11/24 0903 <Electronically signed by Jasmine RUST> Date _ Jasmine RUST Cosigner Signature: Date (if applicable) CC: Dr. Vasquez Irwin MD ~ [facility] Work Phone: Reason for referral (narrative)No reason for referral information availableWMagruder Hospital Work Phone: Summary Purpose Family History No Family History Records Found Relationship Condition Age at Onset Recorded Date/T bianca mother Malignant neoplasm of colon Unknown Hypertension Unknown grandfather Cardiac disease Unknown grandmother Cardiac disease Unknown aunt Hypertension Unknown uncle Diabetes mellitus Unknown grandmother Diabetes mellitus Unknown Advance Directives No Advanced Directives Records Found Date Activated Date Inactivated Comments 07/14/2022 12:24 PM 07/18/2022 3:27 AM This is ord er is used when code status has not been discussed with the patient, or code status is otherwise unknown/unconfirmed To update the patient's code status, place a code status order. Do not modify or discontinue any currently active code status orders. Medications Administered Section Active Administered Medications - up to 3 most recent administrations Medication Order MAR Action Action Date Dose Rate Site fluorescein-benoxinate 0.25-0.4 % 1 Drop (FLURESS) 1 Drop, BOTH EYES, DIRECTED, Starting on Tue08/25/22 at 1600, Until Layla 08/26/22 at 0359, Administer for applanation tonometry. In the event of a Fluress shortage, administer Steffanie-Fluor 1 drop into both eyes as directed for applanation tonometry Given 08/25/2022 4:00 PM EDT 1 Drop tropicamide 0.5 % 1 Drop (MYDRIACYL) 1 Drop, BOTH EYES, DIRECTED, Starting on Tue08/25/22 at 1600, Until Layla 08/26/22 at 0359, Administer for dilation Given 08/25/2022 4:00 PM EDT 1 Drop Chief Complaint and Reason for Visit Chief Complaint HEIDY MORBID OBESITY Reason for Visit Obesity hypoventilat ion syndrome Morbid obesity Chief Complaint Admit Date HEIDY Follow Up June 26, 2024 8:5 7am HYPERSOMNIA, SNORING, APNEIC EPISODES Ju ne 2024 8:22pm Reason for Visit Admit Date Narcolepsy June 26, 2024 8:5 7am Super obese June 26, 2024 8:5 7am Chief Complaint Admit Date HEIDY Follow Up June 26, 2024 8:5 7am HYPERSOMNIA, SNORING, APNEIC EPISODES Ju 2024 8:22pm HEIDY August 28, 2024 10:05 am Chief Complaint Admit Date HYPERSOMNIA, SNORING, APNEIC EPISODES Ju 2024 8:22pm HEIDY August 28, 2024 10:05 am URGE INCONT RX HERE November 16, 2024 11:00am Chief Complaint Admit Date HYPERSOMNIA, SNORING, APNEIC EPISODES Ju 2024 8:22pm HEIDY August 28, 2024 10:05 am URGE INCONT RX HERE November 30, 2024 11 :00am Chief Complaint Admit Date HEIDY August 28, 2024 10:05 am URGE INCONT RX HERE November 30, 2024 11 :00am INT XRAY ORDER December 05, 2024 10 :13am LABS December 11, 2024 7 :54am LUMBAR SPINE December 11, 2024 8 :13am PAIN, BILATERAL RADICULOPATHY December 172024 8:54am Reason for Visit Admit Date Lumbar radiculopathy December 11, 2024 8:13am Facet arthritis of lumbar region December 11, 2024 8:13am Reason for Referral Specialty Diagnoses / Procedures Referred By Danette moses Referred To Contact Diagnoses Ulcer of esophagus without bleeding Procedures EGD Anesthesia - MAC; [facility] Giacomo Giang [address] [place] [address] [facility] Referral ID Status Reason Start Date Expiration Date V isits Requested Visits Authorized [id number] Pending Review 01/12/2024 01/11/2025 1 1 Additional Source Comments INFORMATION SOURCE (unrecogn ized section and content) DATE CREATED AUTHOR 07/22/2018 [facility] DATE CREATED AUTHOR AUTHOR'S ORGANIZ ATION 08/09/2022 [facility] DATE CREATED AUTHOR AUTHOR'S ORGANIZ ATION 08/09/2022 [facility] DATE CREATED AUTHOR AUTHOR'S ORGANIZ ATION 02/18/2024 [facility] DATE CREATED AUTHOR AUTHOR'S ORGANIZ ATION 07/24/2024 [facility] DATE CREATED AUTHOR AUTHOR'S ORGANIZ ATION 10/28/2024 [facility] DATE CREATED AUTHOR AUTHOR'S ORGANIZ ATION 12/08/2024 [facility] DATE CREATED AUTHOR AUTHOR'S ORGANIZ ATION 01/10/2025 [facility] Source Comments (unrecognize d section and content) In the event this informatio n is protected by the Federal Confidentiality of Alcohol and Drug Abuse Patient Records regulations: The Federal rules restrict any use of the information to criminally investigate or prosecute any alcohol or drug abuse patient.[facility] Center[facility] the event this information is protected by the Federal Confidentiality of Alcohol and Drug Abuse Patient Records regulations: The Federal rules restrict any use of the information to criminally investigate or prosecute any alcohol or drug abuse patient.[facility] CenterIn the event this information is protected by the Federal Confidentiality of Alcohol and Drug Abuse Patient Records regulations: The Federal rules restrict any use of the information to criminally investigate or prosecute any alcohol or drug abuse patient.[facility] CenterIn the event this information is protected by the Federal Confidentiality of Alcohol and Drug Abuse Patient Records regulations: The Federal rules restrict any use of the information to criminally investigate or prosecute any alcohol or drug abuse patient.[facility] CenterIn the event this information is protected by the Federal Confidentiality of Alcohol and Drug Abuse Patient Records regulations: The Federal rules restrict any use of the information to criminally investigate or prosecute any alcohol or drug abuse patient.[facility] CenterIn the event this information is protected by the Federal Confidentiality of Alcohol and Drug Abuse Patient Records regulations: The Federal rules restrict any use of the information to criminally investigate or prosecute any alcohol or drug abuse patient.[facility] CenterIn the event this information is protected by the Federal Confidentiality of Alcohol and Drug Abuse Patient Records regulations: The Federal rules restrict any use of the information to criminally investigate or prosecute any alcohol or drug abuse patient.[facility] CenterIn the event this information is protected by the Federal Confidentiality of Alcohol and Drug Abuse Patient Records regulations: The Federal rules restrict any use of the information to criminally investigate or prosecute any alcohol or drug abuse patient.[facility] CenterIn the event this information is protected by the Federal Confidentiality of Alcohol and Drug Abuse Patient Records regulations: The Federal rules restrict any use of the information to criminally investigate or prosecute any alcohol or drug abuse patient[facility] Reason for Visit (unrecogniz ed section and content) Reason Comments Retinal Break(s) Follow Up Reason Comments Yearly Exam Contact lens evaluation Reason Onset Date Comments Well Woman Gardasil Injection 11/14/2023 Specialty Diagnoses / Procedures Referred By Contac t Referred To Contact Diagnoses Ulcer of esophagus without bleeding Procedures EGD Anesthesia - MAC; [facility] Giacomo Giang [address] [place] [address] [facility] [place] Referral ID Status Reason Start Date Expiration Date V isits Requested Visits Authorized [id number] Pending Review 01/12/2024 01/11/2025 1 1 Reason Comments Sleep Problem Daytime Sleepiness Specialty Diagnoses / Procedures Referred By Contac t Referred To Contact Sleep Medicine Diagnoses Hypersomnia Maraynn Cruz, CAR STOWER [address] [facility] [address] [place] [id number] Phone: tel: fax: [facility] [address] [place] [address] Referral ID Status Reason Start Date Expiration Date V isits Requested Visits Authorized [id number] New Request 07/02/2024 07/27/2025 1 1 Reason Comments Urinary Frequency Frequency and urgenc y x 2 days Reason Comments Yearly Exam And contact lens exa m Reason Comments Patient Update Care Teams (unrecognized sec tion and content) Driver Merchandiser Relationship Specialty Start Date End Date Maryjo Pickering PCP - General 08/30/19 Driver Merchandiser Relationship Specialty Start Date End Date Vasquez Irwin [address] [facility] [place] [address] PCP - General Family Medicine 08/25/22 Team Status: Active Member Role Status Dates Dr. Vasquez Irwin MD Primary Care Provider Active Team Status: Inactive Member Role Status Dates Maryann Cruz HOLISTIC SPECIALIST, HOLISTIC SPECIALIST-C Attending Provider Active Team Status: Inactive Member Role Status Dates Maryann Cruz HOLISTIC SPECIALIST, HOLISTIC SPECIALIST-C Attending Provider, Refereugenio g Provider Active Dr. Vasquez Irwin MD Primary Care Provider Active Driver Merchandiser Relationship Specialty Start Date End Date Vasquez Irwin MD [address] [place] [address] PCP - General Family Medicine 08/25/22 Driver Merchandiser Relationship Specialty Start Date End Date Vasquez Irwin MD [address] [facility] [place] [address] PCP - General Family Medicine 08/25/22 Driver Merchandiser Relationship Specialty Start Date End Date Vasquez Irwin MD [address] [facility] [place] [address] PCP - General Family Medicine 08/25/22 Driver Merchandiser Relationship Specialty Start Date End Date Vasquez Irwin [address] [place] [id number] PCP - General Family Medicine 07/07/22 Driver Merchandiser Relationship Specialty Start Date End Date Vasquez Irwin MD [address] [place] [address] PCP - General 07/17/24 Team Status: Inactive Member Role Status Dates Dr. Vasquez Irwin MD Primary Care Provider Active Start: June 26, 2024 End: June 26, 2024 Dr. Vasquez Irwin MD Referring Provider Active Start: June 26, 2024 End: June 26, 2024 Maryann Cruz NP, HOLISTIC SPECIALIST-C Attending Provider Active Start: June 26, 2024 End: June 26, 2024 Team Status: Inactive Member Role Status Dates Dr. Vasquez Irwin MD Primary Care Provider Active Start: August 09, 2024 End: August 09, 2024 Dr. Bartolome Bella DO Attending Provider Active Start: August 09, 2024 End: August 09, 2024 Dr. Bartolome Bella DO Referring Provider Active Start: August 09, 2024 End: August 09, 2024 Team Status: Active Member Role/Relationship Status Dates Dr. Vasquez Irwin MD Primary Care Provider Active Team Status: Inactive Member Role/Relationship Status Dates Dr. Vasquez Irwin MD Primary Care Provider Active Start: June 26, 2024 End: June 26, 2024 Dr. Vasquez Irwin MD Referring Provider Active Start: June 26, 2024 End: June 26, 2024 Maryann Cruz NP, HOLISTIC SPECIALIST-C Attending Provider Active Start: June 26, 2024 End: June 26, 2024 Team Status: Inactive Member Role/Relationship Status Dates Dr. Vasquez Irwin MD Primary Care Provider Active Start: August 09, 2024 End: August 09, 2024 Dr. Bartolome Bella DO Attending Provider Active Start: August 09, 2024 End: August 09, 2024 Dr. Bartolome Bella DO Referring Provider Active Start: August 09, 2024 End: August 09, 2024 Team Status: Inactive Member Role/Relationship Status Dates Dr. Vasquez Irwin MD Primary Care Provider Active Start: August 28, 2024 End: August 28, 2024 Dr. Bartolome Bella DO Attending Provider Active Start: August 28, 2024 End: August 28, 2024 Driver Merchandiser Relationship Specialty Start Date End Date Vasquez Irwin MD [address] [place] [address] PCP - General Family Medicine 08/25/22 Driver Merchandiser Relationship Specialty Start Date End Date Vasquez Irwin MD [address] [place] [address] PCP - General Family Medicine 08/25/22 Driver Merchandiser Relationship Specialty Start Date End Date Vasquez Irwin MD [address] [place] [address] PCP - General Family Medicine 08/25/22 Driver Merchandiser Relationship Specialty Start Date End Date Vasquez Irwin MD [address] [facility] [place] [address] PCP - General Family Medicine 08/25/22 Team Status: Active Member Role/Relationship Status Dates Dr. Vasquez Irwin MD Primary care physician Active Team Status: Inactive Member Role/Relationship Status Dates Dr. Vasquez Irwin MD Primary care physician Active Start: August 09, 2024 End: August 09, 2024 Dr. Bartolome Bella DO Attending physician Active Start: August 09, 2024 End: August 09, 2024 Dr. Bartolome Bella DO Referring Provider Active Start: August 09, 2024 End: August 09, 2024 Team Status: Inactive Member Role/Relationship Status Dates Dr. Vasquez Irwin MD Primary care physician Active Start: August 28, 2024 End: August 28, 2024 Dr. Bartolome Bella DO Attending physician Active Start: August 28, 2024 End: August 28, 2024 Team Status: Active Member Role/Relationship Status Dates Dr. Vasquez Irwin MD Primary care physician Active Start: November 16, 2024 Dr. Ayden Vanegas MD Attending physician Active Start: November 16, 2024 Dr. Ayden Vanegas MD Referring Provider Active Start: November 16, 2024 Team Status: Inactive Member Role/Relationship Status Dates Dr. Vasquez Irwin MD Primary care physician Active Start: November 16, 2024 End: November 16, 2024 Dr. Haider Burton DC Attending physician Active Start: November 16, 2024 End: November 16, 2024 Dr. Haider Burton DC Referring Provider Active Start: November 16, 2024 End: November 16, 2024 Team Status: Inactive Member Role/Relationship Status Dates Dr. Vasquez Irwin MD Primary care physician Active Start: November 16, 2024 End: November 16, 2024 Dr. Haider Burton DC Attending physician Active Start: November 16, 2024 End: November 16, 2024 Dr. Haider Burton DC Referring Provider Active Start: November 16, 2024 End: November 16, 2024 Team Status: Inactive Member Role/Relationship Status Dates Dr. Vasquez Irwin MD Primary care physician Active Start: November 30, 2024 End: November 30, 2024 Dr. Ayden Vanegas MD Attending physician Active Start: November 30, 2024 End: November 30, 2024 Dr. Ayden Vanegas MD Referring Provider Active Start: November 30, 2024 End: November 30, 2024 Team Status: Active Member Role/Relationship Status Dates Dr. Vasquez Irwin MD Primary care physician Active Start: November 30, 2024 Dr. Vasquez Irwin MD Attending physician Active Start: November 30, 2024 Dr. Vasquez Irwin MD Referring Provider Active Start: November 30, 2024 Team Status: Inactive Member Role/Relationship Status Dates Dr. Vasquez Irwin MD Primary care physician Active Start: August 28, 2024 End: August 28, 2024 Dr. Bartolome Bella DO Attending physician Active Start: August 28, 2024 End: August 28, 2024 Team Status: Inactive Member Role/Relationship Status Dates Dr. Vasquez Irwin MD Primary care physician Active Start: November 16, 2024 End: November 16, 2024 Dr. Haider Burton DC Attending physician Active Start: November 16, 2024 End: November 16, 2024 Dr. Haider Burton DC Referring Provider Active Start: November 16, 2024 End: November 16, 2024 Team Status: Inactive Member Role/Relationship Status Dates Dr. Vasquez Irwin MD Primary care physician Active Start: November 30, 2024 End: November 30, 2024 Dr. Ayden Vanegas MD Attending physician Active Start: November 30, 2024 End: November 30, 2024 Dr. Ayden Vanegas MD Referring Provider Active Start: November 30, 2024 End: November 30, 2024 Team Status: Active Member Role/Relationship Status Dates Dr. Vasquez Irwin MD Primary care physician Active Start: November 30, 2024 Dr. Vasquez Irwin MD Attending physician Active Start: November 30, 2024 Dr. Vasquez Irwin MD Referring Provider Active Start: November 30, 2024 Team Status: Inactive Member Role/Relationship Status Dates Dr. Vasquez Irwin MD Primary care physician Active Start: December 05, 2024 End: December 05, 2024 BARRERA Perry Attending physician Active Sta rt: December 05, 2024 End: December 05, 2024 BARRERA Perry Referring Provider Active Star t: December 05, 2024 End: December 05, 2024 Team Status: Active Member Role/Relationship Status Dates Dr. Vasquez Irwin MD Primary care physician Active Start: December 11, 2024 Jessica Barton NP-C Attending physician Active Start: December 11, 2024 Jessica Barton NP-Julita Referring Provider Active Start: December 11, 2024 Team Status: Inactive Member Role/Relationship Status Dates Dr. Vasquez Irwin MD Primary care physician Active Start: December 11, 2024 End: December 11, 2024 Dr. Vasquez Irwin MD Referring Provider Active Start: December 11, 2024 End: December 11, 2024 BARRERA Perry Attending physician Active Sta rt: December 11, 2024 End: December 11, 2024 Team Status: Active Member Role/Relationship Status Dates Dr. Vasquez Irwin MD Primary care physician Active Start: December 17, 2024 BARRERA Perry Attending physician Active Sta rt: December 17, 2024 BARRERA Perry Referring Provider Active Star t: December 17, 2024 Goals (unrecognized section and content) Goals may be documented in a n alternate sectionGoals may be documented in an alternate sectionGoals may be documented in an alternate sectionGoals may be documented in an alternate sectionGoals may be documented in an alternate sectionGoals may be documented in an alternate section FOR RECORDS PERTAINING TO PATIENTS WHO ARE OR HAVE BEEN ENROLLED IN A CHEMICAL DEPENDENCY/SUBSTANCEABUSE PROGRAM, SOME INFORMATION MAY BE OMITTED. This clinical summary was aggregated from multiple sources. Caution should be exercised in using it in the provision of clinical care. This summary normalizes information from multiple sources, and as a consequence, information in this document may materially change the coding, format and clinical context of patient data. In addition, data may be omitted in some cases. CLINICAL DECISIONS SHOULD BE BASED ON THE PRIMARY CLINICAL RECORDS. [facility] provides no warranty or guarantee of the accuracy or completeness of information in this document.
[2025-02-15 11:24] LABS: CORTISOL AM 6.65 ug/dL (6.02-18.40); Ferritin 114 ng/mL (22-378); Vitamin B12 1367 pg/mL (180-914)
[2025-02-15 11:45] LABS: CRP 24.90 mg/L (0.0-3.0); Iron 39 ug/dL (50-170); Magnesium 2.1 mg/dL (1.5-2.2)
[2025-02-20 12:08] LABS: ANTINUCLEAR ANTIBODIES DIRECT Negative (Negative); Vitamin D 1,25-Dihydroxy 13.5 pg/mL (24.8-81.5)
== END | disposition home or self-care (01) ==
PROVIDERS: PCP Radiologic Technologist Bone Densitometry; Visit Provider Nurse Practitioner Family
DX: R63.5 Abnormal weight gain (principal); E55.9 Vitamin D deficiency, unspecified; R53.83 Other fatigue; G44.209 Tension-type headache, unspecified, not intractable; D64.9 Anemia, unspecified
CPT/HCPCS: 36415; 82024; 82533; 82607; 82627; 82652; 82728; 83540; 83735; 85652; 86038; 86140; 86225; 86235; 82626

== ENCOUNTER → 2025-02-27 | Outpatient (CLI) | payer OTHER, SELFPAY ==
--- OUTSIDE RECORDS SUMMARY | 2025-02-27 08:35 | XMS RPT_ITS | CCD ---
Author Organization [facility] Care Team Providers Care Bricklayer Name Role Phone Doup, Maryjo Horn Primary Care Provider [phone] JAIME JOHNSTON Attending Unavailab marck SNYDER, PHYSICIAN Primary Care Unavailable VASQUEZ IRWIN Primary Care UnavailSHANE Michael Attending Unavailable Vasquez Irwin Primary Care Provider [phone] Nancy INSIDE B2B SALES, INSIDE B2B SALES-C Maryann Attending Provider [phone] Vasquez Irwin MD Primary Care Provider VASQUEZ IRWIN Primary Care Unavailable DANICA V~[phone], DANICA GIACOMO Attending Un available DANICA V~[phone], DANICA MICHELIAN Referring Un available Vasquez Irwin Primary Care Provider Vasquez Irwin MD Primary Care Provider [phone] MARYANN CRUZ Referring Unavailable MARYANN CRUZ Referring Unavailable VASQUEZ IRWIN Primary Care Unavailable Dr. Vasquez Irwin MD Primary Care Provider [phone] Dr. Vasquez Irwin MD Referring Provider Nancy [...] Alida LOPEZ, Dr. Ovalle Primary Care Physician Shayne ARITA, Dr. Mancuso Attending Physician Jeison LOPEZ, Dr. Ayden Willis Attending Physician Jeison LOPEZ, Dr. Ayden Willis Referring Provider [phone] Micheal LONG, Dr. Haider Dale Attending Physician Micheal LONG, Dr. Haider Dale Referring Provider Jeison LOPEZ, Dr. Ayden Willis Attending Physician Jeison LOPEZ, Dr. Ayden Willis Referring Provider Alida LOPEZ, Dr. Ovalle Attending Physician Alida LOPEZ, Dr. Ovalle Referring Provider [employer] COMMUNICATIONS SERGEANT~[id number], ORALIA JESSICA D Attend ing Unavailable [employer] COMM[employer]ICATION[employer] SERGEANT~[phone], ORALIA JESSICA D Primar y Care Unavailable [employer] COMM[employer]ICATION[employer] SERGEANT, JESSICA D Consulting Unavailab le [employer]ICATION[employer] SERGEANT~[phone], ORALIA JESSICA D Admitt ing Unavailable [employer] COMM[employer]ICATION[employer] SERGEANT, JESSICA D Consulting Unavailab le [employer] COMM[employer]ICATION[employer] SERGEANT, JESSICA D Consulting Unavailab le [employer] COMM[employer]ICATION[employer] SERGEANT~[phone], ORALIA JESSICA D Attend ing Unavailable [employer] COMMUNICATIONS SERGEANT~[id number], ORALIA JESSICA D Primar y Care Unavailable [employer] COMM[employer]ICATION[employer] SERGEANT~[phone], ORALIA JESSICA D Admitt ing Unavailable [employer] COMM[employer]ICATIONS SERGEANT, JESSICA D Consulting Unavailab le [employer] COMM[employer]ICATION[employer] SERGEANT~[phone], ORALIA JESSICA D Admitt ing Unavailable [employer] COMM[employer]ICATIONS SERGEANT~[phone], ORALIA JESSICA D Attend ing Unavailable [place] COMMUNICATIONS SERGEANT, JESSICA D Consulting Unavailab le [employer] COMM[employer]ICATIONS SERGEANT~[phone], ORALIA JESSICA D Primar y Care Unavailable [employer] COMM[employer]ICATIONS SERGEANT, JESSICA D Consulting Unavailab le [employer] COMM[employer]ICATION[employer] SERGEANT~[phone], ORALIA JESSICA D Attend ing Unavailable [employer] COMMUNICATIONS SERGEANT, JESSICA D Consulting Unavailab le [employer] COMM[employer]ICATIONS SERGEANT~[phone], ORALIA JESSICA D Primar y Care Unavailable [employer] COMMUNICATIONS SERGEANT~[phone], ORALIA JESSICA D Admitt ing Unavailable [employer] COMMUNICATIONS SERGEANT, JESSICA D Consulting Unavailab le [employer] COMMUNICATIONS SERGEANT~[phone], ORALIA JESSICA D Attend ing Unavailable [employer] COMM[employer]ICATIONS SERGEANT, JESSICA D Consulting Unavailab le [employer] COMMUNICATIONS SERGEANT~[phone], ORALIA JESSICA D Primar y Care Unavailable [employer] COMMUNICATIONS SERGEANT~[id number], ORALIA JESSICA D Admitt ing Unavailable [employer] COMMUNICATIONS SERGEANT, JESSICA D Consulting Unavailab le [employer] COMM[employer]ICATIONS SERGEANT~[phone], ORALIA JESSICA D Primar y Care Unavailable FLORI LOPEZ, DR LINDQUIST Attending Unavailsloan RUBY MD, DR LINDQUIST Admitting Unavailabl e [employer] COMM[employer]ICATION[employer] SERGEANT, JESSICA D Consulting Unavailab le [employer] COMM[employer]ICATION[employer] SERGEANT, JESSICA D Consulting Unavailab marck RUBY MD, DR LINDQUIST Consulting Unavailsloan RUBY MD, DR LINDQUIST Consulting Unavailabl e [employer] COMM[employer]ICATION[employer] SERGEANT~[phone], ORALIA JESSICA D Primar y Care Unavailable FLORI LOPEZ, DR LINDQUIST Attending Unavailsloan RUBY MD, DR LINDQUIST Admitting Unavailabl e [employer]ICATION[employer] SERGEANT, JESSICA D Consulting Unavailab le [employer]ICATION[employer] SERGEANT, JESSICA D Consulting Unavailab marck RUBY MD, DR LINDQUIST Consulting Unavailsloan RUBY MD, DR LINDQUIST Consulting Unavailabl dashawn Irwin MD, Dr. Ovalle Primary Care Physician Dr. Bartolome Bella DO Attending Physician Jasmine Dias Attending Physician Jasmine Dias Referring Provider Oralia INSIDE B2B SALES-C, Jessica Attending Physician Oralia INSIDE B2B SALES-C, Jessica Referring Provider Vasquez Irwin Referring Unavailable [...] [SULFA (SULFONAMIDE ANTIBIOTICS)] Drug Allergy 4 Rash [facility] (6 sources) Amoxicillin-Pot Clavulanate; Translations: [AMOXICILLIN-POT CLAVULANATE] Propensity to adverse reactions to drug 5 Itching, Rash [facility] (5 sources) Amoxicillin Drug Allergy 5 Rash [facility] (5 sources) Clavulanate Drug Allergy 5 Rash [facility] (1 source) Amoxicillin / Clavulanate Drug Allergy [facility] Repository (1 source) Amoxicillin Drug Allergy 5 [facility] Repository (1 source) Clavulanate Drug Allergy 5 [facility] Repository Medications Current Medications Medication Drug Class(es) [...] 07/03/2023 Active CPAP - Continuous Positive Airway Pressure([facility] INFORMATIONAL USE ONLY) (1 source) Start: 12-10-2024 CPAP - Continu ous Positive Airway Pressure([facility] INFORMATIONAL USE ONLY) Active 0 .Route .MEDSUPPLY [...] Comment on above: TAKE 1 CAPSULE BY [facility] EVERY TUESDAY AND TUESDAY hydrocortisone acetate 10 [...] daily Start: 06-10-2023 take 1 capsule by [facility] once daily Start: 10-11-2018 Effexor XR 75 MG Cap SR 24HR capsule XR 10/11/2018 Active Start: 04-27-2018 take 1 capsule by [facility] once daily venlafaxine XR (EFFEXOR-XR) 150 mg [...] Facility Orthopedic Visit Reporton Orthopedic Visit Report [facility] [address] [place] [address] OFFICE VISIT Date of Service: 01/07/25 MR#: [id number] Acct: [id number] Name: CHIO BUCIO Rep #: [id number] : 1985 Provider: BARRERA Perry Age/Sex: 39/F [...] hydrocortisone 1 %-pramoxine 1 % 1 applic [place] TID md ordered #10 07/2101/07/25 Rx rectal [...] - Continuous Positive Airway 12/10/24 01/07/25 History Pressure([facility] INFORMATIONAL USE ONLY) metformin 850 mg tablet mg PO 12/11/24 01/07/25 History baclofen 5 mg tablet 5 - 10 mg PO Q8 PRN 01/07/2501/07 History celecoxib 100 mg capsule (Celebrex) 100 mg PO BID PRN pain #60 caps 01/07/25 01/07/25 Rx Have you fallen in the past year?: No [facility] Medical History Morbid obesity Family history of [...] sides. She states that the pain is achy and throbbing (more content not included)... Normal [facility] Inital Evaluation (1) - PTon 12-28-2024 Inital Evaluation (1) - PT [facility] [address] [place] [address] / REHABILITATION SERVICES INITIAL EVALUATION MR#: [id number] Acct: [id number] Name: CHIO BUCIO Rep #: [id number] : 1985 39 From: Daniella Menchaca PT, Cert. MDT Referring Dr.: BARRERA Perry Status: REG RCR Insurance: [employer]/[facility] SELF PAY INSURANCE Patient's Visit Information Visit [...] AND STRENGTHENING. HEP INSTRUCTION. 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 Treatment this episode: [facility] CONSULT AND REFERRAL TO PAIN MGMT [...] thecal sac compression or nerve impingement. 12/11/24 [facility] LUMBAR X-RAY interpretation: X-rays show mild [...] training, Gait and locomotor training, Neuromotor development, In an aquatic setting a (more content not included)... Normal [facility] Adrenocorticotropic Hormoneo n 12-27-2024 ACTH Normal [facility] Comment on above: Order Comment: N Result Comment: TEST RESULTS LIMITS ACTH, Plasma 2.2 Low pg/mL 7.2-63.3 ACTH reference interval for samples collected between 7 and 10 AM. TESTING PERFORMED AT [facility]. ORIGINAL REPORT ON FILE IN LAB CONTAINS ADDITIONAL TEST SITE INFORMATION. Performed By: #### L 3300.1000, L3300.1500, L3410.9992, L509.6001 ####[facility] [address] [place], [address] DHEA Sulfateon 12-27-2024 DHEA SULFATE Normal [facility] Comment on above: Order Comment: N Result Comment: TEST RESULTS LIMITS DHEA-Sulfate 108.0 ug/dL 57.3-279.2 TESTING PERFORMED AT [facility]. ORIGINAL REPORT ON FILE IN LAB CONTAINS ADDITIONAL TEST SITE INFORMATION. Performed By: #### L 3300.1000, L3300.1500, L3410.9992, L509.6001 ####[facility] [address] [place], [address] L3410.9992on 12-17-2024 [facility] Misc. COMMENT Normal . [facility] Comment on above: Order Comment: [id number] 8DEXAMETHASONE SERUM FROZEN Result Comment: Test Ordered: [id number] Dexamethasone, Serum Dexamethasone, Serum 354 ng/dL ES Reference Range: . This test was developed and its performance characteristics determined by [employer]. It has not been cleared or approved by the Food and Drug Administration. Reference Range: Adults baseline: <30 8:00 AM following 1 mg dexamethasone previous evenin - 295 8:00 AM following 8 mg dexamethasone (4 x 2 mg doses) previous day: 1600 - 2850 Performed at: [facility] [address] [place] [id number] Shirt Creaser: Ewa Persaud MD, Phone: [phone] Performed at: - [facility] [id number] Shirt Creaser: Eren Bedolla PhD, Phone: [phone] Performed By: #### L 3300.1000, L3300.1500, L3410.9992, L509.6001 ####[facility] [address] [facility] [place], [place], [id number] Spine Lumbar (Routine)on Spine Lumbar (Routine) [facility] Imaging Services [address] [place] [address] Spine Lumbar (Routine) MR#: [id number] Acct: [id number] Name: CHIO BUCIO Rep #: [id number] : 1985 F 39 From: Patrice Wilson MD PCP: Dr. Vasquez Irwin MD Status: REG CLI Study: Spine Lumbar (Routine) Date of Exam: 12/17/24 Exam# [id number] Ordering Dr: Jasmine Heath PROCEDURE: SPINE LUMBAR [...] sac compression or nerve impingement. Reading [facility] CC: BARRERA Perry; Dr. Vasquez Irwin MD Pull Worker: Signed Normal [facility] L509.6001on 12-11-2024 CORTISOL 0.58 ug/dL Low 6.02-18.40 [facility] Comment on above: Order Comment: N Result Comment: CEDRIC ENT WAS LATE FOR DR. OLIVEIRA BUT DID NOT RETURN FOR LABWORK Performed By: #### L 3300.1000, L3300.1500, L3410.9992, L509.6001 ####[facility] [address] [place], [address] Orthopedic Visit Reporton Orthopedic Visit Report [facility] [address] [place] [address] [address] [place] [address] OFFICE VISIT Date of Service: 12/11/24 MR#: [id number] Acct: [id number] Name: CHIO BUCIO Rep #: [id number] : 1985 Provider: BARRERA Perry Age/Sex: 39/F Location: [facility] Status: Signed Intake Vital Signs 06/26/24 07:51 [...] hydrocortisone 1 %-pramoxine 1 % 1 applic [place] TID md ordered #10 07/2112/11/24 Rx rectal [...] - Continuous Positive Airway 12/10/24 12/11/24 History Pressure([facility] INFORMATIONAL USE ONLY) metformin 850 mg tablet mg PO 12/11/24 12/11/24 History Have you fallen in the past year?: No [facility] Medical History Morbid obesity Family history of [...] sides. She states that the pain is achy and throbbing. Patient has had this pain for 20 [...] lives w (more content not included)... Normal [facility] Serum or plasma cortisol yulisa surement (mass/volume)Ordered By: Jessica Barton on 12-11-2024 Cortisol [Mass/Vol] 0.58 ug/dL Low 6.02-18.40 [facility] L/S Spine Comp/w Bending Vie wson 12-05-2024 L/S Spine Comp/w Bending Views [facility] Imaging Services [address] [place] [address] L/S Spine Comp/w Bending Views MR#: [id number] Acct: [id number] Name: CHIO BUCIO [place] Rep #: [id number] : 1985 F 39 From: Charlie Wong MD PCP: Dr. Vasquez Irwin MD Status: REG CLI Study: L/S Spine Comp/w Bending Views Date of Exam: Exam# [id number] Ordering Dr: Jasmine Heath EXAM: XR Lumbosacral [...] IMPRESSION: Degenerative changes as above. Reading Location: [facility] CC: BARRERA Perry; Dr. Vasquez Irwin MD Pull Worker: Signed Normal [facility] Bilirubin directOrdered By: Vasquez Irwin on 11-30-2024 Bilirubin.direct [Mass/Vol] 0.11 mg/dL 0.00-0.3 0 [facility] Bilirubin, totalOrdered By: Vasquez Irwin on 11-30-2024 Bilirubin [Mass/Vol] 0.28 mg/dL 0.00-1.30 [facility] - Chemistry and C hemistry - challengeOrdered By: Vasquez Irwin on 11-30-2024 AST [Catalytic activity/Vol] 35 U/L High <32 [facility] Liver Profileon 11-30-2024 Albumin [Mass/Vol] 4.3 g/dL Normal 3.5-5.[address] [facility] Comment on above: Performed By: #### M 200.1000 #### [facility] Laboratory [address] [place], [place], [address] ALK PHOS 139 U/L High 35-104 [facility] Comment on above: Performed By: #### M 200.1000 #### [facility] Laboratory [address] [place], [address] ALT [Catalytic activity/Vol] 65 U/L High <=34 [facility] Comment on above: Performed By: #### M 200.1000 #### [facility] [address] [place], [address] AST [Catalytic activity/Vol] 35 U/L High <=31 [facility] Comment on above: Performed By: #### M 200.1000 #### [facility] [address] [place], [address] Bilirubin [Mass/Vol] 0.28 mg/dL Normal 0.00-1.30 [facility] Comment on above: Performed By: #### M 200.1000 #### [facility] [address] [place], [address] Bilirubin.direct [Mass/Vol] 0.11 mg/dL Normal 0.00-0.3 0 [facility] Comment on above: Performed By: #### M 200.1000 #### [facility] [address] [place], [address] Globulin (S) [Mass/Vol] 3.1 g/dL Normal 2.2-4.2 [facility] Comment on above: Performed By: #### M 200.1000 #### [facility] Laboratory [address] [place], [address] T PROT 7.4 g/dL Normal 5.9-8.4 [facility] Comment on above: Performed By: #### M 200.1000 #### [facility] Laboratory [address] [place], [address] PT D/C Summary (1)on 025 PT D/C Summary (1) [facility] Physical Therapy [address] [place] [address] / REHABILITATION SERVICES DISCHARGE SUMMARY MR#: [id number] Acct: [id number] Name: CHIO BUCIO Rep #: [id number] : 1985 39 From: Daniella Menchaca PT, Cert. MDT Referring Dr.: Dr. Ayden Vanegas MD Status: REG RCR Insurance: [employer]/[facility] SELF PAY INSURANCE Discharge Summary D/C summary: [...] please feel free to call me at [phone]. Thank you for the referral of this patient. Sincerely, Daniella Menchaca, PT, Cert MDT Balance/Gait/Function al tests Improvement % Improvement: 60 11/30/24 1210 CC: Dr. Vasquez Irwin MD; Dr. Ayden Vanegas MD LATIA Signed Normal [facility] Serum globulin measurementOr dered By: Vasquez Irwin on 11-30-2024 Globulin (S) [Mass/Vol] 3.1 g/dL 2.2-4.2 [facility] Serum or plasma alanine hurtado otransferase (ALT) measurementOrdered By: Vasquez Irwin on 11-30-2024 ALT [Catalytic activity/Vol] 65 U/L High <35 [facility] Serum or plasma albumin israel urement (mass/volume)Ordered By: Vasquez Irwin on 11-30-2024 Albumin [Mass/Vol] 4.3 g/dL 3.5-5.[address] [facility] Serum or plasma alkaline lisa sphatase measurementOrdered By: Vasquez Irwin on 11-30-2024 ALP [Catalytic activity/Vol] 139 U/L High 35-104 [facility] T4 Free Directon 11-30-2024 T4 FREE DIRECT 1.10 ng/dL Normal 0.76-1.46 [facility] Comment on above: Performed By: #### M 200.1000 #### [facility] Laboratory [address] [place], [address] T4 freeOrdered By: Vasquez martinez on 11-30-2024 Free T4 [Mass/Vol] 1.10 ng/dL 0.76-1.[address] [facility] TSH DL <= 0.005 mIU/L QnOrde red By: Vasquez Irwin on 11-30-2024 TSH Qn 3.820 uIU/mL 0.300-4.20 0 [facility] Thyroid Stim Hormone (TSH)on 11-30-2024 TSH 3.820 uIU/mL Normal 0.300-4.20 0 [facility] Comment on above: Performed By: #### M 200.1000 #### [facility] [address] [place], [place], [address] Total proteinOrdered By: Gaby Irwin on 11-30-2024 Protein [Mass/Vol] 7.4 g/dL 5.9-8.[address] [facility] L/S Spine Min 4 Viewson 10-29 L/S Spine Min [address] [facility] Imaging Services [address] [place], [place] [address] L/S Spine Min 4 Views MR#: [id number] Acct: [id number] Name: CHIO BUCIO [place] Rep #: [id number] : 1985 F 39 From: Jo Newman MD PCP: Dr. Vasquez Irwin MD Status: REG CLI Study: L/S Spine Min 4 Views Date of Exam: 11/16/24 Exam# [id number] Ordering Dr: Haider Burton PROCEDURE: L/S SPINE MIN 4 VIEWS 11/16/2024 REASON FOR EXAM: LOW BACK PAIN TECHNIQUE: Procedure Code: RADSPLS Modality: DX Procedure: L/S SPINE MIN 4 VIEWS COMPARISON: None. FINDINGS: BONES: Five xdr-ndr-rsljilu lumbar vertebral bodies. No fracture or focal osseous lesion. Anatomic spinal alignment. Mild lumbar levoscoliosis. DISC/DEGENERATIVE CHANGES: Disc spaces are preserved. SOFT TISSUES: No acute abnormality seen. Right mid abdominal surgical clips. RAD/L/S Spine Min 4 Views IMPRESSION: No acute abnormality. Reading Location: [facility] CC: DC Dr. Haider Burton; Dr. Vasquez Irwin MD Pull Worker: Signed Normal [facility] Inital Evaluation (1) - PTon 10-26-2024 Inital Evaluation (1) - PT [facility] Physical [facility] [address] [place] [address] / REHABILITATION SERVICES INITIAL EVALUATION MR#: [id number] Acct: [id number] Name: CHIO BUCIO Rep #: [id number] : 1985 39 From: Daniella Menchaca PT, Cert. MDT Referring Dr.: Dr. Ayden Vanegas MD Status: REG RCR Insurance: [employer]/[facility] SELF PAY INSURANCE Patient's Visit Information Visit Information Visit Information: CHIO BUCIO is a 39 year old F referred to Physical Therapy by Dr. Ayden Vanegas MD with a diagnosis of URGE INCONTINENCE. Date of Evaluation: 10/17/24 Physical Therapist: Daniella Menchaca PT, Cert MDT Visit Plan Frequency: 1x/Week [...] PRESSURE MGMT WITH ADL'S. 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 Normal [facility] 10-08-2024 [facility] Telephone (EIQ) CHIO BUCIO ([id number]) 1985 F Date Time Provider Department 10/08/24 RAN SNIDER II EIQ During your visit today, we recorded the [...] Date Reviewed: 10/02/2024 Reviewed by: Haleigh Araujo APRN.PRINCIPAL ACCOUNT CLERK - Fully Assessed Reason for Visit: Patient [...] Encounter Status:Closed by JEANETTE SHEPARD on 10/27/24 [facility] CNOVon 10-02-2024 CNOV Office Visit (OBGYWM ) CHIO BUCIO ([id number]) 1985 F Date Time Provider Department 10/02/24 9:30 AM HALEIGH ARAUJO During your visit today, we recorded the following information about you: Blood pressure Weight Last Period 130/84 173.7 kg 10/01/24 Haleigh Araujo APRN.PRINCIPAL ACCOUNT CLERK 10/02/2024 7:26 PM Signed Obstetrics and Gynecology [place] 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 Patient/authorized sales representative malt liquors agreed to proceed CHIEF COMPLAINT: CC: Patient is a 39-year-old female presenting for concerns of suspected hormonal imbalance due to multiple health problems. HPI: HPI: Hormonal Imbalance: - Reports mood fluctuations, irritability, insomnia, fatigue, low libido, and urinary incontinence. - Experiences sugar crashes if not eating for about five hours. - Has difficulty losing weight and has dry skin diagnosed as psoriasis by a bisque brusher. - Menstrual periods occur every three weeks, [...] treated with Vyvanse. - Taking spironolactone since 3323-7828 for acne and high blood pressure. - [...] was approximately 180 pounds; current height is 5'5. 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 Normal [facility] Bacteria Ur Culton 5 Bacteria identified Cx Nom (U) ORGANISM ID: 1 10,000 -<50,000 CFU/ml Normal [facility] [place] Streptococcus agalactiae (Group B streptococcus) was identified in this specimen, which is clinically relevant if the individual is . Normal [facility] Comment on above: Performed By: #### 6 30-4 #### [facility] [place] [id number] [address] [place] [address] [place] CNOVon 09-11-2024 CNOV Office Visit (WOUCA) CHIO BUCIO ([id number]) 1985 F Date Time Provider Department 09/11/24 [...] 09/11/2024 Reviewed (more content not included)... Normal [facility] UA DIP, URINE (POC)on 2024 BILIRUBIN UA (POCT) Negative Negative [facility] CLARITY UA (POCT) Clear [facility] COLOR UA (POCT) Yellow [facility] GLUCOSE UA (POCT) Negative Negative mg/dL [facility] Hemoglobin Ql (U) Negative Negative [facility] KETONE UA (POCT) Negative Negative mg/dL [facility] LEUKOCYTES UA (POCT) Negative Negative [facility] NITRITE UA (POCT) Negative Negative [facility] PH UA (POCT) 8 4.5 - 8.0 [facility] Protein Ql (U) Negative Negative mg/dL [facility] SPECIFIC GRAVITY UA (POCT) 1.02 1 .005 - 1.030 [facility] UROBILINOGEN UA (POCT) 0.2 Luna l E.U./dL [facility] Location:[facility], [address], [place], [place], [address] [place] [address] POINT OF CARE [facility] CBC W Auto Differential pane l (Bld)on 09-03-2024 Basophils (Bld) [#/Vol] 0.02 10*3/uL Normal <=0.70 [facility] Comment on above: Performed By: #### 2 498-4, 2499-08 #### [facility] [address] [place] [address] Pastry Cook Helper - Sydnie SHANKSIA [id number] Basophils/100 WBC (Bld) 0.2 % Normal <=2.0 [facility] Comment on above: Performed By: #### 2 498-4, 2499-08 #### [place] [address] [place] [address] [employer] - Sydnie SHANKSIA [id number] Eosinophils (Bld) [#/Vol] 0.01 10*3/uL Normal <=0.70 [facility] Comment on above: Performed By: #### 2 498-4, 2499-08 #### [facility] [address] [place] [address] [employer] - Sydnie SHANKSIA [id number] Eosinophils/100 WBC (Bld) 0.1 % Normal <=10.0 [facility] Comment on above: Performed By: #### 2 498-4, 2499-08 #### [facility] [address] [place] [address] [employer] - Sydnie SHANKSIA [id number] Erythrocyte distribution width (RBC) [Entitic vol] 42.5 fL Normal 36.4-46.3 [facility] Comment on above: Performed By: #### 2 498-4, 2499- #### [facility] [address] [facility] [place] [address] [employer] - Sydnie BANERJEE [id number] Hematocrit (Bld) [Volume fraction] 39.1 % Normal 37.0-47.0 [facility] Comment on above: Performed By: #### 2 498-4, 2499-08 #### [place] [address] [facility]. [place] [address] [employer] - Sydnie SHANKSIA [id number] Hemoglobin (Bld) [Mass/Vol] 12.7 g/dL Normal 12.0-16. 0 [facility] Comment on above: Performed By: #### 2 498-4, 2499-08 #### [address] [place] [address] [employer] - Sydnie SHANKSIA [id number] Immature granulocytes (Bld) [#/Vol] 0.10 10*3/uL Normal <=0.10 [facility] Comment on above: Performed By: #### 2 498-4, 2499-08 #### [place] [address] [employer] - Sydnie SHANKSIA [id number] Immature granulocytes/100 WBC (Bld) 0.80 % Normal <=1.50 [facility] Comment on above: Performed By: #### 2 498-4, 2499-08 #### [place] [address] [employer] - Sydnie SHANKSIA [id number] Lymphocytes (Bld) [#/Vol] 3.00 10*3/uL Normal 1.20-3.4 0 [facility] Comment on above: Performed By: #### 2 498-4, 2499-08 #### [place] [address] [employer] - Sydnie Funk CLIA [id number] Lymphocytes/100 WBC (Bld) 24.0 % Normal 20.0-40.0 [facility] Comment on above: Performed By: #### 2 498-4, 2499-08 #### [address] [place] [address] [employer] - Sydnie SHANKSIA [id number] MCH (RBC) [Entitic mass] 25.5 pg Low 27.0-31.0 [facility] Comment on above: Performed By: #### 2 498-4, 2499-08 #### [place] [address] [place] [address] [employer] - Sydnie BANERJEE [id number] MCHC (RBC) [Mass/Vol] 32.5 g/dL Normal 32.0-36.0 [facility] Comment on above: Performed By: #### 2 498-4, 2499-08 #### [address] [place] [address] [employer] - Sydnie BANERJEE [id number] MCV (RBC) [Entitic vol] 78.4 fL Low 80.0-100.0 [facility] Comment on above: Performed By: #### 2 498-4, 2499-08 #### [address] [place] [address] [employer] - Sydnie BANERJEE [id number] Monocytes (Bld) [#/Vol] 0.46 10*3/uL Normal 0.10-0.60 [facility] Comment on above: Performed By: #### 2 498-4, 2499-08 #### [address] [place] [address] [employer] - Sydnie SHANKSIA [id number] Monocytes/100 WBC (Bld) 3.7 % Normal <=8.0 [facility] Comment on above: Performed By: #### 2 498-4, 2499-08 #### [address] [place] [address] [employer] - Sydnie SHANKSIA [id number] Neutrophils (Bld) [#/Vol] 8.91 10*3/uL High 1.40-6.5 0 [facility] Comment on above: Performed By: #### 2 498-4, 2499-08 #### [address] [facility] [place] [address] [employer] - Sydnie SHANKSIA [id number] Neutrophils/100 WBC (Bld) 71.2 % High 50.0-70.0 [facility] Comment on above: Performed By: #### 2 498-4, 2499-08 #### [facility] [address] [place] [address] [employer] - Sydnie SHANKSIA [id number] Nucleated RBC (Bld) [#/Vol] 0.00 10*3/uL Normal <=0.10 [facility] Comment on above: Performed By: #### 2 498-4, 2499-08 #### [facility] [address] [place] [address] [employer] - Sydnie SHANKSIA [id number] Platelet mean volume (Bld) [Entitic vol] 10.6 fL Normal 9.0-13.0 [facility] Comment on above: Performed By: #### 2 498-4, 2499-08 #### [facility] [address] [place] [address] [employer] - Sydnie SHANKSIA [id number] Platelets (Bld) [#/Vol] 419 10*3/uL High 130-400 [facility] Comment on above: Performed By: #### 2 498-4, 2499-08 #### [facility] [address] [place] [address] [employer] - Sydnie BANERJEE [id number] RBC (Bld) [#/Vol] 4.99 10*6/uL Normal 4.00-6.30 [facility] Comment on above: Performed By: #### 2 498-4, 2499-08 #### [facility] [address] [place] [address] [employer] - Sydnie SHANKSIA [id number] WBC (Bld) [#/Vol] 12.50 10*3/uL High 4.80-10.80 [facility] Comment on above: Performed By: #### 2 498-4, 2499-08 #### [facility] [address] [place] [address] [employer] - Sydnie BANERJEE [id number] FERRITINon 09-03-2024 Ferritin [Mass/Vol] 83 ng/mL Normal 6-137 [facility] Comment on above: Performed By: #### 2 276-4 #### [facility] [address] [place] [address] [employer] - Sydnie BANERJEE [id number] Iron and Iron binding capaci ty panelon 09-03-2024 Iron [Mass/Vol] 34 ug/dL Low 50-170 [facility] Comment on above: Performed By: #### 2 498-4, 2499-7 #### [facility] [address] [place] [address] [employer] - Sydnie BANERJEE [id number] Iron binding capacity [Mass/Vol] 327 ug/dL Normal 250-450 [facility] Comment on above: Performed By: #### 2 498-4, 2499-08 #### [facility] [address] [place] [address] [employer] - Sydnie BANERJEE [id number] Iron saturation [Mass fraction] 11 % Low 25-50 [facility] Comment on above: Performed By: #### 2 498-4, 7 #### [facility] [address] [place] [address] [employer] - Sydnie BANERJEE [id number] THYROID PEROXIDASE Abon 07-0 Thyroid Peroxidase (TPO) Ab 12 IU/mL Normal 0-34 [facility] Comment on above: Performed By: #### 2 498-4, 2499-08 #### [facility] [address] [place] [address] [employer] - Sydnie BANERJEE [id number] Comprehensive metabolic 2000 panelon 08-28-2024 Albumin [Mass/Vol] 3.4 g/dL Normal 3.4-5.0 [facility] Comment on above: Performed By: #### 2 4323-8 #### [facility] [address] [place] [address] [employer] - Sydnie BANERJEE [id number] ALP [Catalytic activity/Vol] 171 U/L High 50-136 [facility] Comment on above: Performed By: #### 2 4323-8 #### [facility] [address] [place] [address] [employer] - Sydnie Funk CLIA [id number] ALT [Catalytic activity/Vol] 45 U/L Normal 14-59 [facility] Comment on above: Performed By: #### 2 4323-8 #### [facility] [address] [place] [address] [employer] - Sydnie Funk CLIA [id number] Anion gap [Moles/Vol] 9.0 mmol/L Normal <=15.0 [facility] Comment on above: Performed By: #### 2 4323-8 #### [facility] [address] [place] [address] [employer] - Sydnie Funk CLIA [id number] Bilirubin [Mass/Vol] 0.4 mg/dL Normal 0.2-1.0 [facility] Comment on above: Performed By: #### 2 4323-8 #### [facility] [address] [place] [address] [employer] - Sydnie Funk CLIA [id number] Calcium [Mass/Vol] 9.9 mg/dL Normal 8.5-10.1 [facility] Comment on above: Performed By: #### 2 4323-8 #### [facility] [address] [place] [address] [employer] - Sydnie Funk CLIA [id number] Chloride [Moles/Vol] 102 mmol/L Normal 98-107 [facility] Comment on above: Performed By: #### 2 4323-8 #### [facility] [address] [place] [address] [employer] - Sydnie Funk CLIA [id number] CO2 [Moles/Vol] 26 mmol/L Normal 21-32 [facility] Comment on above: Performed By: #### 2 4323-8 #### [facility] [address] [place] [address] [employer] - Sydnie Briggsrell CLIA [id number] Creatinine [Mass/Vol] 0.53 mg/dL Normal 0.51-0.95 [facility] Comment on above: Performed By: #### 2 4323-8 #### [facility] [address] [place] [address] [employer] - Sydnie BANERJEE [id number] GFR/1.73 sq M.predicted MDRD (S/P/Bld) [Vol rate/Area] mL/min/{1.73_m2} Normal >=60 [facility] Comment on above: Performed By: #### 2 4323-8 #### [facility] [address] [place] [address] [employer] - Sydnie BANERJEE [id number] Glucose [Mass/Vol] 94 mg/dL Normal 74-106 [facility] Comment on above: Performed By: #### 2 4323-8 #### [facility] [address] [place] [address] [employer] - Sydnie BANERJEE [id number] HGFR GLOMERULAR FILTRATIO N RATE INTERPRETATION~The eGFR [...] months, with or without kidney damage.~ Normal [facility] Comment on above: Performed By: #### 2 4323-8 #### [facility] [address] [place] [address] [employer] - Sydnie BANERJEE [id number] Potassium [Moles/Vol] 4.3 mmol/L Normal 3.5-5.1 [facility] Comment on above: Performed By: #### 2 4323-8 #### [facility] [address] [place] [address] [employer] - Sydnie BANERJEE [id number] Protein [Mass/Vol] 7.0 g/dL Normal 6.4-8.2 [facility] Comment on above: Performed By: #### 2 4323-8 #### [facility] [address] [place] [address] [employer] - Sydnie BANERJEE [id number] Sodium [Moles/Vol] 137 mmol/L Normal 136-145 [facility] Comment on above: Performed By: #### 2 4323-8 #### [facility] [address] [place] [address] [employer] - Sydnie BANERJEE [id number] Urea nitrogen [Mass/Vol] 18 mg/dL High 7-17 [facility] Comment on above: Performed By: #### 2 4323-8 #### [facility] [address] [place] [address] [employer] - Sydnie BANERJEE [id number] FREE T4on 08-28-2024 Free T4 [Mass/Vol] 1.20 ng/dL Normal 0.76-1.46 [facility] Comment on above: Performed By: #### 2 498-4, 1092-7 #### [facility] [address] [place] [address] [employer] - Sydnie BANERJEE [id number] THYROID CASCADE PROFILEon TSH Qn 5.250 uIU/mL High 0.358-3.74 0 [facility] Comment on above: Performed By: #### 2 498-4, 2500-7 #### [facility] [address] [place] [address] [employer] - Sydnie BANERJEE [id number] Pulmonary Visit Reporton Pulmonary Visit Report [facility] Pul[facility] Medicine of [address] [place] [address] OFFICE VISIT Date of Service: 06/26/24 MR#: [id number] Acct: [id number] Name: CHIO BUCIO Rep #: [id number] : 1985 Provider: MELISSA Cruz Age/Sex: 38/F [place] [facility] [place] Status: Signed Assessment and Plan Assessment and [...] Additional Comments: This note was generated with Chalk[employer] dictation software. It may contain incorrect words, [...] air Intake Visit Reasons: HEIDY Follow Up [employer] Required: No DME Vendor: n/a Accompanied by: [...] hydrocortisone 1 %-pramoxine 1 % 1 applic [place] TID md ordered #10 07/2102/15/24 Rx rectal foam (Proctofoam HC) grams lidocaine 5 % topical cream 1 applic topical TID PRN pain #15 02/02/24 02/15/24 Rx (RectiCare) grams trazodone 50 mg tablet 50 mg PO QHS md ordered 02/02/24 1 04/17/23 History cholecalciferol (vitamin D3) 50 100 mcg PO QDAY 06/26/24 06/26/24 History (more content not included)... Normal [facility] 25-hydroxyvitamin D [Mass/Vo l]on 05-26-2024 25-hydroxyvitamin D3 [Mass/Vol] 31.5 ng/mL Normal 30.0-100.0 [facility] Comment on above: Performed By: #### 2 4323-8, 60550-7, 30888-0 #### [facility] [address] [place] [address] [employer] - Sydnie BANERJEE [id number] HVITD VITAMIN D INTERPRETATION VITAMIN D STATUS RANGE -------- DEFICIENCY <20 ng/mL INSUFFICIENCY 20-30 ng/mL SUFFICIENCY 30-100 ng/mL TOXICITY >100 ng/mL Normal [facility] Comment on above: Performed By: #### 2 4323-8, 59438-6, 55626-5 #### [facility] [address] [place] [address] [employer] - Sydnie BANERJEE [id number] CBC panel Auto (Bld)on 05-26 Erythrocyte distribution width (RBC) [Entitic vol] 48.7 fL High 36.4-46.3 [facility] Comment on above: Performed By: #### 2 498-4, 2500-7 #### [facility] [address] [place] [address] [employer] - Sydnie BANERJEE [id number] Hematocrit (Bld) [Volume fraction] 37.9 % Normal 37.0-47.0 [facility] Comment on above: Performed By: #### 2 498-4, 2499-08 #### [facility] [address] [place] [address] [employer] - Sydnie BANERJEE [id number] Hemoglobin (Bld) [Mass/Vol] 12.3 g/dL Normal 12.0-16. 0 [facility] Comment on above: Performed By: #### 2 498-4, 2499-08 #### [facility] [address] [facility] [place] [address] [employer] - Sydnie BANERJEE [id number] MCH (RBC) [Entitic mass] 24.6 pg Low 27.0-31.0 [facility] Comment on above: Performed By: #### 2 498-4, 2499-08 #### [facility] [address] [place] [address] [employer] - Sydnie BANERJEE [id number] MCHC (RBC) [Mass/Vol] 32.5 g/dL Normal 32.0-36.0 [facility] Comment on above: Performed By: #### 2 498-4, 2499-08 #### [facility] [address] [place] [address] [employer] - Sydnie BANERJEE [id number] MCV (RBC) [Entitic vol] 76.0 fL Low 80.0-100.0 [facility] Comment on above: Performed By: #### 2 498-4, 2499-08 #### [facility] [address] [facility] [place] [address] [employer] - Sydnie BANERJEE [id number] Platelet mean volume (Bld) [Entitic vol] 10.7 fL Normal 9.0-13.0 [facility] Comment on above: Performed By: #### 2 498-4, 2499-08 #### [facility] [address] [facility] [place] [address] [employer] - Sydnie Funk LAVONNE [id number] Platelets (Bld) [#/Vol] 436 10*3/uL High 130-400 [facility] Comment on above: Performed By: #### 2 498-4, 2499-7 #### [facility] [address] [place] [address] [employer] - Sydnie Funkcalvin BANERJEE [id number] RBC (Bld) [#/Vol] 4.99 10*6/uL Normal 4.00-6.30 [facility] Comment on above: Performed By: #### 2 498-4, 2499- #### [facility] [address] [facility] [place] [address] [employer] - [facility] LAVONNE [id number] WBC (Bld) [#/Vol] 10.40 10*3/uL Normal 4.80-10.80 [facility] Comment on above: Performed By: #### 2 498-4, 2499-08 #### [address] [place] [address] [employer] - [facility] DIMITRISIA [id number] Comprehensive metabolic 2000 panelon 05-26-2024 Albumin [Mass/Vol] 3.8 g/dL Normal 3.4-5.0 [facility] Comment on above: Performed By: #### 2 4323-8, 34127-0, 92987-0 #### [facility] [address] [facility] [place] [address] [employer] - [facility] DIMITRISIA [id number] ALP [Catalytic activity/Vol] 169 U/L High 50-136 [facility] Comment on above: Performed By: #### 2 4323-8, 81945-5, 40254-1 #### [facility] [address] [place] [address] [employer] - [facility] DIMITRISIA [id number] ALT [Catalytic activity/Vol] 74 U/L High 14-59 [facility] Comment on above: Performed By: #### 2 4323-8, 88011-3, 72784-9 #### [facility] [address] [place] [address] [employer] - Sydnie SHANKSIA [id number] Anion gap [Moles/Vol] 9.0 mmol/L Normal <=15.0 [facility] Comment on above: Performed By: #### 2 4323-8, 16488-8, 03981-1 #### [facility] [address] [place] [address] [employer] - Sydnie Funk CLIA [id number] AST [Catalytic activity/Vol] 28 U/L Normal 15-37 [facility] Comment on above: Performed By: #### 2 4323-8, 75662-6, 17387-2 #### [facility] [address] [place] [address] [employer] - Sydnie Funk CLIA [id number] Bilirubin [Mass/Vol] 0.4 mg/dL Normal 0.2-1.0 [facility] Comment on above: Performed By: #### 2 4323-8, 93116-8, 98448-5 #### [facility] [address] [place] [address] [employer] - Sydnie Funk CLIA [id number] Calcium [Mass/Vol] 10.0 mg/dL Normal 8.5-10.1 [facility] Comment on above: Performed By: #### 2 4323-8, 25160-9, 90205-2 #### [facility] [address] [place] [address] [employer] - Sydnie Funk CLIA [id number] Chloride [Moles/Vol] 102 mmol/L Normal 98-107 [facility] Comment on above: Performed By: #### 2 4323-8, 49187-1, 36652-2 #### [facility] [address] [place] [address] [employer] - Sydnie Funk CLIA [id number] CO2 [Moles/Vol] 28 mmol/L Normal 21-32 [facility] Comment on above: Performed By: #### 2 4323-8, 40204-7, 33329-2 #### [facility] [address] [facility] [id number] Creatinine [Mass/Vol] 0.58 mg/dL Normal 0.51-0.95 [facility] Comment on above: Performed By: #### 2 4323-8, 94009-5, 86345-1 #### [facility] [address] [place] [address] [employer] - [facility] [id number] GFR/1.73 sq M.predicted MDRD (S/P/Bld) [Vol rate/Area] mL/min/{1.73_m2} Normal >=60 [facility] Comment on above: Performed By: #### 2 4323-8, 41402-4, 43025-2 #### [facility] [address] - [facility] [id number] Glucose [Mass/Vol] 91 mg/dL Normal 74-106 [facility] Comment on above: Performed By: #### 2 4323-8, 43304-9, 42686-6 #### [facility] [address] - [facility] [id number] HGFR GLOMERULAR FILTRATIO N RATE INTERPRETATION~The eGFR [...] months, with or without kidney damage.~ Normal [facility] Comment on above: Performed By: #### 2 4323-8, 94799-6, 94123-8 #### [facility] [address] [place] [address] [employer] - Sydnie BANERJEE [id number] Potassium [Moles/Vol] 4.9 mmol/L Normal 3.5-5.1 [facility] Comment on above: Performed By: #### 2 4323-8, 27819-5, 24248-3 #### [facility] [address] [place] [address] [employer] - Sydnie BANERJEE [id number] Protein [Mass/Vol] 7.4 g/dL Normal 6.4-8.2 [facility] Comment on above: Performed By: #### 2 4323-8, 47942-6, 28864-6 #### [facility] [address] [place] [address] [employer] - Sydnie SHANKSIA [id number] Sodium [Moles/Vol] 139 mmol/L Normal 136-145 [facility] Comment on above: Performed By: #### 2 4323-8, 52978-2, 17756-3 #### [facility] [address] [place] [address] [employer] - Sydnie BANERJEE [id number] Urea nitrogen [Mass/Vol] 21 mg/dL High 7-17 [facility] Comment on above: Performed By: #### 2 4323-8, 17305-1, 90551-2 #### [facility] [address] [place] [address] [employer] - Sydnie BANERJEE [id number] HbA1c Calc (Bld) [Mass fract ion]on 05-26-2024 Average glucose Estimated from glycated hemoglobin (Bld) [Mass/Vol] 108 mg/dL Normal 68-125 [facility] Comment on above: Performed By: #### 1 7855-8 #### [facility] [address] [place] [address] [employer] - Sydnie BANERJEE [id number] HA1C A1C INTERPRETATION %A1c (NGSP) Interpretation <5.7 Non-Diabetic Range 5.7 - 6.4 Prediabetic >6.5 Action Suggested The eAG (estimated average glucose) is an estimation of one?s average blood glucose level, calculated based on A1C test results, reported using the same units (mg/dL) seen on blood glucose meters. Normal [facility] Comment on above: Performed By: #### 1 7855-8 #### [facility] [address] [place] [address] [employer] - Sydnie BANERJEE [id number] HbA1c (Bld) [Mass fraction] 5.4 %A1C Normal 4.2-6.3 [facility] Comment on above: Performed By: #### 1 7855-8 #### [facility] [address] [place] [address] [employer] - Sydnie BANERJEE [id number] Lipid panel with direct LDLo n 05-26-2024 Cholesterol [Mass/Vol] 187 mg/dL Normal <=200 [facility] Comment on above: Performed By: #### 2 4323-8, 16951-4, 39110-5 #### [facility] [address] [place] [address] [employer] - Sydnie BANERJEE [id number] Cholesterol in HDL [Mass/Vol] 45 mg/dL Normal 40-59 [facility] Comment on above: Performed By: #### 2 4323-8, 53602-0, 42323-0 #### [facility] [address] [place] [address] [employer] - Sydnie BANERJEE [id number] Cholesterol in LDL [Mass/Vol] 111 mg/dL High 5-100 [facility] Comment on above: Performed By: #### 2 4323-8, 45837-6, 82893-6 #### [facility] [address] [place] [address] [employer] - Sydnie BANERJEE [id number] Cholesterol in LDL/Cholesterol in HDL [Mass ratio] 2.5 {ratio} Normal [facility] Comment on above: Performed By: #### 2 4323-8, 45361-3, 12096-2 #### [facility] [address] [place] [address] [employer] - Sydnie BANERJEE [id number] Cholesterol.total/Cholester ol in HDL [Mass ratio] 4.2 {ratio} Normal [facility] Comment on above: Performed By: #### 2 4323-8, 02739-4, 98046-0 #### [facility] [address] [place] [address] [employer] - Sydnie BANERJEE [id number] HCHOL CHOLESTEROL INTERPRETATION Desirable <200 Borderline High 200-239 High >240 Normal [facility] Comment on above: Performed By: #### 2 4323-8, 89694-9, 07901-3 #### [facility] [address] [facility] [place] [address] [employer] - Sydnie BANERJEE [id number] HLDL LDL INTERPRETATION Desirable <100 Near Optimal 100-129 Borderline High 130-159 High 160-190 Very High >190 Normal [facility] Comment on above: Performed By: #### 2 4323-8, 82127-1, 60416-7 #### [facility] [address] [facility] [place] [address] [employer] - Sydnie BANERJEE [id number] HLIPID ATEROSCLEROSIS RISK FACTORS FOR LDL, HDL, AND CHOLESTEROL RISK FACTOR SEX LDL/HDL CHOL/HDL 1/2 Average M 1.00 3.43 F 1.47 3.27 Average M 3.55 4.97 F 3.22 4.44 2X Average M 6.25 9.55 F 5.03 7.05 3X Average M 7.99 23.39 F 6.14 11.04 Normal [facility] Comment on above: Performed By: #### 2 4323-8, 46026-1, 94681-9 #### [facility] [address] [place] [address] [employer] - Sydnie BANERJEE [id number] HTRIG TRIGLYCERIDES INTERPRETATION Normal <150 Borderline High 150-199 High 200-499 Very High >500 Normal [facility] Comment on above: Performed By: #### 2 4323-8, 12218-0, 02887-8 #### [facility] [address] [place] [address] [employer] - Sydnie BANERJEE [id number] Triglyceride [Mass/Vol] 152 mg/dL High <=150 [facility] Comment on above: Performed By: #### 2 4323-8, 24689-6, 43139-4 #### [facility] [address] [place] [address] [employer] - Sydnie BANERJEE [id number] CBC W Auto Differential pane l (Bld)on 05-11-2024 Basophils (Bld) [#/Vol] 0.02 10*3/uL Normal <=0.70 [facility] Comment on above: Performed By: #### 5 7021-8 #### [facility] [address] [place] [address] [employer] - Sydnie BANERJEE [id number] Basophils/100 WBC (Bld) 0.2 % Normal <=2.0 [facility] Comment on above: Performed By: #### 5 7021-8 #### [facility] [address] [place] [address] [employer] - Sydnie BANERJEE [id number] Eosinophils (Bld) [#/Vol] 0.01 10*3/uL Normal <=0.70 [facility] Comment on above: Performed By: #### 5 7021-8 #### [facility] [address] [place] [address] [employer] - Sydnie BANERJEE [id number] Eosinophils/100 WBC (Bld) 0.1 % Normal <=10.0 [facility] Comment on above: Performed By: #### 5 7021-8 #### [place] [address] [facility]. [place] [address] [employer] Sydnie SHANKSIA [id number] Erythrocyte distribution width (RBC) [Entitic vol] 50.1 fL High 36.4-46.3 [facility] Comment on above: Performed By: #### 5 7021-8 #### [address] [place] [address] [employer] Sydnie SHANKSIA [id number] Hematocrit (Bld) [Volume fraction] 38.2 % Normal 37.0-47.0 [facility] Comment on above: Performed By: #### 5 7021-8 #### [address] [place] [address] [employer] Sydnie SHANKSIA [id number] Hemoglobin (Bld) [Mass/Vol] 12.3 g/dL Normal 12.0-16. 0 [facility] Comment on above: Performed By: #### 5 7021-8 #### [address] [place] [address] [employer] Sydnie Funk CLIA [id number] Immature granulocytes (Bld) [#/Vol] 0.04 10*3/uL Normal <=0.10 [facility] Comment on above: Performed By: #### 5 7021-8 #### [address] [place] [address] [employer] Sydnie SHANKSIA [id number] Immature granulocytes/100 WBC (Bld) 0.40 % Normal <=1.50 [facility] Comment on above: Performed By: #### 5 7021-8 #### [address] [place] [address] [employer] Sydnie Funk CLIA [id number] Lymphocytes (Bld) [#/Vol] 2.55 10*3/uL Normal 1.20-3.4 0 [facility] Comment on above: Performed By: #### 5 7021-8 #### [place] [address] [facility]. [place] [address] [employer] Sydnie BANERJEE [id number] Lymphocytes/100 WBC (Bld) 23.0 % Normal 20.0-40.0 [facility] Comment on above: Performed By: #### 5 7021-8 #### [address] [place] [address] [employer] Sydnie BANERJEE [id number] MCH (RBC) [Entitic mass] 24.4 pg Low 27.0-31.0 [facility] Comment on above: Performed By: #### 5 7021-8 #### [address] [place] [address] [employer] Sydnie BANERJEE [id number] MCHC (RBC) [Mass/Vol] 32.2 g/dL Normal 32.0-36.0 [facility] Comment on above: Performed By: #### 5 7021-8 #### [address] [place] [address] [employer] Sydnie BANERJEE [id number] MCV (RBC) [Entitic vol] 75.6 fL Low 80.0-100.0 [facility] Comment on above: Performed By: #### 5 7021-8 #### [address] [place] [address] [employer] Sydnie BANERJEE [id number] Monocytes (Bld) [#/Vol] 0.48 10*3/uL Normal 0.10-0.60 [facility] Comment on above: Performed By: #### 5 7021-8 #### [address] [place] [address] [employer] Sydnie SHANKSIA [id number] Monocytes/100 WBC (Bld) 4.3 % Normal <=8.0 [facility] Comment on above: Performed By: #### 5 7021-8 #### [place] [address] [place] [address] [employer] Sydnie SHANKSIA [id number] Neutrophils (Bld) [#/Vol] 7.99 10*3/uL High 1.40-6.5 0 [facility] Comment on above: Performed By: #### 5 7021-8 #### [facility] [address] [place] [address] [employer] Sydnie SHANKSIA [id number] Neutrophils/100 WBC (Bld) 72.0 % High 50.0-70.0 [facility] Comment on above: Performed By: #### 5 7021-8 #### [place] [address] [place] [address] [employer] Sydnie SHANKSIA [id number] Nucleated RBC (Bld) [#/Vol] 0.00 10*3/uL Normal <=0.10 [facility] Comment on above: Performed By: #### 5 7021-8 #### [place] [address] [place] [address] [employer] Sydnie SHANKSIA [id number] Platelet mean volume (Bld) [Entitic vol] 9.8 fL Normal 9.0-13.0 [facility] Comment on above: Performed By: #### 5 7021-8 #### [facility] [address] [place] [address] [employer] Sydnie SHANKSIA [id number] Platelets (Bld) [#/Vol] 428 10*3/uL High 130-400 [facility] Comment on above: Performed By: #### 5 7021-8 #### [facility] [address] [place] [address] [employer] Sydnie SHANKSIA [id number] RBC (Bld) [#/Vol] 5.05 10*6/uL Normal 4.00-6.30 [facility] Comment on above: Performed By: #### 5 7021-8 #### [place] [address] [place] [address] [employer] Sydnie SHANKSIA [id number] WBC (Bld) [#/Vol] 11.09 10*3/uL High 4.80-10.80 [facility] Comment on above: Performed By: #### 5 7021-8 #### [place] [address] [facility]. [place] [address] [employer] Syndie SHANKSIA [id number] CBC W Auto Differential pane l (Bld)on 03-23-2024 Basophils (Bld) [#/Vol] 0.02 10*3/uL Normal <=0.70 [facility] Comment on above: Performed By: #### 2 498-4, 2499-7 #### [address] [place] [address] [employer] Sydnie SHANKSIA [id number] Basophils/100 WBC (Bld) 0.2 % Normal <=2.0 [facility] Comment on above: Performed By: #### 2 498-4, 2499-7 #### [place] [address] [facility]. [place] [address] [employer] Sydnie SHANKSIA [id number] Eosinophils (Bld) [#/Vol] 0.05 10*3/uL Normal <=0.70 [facility] Comment on above: Performed By: #### 2 498-4, 2499- #### [address] [place] [address] [employer] Sydnie Funk CLIA [id number] Eosinophils/100 WBC (Bld) 0.4 % Normal <=10.0 [facility] Comment on above: Performed By: #### 2 498-4, 2499-7 #### [address] [place] [address] [employer] Sydnie SHANKSIA [id number] Erythrocyte distribution width (RBC) [Entitic vol] 41.7 fL Normal 36.4-46.3 [facility] Comment on above: Performed By: #### 2 498-4, 2499-7 #### [address] [place] [address] [employer] Sydnie SHANKSIA [id number] Hematocrit (Bld) [Volume fraction] 36.8 % Low 37.0-47.0 [facility] Comment on above: Performed By: #### 2 498-4, 2499-08 #### [place] [address] [place] [address] [employer] Sydnie SHANKSIA [id number] Hemoglobin (Bld) [Mass/Vol] 11.8 g/dL Low 12.0-16. 0 [facility] Comment on above: Performed By: #### 2 498-4, 2499-08 #### [address] [place] [address] [employer] Sydnie SHANKSIA [id number] Immature granulocytes (Bld) [#/Vol] 0.09 10*3/uL Normal <=0.10 [facility] Comment on above: Performed By: #### 2 498-4, 2499-08 #### [address] [place] [address] [employer] Sydnie SHANKSIA [id number] Immature granulocytes/100 WBC (Bld) 0.70 % Normal <=1.50 [facility] Comment on above: Performed By: #### 2 498-4, 2499-08 #### [address] [facility] [place] [address] [employer] Sydnie Funk CLIA [id number] Lymphocytes (Bld) [#/Vol] 3.01 10*3/uL Normal 1.20-3.4 0 [facility] Comment on above: Performed By: #### 2 498-4, 2499-08 #### [place] [address] [place] [address] [employer] Sydnie Funk CLIA [id number] Lymphocytes/100 WBC (Bld) 24.1 % Normal 20.0-40.0 [facility] Comment on above: Performed By: #### 2 498-4, 2499-08 #### [address] [place] [address] [employer] Sydnie BANERJEE [id number] MCH (RBC) [Entitic mass] 22.5 pg Low 27.0-31.0 [facility] Comment on above: Performed By: #### 2 498-4, 2499-08 #### [place] [address] [place] [address] [employer] Sydnie SHANKSIA [id number] MCHC (RBC) [Mass/Vol] 32.1 g/dL Normal 32.0-36.0 [facility] Comment on above: Performed By: #### 2 498-4, 2499-08 #### [address] [place] [address] [employer] Sydnie BANERJEE [id number] MCV (RBC) [Entitic vol] 70.2 fL Low 80.0-100.0 [facility] Comment on above: Performed By: #### 2 498-4, 2499-08 #### [address] [place] [address] [employer] Sydnie BANERJEE [id number] Monocytes (Bld) [#/Vol] 0.49 10*3/uL Normal 0.10-0.60 [facility] Comment on above: Performed By: #### 2 498-4, 2499-08 #### [address] [place] [address] [employer] Sydnie SHANKSIA [id number] Monocytes/100 WBC (Bld) 3.9 % Normal <=8.0 [facility] Comment on above: Performed By: #### 2 498-4, 2499-08 #### [place] [address] [place] [address] [employer] Sydnie SHANKSIA [id number] Neutrophils (Bld) [#/Vol] 8.82 10*3/uL High 1.40-6.5 0 [facility] Comment on above: Performed By: #### 2 498-4, 2499-08 #### [facility] [address] [place] [address] [employer] Sydnie SHANKSIA [id number] Neutrophils/100 WBC (Bld) 70.7 % High 50.0-70.0 [facility] Comment on above: Performed By: #### 2 498-4, 2499-08 #### [facility] [address] [place] [address] [employer] Sydnie SHANKSIA [id number] Nucleated RBC (Bld) [#/Vol] 0.00 10*3/uL Normal <=0.10 [facility] Comment on above: Performed By: #### 2 498-4, 2499-08 #### [place] [address] [place] [address] [employer] Sydnie SHANKSIA [id number] Platelet mean volume (Bld) [Entitic vol] 10.3 fL Normal 9.0-13.0 [facility] Comment on above: Performed By: #### 2 498-4, 2499-08 #### [place] [address] [place] [address] [employer] Sydnie SHANKSIA [id number] Platelets (Bld) [#/Vol] 573 10*3/uL High 130-400 [facility] Comment on above: Performed By: #### 2 498-4, 2499-08 #### [place] [address] [place] [address] [employer] Sydnie SHANKSIA [id number] RBC (Bld) [#/Vol] 5.24 10*6/uL Normal 4.00-6.30 [facility] Comment on above: Performed By: #### 2 498-4, 2499-08 #### [facility] [address] [place] [address] [employer] Sydnie SHANKSIA [id number] WBC (Bld) [#/Vol] 12.48 10*3/uL High 4.80-10.80 [facility] Comment on above: Performed By: #### 2 498-4, 2500-7 #### [facility] [address] [place] [address] [employer] Sydnie Funk DIMITRISBERNICE [id number] FERRITINon 03-23-2024 Ferritin [Mass/Vol] 17 ng/mL Normal 6-137 [facility] Comment on above: Performed By: #### 2 498-4, 2499-7 #### [facility] [address] [place] [address] [employer] - Sydnie [facility] [id number] IRONon 03-23-2024 Iron [Mass/Vol] 33 ug/dL Low 50-170 [facility] Comment on above: Performed By: #### 2 498-4, 2499-7 #### [facility] [address] [place] [address] [employer] [facility] [id number] IRON BINDING CAPACITYon 03-01 Iron binding capacity [Mass/Vol] 403 ug/dL Normal 250-450 [facility] Comment on above: Performed By: #### 2 498-4, 2499-7 #### [facility] [address] [place] [address] [employer] - [facility] [id number] Chest PA and Lateralon 02-24 Chest PA and Lateral [facility] Imaging Services [address] [place] [address] Chest PA and Lateral MR#: [id number] Acct: [id number] Name: CHIO BUCIO KEON LITHOPOLIS Rep #: [id number] : 1985 F 38 From: Te shrestha MD PCP: Dr. Vasquez Irwin MD Status: REG CLI Study: Chest PA and Lateral Date of Exam: 02/25/24 Exam# [id number] Ordering Dr: Jessica Barton INSIDE B2B SALES-C [id number] INDICATION: PNEUMONIA INVOLVING LEFT LUNG -- J18.9 EXAMINATION/TECHNIQUE : X-RAY - XR Chest 2 Views COMPARISON: None. FINDINGS: The lungs are clear. The cardiomediastinal silhouette is unremarkable. No pleural effusion or pneumothorax. No acute osseous abnormalities. RAD/Chest PA and Lateral IMPRESSION: No acute radiographic abnormalities. Electronically Signed: Te Ferguson MD at 20:48 EST , CC: MELISSA Barton; Dr. 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 Normal [facility] Comment on above: Performed By: #### M 200.1000 #### [facility] [address] [place], [address] Pathology studyOrdered By: Mary Chavez on 02-17-2024 Citation Norbert (Reference lab test) [id number] GFuZzEwMzNcZnRuYmpcdW YnRUwsjaArSVlso5GyL1U yMjAwMFxhbnNpXGRlZmxh uagjMDKxKUC9cfPgEJYaE ZidDGTqVBseBx2dzZFliO ceIuVvQPWne3knvqNJVQz lFTWIXLf8a3eoFVRkZnZ1 sOTiNTqsY1ccesYejBDuK 8Hav0TgPGi3pN91XLWuzA 1qhFLzMLiqlrIjFbE9JHt xHNKiJpZ3WNDqlBDtGNNu O6tkDRTnFNmgbbIztcX0O MQfqSDtVIX1UTImVLJdS3 GeCM4hIZCtbAXeKOe7t3g pzQiwAEVxPKU3y3hlEUdx vpChHV5fnk2xeVc6e0cfp zEgRGVmYXVsdCBQYXJhZ3 NxxRheVx1jzSy3qQfxZeg jPWG4Zye6RR0piz90vku4 pSuvGIIwhrbpYeG5CFekQ CWlacapJNm7WIhbCHZqbN V6WQDwtUVbT4JyGDXxSG8 squf2YFI9EDqiCRCcIuA8 NDBcaGVhZGVyeTcyMFxmb 236XIC7SjEqVG5wX5Whx6 Z3cC5uoJQjFNTgsQNsUuP cQWZyls2wbNZiUKnpf9Nz BCV4mdO9fHMdrPMwZQNyL L88Vjnvk3JtJmqvDNC0XJ EfspLha8Zkb9xySfFoviV fX1xtL7HkYKBjHHRgEYIg PcVjwqGgk6Qau6NelJYlh Im1o3cgBTZqZIJrkRpex5 qoKRF8NSWqN6E3mSTvu2e dHVigXHWfgMY4qiU7BTCb wMZbJ4NioU8lIPCoZQ1vm vk1g0woVDC3QFpvEYMdYa S6puX5JJLrkZOsCAThsLq kVKvjr858UZX7NkGlSNIy d4YxR9DkeQdjQ11eaCuaF 08sDGIohHdskR4boMrnpS 5cZjBcZnMyNFxxbFxwbGF tegcbUVyhxbP7WAnliekv IFVxCKgbB5enHmHqVTKzt KidQPylg6OkUGSjHBVuCc axjjY9KFceDV77KOnkkII rn3oyc1NtI1ncrHcuxXB6 CP3vBUXuFGRtJSsys1Oyz C9oxIJlMVQqzrA8kKTmgU 46ABAqnpQ0KWEfp37dy5K gdGhpcyBjYXNlIHdhcyBw KMNnf4HgNSGdPFSvWN22e vYgO4WhaSBaQKStiwBxZE mmfO2fk6i0XUxvRi2yIDd cp5VhdTBpvENlkCZ6KNUu c6MdRsBezyKddVZwgjWkP F0lXLWsoPIsykAbIJY1KN SqLILQTaLgSDFxg1HcBI8 bJNNuoQfaXSDdiR6vn2Vd ERJqa39rNDUwDMZTHMPtk GFzIGRldGVybWluZWQgdG hhdCBzdWNoIGNsZWFyYW5 iYLJfqwOhnPNrb8VbsCFo npUpl9IbilGsVOOoQVV3O jQOfYZkGZW6NCA6nxSufy JvsSKpOBMtz0GgI4afcpy bQBgejVCnwH9hZYCkIA1c NRAix7GyXUDnz3TnZjTbu vJtGRYeHPWiSKBilL25OY D2hPutmQniawNwUZ2zRHG ltwXmGTPtCVVrlG2qDIck vgCaDHNbhtE7p3N3UMjwY UFpyiWfZwkrQKZ4pjYfOL Yaq1NgIRzrY3zwA19abHb jfLh3pDC2GKV0lN1jYHOk ZGVyIHRoZSBDbGluaWNhb KVMGAOniqY7c7H9ATrfvT SjvoMtJF30WEOcMK4osAN rjMJns3KqITz1BO2tAThe BRQiptYhl0phBYBss5ngY ZEnef1ctxboiLWjacOzJ1 Xkmcu3wX7zgJPfXKIayy5 2LWS1MuIjJS0nbQpaHUKq AN6dVGJeO8xchX1ziko7O dCfv6pqqTEpWENabQLkJa CdKXZjUYTsi1dqUFHerPJ uZzEwMzNcZnRuYmpcdWMx JLEbCmRov4ktc436tRXrm 8fgRNYtGaX9oMWyOFBjX5 3bYSVNX080ONUaULpsa9o qi1LxTCMuwQZfx0B2IVIJ WGkjTVALKAe2tKmeJ50wr 8U0PnbkU1tdKNCxERDtT0 GbEM0eWOFmWni6GNG2TOJ 4RZEqNGT0WJadSEXqJDAk Tfx9ISX9AIehomAfACXwY GdyZWVuMTQzXGJsdWUxND DhH7duFEXmPRwtDADnFWx ibPAmAOU7qFbkf5N3eRMs aGVldHtcZjBcZnMyMiBOb 8HgSWo8sNtrI5GaODQwWl W5hUOcGGKgOWhmLNQvMAM owwC3uD50HCandnQ0kAAt n8Iui66ij934lR8puNEvI CF7HLLiLLYgeFKnQMFmMR Q0JNGkpGWsJ7fgJTZgCB6 hcmdyMTgwMFxtYXJndDE0 UJIlfHLjQ8PfLKWdEYrtE CCfswy6LhQbLv0txDHmjT blWRdyg8wta3dseUQzGss 4EUGrXiTlFcqbNQojp7Af q9dxHAEtpv5mZLG2oMJbr Bujt9I0xCEuPOZorDVigp RyHGIqWeX0UBccXL9vgm5 1HLAzPEV4ht5wtVPigDxf ilSqeEYbIWffI1HzZPEtb 473GZSqF1BmKDAkj6X5ll ZuLoLoTCUrwIY4zrR4VHX qUGq3bSPzheO9myAyjLGm L9dqoE1cSRKvIU3wlpghy 8nqNOawBMieUDHunTN4yp Y6WQGxdCGcZ0TnnS8eFPV hMJgyYWXyhsr2EjPyWd9v dGVyeTcyMFxzYmtwYWdlX HBnbmNvbnRccGduZGVjXH BsYWluXHBsYWluXGYwXGZ cChXhhAutmWnniT7qXgNs HxGfCOwbIN8gYPNiT5nyq EOdVPEdTZBmD1dcDdFqlH 9jaFxmMVxjZjJcZnMxOFx rEXQnHYG8LNChsxoxOLuy V57xgX3iIR55CHhytoLuZ DTtz2JlDQHxAZWaCAkmRI GwwvAaKNtdcH2yo1r1VHd oYr2mIOButanbXFL5VxVp AW58EruhbYSwYGRUrpNwN ENvbHVtYnVzLCBPaGlvID SgFrT8ObIQvWCdi9Axo6C eTiSexHXacY3lcAyqrcH7 VOLlnKEpDo0qvMFtSqzdN SIbnBotfC5dQhVbZsJeEH giJN9yLFPyK9xdzUTcRMY zQQDeG6gbJhBaaU2moXus MVxjZjNcZnMxOFxpXHBhc n19fQ== [employer] Work Phone: Microscopic description Norbert (Endomyocardium) z8thjPAwGTAgcEXSBMW3U DKgPU8rwDcrlKq3zZfpED QrurR9aMKoZVcyb1ddONA 5n4leqqRANexxFOAoPV6m OFryEPQwTG1eMdIyZLIwR mYyXHBhcGVydzEyMjQwXH ClwTHzaNP4PROxZP0hszm nGRkpORsjNZOxjsC4VZKb bGNvM9YsAALxGC5wiybqA WN7LMKYXkprHz4ggNQkyY ANCntcZjFcZmNoYXJzZXQ fPJZqn9mazfDIyjvjvGn0 HQm5RHVaRGMrmXVxo5N5Y Rlfl0gup3SkR8Okv4FdHG k2dT8BWkspTTO0IFFPShm aTgngyZktt2AweSCjVBNm IFxcaWQgNTEwMDAgXFxkY aFAClWcZzJ2YHDfTMU5YY WdIUi8PDquMqKQDNYpGBl pNpGqWRy1JDhfVIpjfSNb ZCYaZIJlVQPvQSmpvcH7v 4dvGLZkoVEeOYA6WUloa5 azXBahKBK8JWNmOlQcRCV aAC9AAoVbZFgaPHOqRUk7 DaS9GSs3SIOLFwNvGyIkH dP9CTagOhWzVFz1WXf3KV xGEoU3DXW5Een5QFG8ICL 4JhI7MAbghJAxKKuds2Qd CgUnHRIuYGsljwR9BQMta eSwVTjmhDmegN0pAuHrGj VaWAVERvUXpC3yJNXfPFI YVPQ6ighuXDO7FvtnpSPa blxsdHJjaFxmczIyXHBhc nDZBfakOHOgZD3RIPYwCM apGOy3yiNkKGYcKgRtEMM cD81ll8TDx7AdSK7KSMx9 cnBhciANClxmMVxmczIwI WUbU8LqipPhZOtpGSWqtw 3gqFizHVskIqKdXUWls0l 0eAF4pVUmoIL6hKQadQbs ZD3omXFlKQ7dTKSoVHD7i mggSPZsx4YscJIzOMWqWS CeTrYrK67ksaLvKB1wSMH ybbF7kMDhbJGaWkFtpFNh CrPjFB13VFUgFkTlVzbkp YDkQCRhhC91jcCuLB4bk0 ggYmFnIGFuZCBlbnRpcmV fvFSynIDrvIS1SEPdfL1r C2Xsm3C4cHOaHRKiXNOxo iANClxzYTMwXGVwaWNYc2 EzMCANCihMUlMpDQpcZXB eN19on1WLs6Kem4ropYyv w2HweHSiVL5dcKIfAS2Az 3tgNFBtcFXdDBS1GTnyt3 kpSUnaDYB5MPGrBmFeAIV hGK0JXtVdOSvhSECqHGw0 LyK7BDq8VJYPMsDrCuByY hV5KIyaOuQgEAy8SXa9PN lOVdK1FCS1IukiXZpnTPY 3DkH7VJqpbYTmHYgpt9Ll JxKrFIIrUSkrdxV1FCFdj nDui6BbTXMlDWPpE4iuCx EwNSANClxmMlxmczIyXGY hREHuPhRwJy2oBPLyeBod I1QwBQZZFRXtmC0yiKxla iBCeDpcZjJcZnMyMlxwYX IgDQpccGFyZCANClxwbGF pblxsdHJjaFxmczIyXGVw xRGVQZV8OP7gWGJKGubsh BPnFQOmb7ZdVMsmyEzhPD YlYfZip2NwXSdjaQoxLQC hMzAgDQpcZjFcZnMyMCBS ZXLmsMUrEPUujjCkf9JiX WxpbiBsYWJlbGVkIHdpdG ggdGhlIHBhdGllbnQncyB pQE6bJOYfXNUjC5DdpiPp A1Msp61jDVVoSDOjCTTaX TbcOH19hrWtVfAwjxC0HC Sph4L0LJEvgu5qBCBqXL3 cApSlF19mZYRAfZe3HGUj ZCBpbnRvIGEgbWVzaCBiY MgiMF6eRCWptQdhQVb8SZ E8Zw8tnWOyWKMpqxMzHXO pHMS2UKBLGK4UGidcrKed LbCyzGDxQfD0RSPahMRxS ND2VM0laVirBZKxR4LvT1 OepdU5HCMoeeAFLtopLVS iOD4MWKUcHMTnKhEjMEz5 [employer] Phone: Pathology report final diagnosis Narrative q7ylfGTlHTYneJYfARpfC rmhdwJmVDOreFByH8Axzn vaSGhnYS2bMS1vrVrlyKO ghLZiUUUhXbJzb3syk402 lYFzi7zeXZIRgazigCd2n FryU18zt9W6RagjI6ssRK QwXGdyZWVuMFxibHVlMDt 9XHBhcGVydzEyMjQwXHBh uOLpjSA0GXQtBP2bfbwqS HgpTLydDVVkcfA9ALNrbX XpB1XsIXDaRN6jahusJEX 3KUahXKBzPNN5SkBtOHHv p6Nwsbo7JcKazTa4o0cyH AIwHFTgwGnvs4mjTWF7VZ FpjXXxY3qmxB6yGXPqUE2 ynpqhw4tvMFtwAIvkKEMi wPM1ukG2EAUiqQOxV0Gvw Y3pCOUzWPEcilZcjTdvcH 9sIdgsLwHcRUTdBWMQnF1 pLXDqDAHevJ3dt7l4ZPRj piTHqxZiYKrrIT9bDSX3h xJcRvX4tXMhMA04J46dNF A9pVFcSU5ylSPwY6pzz52 vNfZwTOH3zft5iROxMXXt zsGWnZ37rw8vgFCscaMhz 3IgSGVsaWNvYmFjdGVyIH R4bY7fkHAmSGI8REYxFNY grxZcUOixhFa0ZX3kmDGu UUQrhkBUCuIsF5NfgZXwK FDhuDqtL6JxbFGzhX2saH bucltzIstxqHP1BsclULF rU6ZipIBjMrG8iQQuBM86 A51sTDW3qWHgDB8soZUbN 1qap94eRqCezgNoIO4kUC Gty82hYZZvswOOBRneeQi 0FPPpj8NfbI60DVU2qD9c xZNqKWMhsLkko7yiVguzR XJ9 [employer] Phone: [employer] Phone: Basic Metabolic Profile (BMP )on 02-16-2024 BUN/CRE 21.3 RATIO High 10-20 [facility] Comment on above: Performed By: #### L 100.0100, L500.2500, L501.9520 #### [facility] [address] [place], [address] CA,Total 9.4 mg/dL Normal 8.5-10.1 [facility] Comment on above: Performed By: #### L 100.0100, L500.2500, L501.9520 #### [facility] [address] [place], [address] Chloride [Moles/Vol] 107 mmol/L Normal 98-107 [facility] Comment on above: Performed By: #### L 100.0100, L500.2500, L501.9520 #### [facility] [address] [place], [address] CO2 [Moles/Vol] 25.0 mmol/L Normal 21.0-32.0 [facility] Comment on above: Performed By: #### L 100.0100, L500.2500, L501.9520 #### [facility] [address] [place], [address] Creatinine [Mass/Vol] 0.61 mg/dL Normal 0.55-1.02 [facility] Comment on above: Result Comment: The validity of the calculated GFR GFRAA in patients over 70 years has not been determined. Clinical correlation is essential. Performed By: #### L 100.0100, L500.2500, L501.9520 #### [facility] [address] [place], [address] ECRCL 204.09 ml/min Normal [facility] Comment on above: Performed By: #### L 100.0100, L500.2500, L501.9520 #### [facility] [address] [place], [address] EST GFR - AA 143 mL/min Normal >60 [facility] Comment on above: Result Comment: Afri can [place] GFR Calc Performed By: #### L 100.0100, L500.2500, L501.9520 #### [facility] [address] [place], [address] GAP 7 Normal 5-15 [facility] Comment on above: Performed By: #### L 100.0100, L500.2500, L501.9520 #### [facility] [address] [place], [address] GFR/1.73 sq M.predicted among non-blacks MDRD (S/P/Bld) [Vol rate/Area] 118 mL/min/{1.73_m2} Normal >60 [facility] Comment on above: Result Comment: Non- GFR Calc Performed By: #### L 100.0100, L500.2500, L501.9520 #### [facility] [address] [place], [address] Glucose [Mass/Vol] 113 mg/dL High 74-[address] [facility] Comment on above: Result Comment: Fast ing Glucose result from 100 to 125 mg/dL suggests IMPAIRED HOMEOSTASIS per A.D.A. criteria. Performed By: #### L 100.0100, L500.2500, L501.9520 #### [facility] [address] [place], [address] Potassium [Moles/Vol] 3.8 mmol/L Normal 3.5-5.1 [facility] Comment on above: Performed By: #### L 100.0100, L500.2500, L501.9520 #### [facility] [address] [place], [address] Sodium [Moles/Vol] 139 mmol/L Normal 136-[address] [facility] Comment on above: Performed By: #### L 100.0100, L500.2500, L501.9520 #### [facility] [address] [place], [address] Urea nitrogen [Mass/Vol] 13 mg/dL Normal 7-18 [facility] Comment on above: Performed By: #### L 100.0100, L500.2500, L501.9520 #### [facility] [address] [place], [address] CBC W/Diff, Automatedon 12 Absolute Lymph 3.10 X10 3/uL Normal 0.83-4.51 [facility] Comment on above: Performed By: #### L 100.0100, L500.2500, L501.9520 #### [facility] [address] [place], [address] Absolute Neut 14.7 X10 3/uL High 2.0-7.7 [facility] Comment on above: Performed By: #### L 100.0100, L500.2500, L501.9520 #### [facility] [address] [place], [address] Basophils/100 WBC (Bld) 0.2 % Normal 0-1 [facility] Comment on above: Performed By: #### L 100.0100, L500.2500, L501.9520 #### [facility] [address] [place], [address] Eosinophils/100 WBC (Bld) 0.2 % Normal 0-5 [facility] Comment on above: Performed By: #### L 100.0100, L500.2500, L501.9520 #### [facility] [address] [place], [address] Erythrocyte distribution width (RBC) [Ratio] 17.1 % High 11.6-14.6 [facility] Comment on above: Performed By: #### L 100.0100, L500.2500, L501.9520 #### [facility] [address] [place], [address] Hematocrit (Bld) [Volume fraction] 35.4 % Low 37-47 [facility] Comment on above: Performed By: #### L 100.0100, L500.2500, L501.9520 #### [facility] [address] [place], [address] Hemoglobin (Bld) [Mass/Vol] 10.7 g/dL Low 12.0-15. 0 [facility] Comment on above: Performed By: #### L 100.0100, L500.2500, L501.9520 #### [facility] [address] [place], [address] IG% 0.500 Normal 0.0-0.9 [facility] Comment on above: Result Comment: IG% - Immature Granulocytes (promyelocytes, myelocytes and metamyelocytes) > 1% indicates that a LEFT SHIFT is Present. Performed By: #### L 100.0100, L500.2500, L501.9520 #### [facility] [address] [place], [address] Lymphocytes/100 WBC (Bld) 16.7 % Low 19-41 [facility] Comment on above: Performed By: #### L 100.0100, L500.2500, [id number] #### [facility] [address] [place], [address] MCH (RBC) [Entitic mass] 22.1 pg Low 27.0-32.0 [facility] Comment on above: Performed By: #### L 100.0100, L500.2500, [id number] #### [facility] [address] [place], [address] MCHC (RBC) [Mass/Vol] 30.2 g/dL Low 32-36 [facility] Comment on above: Performed By: #### L 100.0100, L500.2500, L501.9520 #### [facility] [address] [place], [address] MCV (RBC) [Entitic vol] 73.0 fL Low 81-99 [facility] Comment on above: Performed By: #### L 100.0100, L500.2500, L501.9520 #### [facility] [address] [place], [address] Monocytes/100 WBC (Bld) 3.3 % Normal 0-10 [facility] Comment on above: Performed By: #### L 100.0100, L500.2500, L501.9520 #### [facility] [address] [place], [address] Neutrophils/100 WBC (Bld) 79.1 % High 47-70 [facility] Comment on above: Performed By: #### L 100.0100, L500.2500, L501.9520 #### [facility] [address] [place], [address] Nucleated RBC (Bld) [#/Vol] 0 10*3/uL Normal 0-5 [facility] Comment on above: Performed By: #### L 100.0100, L500.2500, L501.9520 #### [facility] [address] [place], [address] Platelet mean volume (Bld) [Entitic vol] 10.6 fL Normal 6.2-12.0 [facility] Comment on above: Performed By: #### L 100.0100, L500.2500, L501.9520 #### [facility] [address] [place], [address] Platelets (Bld) [#/Vol] 476 10*3/uL High 150-450 [facility] Comment on above: Performed By: #### L 100.0100, L500.2500, L501.9520 #### [facility] [address] [place], [address] RBC (Bld) [#/Vol] 4.85 10*6/uL Normal 4.2-5.4 [facility] Comment on above: Performed By: #### L 100.0100, L500.2500, L501.9520 #### [facility] [address] [place], [address] RDW SD 44.6 fl High 35.1-43.9 [facility] Comment on above: Performed By: #### L 100.0100, L500.2500, L501.9520 #### [facility] [address] [place], [address] WBC (Bld) [#/Vol] 18.6 10*3/uL High 4.4-11.0 [facility] Comment on above: Performed By: #### L 100.0100, L500.2500, L501.9520 #### [facility] [address] [place], [address] Thyroid Stim Hormone (TSH)on 02-16-2024 TSH 1.620 uIU/mL Normal 0.358-3.74 0 [facility] Comment on above: Performed By: #### L 100.0100, L500.2500, L501.9520 #### [facility] [address] [place], [address] 12 Lead EKGon 02-15-2024 12 Lead EKG [facility] Cardiovascular Services [address] [place] [address] 12 Lead EKG 02/15/24 1351 MR#: [id number] Acct: [id number] Name: CHIO BUCIO LITHOP[place] Rep #: [id number] : 1985 38 From: Jeff Grigsby MD Attending Dr: Dr. Belgica Juarez DO Status: ADM I N Ordering Dr: Edy Christensen DO Date: 02/15/24 Location: [facility] Sex: F C Admitted: 02/15/24 Test Reason : DYSP Blood Pressure : */* mmHG Vent. Rate : 129 BPM Atrial Rate : 129 BPM P-R Int : 150 ms QRS Dur : 90 ms QT Int : 302 ms P-R-T Axes : 45 68 8 degrees QTcB Int : 442 ms Sinus tachycardia Nonspecific ST abnormality Abnormal ECG Confirmed by JEFF GRIGSBY MD (2015), editor school photograph WINDY HAZEL ([id number]) on 02/16/2024 10:57:32 AM Referred By: EAN Confirmed By: JEFF GRIGSBY MD 02/16/24 1057 Date Jeff Grigsby MD CC: Dr. Vasquez Irwin MD; Dr. Edy Christensen DO; Dr. Belgica Juarez DO Signed Normal [facility] Basic Metabolic Profile (BMP )on 02-15-2024 BUN/CRE 20.7 RATIO High 10-20 [facility] Comment on above: Performed By: #### L 500.2500, L501.2450, L100.0100, L500.3400 ####[facility] [address] [place], [address] CA,Total 9.7 mg/dL Normal 8.5-10.1 [facility] Comment on above: Performed By: #### L 500.2500, L501.2450, L100.0100, L500.3400 ####[facility] [address] [place], [address] Chloride [Moles/Vol] 102 mmol/L Normal 98-107 [facility] Comment on above: Performed By: #### L 500.2500, L501.2450, L100.0100, L500.3400 ####[facility] [address] [place], [address] CO2 [Moles/Vol] 27.0 mmol/L Normal 21.0-32.0 [facility] Comment on above: Performed By: #### L 500.2500, L501.2450, L100.0100, L500.3400 ####[facility] [address] [place], [address] Creatinine [Mass/Vol] 0.77 mg/dL Normal 0.55-1.02 [facility] Comment on above: Result Comment: The validity of the calculated GFR GFRAA in patients over 70 years has not been determined. Clinical correlation is essential. Performed By: #### L 500.2500, L501.2450, L100.0100, L500.3400 ####[facility] [address] [place], [address] ECRCL 161.86 ml/min Normal [facility] Comment on above: Performed By: #### L 500.2500, L501.2450, L100.0100, L500.3400 ####[facility] [address] [place], [address] EST GFR - AA 108 mL/min Normal >60 [facility] Comment on above: Result Comment: Afri can [place] GFR Calc Performed By: #### L 500.2500, L501.2450, L100.0100, L500.3400 ####[facility] [address] [place], [address] GAP 5 Normal 5-15 [facility] Comment on above: Performed By: #### L 500.2500, L501.2450, L100.0100, L500.3400 ####[facility] [address] [place], [address] GFR/1.73 sq M.predicted among non-blacks MDRD (S/P/Bld) [Vol rate/Area] 89 mL/min/{1.73_m2} Normal >60 [facility] Comment on above: Result Comment: Non- GFR Calc Performed By: #### L 500.2500, L501.2450, L100.0100, L500.3400 ####[facility] [address] [place], [address] Glucose [Mass/Vol] 143 mg/dL High 74-[address] [facility] Comment on above: Result Comment: Fast ing Glucose result greater than or equal to 126 mg/dL suggests DIABETES MELLITUS per A.D.A. criteria. Performed By: #### L 500.2500, L501.2450, L100.0100, L500.3400 ####[facility] [address] [place], [address] Potassium [Moles/Vol] 4.0 mmol/L Normal 3.5-5.1 [facility] Comment on above: Performed By: #### L 500.2500, L501.2450, L100.0100, L500.3400 ####[facility] [address] [place], [address] Sodium [Moles/Vol] 134 mmol/L Low 136-[address] [facility] Comment on above: Performed By: #### L 500.2500, L501.2450, L100.0100, L500.3400 ####[facility] [address] [place], [address] Urea nitrogen [Mass/Vol] 16 mg/dL Normal 7-18 [facility] Comment on above: Performed By: #### L 500.2500, L501.2450, L100.0100, L500.3400 ####[facility] [address] [place], [address] CBC W/Diff, Automatedon 12- SMEAR COMMENT COMMENT Normal [facility] Comment on above: Result Comment: NEUT ROPHILIA. Performed By: #### L 500.2500, L501.2450, L100.0100, L500.3400 ####[facility] [address] [place], [address] CTA Chest W/WO Contraston CTA Chest W/WO Contrast [facility] Imaging Services [address] [address] CTA Chest W/WO Contrast MR#: [id number] Acct: [id number] Name: CHIO BUCIO Rep #: [id number] : 1985 F 38 From: Steven horn MD PCP: Dr. Vasquez Irwin MD Status: REG ER Study: CTA Chest W/WO Contrast Date of Exam: 02/15/24 Exam# [id number] Ordering Dr: Edy Christensen DO [id number] STUDY: CTA CHEST REASON FOR EXAM: Female, 38 years old. pulmonary embolism s/p ebg this am PATIENT HAD EGD AT [facility] THIS MORNING. ON THE WAY HOME [...] 14:55 EST Reading Location ID and State: [facility] / [place] , Service support , CC: Dr. Vasquez Irwin MD; Dr. Edy Christensen DO Pull Worker: Signed Normal [facility] 02-15-2024 Esophagogastroduodenoscopy [facility] Patient Name: Chio Bucio Procedure Date: 02/15/2024 [...] oxygen saturations were monitored continuously. The GIF-H190 [id number] Endoscope was introduced through the mouth, and [...] was normal. Procedure Code(s): --- Professional --- 48166, Esophagogastroduodeno scopy, flexible, transoral; with biopsy, single or multiple Diagnosis Code(s): --- Professional --- K22.89, Other specified disease of esophagus K44.9, Diaphragmatic hernia without obstruction or gangrene K31.89, Other diseases of stomach and duodenum K22.10, Ulcer of esophagus without bleeding CPT copyright 2021 [employer] [place] [employer]. All rights reserved. The codes documented in this report are preliminary and upon car ferry captain review may be revised to meet current compliance requirements. MD Giacomo Macias MD 02/15/2024 9:00:28 AM This report has been signed electronically. Estimated Blood Loss: Estimated blood loss: none. Number of Addenda: 0 Note Initiated On: 02/15/2024 8:20 AM Total Procedure Duration Time 0 hours 13 minutes 35 seconds [address] [place] [address] IMPRESSION: - Normal esophagus. - Z-line irregular, [...] present medications. - Await pathology results. Normal [facility] EGD Study observation Maryjo fulton 02-15-2024 - Normal esophagus. - Z-line irregular, [...] Continue present medications. - Await pathology results. [facility] Patient Name: Chio Bucio Procedure [...] oxygen saturations were monitored continuously. The GIF-H190 [id number] Endoscope was introduced through the mouth, and [...] was normal. Procedure Code(s): --- Professional --- 39503, Esophagogastroduodeno scopy, flexible, transoral; with biopsy, single or multiple Diagnosis Code(s): --- Professional --- K22.89, Other specified disease of esophagus K44.9, Diaphragmatic hernia without obstruction or gangrene K31.89, Other diseases of stomach and duodenum K22.10, Ulcer of esophagus without bleeding CPT copyright 2021 [employer] [place] [employer]. All rights r (more content not included)... [facility] Giacomo Giang V - 02/15/2024 [facility] Patient Name: Chio Bucio Procedure [...] oxygen saturations were monitored continuously. The GIF-H190 [id number] Endoscope was introduced through the mouth, and [...] was normal. Procedure Code(s): --- Professional --- 96170, Esophagogastroduodeno scopy, flexible, transoral; with biopsy, single or multiple Diagnosis Code(s): --- Professional --- K22.89, Other specified disease of esophagus K44.9, Diaphragmatic hernia without obstruction or gangrene K31.89, Other diseases of stomach and duodenum K22.10, Ulcer of esophagus without bleeding CPT copyright 2021 [employer] [place] [employer]. All rights reserved. The codes documented in this report are preliminary and upon car ferry captain review may be revised to meet current compliance requirements. MD Giacomo Macias MD 02/15/2024 9:00:28 AM This report has been signed electronically. Estimated Blood Loss: Estimated blood loss: none. Number of Addenda: 0 Note Initiated On: 02/15/2024 8:20 AM Total Procedure Duration Time 0 hours 13 minutes [address] seconds [address] [place] [address] IMPRESSION: - Normal esophagus. - Z-line irregular, [...] Continue present medications. - Await pathology results. [facility] Radiology Study observation (narrative) [facility] Echo, Limited Studyon 2023 Echo, Limited Study [facility] Cardiovascular Services [address] [place] [address] Echo, Limited Study 02/16/24 0839 MR#: [id number] Acct: [id number] Name: CHIO BUCIO Rep #: [id number] : 1985 38 From: Jeff Grigsby MD Attending Dr: Dr. Belgica Juarez, DO Status: ADM I N Ordering Dr: Jo-Ann Willoughby MD Date: 02/15/24 Location: [facility] Sex: F C Admitted: 02/15/24 Reason For [...] Willoughby Performed By: Jo Lozano RDCS 02/16/24 1052 Date Jeff Grigsby MD CC: Dr. Vasquez Irwin MD; Dr. Belgica Juarez DO; Dr. Jo-Ann Willoughby MD Date Dictated: 02/16/24 0839 Date Transcribed: 02/16/24 105 Pull Worker: Signed Haleigh [facility] Emergency Department Summary on 02-15-2024 Emergency Department Summary [facility] Medical Records Department [address] [place] [address] Emergency Department Summary 02/15/24 MR#: [id number] Acct: [id number] Name: CHIO BUCIO Rep #: [id number] : 1985 38 From: Edy Christensen DO PCP: Dr. Vasquez Irwin MD Status:ADM IN Location: [place] [id number] HPI History of Present Illness Chief Complaint: General Illness Informant: patient and parent Narrative Narrative: 38-year-old female presenting to the emergency room with dyspnea. Patient states she woke up this morning feeling fine. She went to [employer] to [facility] and had upper endoscopy performed. She states [...] states that was expected after the procedure. [facility] Medical History Family history of heart disease [...] hydrocortisone 1 %-pramoxine 1 % 1 applic [place] TID #10 grams 02/02/24 Unknown Rx rectal [...] Oral O (more content not included)... Normal [facility] H AND P Exam - Hospitaliston 02-15-2024 H&P Exam - Hospitalist [facility] Medical Records Department [address] [place] [address] H P Exam - Hospitalist 02/15/24 1532 MR#: [id number] Acct: [id number] Name: CHIO BUCIO Rep #: [id number] : 1985 38 From: Jo-Ann Willoughby MD PCP: Dr. Vasquez Irwin MD Status:ADM IN Location: [facility] [id number] HPI - General General Date of Admission: 02/15/24 Date of Service: 02/15/24 Chief Complaint: SOB HPI Narrative CHIO BUCIO, is a 38-year-old female with history of current anxiety who presented [facility] ED 02/15/2024 with dyspnea. Woke up feeling fine but she went to [place] to [facility] and had upper endoscopy performed. On [...] or bladder. Slight sore throat after EGD. [facility] Medical History Family history of heart [...] hydrocortisone 1 %-pramoxine 1 % 1 applic [place] TID #10 grams 02/02/24 Unknown Rx rectal [...] changes in (more content not included)... Normal [facility] Lactic Acidon 02-15-2024 Lactate [Moles/Vol] 2.3 mmol/L Invalid Interpretation Code 0.4-1.9 [facility] Comment on above: Result Comment: Crit ical Result(s) Called at: 20:47:09 02/15/2024 by: Mechelle bain [facility]. Results read back by same. Performed By: #### M 200.1000 #### [facility] [address] [facility] [place], [place], [address] Lactate [Moles/Vol] 2.3 mmol/L Invalid Interpretation Code 0.4-1.9 [facility] Comment on above: Order Comment: Y Result Comment: Crit ical Result(s) Called at: 16:22:43 02/15/2024 by: FUNMI WELCH. Results read back by Raudel Arreola Performed By: #### L 503.6005, L300.3900, L300.4310 #### [facility] [address] [facility] [place], [place], [address] Legionella Antigen Urineon 1 04-17-2023 LEGU Comments: Only Recommended for severe cases of pneumonia Only Recommended for severe cases of pneumonia URINE, CLEAN CATCH Legionella Antigen result interpretation: L pneumo Ag Ur Ql Negative Presumptive negative for Legionella pneumophila serogroup 1 antigen in urine, suggesting no recent or current infection. Legionella Ag, Urine Negative (See interpretation below) Normal [facility] Comment on above: Performed By: #### M 300.4600, M300.4500 #### [facility] [address] [place], [address] Lipaseon 02-15-2024 Lipase [Catalytic activity/Vol] 25 U/L Normal 13-75 [facility] Comment on above: Result Comment: Kim carrera note: LIPASE revised reference range effective 22. New Lipase methodology. Expected to produce lower values than the previous assay method. NEW Reference Range: 13 - 75 U/L Performed By: #### L 500.2500, L501.2450, L100.0100, L500.3400 ####[facility] [address] [place], [address] Liver Profileon 02-15-2024 Albumin [Mass/Vol] 3.7 g/dL Normal 3.2-5.[address] [facility] Comment on above: Performed By: #### L 500.2500, L501.2450, L100.0100, L500.3400 ####[facility] [address] [place], [address] ALK P 223 U/L High 45-117 [facility] Comment on above: Performed By: #### L 500.2500, L501.2450, L100.0100, L500.3400 ####[facility] [address] [place], [address] ALT [Catalytic activity/Vol] 67 U/L High 13-56 [facility] Comment on above: Performed By: #### L 500.2500, L501.2450, L100.0100, L500.3400 ####[facility] [address] [place], [address] AST [Catalytic activity/Vol] 25 U/L Normal 15-37 [facility] Comment on above: Performed By: #### L 500.2500, L501.2450, L100.0100, L500.3400 ####[facility] [address] [place], [address] Bilirubin [Mass/Vol] 0.40 mg/dL Normal 0.20-1.00 [facility] Comment on above: Result Comment: For patients on eltrombopag therapy, use of Dimension [place] TBIL is not recommended. Performed By: #### L 500.2500, L501.2450, L100.0100, L500.3400 ####[facility] [address] [place], [address] Bilirubin.direct [Mass/Vol] 0.16 mg/dL Normal 0.00-0.3 0 [facility] Comment on above: Performed By: #### L 500.2500, L501.2450, L100.0100, L500.3400 ####[facility] [address] [place], [address] Globulin (S) [Mass/Vol] 4.6 g/dL High 2.2-4.2 [facility] Comment on above: Performed By: #### L 500.2500, L501.2450, L100.0100, L500.3400 ####[facility] [address] [place], [address] T PROT 8.3 g/dL High 6.4-8.2 [facility] Comment on above: Performed By: #### L 500.2500, L501.2450, L100.0100, L500.3400 ####[facility] [address] [place], [address] M100.678on 12-18-2024 M100.678 Pending SARS-CoV-2 (COVID 19) Negative INFLUENZA A Negative INFLUENZA B Negative RSV PCR Negative Normal [facility] Comment on above: Performed By: #### M 200.1000 #### [facility] [address] [facility], [address] Partial Thromboplast Timeon 02-15-2024 aPTT Coag (Bld) [Time] 27.6 s Normal 24.1-36.2 [facility] Comment on above: Performed By: #### L 503.6005, L300.3900, L300.4310 ####[facility] [address] [facility], [address] Pathology studyon 02-15-2024 Pathology study A. Stomach, biopsy: Antral and fundic type mucosa with mild chronic gastritis. Immunostain for Helicobacter pylori bacteria is negative. B. Gastroesophageal junction, biopsy: Gastric type mucosa with mild chronic inflammation. Negative for intestinal metaplasia. A. Stomach, Gastric Bx: Received in formalin labeled with the patient's name and gastric biopsy are 2 fragments of dobbins tissue from 0.1-0.6 cm. Filtered into a mesh bag and entirely submitted in cassette A1. (LRS) B. Esophagus, GE junction Bx: Received in formalin labeled with the patient's name and GE junction are 2 fragments of whipple tissue from 0.1-0.2 cm. Filtered into a mesh bag and entirely submitted in cassette B1. Any immunohistochemistry or special stain used in the interpretation of this case was performed at [facility]. These tests have not [...] was performed at [facility], [address] [place] [address]. Microscopic examination was performed. Normal [facility] Comment on above: Performed By: #### 1 1526-1 #### [facility] [address] [place] [address] Prothrombin Time w/INRon INR Coag (PPP) [Relative time] 1.0 {INR} Normal [facility] Comment on above: Performed By: #### L 503.6005, L300.3900, L300.4310 ####[facility] [address] [place], [address] PT Coag (PPP) [Time] 13.2 s Normal 11.7-14.9 [facility] Comment on above: Performed By: #### L 503.6005, L300.3900, L300.4310 ####[facility] [address] [place], [address] RESPIRATORY PANEL MOLECULARo n 02-15-2024 RP PANEL [...] Detected RSV B Not Detected RHINOVIRUS Normal [facility] Comment on above: Performed By: #### M 100.638 #### [facility] [address] [facility] [place], [address] Strep pneumoniae Antig(UR,CS F)on 02-15-2024 STPAG Comments: [...] Test Negative URINE (See interpretation below) Normal [facility] Comment on above: Performed By: #### M 300.4600, M300.4500 #### [facility] [address] [place], [address] Emergency Department Summary on 02-02-2024 Emergency Department Summary [facility] Medical Records Department [address] [place] [address] Emergency Department Summary 02/02/24 MR#: [id number] Acct: [id number] Name: CHIO BUCIO Rep #: [id number] : 1985 38 From: Nydia RUST PCP: [...] She denies abdominal pain, fevers, and chills. [facility] Medical History Family history of heart disease [...] hydrocortisone 1 %-pramoxine 1 % 1 applic [place] TID #10 grams 02/02/24 Unknown Rx rectal [...] o'clock positi (more content not included)... 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 The [employer] ([employer]) Absolute Quantitation software will compare the patient specimen valuse to the standard curves and generate percent values for wild type and mutant type. In vitro studies have indicated that this assay has an analytical sensitivity of 1%. . References: Pj LOMAX, Farooq LUCAS, Forrest PJ, et al. Acquired mutation of the tyrosine kinase JAK2 in human myeloproliferative disorders. Lancet. 2005 May 16-; 365(8967):1370-6812. Octaviano Cancino, Karlo V, Marck Beth JP. A unique clonal JAK2 mutation leading to constitutive signaling causes polycythaemia vera. Nature. 2005 Jun 25; 434(9216):1801-8330. Chaitanya R, Lili F, Poly , et al. A xfof-qa-mfewhqph mutation of JAK2 in myeloproliferative disorders. N Engl J Med. 2005 Jun 25; 352(81):5213-9129. Performed at: [facility] Performed By: #### 2 498-4, 2499-7 #### [facility] [address] [place] [address] [employer] - Sydnie BANERJEE [id number] Director Review: Comment Normal [facility] Comment on above: Result Comment: Tech nical Component performed at [employer] Component performed by: [employer] Halle Carcamo, PhD, [facility] Director, Molecular Oncology [address] [place] [address] This test was developed and its performance characteristics determined by [employer]. It has not been cleared or approved by the Food and Drug Administration. Performed at: [facility] Performed By: #### 2 498-4, 2499-7 #### [facility] [address] [place] [address] [employer] - Sydnie BANERJEE [id number] JAK2 V617F mutation detection Comment [facility] Comment on above: Result Comment: Resu lt: [...] Performed By: #### 2 498-4, 2499-7 #### [facility] [address] [place] [address] [employer] - Sydnie BANERJEE [id number] PAPO BY IFA WITH REFLEXon Antinuclear Antibodies, IFA Negative [facility] Comment on above: Result Comment: Nega tive <1:80 Borderline 1:80 Positive >1:80 ICAP nomenclature: AC-0 For more information about Hep-2 cell patterns use ANApatterns.org, the official website for the International Consensus on Antinuclear Antibody (PAPO) Patterns (ICAP). Performed By: #### 2 498-4, 2499-7 #### [facility] [address] [place] [address] [employer] - Sydnie [employer] BANERJEE [id number] Please Note: Comment Normal [facility] Comment on above: Result Comment: PAPO Multiplex methodology was designed to detect up to 11 antibodies of the 100+ antibodies that may be detected by PAPO IFA methodology. Performed By: #### 2 498-4, 2499- #### [facility] [address] [place] [address] Pastry Cook Helper - Sydnie BANERJEE [id number] CELIAC DISEASE Abson 024 Deamidated Gliadin Abs, IgA 4 units Normal 0-19 [facility] Comment on above: Result Comment: Nega tive 0 - 19 Weak Positive 20 - 30 Moderate to Strong Positive >30 Performed By: #### 2 498-4, 2499-7 #### [facility] [address] [facility] [address] [place] [address] [facility] Cook [facility] DIMITRISIA [id number] Deamidated Gliadin Abs, IgG 3 units Normal 0-[address] [place] [address] Comment on above: Result Comment: Nega tive 0 - 19 Weak Positive 20 - 30 Moderate to Strong Positive >30 Performed By: #### 2 498-4, 2499-7 #### [facility] [address] [place] [address] Pastry Cook Helper - Sydnie Funk CLIA [id number] Endomysial Antibody IgA Negative Normal Negative [facility] Comment on above: Performed By: #### 2 498-4, 2499-7 #### [facility] [address] [facility] [address] [place] [address] Pastry Cook Helper - Sydnie SHANKSIA [id number] Immunoglobulin A, Qn, Serum 148 mg/dL Normal 87-352 [facility] Comment on above: Performed By: #### 2 498-4, 2499-08 #### [facility] [address] [place] [address] Pastry Cook Helper - Sydnie BANERJEE [id number] t-Transglutaminase (tTG) IgA <2 Normal 0-3 [facility] Comment on above: Result Comment: Nega tive 0 - 3 Weak Positive 4 - 10 Positive >10 . Tissue Transglutaminase (tTG) has been identified as the endomysial antigen. Studies have demonstr- ated that endomysial IgA antibodies have over 99% specificity for gluten sensitive enteropathy. Performed By: #### 2 498-4, 2499- #### [facility] [address] [place] [address] Pastry Cook Helper - [facility] LAVONNE [id number] t-Transglutaminase (tTG) IgG 3 U/mL Normal 0-5 [facility] Comment on above: Result Comment: Nega tive 0 - 5 Weak Positive 6 - 9 Positive >9 Performed By: #### 2 498-4, 2499-7 #### [facility] [address] [place] [address] Pastry Cook Helper - Sydnie BANERJEE [id number] BCR/ABL BLOOD OR BONE MARROW ,T(9;22),QUANTon 12-21-2023 Receiving Status Accessioned in Lab Normal [facility] Comment on above: Performed By: #### B CR/ABL BLOOD OR BONE MARROW,T(9;22),QUANT #### [facility] (DEFAULT) [address] [place] [address] C REACTIVE PROTEINon 024 CRP [Mass/Vol] 29 mg/L High <=10 [facility] Comment on above: Performed By: #### 2 498-4, 2499- #### [facility] [address] [place] [address] Pastry Cook Helper - Sydnie BANERJEE [id number] CBC W Auto Differential pane l (Bld)on 12-21-2023 Basophils (Bld) [#/Vol] 0.02 10*3/uL Normal <=0.70 [facility] Comment on above: Performed By: #### 2 498-4, 2499-08 #### [facility] [address] [place] [address] Pastry Cook Helper - Sydnie SHANKSIA [id number] Basophils/100 WBC (Bld) 0.2 % Normal <=2.0 [facility] Comment on above: Performed By: #### 2 498-4, 2499-08 #### [facility] [address] [place] [address] Pastry Cook Helper - Sydnie SHANKSIA [id number] Eosinophils (Bld) [#/Vol] 0.01 10*3/uL Normal <=0.70 [facility] Comment on above: Performed By: #### 2 498-4, 2499-08 #### [place] [address] [facility] [place] [address] Pastry Cook Helper - Sydnie SHANKSIA [id number] Eosinophils/100 WBC (Bld) 0.1 % Normal <=10.0 [facility] Comment on above: Performed By: #### 2 498-4, 2499-08 #### [facility] [address] [facility] [address] [place] [address] Pastry Cook Helper - Sydnie SHANKSIA [id number] Erythrocyte distribution width (RBC) [Entitic vol] 42.6 fL Normal 36.4-46.3 [facility] Comment on above: Performed By: #### 2 498-4, 2499-08 #### [facility] [address] [facility] [address] [place] [address] Pastry Cook Helper - Sydnie SHANKSIA [id number] Hematocrit (Bld) [Volume fraction] 37.1 % Normal 37.0-47.0 [facility] Comment on above: Performed By: #### 2 498-4, 2499-08 #### [facility] [address] [facility] [place] [address] Pastry Cook Helper - Sydnie SHANKSIA [id number] Hemoglobin (Bld) [Mass/Vol] 11.5 g/dL Low 12.0-16. 0 [facility] Comment on above: Performed By: #### 2 498-4, 2499-08 #### [facility] [address] [facility] [address] [place] [address] Pastry Cook Helper - Sydnie Funk CLIA [id number] Immature granulocytes (Bld) [#/Vol] 0.04 10*3/uL Normal <=0.10 [facility] Comment on above: Performed By: #### 2 498-4, 2499-08 #### [place] [address] [facility] [place] [address] Pastry Cook Helper - Sydnie Funk CLIA [id number] Immature granulocytes/100 WBC (Bld) 0.40 % Normal <=1.50 [facility] Comment on above: Performed By: #### 2 498-4, 2499-08 #### [address] [place] [address] Pastry Cook Helper - Sydnie Funk CLIA [id number] Lymphocytes (Bld) [#/Vol] 2.16 10*3/uL Normal 1.20-3.4 0 [facility] Comment on above: Performed By: #### 2 498-4, 2499-08 #### [place] [address] Pastry Cook Helper - Sydnie Funk CLIA [id number] Lymphocytes/100 WBC (Bld) 20.9 % Normal 20.0-40.0 [facility] Comment on above: Performed By: #### 2 498-4, 2499-08 #### [place] [address] [facility] [place] [address] Pastry Cook Helper - Sydnie SHANKSIA [id number] MCH (RBC) [Entitic mass] 22.2 pg Low 27.0-31.0 [facility] Comment on above: Performed By: #### 2 498-4, 2499-08 #### [facility] [address] [facility] [address] [place] [address] Pastry Cook Helper - Sydnie Funk CLIA [id number] MCHC (RBC) [Mass/Vol] 31.0 g/dL Low 32.0-36.0 [facility] Comment on above: Performed By: #### 2 498-4, 2499-08 #### [place] [address] [place] [address] Pastry Cook Helper - Sydnie BANERJEE [id number] MCV (RBC) [Entitic vol] 71.5 fL Low 80.0-100.0 [facility] Comment on above: Performed By: #### 2 498-4, 2499-08 #### [address] [place] [address] Pastry Cook Helper - Sydnie SHANKSIA [id number] Monocytes (Bld) [#/Vol] 0.35 10*3/uL Normal 0.10-0.60 [facility] Comment on above: Performed By: #### 2 498-4, 2499-08 #### [address] [place] [address] Pastry Cook Helper - Sydnie SHANKSIA [id number] Monocytes/100 WBC (Bld) 3.4 % Normal <=8.0 [facility] Comment on above: Performed By: #### 2 498-4, 2499-08 #### [address] [place] [address] Pastry Cook Helper - Sydnie SHANKSIA [id number] Neutrophils (Bld) [#/Vol] 7.75 10*3/uL High 1.40-6.5 0 [facility] Comment on above: Performed By: #### 2 498-4, 2499-08 #### [place] [address] [place] [address] Pastry Cook Helper - Sydnie SHANKSIA [id number] Neutrophils/100 WBC (Bld) 75.0 % High 50.0-70.0 [facility] Comment on above: Performed By: #### 2 498-4, 2499- #### [address] [place] [address] Pastry Cook Helper - Sydnie SHANKSIA [id number] Nucleated RBC (Bld) [#/Vol] 0.00 10*3/uL Normal <=0.10 [facility] Comment on above: Performed By: #### 2 498-4, 2499-08 #### [facility] [address] [place] [address] Pastry Cook Helper - Sydnie SHANKSIA [id number] Platelet mean volume (Bld) [Entitic vol] 11.0 fL Normal 9.0-13.0 [facility] Comment on above: Performed By: #### 2 498-4, 2499- #### [facility] [address] [place] [address] Pastry Cook Helper - Sydnie SHANKSIA [id number] Platelets (Bld) [#/Vol] 496 10*3/uL High 130-400 [facility] Comment on above: Performed By: #### 2 498-4, 2499-08 #### [facility] [address] [place] [address] Pastry Cook Helper - Sydnie SHANKSIA [id number] RBC (Bld) [#/Vol] 5.19 10*6/uL Normal 4.00-6.30 [facility] Comment on above: Performed By: #### 2 498-4, 2499-08 #### [facility] [address] [place] [address] [employer] Cook Helper - Sydnie SHANKSIA [id number] WBC (Bld) [#/Vol] 10.33 10*3/uL Normal 4.80-10.80 [facility] Comment on above: Performed By: #### 2 498-4, 2499-08 #### [facility] [address] [place] [address] [employer]ry Cook Helper - Sydnie SHANKSIA [id number] CRP [Mass/Vol]on 12-21-2023 HCRP CRP INTERPRETATION A single CRP determination is of limited diagnostic value while serial determinations help in establishing the trend of an ongoing inflammatory process. CRP values must be interpreted together with other clinical symptoms. Normal values should only be used as a guide. Normal [facility] Comment on above: Performed By: #### 2 498-4, 2499-7 #### [facility] [address] [place] [address] Pastry Cook Helper - Sydnie SHANKSIA [id number] Comprehensive metabolic 2000 panelon 12-21-2023 Albumin [Mass/Vol] 3.8 g/dL Normal 3.4-5.0 [facility] Comment on above: Performed By: #### 2 498-4, 2499-7 #### [facility] [address] [place] [address] Pastry Cook Helper - Sydnie Fukn CLIA [id number] ALP [Catalytic activity/Vol] 244 U/L High 50-136 [facility] Comment on above: Performed By: #### 2 498-4, 2499-08 #### [facility] [address] [place] [address] Pastry Cook Helper - Sydnie SHANKSIA [id number] ALT [Catalytic activity/Vol] 159 U/L High 14-59 [facility] Comment on above: Performed By: #### 2 498-4, 2499-08 #### [facility] [address] [place] [address] Pastry Cook Helper - Sydnie SHANKSIA [id number] Anion gap [Moles/Vol] 10.0 mmol/L Normal <=15.0 [facility] Comment on above: Performed By: #### 2 498-4, 2499-08 #### [facility] [address] [place] [address] Pastry Cook Helper - Sydnie SHANKSIA [id number] AST [Catalytic activity/Vol] 69 U/L High 15-37 [facility] Comment on above: Performed By: #### 2 498-4, 2499- #### [facility] [address] [place] [address] Pastry Cook Helper - Sydnie SHANKSIA [id number] Bilirubin [Mass/Vol] 0.5 mg/dL Normal 0.2-1.0 [facility] Comment on above: Performed By: #### 2 498-4, 2499- #### [facility] [address] [place] [address] Pastry Cook Helper - Sydnie SHANKSIA [id number] Calcium [Mass/Vol] 9.9 mg/dL Normal 8.5-10.1 [facility] Comment on above: Performed By: #### 2 498-4, 2499-08 #### [facility] [address] [place] [address] Pastry Cook Helper - Sydnie SHANKSIA [id number] Chloride [Moles/Vol] 106 mmol/L Normal 98-107 [facility] Comment on above: Performed By: #### 2 498-4, 2499-08 #### [facility] [address] [place] [address] Pastry Cook Helper - Sydnie SHANKSIA [id number] CO2 [Moles/Vol] 23 mmol/L Normal 21-32 [facility] Comment on above: Performed By: #### 2 498-4, 2499-08 #### [facility] [address] [place] [address] Pastry Cook Helper - Sydnie SHANKSIA [id number] Creatinine [Mass/Vol] 0.57 mg/dL Normal 0.51-0.95 [facility] Comment on above: Performed By: #### 2 498-4, 2499-08 #### [facility] [address] [place] [address] Pastry Cook Helper - Sydnie BANERJEE [id number] GFR/1.73 sq M.predicted MDRD (S/P/Bld) [Vol rate/Area] mL/min/{1.73_m2} Normal >=60 [facility] Comment on above: Performed By: #### 2 498-4, 2499-08 #### [facility] [address] [place] [address] Pastry Cook Helper - Sydnie SHANKSIA [id number] Glucose [Mass/Vol] 119 mg/dL High 74-106 [facility] Comment on above: Performed By: #### 2 498-4, 2499-08 #### [facility] [address] [place] [address] Pastry Cook Helper - Sydnie BANERJEE [id number] HGFR GLOMERULAR FILTRATIO N RATE INTERPRETATION~The eGFR [...] months, with or without kidney damage.~ Normal [facility] Comment on above: Performed By: #### 2 498-4, 2499-08 #### [facility] [address] [facility] [place] [address] Pastry Cook Helper - [facility] DIMITRISIA [id number] Potassium [Moles/Vol] 3.9 mmol/L Normal 3.5-5.1 [facility] Comment on above: Performed By: #### 2 498-4, 2499-08 #### [facility] [address] [facility] [place] [address] Pastry Cook Helper - [facility] LAVONNE [id number] Protein [Mass/Vol] 7.8 g/dL Normal 6.4-8.2 [facility] Comment on above: Performed By: #### 2 498-4, 2499-08 #### [facility] [address] [facility] [place] [address] [facility] DIMITRISIA [id number] Sodium [Moles/Vol] 139 mmol/L Normal 136-145 [facility] Comment on above: Performed By: #### 2 498-4, 2499-08 #### [facility] [address] [facility] [place] [address] Pastry Cook Helper - Sydnie Funk CLBERNICE [id number] Urea nitrogen [Mass/Vol] 18 mg/dL High 7-17 [facility] Comment on above: Performed By: #### 2 498-4, 2499-08 #### [facility] [address] [place] [address] Pastry Cook Helper - Sydnie BANERJEE [id number] FERRITINon 12-21-2023 Ferritin [Mass/Vol] 23 ng/mL Normal 6-137 [facility] Comment on above: Performed By: #### 2 498-4, 2499-08 #### [facility] [address] [place] [address] Pastry Cook Helper - Sydnie BANERJEE [id number] FOLATEon 12-21-2023 Folate [Mass/Vol] 18.2 ng/mL High 3.1-17.5 [facility] Comment on above: Performed By: #### 2 498-4, 2499-08 #### [facility] [address] [place] [address] Pastry Cook Helper - Sydnie BANERJEE [id number] IRONon 12-21-2023 Iron [Mass/Vol] 31 ug/dL Low 50-170 [facility] Comment on above: Performed By: #### 2 498-4, 2499-08 #### [facility] [address] [place] [address] Pastry Cook Helper - Sydnie BANERJEE [id number] IRON BINDING CAPACITYon 11-29 Iron binding capacity [Mass/Vol] 399 ug/dL Normal 250-450 [facility] Comment on above: Performed By: #### 2 498-4, 2499-08 #### [facility] [address] [place] [address] Pastry Cook Helper - Sydnie BANERJEE [id number] VITAMIN B12on 12-21-2023 Cobalamin (Vitamin B12) [Mass/Vol] 789 pg/mL Normal 254-1320 [facility] Comment on above: Performed By: #### 2 498-4, 2499-08 #### [facility] [address] [place] [address] Pastry Cook Helper - Sydnie BANERJEE [id number] STOOL OCCULT BLOOD SCREENon 12-20-2023 Occult blood panel (Stl) Positive Abnormal NEGATIVE [facility] Comment on above: Performed By: #### 2 498-4, 2500-7 #### [facility] [address] [place] [address] Pastry Cook Helper - Sydnie Funk LAVONNE [id number] CNOVon 11-14-2023 CNOV Office Visit (OBGYWM ) FORTUNATOCHIO B ([id number]) 1985 F Date Time Provider Department 11/14/23 10:00 AM QUETA OLIVEIRA OBGYWM During your visit today, we recorded the following information about you: Blood pressure Weight Height Last Period 132/86 171.5 kg 1.651 m 11/04/23 Queta Oliveira APRN.CNM 11/14/2023 12:11 PM 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 Chio is a 38 year old who presents for an annual gynecologic exam without complaints. Yuli Barton NP. Has prediabetes, hgbA1C elevated at 6. Seeing Haleigh Campbell for weight loss and taking wegovy and just started and has appointment with survey interviewer. Menses: cycles every 30 days and 5 [...] L0 SAB0 IAB0 Ectopic0 Multiple0 Live Births0 Duct Layer Supervisor History LMP: 11/04/2023 (Within Days), Having periods Age at Menarche: Age at First : Age at Menopause: Duct Layer Supervisor History Comments: Sexual Activity: Yes; Male Contraception: [...] discussed with the Patient or Patient's Authorized Embedder. As applicable, any other physician, advance practice provider, medical student, or other health professional student that will be observing or involved in the sensitive examination for educational or training purposes was discussed with the Patient or Authorized Embedder. The Patient or Authorized Embedder has agreed to proceed with the sensitive examination. (Sensitive examination includes inspection and/or palpation of the breasts, pelvis, prostate and anorectal regions). EXAM: BP 132/86 Ht 5' 5 (1.65m) Wt 378 lb (171.5kg) LMP 11/04/2023 [...] external genitalia normal, normal Bartholin's glands, urethra, [place]'s glands, no vulvar lesions, no cervical lesions, [...] human papillomavi (more content not included)... Normal [facility] HIGH RISK HUMAN PAPILLOMA JUANY (HPV), PCR FOR DETECTION AND GENOTYPINGon 11-14-2023 HPV 16 Ag Ql (Unsp spec) Not detected Normal Not detected [facility] Comment on above: Order Comment: Speci men Type: FLUID SPECIMEN Ordering Facility: [facility] Address: [address] [place] [address] Performed By: #### L [id number], HPVHRT #### [facility] CLIA [id number] [address] [place] [address] [place] HPV 18 Ag Ql (Unsp spec) Not detected Normal Not detected [facility] Comment on above: Order Comment: Speci men Type: FLUID SPECIMEN Ordering Facility: [facility] Address: [address] [place] [address] Performed By: #### L [id number], HPVHRT #### [facility] CLIA [id number] [address] [place] [address] [place] HPV 31+33+35+39+45+51+52+56+58+ 59+66+68 DNA MERARI+probe Ql (Cvx) Not detected Normal Not detected [facility] Comment on above: Order Comment: Speci men Type: FLUID SPECIMEN Ordering Facility: [facility] Address: [address] [place] [address] Result Comment: High Risk HPV Other Type includes HPV types 31, 33, 35, 39, 45, 51, 52, 56, 58, 59, 66 and 68. Performed By: #### L [id number], HPVHRT #### [facility] CLIA [id number] [address] [place] [address] [place] PAP TESTon 11-14-2023 ADEQUACY Satisfactory for interpretation. Normal [facility] Comment on above: Order Comment: Speci men Type: FLUID SPECIMEN Ordering Facility: [facility] Address: [address] [place] [address] Performed By: #### L [id number], HPVHRT #### [facility] CLIA [id number] [address] [place] [address] [place] CASE REPORT Normal [facility] Comment on above: Order Comment: Speci men Type: FLUID SPECIMEN Ordering Facility: [facility] Address: [address] [place] [address] Result Comment: Gyne cologic Cytology Report Case: [id number] Authorizing Provider: Queta Oliveira APRN.CNM Collected: 11/14/2023 10:33 AM Ordering Location: OB/Gynecology Received: 11/14/2023 01:41 PM First Screen: Perry Miller Tech Specimen: Pap Test, ThinPrep, Cervix Performed By: #### L [id number], HPVHRT #### [facility] CLIA [id number] [address] [place] [address] [place] CLINICAL HISTORY, CYTOLOGY, TELEPHONE ANSWERING SERVICE OPERATOR Previous Abnormal Pap Normal [facility] Comment on above: Order Comment: Speci men Type: FLUID SPECIMEN Ordering Facility: [facility] Address: [address] [place] [address] Performed By: #### L [id number], HPVHRT #### [facility] CLIA [id number] [address] [place] [id number] [place] CYTOLOGY PAP OTHER INT Predominance of coccobacilli consistent with shift in vaginal kamille Normal [facility] Comment on above: Order Comment: Speci men Type: FLUID SPECIMEN Ordering Facility: [facility] Address: [address] [place], [place] [address] Performed By: #### L [id number], HPVHRT #### [facility] CLIA [id number] [address] [place], [place] [address] [place] FINAL PERFORMING LAB Normal [facility] Comment on above: Order Comment: Speci men Type: FLUID SPECIMEN Ordering Facility: [facility] Address: [address] [place], [place] [address] Result Comment: Tech nical component, asbestos worker screening performed at [facility], [address] [place] [address] [place] [address] CLIA# [id number] Diagnostic interpretation performed at [facility], [address] [place] [address] [place] [address] CLIA# [id number] Entertainment Production Professional: Charles Fry M.D. Performed By: #### L [id number], HPVHRT #### [facility] CLIA [id number] [address] [place], [place] [address] [place] HPV REFLEX Yes HPV Normal [facility] Comment on above: Order Comment: Speci men Type: FLUID SPECIMEN Ordering Facility: [facility] Address: [address] [place], [place] [address] Performed By: #### L [id number], HPVHRT #### [facility] CLIA [id number] [address] [place], [place] [address] [place] INTERPRETATION, CYTOLOGY, TELEPHONE ANSWERING SERVICE OPERATOR Normal [facility] Comment on above: Order Comment: Speci men Type: FLUID SPECIMEN Ordering Facility: [facility] Address: [address] [place], [place] [address] Result Comment: Nega tive for intraepithelial lesion or malignancy. Performed By: #### L [id number], HPVHRT #### [facility] CLIA [id number] [address] [place] [address] [place] LMP 11/04/2023 Normal [facility] Comment on above: Order Comment: Speci men Type: FLUID SPECIMEN Ordering Facility: [facility] Address: [address] [place] [address] Performed By: #### L [id number], HPVHRT #### [facility] CLIA [id number] [address] [place] [address] [place] PAP DISCLAIMER COMMENT The Pap Smear is a screening test for cervical cancer. False negative results occur with all screening tests, emphasizing the need for rescreening at recommended intervals, and clinical correlation. Normal [facility] Comment on above: Order Comment: Speci men Type: FLUID SPECIMEN Ordering Facility: [facility] Address: [address] [place] [address] Performed By: #### L [id number], HPVHRT #### [facility] CLIA [id number] [address] [place] [address] [place] PAP HEALTH RECORD TECHNICIAN COMMENT This specimen has been analyzed by the ThinPrep Imaging System, an automated imaging and review system, which assists the laboratory in evaluating cells on ThinPrep Pap tests. Following automated imaging, selected anderson from every slide are reviewed by a asbestos worker. Normal [facility] Comment on above: Order Comment: Speci men Type: FLUID SPECIMEN Ordering Facility: [facility] Address: [address] [place] [address] Performed By: #### L [id number], HPVHRT #### [facility] CLIA [id number] [address] [place] [address] [place] Assessment of wrist artery p atency prior to arterial punctureOrdered By: Maryann Cruz on 06-21-2023 Arterial patency Wrist artery --pre arterial puncture Positive [facility] Base excessOrdered By: Lorne gambino Nancy on 06-21-2023 Base excess Calc (BldV) [Moles/Vol] -2 mmol/L -2-2 [facility] Basophil percentageOrdered B y: Maryann Nancy on 06-21-2023 Basophil percentage 24 mmol/L [facility] Basophils/100 WBC (Bld) 82 % 95-99 [place] [facility], pHOrdered By: Julita villegasedypark Cruz on 06-21-2023 pH (Unsp spec) 7.41 [pH] 7.35-7.45 [facility] No Panel InformationOrdered By: Maryann Cruz on 06-21-2023 Arterial Blood Partial Pressure CO2 35.0 mmHg 35-45 [facility] Arterial Blood Partial Pressure O2 45 mmHG 75-100 [facility] Blood Gas Bicarbonate Actual 22.4 mmol/L 22-26 [facility] Blood Gas Notified Whom Venkatesh CRUZ W [facility] Blood Gas Sample Site R Radial [facility] Blood Gas Specimen Type DANIAL W [facility] Comment on above: Previous reported re sult: ART Edited by: WBBARBER on 06/21/23:1125 AMENDED REPORT 06/21/23 1125 BLD GAS TYPE previously reported as: ART RESULTED. CHANGING RESULT TO VENOUS. Blood Gas Vent Mode Not entered [facility] Oxygen Delivery Device Room Air [facility] XR HAND LEFT 3+ VIEWS (STAND [...] ID: [id number] Dictated by: ROBERTA HERNANDEZ on [facility] Jul 31, 2022 10:09:03 PM EDT Transcribed by: ROBERTA HERNANDEZ on [facility] Jul 31, 2022 10:09:03 PM EDT Finalized by: ROBERTA HERNANDEZ on [facility] Jul 31, 2022 10:09:03 PM EDT [facility] Comment on above: Order Comment: Injur y/Trauma [...] No fracture Workstation ID: [id number] Dictated by: FENRANDO ZAVALA on [facility] Jul 31, 2022 10:04:52 PM EDT Transcribed by: FERNANDO ZAVALA on [facility] Jul 31, 2022 10:04:52 PM EDT Finalized by: FERNANDO ZAVALA on [facility] Jul 31, 2022 10:04:52 PM EDT Normal [facility] Comment on above: Order Comment: Injur y/Trauma or Illness?:Injury/Trauma How long have you had these symptoms (acute/chronic)?:Acute Reason for exam?:Left upper arm pain History of cancer?:u Surgeries, chemotherapy, or radiation?:u Type of Exam?:Initial Mechanism of injury?:Fall COVID-19, MOLECULARon 2022 SARS-CoV-2 (COVID-19) Ab IA Ql Not detected Normal Not Detected [facility] Comment on above: Result Comment: This test [...] at the following links: For Healthcare Providers: https://www.fda.gov/media/777495/download For Patients: https://www.fda.gov/media/029621/download Auto Diffon 07-12-2018 Basophils #/vol (Bld) 0.1 E3/mcL Normal 0.0-0.2 [facility] Comment on above: Order Comment: Order Added by Discern Expert. Performed By: #### 2 [id number] #### TROY RemHemo [address] [place] [address] Basophils/100 WBC (Bld) 1.3 % Normal 0.0-2.[address] [facility] Comment on above: Order Comment: Order Added by Discern Expert. Performed By: #### 2 [id number] #### TROY RemHemo [address] [place] [address] Eos Absolute 0.1 E3/mcL Normal 0.0-0.[address] [facility] Comment on above: Order Comment: Order Added by Discern Expert. Performed By: #### 2 [id number] #### TROY RemHemo [address] [place] [address] Eosinophils/100 WBC (Bld) 1.0 % Normal 0.0-11.[address] [facility] Comment on above: Order Comment: Order Added by Discern Expert. Performed By: #### 2 [id number] #### TROY RemHemo [address] [place] [address] Lymphocytes #/vol (Bld) 2.8 E3/mcL Normal 1.2-3.[address] [facility] Comment on above: Order Comment: Order Added by Discern Expert. Performed By: #### 2 [id number] #### TROY RemHemo [address] [place] [address] Lymphocytes/100 WBC (Bld) 27.3 % Normal 20.0-55.[address] [facility] Comment on above: Order Comment: Order Added by Discern Expert. Performed By: #### 2 [id number] #### TROY RemHemo [address] [place] [address] Sussex Absolute 0.3 E3/mcL Normal 0.0-0.[address] [facility] Comment on above: Order Comment: Order Added by Discern Expert. Performed By: #### 2 [id number] #### TROY RemHemo [address] [place] [address] Monocytes/100 WBC (Bld) 3.1 % Normal 0.0-10.[address] [facility] Comment on above: Order Comment: Order Added by Discern Expert. Performed By: #### 2 [id number] #### TROY RemHemo [address] [place] [address] Neutro Absolute 6.8 E3/mcL High 1.4-6.[address] [facility] Comment on above: Order Comment: Order Added by Discern Expert. Performed By: #### 2 [id number] #### TROY RemHemo [address] [place] [id number] Neutro Auto 67.3 % Normal 37.0-75.[address] [facility] Comment on above: Order Comment: Order Added by Discern Expert. Performed By: #### 2 [id number] #### TROY RemHemo [address] [place] [address] BhCG Qualon 07-12-2018 HCG.beta subunit Qn Negative Normal Negative [facility] Comment on above: Performed By: #### 2 [id number] #### TROY Chemistry Manual Subsection [address] [place] [id number] CBC w/ Auto Diffon 9 Erythrocyte distribution width Ratio (RBC) 15.1 % High 11.5-14.[address] [facility] Comment on above: Performed By: #### 2 [id number] #### TROY RemHemo [address] [place] [address] Hematocrit Volume Fraction (Bld) 36.0 % Normal 36.0-48.[address] [facility] Comment on above: Performed By: #### 2 [id number] #### TROY RemHemo [address] [place] [address] Hemoglobin mass conc (Bld) 11.6 g/dL Low 12.0-16.[address] [facility] Comment on above: Performed By: #### 2 [id number] #### TROY RemHemo [address] [place] [address] MCH Entitic mass (RBC) 25.4 pg Low 27.0-31.0 [facility] Comment on above: Performed By: #### 2 [id number] #### TROY RemHemo [address] [place] [id number] MCHC mass conc (RBC) 32.1 g/dL Low 33.0-37.0 [facility] Comment on above: Performed By: #### 2 [id number] #### TROY MastersHemo [address] [place] [id number] MCV Entitic volume (RBC) 79.1 fL Normal 78.0-100.[address] [facility] Comment on above: Performed By: #### 2 076940 #### TROY MastersHemo [facility] [place] [id number] Platelet mean volume Entitic volume (Bld) 9.3 fL Normal 7.4-11.[address] [facility] Comment on above: Performed By: #### 2 [id number] #### TROYPark MastersHemo [facility] [place] [phone] Platelets #/vol (Bld) 372 E3/mcL Normal 130-400 [facility] Comment on above: Performed By: #### 2 [id number] #### TROYPark Crenshawo [facility] [place] [id number] RBC #/vol (Bld) 4.55 E6/mcL Normal 3.90-5.40 [facility] Comment on above: Performed By: #### 2 [id number] #### TROYPark Crenshawo [facility] [place] [id number] WBC #/vol (Bld) 10.1 E3/mcL Normal 3.6-11.0 [facility] Comment on above: Performed By: #### 2 [id number] #### TROYPark Crenshawo [facility] [place] [address] Morphon 07-12-2018 RBC morphology finding Nom (Bld) NORMAL Normal [facility] Comment on above: Order Comment: Order Added by Discern Expert. Performed By: #### 1 [id number] #### TROYPark Crenshawo [facility] [place] [id number] Troponin-Ion 07-12-2018 Troponin I.cardiac mass conc ng/mL Normal 0.00-0.[address] [facility] Comment on above: Performed By: #### 2 [id number] #### TROY RemHemo [address] [place] [phone] XR Chest 2 Viewson 9 XR Chest 2 Views Exam Date/Time: 07/12/2018 19:10 EDT Reason for Exam: Chest pain Report STUDY: XR Chest 2 Views; 07/12/2018 7:10 pm INDICATION: Chest pain. COMPARISON: None. ACCESSION NUMBER(S): [id number] ORDERING CLINICIAN: Ender Tolliver FINDINGS: PA and lateral views of the chest were obtained. No focal infiltrate, pleural effusion or pneumothorax is identified. The cardiac silhouette is within normal limits for size. IMPRESSION: No focal infiltrate or pneumothorax. FINAL REPORT Dictated: 07/12/2018 7:37 pm Larry Felix MD Signed (Electronic Signature): 07/12/2018 7:37 pm Signed by: Larry Felix MD Technologist: [facility] [email or web address] morphon 07-12-2018 Platelet morphology finding Nom (Bld) NORMAL Normal [facility] Comment on above: Performed By: #### 9 [id number] #### TROY RemHemo [address] [place] [address] Platelets #/vol (Bld) NORMAL Normal [facility] Comment on above: Performed By: #### 9 [id number] #### TROY RemHemo [address] [place] [id number] Vital Signs Date Time Vital Sign Value Performing Clinician Facility 12-11-2024 08:15-0400 Body height 165.[address] Vasquez Irwin MD Work Phone: [facility] 12-11-2024 08:15-0400 Body mass index (BMI) [Ratio] 63.3 kg/m2 Dr. Vasquez Irwin MD Work Phone: [facility] 12-11-2024 08:15-0400 Body weight 172.[address] Vasquez Irwin MD Work Phone: [facility] 09-11-2024 12:27-0400 Body mass index (BMI) [Ratio] 62.33 kg/m2 Gabriella Marques MD Work Phone: [facility] 09-11-2024 12:27-0400 Body temperature 98.6 [degF] Gabriella Marques MD Work Phone: [facility] 09-11-2024 12:27-0400 Body weight 169.9 kg Gabriella Marques MD Work Phone: [facility] 09-11-2024 12:27-0400 Diastolic blood pressure 84 mm[Hg] Gabriella Marques MD Work Phone: [facility] 09-11-2024 12:27-0400 Heart rate 111 /min Gabriella Marques MD Work Phone: [facility] 09-11-2024 12:27-0400 Respiratory rate 16 /min Gabriella Marques MD Work Phone: [facility] 09-11-2024 12:27-0400 SaO2% (BldA) [Mass fraction] 98 % Gabriella Marques MD Work Phone: [facility] 09-11-2024 12:27-0400 Systolic blood pressure 144 mm[Hg] Gabriella Marques MD Work Phone: [facility] 06-26-2024 07:51-0400 Body height 165.[address] Vasqeuz Irwin MD Work Phone: [facility] 06-26-2024 07:51-0400 Body mass index (BMI) [Ratio] 61.5 kg/m2 Dr. Vasquez Irwin MD Work Phone: [facility] 06-26-2024 07:51-0400 Body temperature 97.3 [degF] Dr. Vasquez Irwin MD Work Phone: [facility] 06-26-2024 07:51-0400 Body weight 167.[address] Vasquez Irwin MD Work Phone: [facility] 06-26-2024 07:51-0400 Diastolic blood pressure 93 mm[Hg] Dr. Vasquez Irwin MD Work Phone: [facility] 06-26-2024 07:51-0400 Heart rate 98 /min Dr. Vasquez Irwin MD Work Phone: [facility] 06-26-2024 07:51-0400 Respiratory rate 20 /min Dr. Vasquez Irwin MD Work Phone: [facility] 06-26-2024 07:51-0400 SaO2% (BldA) [Mass fraction] 97 % Dr. Vasquez Irwin MD Work Phone: [facility] 06-26-2024 07:51-0400 Systolic blood pressure 131 mm[Hg] Dr. Vasquez Irwin MD Work Phone: [facility] 02-15-2024 09:30-0500 Diastolic blood pressure 76 mm[Hg] [address] 02-15-2024 09:30-0500 Heart rate 87 /min [address] 02-15-2024 09:30-0500 Respiratory rate 21 /min [address] 02-15-2024 09:30-0500 SaO2% (BldA) [Mass fraction] 97 % [address] 02-15-2024 09:30-0500 Systolic blood pressure 123 mm[Hg] [address] 02-15-2024 09:00-0500 Body temperature 97.39 [degF] [address] 02-15-2024 08:15-0500 Body height 165.[address] 02-15-2024 08:15-0500 Body mass index (BMI) [Ratio] 61.74 kg/m2 [address] 02-15-2024 08:15-0500 Body weight 168.[address] 11-14-2023 10:00-0400 Body height 165.1 cm Queta Oliveira APRN.CNM Work Phone: [facility] 11-14-2023 10:00-0400 Body mass index (BMI) [Ratio] 62.9 kg/m2 Queta Oliveira APRN.CNM Work Phone: [facility] 11-14-2023 10:00-0400 Body weight 171.46 kg Queta Oliveira APRN.CNM Work Phone: [facility] 11-14-2023 10:00-0400 Diastolic blood pressure 86 mm[Hg] Queta Oliveira APRN.CNM Work Phone: [facility] 11-14-2023 10:00-0400 Systolic blood pressure 132 mm[Hg] Queta Oliveira APRN.CNM Work Phone: [facility] 06-13-2023 10:26-0400 Body height 165.1 cm [employer] Maryann Cruz [employer] Work Phone: [facility] 06-13-2023 10:26-0400 Body mass index (BMI) [Ratio] 62 kg/m2 [employer] Maryann Cruz [employer] Work Phone: [facility] 06-13-2023 10:26-0400 Body temperature 97.3 [degF] [employer] Maryann Cruz [employer] Work Phone: [facility] 06-13-2023 10:26-0400 Body weight 169.18 kg INSIDE [employer] Maryann Cruz [employer] Work Phone: [facility] 06-13-2023 10:26-0400 Diastolic blood pressure 77 mm[Hg] [employer] Maryann Cruz [employer] Work Phone: [facility] 06-13-2023 10:26-0400 Heart rate 101 /min [employer] Maryann Cruz [employer] Work Phone: [facility] 06-13-2023 10:26-0400 Respiratory rate 22 /min [employer] Maryann Cruz [employer] Work Phone: [facility] 06-13-2023 10:26-0400 SaO2% (BldA) [Mass fraction] 98 % [employer] Maryann Cruz [employer] Work Phone: [facility] 06-13-2023 10:26-0400 Systolic blood pressure 146 mm[Hg] [employer] Maryann Cruz [employer] Work Phone: [facility] Encounters Encounter Date Encounter Type Care Provider Facility Start: 03-01-2025 ambulatory ORALIA JESSICA Mary [employer]IA [employer]~[id number] Facility:[facility] Start: 01-09-2025 ambulatory [facility] Facility[facility] Start: 01-07-2025 End: 01-07-2025 ambulatory Vasquez Irwin [facility] Start: 12-17-2024 End: 12-17-2024 ambulatory [facility] Facility:[facility] Start: 12-11-2024 End: 12-11-[address] Vasquez Irwin MD Work Phone: -[facility] Start: 12-11-2024 End: 12-11-2024 Patient encounter procedure Jasmine RUST -[facility] Work Phone: Start: 12-11-2024 End: 12-11-2024 ambulatory Jessica Oralia Facility:[facility] Start: 12-06-2024 ambulatory ORALIA JESSICA D OR[employer]IA [employer]~[id number] Facility:[facility] Start: 12-05-2024 End: 12-05-2024 Patient encounter procedure Jasmine RUST -Radiology [facility] Work Phone: Start: 12-05-2024 End: 12-05-2024 ambulatory Jasmine Heath Facility:[facility] Start: 11-30-[address] Vasquez Irwin MD -Laboratory Work Phone: Start: 11-30-2024 End: 11-30-[address] Vasquez Irwin MD Work Phone: -Physical Therapy Start: 11-30-2024 End: 11-30-[address] Ayden Vanegas MD -Physical Therapy Work Phone: Start: 11-30-2024 End: 11-30-2024 ambulatory Vasquez Irwin Facility:[facility] Start: 11-23-2024 ambulatory ORALIA HORTAA Mary [employer]~[id number] Facility:[facility] Start: 11-16-2024 End: 11-16-[address] Vasquez Irwin MD Work Phone: -Radiology [facility] Start: 11-16-2024 End: 11-16-[address] Haider Burton DC -Radiology [facility] Work Phone: Start: 11-16-[address] Ayden Vanegas MD -Physical Therapy Work Phone: Start: 11-16-2024 End: 11-16-2024 ambulatory Haider Burton Facility:[facility] Start: 10-08-2024 End: 10-27-2024 Telephone encounter Ran Snider OD Work Phone: [facility] [place] Comment on above: Patient Update Start: 10-02-2024 End: 10-02-2024 ambulatory HALEIGH ARAUJO Facility:[facility] Start: 10-01-2024 ambulatory QUETA OLIVEIRA Facility: [facility] Start: 09-26-2024 End: 09-26-2024 ambulatory RAN SNIDER II Facility:[facility] Start: 09-26-2024 End: 09-26-2024 Patient encounter procedure Ran Snider OD Work Phone: Optometry Comment on above: Myopia of both eyes (Primary Dx); Regular astigmatism, bilateral; Horseshoe tear of retina of left eye without detachment; History of repair of retinal tear by laser photocoagulation Start: 09-13-2024 End: 09-13-2024 Follow-up encounter David RUST Work Phone: [facility] Start: 09-11-2024 End: 09-11-2024 Office outpatient new 45 minutes Gabriella Marques MD Work Phone: [facility] Comment on above: Urinary frequency (P rimary Dx); Acute cystitis without hematuria Start: 09-11-2024 End: 09-11-2024 ambulatory GABRIELLA MARQUES Facility:[facility] Start: 09-03-2024 End: 12-03-2024 ambulatory ORALIA BRATON [employer]~[id number] Facility:[facility] Start: 08-28-2024 End: 08-28-[address] Vasquez Irwin MD Work Phone: -Sleep Lab Start: 08-28-2024 End: 08-28-[address] Bartolome Bella DO -Sleep Lab Work Phone: Start: 08-28-2024 End: 08-28-2024 ambulatory ORALIA BARTON [employer]~[id number] Facility:[facility] Start: 08-28-2024 End: 08-28-2024 ambulatory [facility] Facility:[facility] Start: 08-09-2024 End: 08-09-[address] Vasuqez Irwin MD Work Phone: [facility] Work Phone: Start: 08-09-2024 End: 08-09-[address] Batrolome Bella DO -Sleep Lab Work Phone: Start: 08-09-2024 End: 08-09-2024 ambulatory Vasquez [facility] Facility:[facility] Start: 07-18-2024 End: 07-18-2024 Telemedicine consultation with patient Bartolome Bella DO Work Phone: Sleep Medicine [facility] Comment on above: Hypersomnia (Primary Dx); Snoring; Witnessed episode of apnea Start: 07-18-2024 ambulatory MARYANN Carmona ty:[facility] Start: 07-03-2024 ambulatory MARYANN Carmona ty:[facility] Start: 06-26-2024 End: 06-26-2024 Patient encounter procedure Maryann [facility] Work Phone: Start: 06-26-2024 End: 06-26-2024 ambulatory Vasquez Irwin Facility[place] Start: 05-29-2024 Encounter for genera l adult medical examination without abnormal findings ORALIA BARTON [employer]~[id number] [facility] Start: 05-26-2024 End: 05-26-2024 ambulatory JESSICA BARTON [employer] Facility:[facility] Start: 05-26-2024 End: 05-26-2024 Encounter for general adult medical examination without abnormal findings JESSICA Hernandez ORALIA PAUL Facility:[facility] Start: 02-25-2024 End: 02-25-2024 ambulatory Jessica Barton Facility:[facility] Start: 02-16-2024 ambulatory Vasquez Nimeth [facility] Start: 02-15-2024 ambulatory Vasquez Nimeth [facility] Start: 02-15-2024 End: 02-16-2024 Evaluation and management of inpatient Vasquez Nimeth Facility:[facility] Start: 02-15-2024 [facility] Start: 02-15-2024 End: 02-15-2024 Evaluation and management of inpatient McSa Proc Rm [address] [facility] Start: 02-15-2024 End: 02-15-2024 Subsequent hospital visit by physician Giacomo Giang Work Phone: [facility] Comment on above: Ulcer of esophagus w ithout bleeding Start: 02-02-2024 End: 02-02-2024 Emergency department patient visit Vasquez Irwin Facility:[facility] Start: 12-13-2023 End: 08-10-2024 ambulatory ORALIA BARTON [employer]~[id number] Facility:[facility] Start: 11-14-2023 End: 11-14-2023 ambulatory QUETA OLIVEIRA Facility:[facility] Start: 11-14-2023 End: 11-14-2023 Patient encounter procedure Queta Oliveira APRN.CNM Work Phone: OB/Gynecology Comment on above: Encounter [...] encounter status Queta Oliveira APRN.CNM Work Phone: [facility] Start: 10-17-2023 End: 10-17-2023 Telephone encounter Queta Oliveira APRN.CNM Work Phone: OB/Gynecology Start: 09-21-2023 End: 09-21-2023 Patient encounter procedure Ran Snider OD Work Phone: Optometry Comment on above: Myopia of both eyes (Primary Dx); Regular astigmatism, bilateral; Horseshoe tear of retina of left eye without detachment; History of repair of retinal tear by laser photocoagulation Start: 06-21-2023 End: 06-21-2023 ambulatory [employer] Maryann Cruz [employer] Work Phone: [facility] Work Phone: Start: 06-21-2023 End: 06-21-2023 Patient encounter procedure INSIDE B2B SALESRickey Cruz INSIDE [employer] SALES Work Phone: [facility]-Pulmonary Services/Neurology Work Phone: Start: 06-13-2023 End: 06-13-2023 Patient encounter procedure INSIDE B2B SALESRickey Cruz INSIDE [employer] SALES Work Phone: [facility] Work Phone: Start: 08-25-2022 End: 08-25-2022 Patient encounter procedure Ran Snider OD Work Phone: Optometry Comment on above: Myopia of both eyes (Primary Dx); Horseshoe tear of retina of left eye without detachment; History of repair of retinal tear by laser photocoagulation Start: 07-31-2022 End: 08-01-2022 Emergency department patient [facility] Start: 07-25-2022 End: 07-25-2022 Emergency department patient visit [facility] Start: 10-08-2021 End: 10-08-2021 Patient encounter procedure Ran Snider OD Work Phone: Optometry Comment on above: Horseshoe tear of re maki of left eye without detachment (Primary Dx); History of repair of retinal tear by laser photocoagulation; Myopia of both eyes Procedures Date Procedure Procedure Detail Performing Clinician Start: 12-11-[address] Vasquez Irwin MD Work Phone: Comment on above: Test Ordered: [id number] Dexamethasone, Seru mDexamethasone, Serum 354 ng/dL ES Reference Range: .This test was developed and its performance characteristicsdetermined by [employer]. It has not been cleared or approvedby the Food and Drug Administration.Reference Range:Adults baseline: <308:00 AM following 1 mg dexamethasone previous evenin - 2958:00 AM following 8 mg dexamethasone(4 x 2 mg doses) previous day: 1600 - 2850Performed at: [facility] [id number] [place], [place] [id number] Director: Ewa Persaud MD, Phone: [phone] at: [facility] [id number] Director: Eren Bedolla PhD, Phone: [phone] Start: 12-05-2024 Radex spine lumbscrl compl w/bending [...] Td Vaccines (9 - Td or Tdap) [facility] Start: 03-30-2031 Tetanus vaccination TETANUS [facility] Start: 03-30-2031 Urine microalbumin profile DTaP,Tdap,Td Vaccine (8 - Td or Tdap) [facility] Start: 11-13-2028 Screening for malignant neoplasm of cervix [facility] Start: 10-02-2025 End: 10-02-2025 Patient encounter procedure 10/02/2025 10:00 AM EDT Office Visit [facility] [address] [place] [address] Ran Snider II, OD [address] [place] [address] contact exam/VSP Optometry Comment on above: contact exam/VSP Start: 12-17-2024 MRI of lumbar spine Spine Lumbar (Routine) [facility] Start: 12-17-2024 Patient encounter procedure Registered Clinical -MRI - [facility] Work Phone: Start: 11-20-2024 End: 11-20-2024 Patient encounter procedure 11/20/2024 11:30 AM EDT Office Visit OB/Gynecology [address] [place] [address] Queta Oliveira APRN.CNM [address] [place] [address] Annual OB/Gynecology Comment on above: Annual Start: 11-14-2024 End: 11-14-2024 Patient encounter procedure 11/14/2024 11:30 AM EDT Office Visit OB/Gynecology [address] [place] [address] Queta Oliveira APRN.CNTisha [address] [place] [address] Annual OB/Gynecology Comment on above: Annual Start: 10-29-2024 Influenza vaccination [facility] Start: 10-01-2024 End: 10-01-2024 Patient encounter procedure 10/01/2024 2:45 PM EDT Office Visit OB/Gynecology [address] [place] [address] Queta Oliveira APRN.CNM [address] [place] [address] Hormone check and control OB/Gynecology Comment on above: Hormone check and control Start: 09-26-2024 End: 09-26-2024 Patient encounter procedure 09/26/2024 10:00 AM EDT Office Visit [facility] [address] [place] [address] Ran Snider II, OD [address] [place] [address] contact exam/VSP Optometry Comment on above: contact exam/VSP Start: 06-26-2024 Patient referral [facility] Work Phone: Start: 01-13-2024 9vhpv vacc 2/3 dose sched im use HPV VACCINE, 9-VALENT (GARDASIL 9) Immunization/Injection Routine Expected: 01/13/2024 (Approximate) [facility] Comment on above: Expected: 01/13/2024 (Approximate) Start: 12-12-2023 HPV Vaccine (2 - 3-dose SCDM series) HPV Vaccine (2 - 3-dose SCDM series) [facility] Start: 12-12-2023 HPV Vaccines (2 - 3-dose SCDM series) HPV Vaccines (2 - 3-dose SCDM series) [facility] Start: 11-14-2023 End: 11-14-2023 Patient encounter procedure 11/14/2023 10:00 AM EDT Office Visit OB/Gynecology [address] [place] [address] Queta Oliveira APRN.CNM [address] [place] [place] [address] new annual OB/Gynecology Comment on above: new annual Start: 10-30-2023 Covid-19 Vaccine () Covid-19 Vaccine ( season) [facility] Start: 10-30-2023 COVID-19 Vaccine ( season) COVID-19 Vaccine ( season) [facility] Start: 10-30-2023 Influenza vaccination Influenza Vaccine (#1) [facility] Start: 10-29-2022 Covid-19 Vaccine ( season) Covid-19 Vaccine () [facility] Start: 10-29-2022 Influenza vaccination INFLUENZA (Season Ended) [facility] Start: 02-28-2022 DEPRESSION ASSESSMENT DEPRESSION ASSESSMENT [facility] Start: 10-29-2021 Influenza vaccination INFLUENZA (#1) [facility] Start: 09-24-2021 Adolescent depression screening assessment Depression Screening [facility] Start: 09-24-2021 Hepatitis C screening Hepatitis C Screening [facility] Start: 09-24-2021 HIV screening HIV Screening [facility] Start: 09-24-2021 Lipid panel Cholesterol Screening (Lipid Panel) [facility] Start: 09-24-2021 Social Influencers of Health Screening Social Influencers of Health Screening [facility] Start: 06-14-2021 COVID-19 VACCINE (3 - Booster for Pfizer series) COVID-19 VACCINE (3 - Booster for Pfizer series) [facility] Start: 03-11-2021 COVID-19 VACCINE (3 - Booster for Pfizer series) COVID-19 VACCINE (3 - Booster for Pfizer series) [facility] Start: 09-24-2017 HPV TESTING HPV TESTING [facility] Start: 09-24-2008 PAP TESTING PAP TESTING [facility] Start: 09-24-2008 Screening for malignant neoplasm of cervix [facility] Start: 09-24-2006 Urine microalbumin profile DTAP,TDAP,TD (1 - Tdap) [facility] Start: 09-24-2005 Annual PCP Team Chronic Disease Visit Annual PCP Team Chronic Disease Visit [facility] Start: 09-24-2005 Anxiety Screening Anxiety Screening [facility] Start: 09-24-2005 Depression Screening Depression Screening [facility] Start: 09-24-2005 HEPATITIS C SCREENING HEPATITIS C SCREENING [facility] Start: 09-24-2005 Hepatitis C screening Hepatitis C Screening [facility] Start: 09-24-2005 HIV SCREENING HIV SCREENING [facility] Start: 09-24-2005 HIV screening HIV Screening [facility] Start: 09-24-2002 HIV screening HIV SCREENING DISCUSSION [facility] Start: 1999 Adult depression screening assessment DEPRESSION SCREENING [facility] Start: 1985 HEPATITIS B (1 of 3 - 3-dose series) HEPATITIS B (1 of 3 - 3-dose series) [facility] Start: 1987 Hepatitis C screening HEPATITIS C VIRUS SCREENING [facility] Bacteria identified in Urine by Culture BACTERIAL CULTURE, URINE Microbiology Routine Urinary frequency 09/11/2024 1:17 PM EDT [facility] Work Phone: End: 02-15-2024 Choriogonadotropin ( test) [Presence] in Urine [facility] Work Phone: Comment on above: Once for 1 Occurrences starting 02/15/20 24 until 02/15/2024 Corticotropin [Mass/ volume] in Plasma [facility] Dehydroepiandrostero ne sulfate (DHEA-S) [Mass/volume] in Serum or Plasma [facility] PAP TEST PAP TEST Lab Jagdish melendrez Encounter for gynecological examination (general) (routine) with abnormal findings Screening for cervical cancer Encounter for screening for human papillomavirus (HPV) 11/14/2023 10:33 AM EDT [facility] Patient referral [facility] Work Phone: Polysomnography [facility] Therapeutic prophyla ctic/dx injection subq/im THER/PROPH/DIAG INJ, SC/IM Procedures Routine Need for prophylactic vaccination/inoculatio n against viral disease Ordered: 11/14/2023 [facility] Work Phone: Comment on above: Ordered: 11/14/2023 Immunizations Immunization Date Immunization Notes Care Provider Karthikeyan lerner 11-14-2023 Human Papillomavirus 9-valent vaccine Queta Oliveira APRN.CNM Work Phone: [facility] 11-14-2023 HPV, unspecified formulation McSa 01 [facility] 12-10-2020 influenza virus vacc ine, unspecified formulation Ran Snider II OD Work Phone: [facility] Payers Date Payer Category Payer Self-pay 2023 Managed Care (unspecified) [employer] [id number] 2023 Unknown [id number] 2023 Unknown [id number] 2022 Private Health Insurance [id number] 2022 Unknown [id number] 1.13.159.2 .[id number] 2021 Private Health Insurance [id number] .[id number] .[id number] 1987 Unknown [id number] 2.16.840.1.170619.3.579.2 .902 1987 Unknown [id number] 2.16.840.1.294077.3.579.2 .903 1987 Unknown [id number] 2.16.840.1.408707.3.579.2 .1143 1987 Unknown [id number] 2.16.840.1.573380.3.579.2 .594 1987 Unknown [id number] 2.16.840.1.037295.3.579.2 .594 1987 Unknown [id number] 2.16.840.1.821457.3.579.2 .419 1987 Unknown [id number] 2.16.840.1.476719.3.579.2 .419 1987 Unknown [id number] 2..840.1.630446.3.579.2 .419 1987 Unknown [id number] 2.16.840.1.858328.3.579.2 .419 1987 Unknown [id number] 2.840.1.956362.3.579.2 .419 1987 Unknown [id number] 2.840.1.733704.3.579.2 .419 1987 Unknown [id number] 2.840.1.804945.3.579.2 .419 Unknown [id number] 2.840.1.664910.3.579.2 .462 Unknown [id number] 2.840.1.382272.3.579.2 .462 Unknown [id number] 2.840.1.126614.3.579.2 .462 Unknown [id number] 2.840.1.636691.3.579.2 .462 Unknown [id number] 2.840.1.542676.3.579.2 .462 Unknown [id number] 2.840.1.768502.3.579.2 .462 Unknown [id number] 2.840.1.647026.3.579.2 .462 Unknown [id number] 2.840.1.063666.3.579.2 .462 Unknown [id number] 2.840.1.377085.3.579.2 .462 Unknown [id number] 2.840.1.786670.3.579.2 .462 Unknown [id number] 2.840.1.212866.3.579.2 .462 Unknown [id number] 2.840.1.415532.3.579.2 .462 Unknown [id number] 2.16.840.1.790176.3.579.2 .462 Unknown [id number] 2.16.840.1.038652.3.579.2 .462 Unknown [id number] 2.16.840.1.107630.3.579.2 .462 Unknown [id number] 2.16.840.1.146072.3.579.2 .462 Unknown [id number] 2.16.840.1.684130.3.579.2 .462 Unknown [id number] 2.16.840.1.654631.3.579.2 .462 Unknown [id number] 2.16.840.1.998669.3.579.2 .462 Social History Date Type Detail Facility Start: 12-19-2013 End: 02-15-2024 Tobacco smoking status NHIS Never smoked tobacco [facility] Start: 12-19-2013 End: 08-25-2022 Tobacco use and exposure Smokeless tobacco non-user [facility] Start: 10-08-2021 End: 10-02-2024 Alcohol intake Current drinker of alcohol (finding) [facility] Start: 08-29-2018 History SDOH Alcohol Comment social [facility] Start: 1985 Sex Assigned At Not on file [facility] Start: 09-28-2021 End: 10-08-2021 Exposure to SARS-CoV-2 (event) Not sure [facility] Start: 06-13-2023 Tobacco smoking stat us HIIS Unknown if ever smoked [facility] Start: 1985 Sex Assigned At Female W [facility] Start: 08-25-2022 End: 10-02-2024 History of Social function [facility] Start: 08-25-2022 End: 10-02-2024 Tobacco use panel [facility] Start: 01-30-2012 National Score (1-10 0), lower number is lower risk 87 [facility] Start: 07-13-2022 Alcohol Comment socially [facility] Start: 02-15-2024 Gender identity Identifies as female gender (finding) [facility] Start: 02-15-2024 Sexual orientation Heterosexual (fin ding) [facility] Start: 07-29-2016 Sex Female (finding) [facility] Start: 07-02-2024 Sexual orientation Choose not to dis close [facility] Clinical Notes 10-08-2021 to 12-11-2024 Note Date & Type Note Facility 12-11-2024 Progress note [facility] 11-30-2024 Discharge summary Note Date/Time November 30, 2024 12:10pm [facility] Physical Therapy [facility] [address] [place] [address] / REHABILITATION SERVICES DISCHARGE SUMMARY MR#: [id number] Acct: [id number] Name: CHIO BUCIO Rep #: [id number] : 1985 39 From: Daniella Menchaca PT, Cert. MDT Referring Dr.: Dr. Ayden Vanegas MD Stat us: REG RCR Insurance: [employer] S[facility] INSURANCE Discharge Summary D/C summary: [...] please feel free to call me at [phone]. Thank you for the referral of thispatient. Sincerely, Daniella Menchaca PT, Cert MDT Balance/Gait/Functional tests Improvement % Improvement: 60 <Electronically signed by Cert. JESSICA Humphreys PTT> 11/30/24 1210 CC: Dr. Vasquez Irwin MD; Dr. Ayden Vanegas MD ~ LATIA Signed [facility] Work Phone: 1([phone] 442-281110-03-2025 Discharge summary [facility] Physical Therapy [address] [place] [address] / REHABILITATION SERVICES DISCHARGE SUMMARY MR#: [id number] Acct: [id number] Name: CHIO BUCIO Rep #: [id number] : 1985 39 From: Cert. JESSICA Humphreys PTT Referring Dr.: Dr. Ayden Vanegas MD Stat us: REG RCR Insurance: [employer] SELF PAY INSURANCE Discharge Summary D/C summary: [...] please feel free to call me at [phone]. Thank you for the referral of thispatient. Sincerely, Daniella Menchaca, PT, Cert MDT Balance/Gait/Functional tests Improvement % Improvement: 60 11/30/24 1210 CC: Dr. Vasquez Irwin MD; Dr. Ayden Vanegas MD ~ LATIA Signed [facility]09-21-2025 Radiology Diagnostic study note [facility] Imaging Services [address] [place] [address] L/S Spine Min 4 Views MR#: [id number] Acct: [id number] Name: CHIO BUCIO [place] Rep #: [id number] : 1985 F 39 From: Tito Newman MD PCP: Dr. Vasquez Irwin MD Status: REG C HALLE Study:L/S Spine Min 4 Views Date of Exam: 11/16/24 Exam# [id number] Ordering Dr: Haider Guadalupe D.C. PROCEDURE: L/S SPINE MIN 4 VIEWS 11/16/2024 REASON FOR EXAM: LOW BACK PAIN TECHNIQUE: Procedure Code: RADSPLS Modality: DX Procedure: L/S SPINE MIN 4 VIEWS COMPARISON: None. FINDINGS: BONES: Five vqt-azy-wnurhaa lumbar vertebral bodies. No fracture or focal osseous lesion. Anatomic spinal alignment. Mild lumbar levoscoliosis. DISC/DEGENERATIVE CHANGES: Disc spaces are preserved. SOFT TISSUES: No acute abnormality seen. Right mid abdominal surgical clips. RAD/L/S Spine Min 4 Views IMPRESSION: No acute abnormality. Reading Location: [facility] CC: MERCEDES Burton; Dr. Vasquez Irwin MD ~ Pull Worker: Signed [facility]08-11-2025 Telephone encounter Note* Telephone Encounter - Jeanette Shepard/11/2025 12:56 PM EDT Patient is calling and wanting to order her original contacts the clarity, please advise patient with any further questions [facility]08-11-2025 Miscellaneous Notes* Telephone Encounter - Jeanette Shepard - 10/08/2024 12:56 PM EDT Patient is calling and wanting to order her original contacts the clarity, please advise patient with any further questions documented in this encounterPromedica Defiance [facility] Hospital08-05-2025 NoteHNO ID: [id number] Author: HALEIGH ARAUJO APRN.PRINCIPAL ACCOUNT CLERK Service: ? 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 Patient/authorized sales representative malt liqu[employer] agreed to proceed CHIEF COMPLAINT: CC: Patient is a 39-year-old female presenting for concerns of suspected hormonal imbalance due to multiple health problems. HPI: HPI: Hormonal Imbalance: - Reports mood fluctuations, irritability, insomnia, fatigue, low libido, and urinary incontinence. - Experiences sugar crashes if not eating for about five hours. - Has difficulty losing weight and has dry skin diagnosed as psoriasis by a bisque brusher. - Menstrual periods occur every three weeks, [...] treated with Vyvanse. - Taking spironolactone since 2167-3627 for acne and high blood pressure. - [...] was approximately 180 pounds; current height is 5'5. HISTORY: OB History Gravida0 Para0 Term0 Preterm0 AB0 Living0 SAB0 IAB0 Ectopic0 Multiple0 Live Births0 Duct Layer Supervisor History LMP: 10/01/2024 (Exact Date), Having periods Age at Menarche: Age at First : Age at Menopause: Duct Layer Supervisor History Comments: Sexual Activity: Yes; Male Contraception: [...] depression type ( (more content not included)... [facility]07-30-2025 Instructions* Patient Instructions* Ran Snider II, OD [...] others. I have seen and examined Chio Jer Bucio. I have discussed the case and the management of this patient's care with the Resident/Fellow, if applicable. I also have reviewed and agree with the assessment and plan as stated above and agree withall of its relevant components. documented in this encounterPromedica Defiance [facility]07-30-2025 NoteHNO ID: [id number] Author: RAN SNIDER II, OD Service: ? Author Type: ACTUARIAL ANALYST Type: Progress Notes Filed: 09/26/2024 10:55 Note [...] and agree with all of its relevant components.[facility]07-30-2025 History of Present illness Narrative* Ran Snider [...] of its relevant components. documented in this encounterPromedica Defiance [facility]07-17-2025 Telephone encounter Note * Telephone Encounter - Anita Flowers LPN - 09/13/2024 10:36 AM EDT MyChart message sent to pt with providers message, Pt is active on her MyChart and has viewed her results 09/13/24. Anita Flowers LPN [facility]07-17-2025 Miscellaneous Notes* Telephone Encounter - Anita Flowers [...] PCP for persistent symptoms documented in this encounterPromedica Defiance [facility]07-17-2025 Telephone encounter Note * Telephone Encounter - David Mehta PA - 09/13/2024 8:08 AM EDT Please contact patient let her know urine culture revealed normal bacterial growth. No UTI. Please follow-up with PCP for persistent symptoms [facility] Work Phone: [phone] 291-710107-15-2025 NoteHNO ID: [id number] Author: GABRIELLA MARQUES MD Service: ? Author [...] not suggestive and laboratory studies not suggestive ProceduresR[facility]ide [facility]07-15-2025 History of Present illness Narrative* Gabriella Marques MD - 09/11/2024 12:34 PM EDT [facility] [place] [facility]ma Bucio is a 38 year old [...] studies not suggestive Procedures documented in this encounterPromedica Defiance [facility]07-15-2025 Instructions* Patient Instructions* Gabriella Marques MD - [...] the nearest emergency department. documented in this encounterPromedica Defiance [facility]05-21-2025 History of Present illness Narrative* Bartolome Bella DO - 07/18/2024 8:00 AM EDT Images from the original note were not included. CC- Chief Complaint Patient presents with Sleep Problem Daytime Sleepiness [facility]- Chio Bucio is 38 y.o. female who [...] - will repeat with more supine sleep, [place] Treatment options discussed, pt plans to decide [...] months, sooner if needed. documented in this encounterKind[facility]05-[facility]-2025 Instructions* Patient Instructions* Bartolome Bella DO - [...] done, you will receive the results through [employer]. Contact Information: [facility] Sleep Laboratory: [phone] [facility]: [phone] Monitoring Your Sleep: Sleep Lab Testing During [...] you will have a private bedroom. A pipe testing technician will attachmany sensors to your body, then go into another room. As you sleep, your heart rate, breathing, oxygen level, brain activity, and other functions will be tracked. A microphone and video camera will record your breathing sounds and body movements. The pipe testing technician will keep watch nearby. If you need [...] testing starts, feel free to ask the pipe testing technician any questions you may have. Getting the [...] right ones for you. Date Last Reviewed: 09/28/201619993299-0534 [employer]. [address] [place] [address]. All rights reserved. This information is not [...] best treatments for you. Date Last Reviewed: 05/29/201619999554-0669 [employer]. [address] [place] [address]. All rights reserved. This information is not [...] types of CPAP. Your doctor or CPAP pipe testing technician will help you decide which type is [...] sleep stage, and snoring. Date Last Reviewed: 09/28/201619999913-8005 [employer]. [address] [place] [address]. All rights reserved. This information is not [...] wheel. If you experience any of these, pull up hand immediately at a safe place, switch drivers, [...] watch for signs of fatigue in the freight delivery driver and can take a turn driving, if [...] Chiara to the Importance of Sleep www.sleepfoundation.org 2007 National Sleep Foundation documented in this encounterU [facility]04[facility] Evaluation note * Diagnosis Onset Date Resolution Status Admit Date Narcolepsy acute June 26 8:57am Super obese chronic June 26 8:57am [facility] Work Phone: 1(280) 131-915712-19-2024 [facility] Medical Records Department [address] [place] [address] Discharge Summary 02/16/24 1406 MR#: [id number] Acct: [id number] Name: CHIO BUCIO Rep #: [id number] : 1985 38 From: Belgica Juarez DO PCP: Dr. Vasquez Irwin MD Status:ADM IN Location: [place] [id number] Providers Date of Admission: 02/15/24 Date of [...] % rectal foam (Proctofoam HC) 1 applic IL TID md ordered #10 grams 02/02/24 lidocaine [...] who presented to the emergency department at [facility] on 02/15/2020 for complaining of shortness of breath. She indicated she woke up feeling fine and went to [employer] to have an upper endoscopy performed at [facility]. She reported on the way home [...] Thrombocytosis Lactic acidosis Chronic (more content not included)...[facility]12-18-2024 Hospital Discharge instructions* Discharge Instructions* Stephy Almazan RN - 02/15/2024 9:14 AM EST Follow up with your Primary Care Physician and Dr. Giacomo Giang . can be reached at [phone]. Endoscopy Discharge Instructions Your Procedure Was: Esophagogastroduodenoscopy [...] Care Everywhere. * EGD (Upper Endoscopy): Post-op (Frisian) * Hiatal Hernia (Frisian) documented in this encounterSurgical Specialty Center At Coordinated [id number] Attending History and physical note* Giacomo Giang [...] original note were not included. BARRERA Craig [facility] Hospitalists History and Physical Same Day Surgery Patient Name:Chio Bucio :1985 Admit Date: Physicians: Vasquez Irwin (PCP) Perpetual Assessment: Chio Bucio is a 38 y.o. female who presented for EGD procedure, per therequest of Dr. Giang. [facility] has been asked to see the patient [...] Morbid obesity with BMI of 50.0-59.9, adult ([facility]) Prediabetes Restless leg Wears contact lenses Past [...] [] Microbiology [x] Outside Records [] [employer] Phone: 1(249) 895-230712-18-2024 History and physical note* BARRERA Craig - 02/15/2024 8:30 AM EST Images from the original note were not included. BARRERA Craig [facility] Hospitalists History and Physical Same Day Surgery Patient Name:Chio Bucio :1985 Admit Date: Physicians: Vasquez Irwin (PCP) Perpetual Assessment: Chio Bucio is a 38 y.o. female who presented for EGD procedure, per therequest of Dr. Giang. [facility] has been asked to see the [...] [] Microbiology [x] Outside Records [] [employer] Phone: 1(713) 719-282412-18-2024 History and physical note* Giacomo Giang V [...] original note were not included. BARRERA Craig [facility] Hospitalists History and Physical Same Day Surgery Patient Name:Chio Bucio :1985 Admit Date: Physicians: Vasquez Irwin (PCP) Perpetual Assessment: Chio Bucio is a 38 y.o. female who presented for EGD procedure, per therequest of Dr. Giang. [facility] has been asked to see the [...] Morbid obesity with BMI of 50.0-59.9, adult ([facility]) Prediabetes Restless leg Wears contact lenses Past [...] original note were not included. BARRERA Craig [facility] Hospitalists History and Physical Same Day Surgery Patient Name:Chio Bucio :1985 Admit Date: Physicians: Vasquez Irwin (PCP) Perpetual Assessment: Chio Bucio is a 38 y.o. female who presented for EGD procedure, per therequest of Dr. Giang. [facility] has been asked to see the [...] Morbid obesity with BMI of 50.0-59.9, adult ([facility]) Prediabetes Restless leg Wears contact lenses Past [...] Outside Records [] Family documented in this encounterSurgical Specialty Center At Coordinated [id number] Nurse Note* Jazmin Chavez RN - 02/14/2024 11:57 AM EST Nothing to eat or drink past midnight [place]: Patient scheduled for surgery on 02/15/24 Arrive: 7:30 am Medications as instructed with sips of water on the morning of surgery: Please ensure you have a freight delivery driver, age 18 or greater, and someone with your for 24 hours after anesthesia. No big decisions day after surgery due to anesthesia Will accept blood: yes [facility] [id number] Procedure note* Jazmin Chavez RN - 02/14/2024 11:57 AM EST Nothing to eat or drink past midnight [place]: Patient scheduled for surgery on 02/15/24 Arrive: 7:30 am Medications as instructed with sips of water on the morning of surgery: Please ensure you have a freight delivery driver, age 18 or greater, and someone with your for 24 hours after anesthesia. No big decisions day after surgery due to anesthesia Will accept blood: yes documented in this encounterSurgical Specialty Center At Coordinated [id number] Consult note Pathology Doc ({Setting})[facility]: Performed By: #### BCRQ #### Performed for [address] [id number] Instructions* Patient Instructions* Queta Oliveira APRN.ONEIL - 11/14/2023 10:25 AM EDT Gardasil Gardasil [...] glands, joint and muscle pain, weakness and Guillain-Yelm syndrome. documented in this encounterPromedica Defiance [facility] Hospital09-16-2024 NoteHNO ID: [id number] Author: QUETA OLIVEIRA APRN.CNM Service: ? Author Type: Sales And Marketing Executive Type: Progress Notes Filed: 11/14/2023 12:11 Note Text: Truck 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 Chio is a 38 year old who presents for an annual gynecologic exam without complaints. Yuli Barton NP. Has prediabetes, hgbA1C elevated at 8. Seeing Haleigh Campbell for weight loss and taking wegovy and just started and has appointment with survey interviewer. Menses: cycles every 30 days and 5 [...] L0 SAB0 IAB0 Ectopic0 Multiple0 Live Births0 Duct Layer Supervisor History LMP: 11/04/2023 (Within Days), Having periods Age at Menarche: Age at First : Age at Menopause: Duct Layer Supervisor History Comments: Sexual Activity: Yes; Male Contraception: [...] discussed with the Patient or Patient's Authorized Embedder. As applicable, any other physician, advance practice provider, medical student, or other health professional student that will be observing or involved in the sensitive examination for educational or training purposes was discussed with the Patient or Authorized Embedder. The Patient or Authorized Embedder has agreed to proceed with the sensitive examination. (Sensitive examination includes inspection and/or palpation of the breasts, pelvis, prostate and anorectal regions). EXAM: BP 132/86 Ht 5' 5 (1.65m) Wt 378 lb (171.5kg) LMP 11/04/2023 [...] external genitalia normal, normal Bartholin's glands, urethra, [place]'s glands, no vulvar lesions, no cervical lesions, [...] ICD10: Z23 - THER/P (more content not included)...[facility]09-16-2024 History of Present illness Narrative* Queta Oliveira APRN.[facility] - 11/14/2023 9:55 AM EDT Truck 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 Chio is a 38 year old who presents for an annual gynecologic exam without complaints. Yuli Barton NP. Has prediabetes, hgbA1C elevated at 8. Seeing Haleigh Campbell for weight loss and taking wegovy and just started and has appointment with survey interviewer. Menses: cycles every 30 days and 5 [...] L0 SAB0 IAB0 Ectopic0 Multiple0 Live Births0 Duct Layer Supervisor History LMP: 11/04/2023 (Within Days), Having periods Age at Menarche: Age at First : Age at Menopause: Duct Layer Supervisor History Comments: Sexual Activity: Yes; Male Contraception: [...] discussed with the Patient or Patient's Authorized Embedder. As applicable, any other physician, advance practice provider, medical student, or other health professional student that will be observing or involved in the sensitive examination for educational or training purposes was discussed with the Patient or Authorized Embedder. The Patient or Authorized Embedder has agreed to proceed with the sensitive examination. (Sensitive examination includes inspection and/or palpation of the breasts, pelvis, prostate and anorectal regions). EXAM: BP 132/86 Ht 5' 5 (1.65m) Wt 378 lb (171.5kg) LMP 11/04/2023 [...] external genitalia normal, normal Bartholin's glands, urethra, [place]'s glands, no vulvar lesions, no cervical lesions, [...] injection. Bam Fulton MA documented in this encounterProm[facility] Telephone encounter Note * Telephone Encounter - Nataliia Patten RN - 10/17/2023 8:55 AM EDT Records received from [facility]-Dr. Irwin. Pt has new appt with 11/14/23. Records placed in scanning. Nataliia Patten RN [facility]08-19-2024 Miscellaneous Notes* Telephone Encounter - Nataliia Patten RN - 10/17/2023 8:55 AM EDT Records received from [facility]-Dr. Irwin. Pt has new appt with 11/14/23. Records placed in scanning. Nataliia Patten RN documented in this encounterPromedica Defiance [facility]07-24-2024 Instructions* Patient Instructions* Ran Snider II, OD [...] others. I have seen and examined Chio Jer Bucio. I have discussed the case and the management of this patient's care with the Resident/Fellow, if applicable. I also have reviewed and agree with the assessment and plan as stated above and agree withall of its relevant components. documented in this encounterPromedica Def[facility]07-24-2024 History of Present illness Narrative* Ran Snider [...] others. I have seen and examined Chio Jer Bucio. I have discussed the case and the management of this patient's care with the Resident/Fellow, if applicable. I also have reviewed and agree with the assessment and plan as stated above and agree withall of its relevant components. documented in this encounterPromedica [facility]06-28-2023 Instructions* Patient Instructions* Ran Snider II, OD [...] others. I have seen and examined Chio Jer Bucio. I have discussed the case and the management of this patient's care with the Resident/Fellow, if applicable. I also have reviewed and agree with the assessment and plan as stated above and agree withall of its relevant components. Ran Snider II, OD documented in this encounterPromedica [facility]06-28-2023 History of Present illness Narrative* Ran Snider [...] I have seen and examined Chio Randle Fortunato. I have discussed the case and the management of this patient's care with the Resident/Fellow, if applicable. I also have reviewed and agree with the assessment and plan as stated above and agree withall of its relevant components. Ran Snider II, OD documented in this encounterPromedica [facility]08-11-2022 Instructions* Patient Instructions* Ran Snider II, OD [...] Ran Snider II, OD documented in this encounterPromedica Def[facility]08-11-2022 History of Present illness Narrative* Ran Snider [...] Ran Snider II, OD documented in this encounterPromedica Def[facility] HospitalEvaluation note* Diagnosis Horseshoe tear of retina of left eye without detachment- Primary Horseshoe tear of retina without detachment History of repair of retinal tear by laser photocoagulation Myopia of both eyes Myopia documented in this encounter [facility]* Diagnosis Myopia of both eyes- Primary Myopia Horseshoe tear of retina of left eye without detachment Horseshoe tear of retina without detachment History of repair of retinal tear by laser photocoagulation documented in this encounter [facility]* Diagnosis Onset Date Resolution Status Obesity hypoventilation syndrome acute Morbid obesity [facility] Work Phone: Evaluation note* Diagnosis Myopia of both eyes- Primary Myopia Regular astigmatism, bilateral Horseshoe tear of retina of left eye without detachment Horseshoe tear of retina without detachment History of repair of retinal tear by laser photocoagulation documented in this encounter [facility]* Diagnosis Encounter for gynecological examination (general) [...] obesity type (HCC) documented in this encounter [facility]* Diagnosis Ulcer of esophagus without bleeding documented in this encounter [facility]* Diagnosis Hypersomnia- Primary Hypersomnia, unspecified Snoring Other dyspnea and respiratory abnormality Witnessed episode of apnea [facility] Diagnosis Urinary frequency- Primary Acute cystitis without hematuria Acute cystitis documented in this encounter [facility]* Diagnosis Myopia of both eyes- Primary Myopia Regular astigmatism, bilateral Horseshoe tear of retina of left eye without detachment Horseshoe tear of retina without detachment History of repair of retinal tear by laser photocoagulation documented in this encounter [facility] noteNo assessment information availableWUniversity Hospitals Samaritan [facility] Center Work Phone: evaluation note* Diagnosis Onset Date Resolution Status Admit Date Lumbar radiculopathy acute Octo 2024 8:13am Facet arthritis of lumbar region noneactive December 11 8:13am [facility] Work Phone: Hospital Discharge instructionsAmbulatory Orders* Physical Therapy Referral Location: None Selected * Pain Management Location: None Selected [facility] Work Phone: Progsess note Author Jasmine Heath [facility] Note Date/Time December 11, 2024 8 :47am [facility] [address] [place] [address] OFFICE VISIT Date of Service: 12/11/24 MR#: [id number] Acct: [id number] Name: CHIO BUCIO p #: [phone] : 1985 Provider: BARRERA Perry Age/Sex: 39/F Location: [facility] Status: Signed Intake Vital Signs 06/26/24 07:51 [...] D3) 50 50 mcg PO DAILY md ord ered 06/13/23 12/11/24 History mcg (2,000 unit) capsule docusate sodium 100 mg capsule 100 mg PO BID md ordere d 06/13/23 12/11/24 History hydrocortisone 1 %-pramoxine 1 % 1 applic [place] TID or frantz #10 02/02/24 12/11/24 Rx rectal foam (Proctofoam [...] Continuous Positive Airway 12/10/24 12/11/24 H istory [facility]) metformin 850 mg tablet mg PO 12/11/24 12/11/24 Hist ory Have you fallen in the past year?: No [facility] Morbid obesity Family history of [...] decisions made by me, BARRERA Perry 12/11/24 4399. Part of today?s visit was documentedby Cheryle Page MA, acting as scribe. CHIO BUCIO is a 39 year old F here today for lumbar spine. Patient states that her pain is a 3 today. Her pain is going across the lower back. The pain goes into both glutes, equal on both sides. She states that the pain is achy and throbbing. Patient has had this pain for 20 [...] patient has done pelvic floor therapy at [facility] completing 6 weeks of this therapy. [...] and exercises. [facility] She will follow-up after the MRI to review the results. Patient is in agreement to the plan. Clinical Quality Measures Falls Risk Screening/Assistive Devices Have you fallen in the past year?: No 12/11/24 0903 <Electronically signed by Jasmine RUST> Date _ Jasmine RUST Cosigner Signature: Date (if applicable) CC: Dr. Vasquez Irwin MD ~ [facility] Work Phone: Reason for referral (narrative)No reason for referral information availableWUniversity Hospitals [facility] Work Phone: Summary Purpose Family History No [...] 2024 8:5 7am HYPERSOMNIA, SNORING, APNEIC EPISODES [facility] 2024 8:22pm Reason for Visit Admit Date Narcolepsy June 26, 2024 8:5 7am Super obese June 26, 2024 8:5 7am Chief Complaint Admit Date HEIDY Follow Up June 26, 2024 8:5 7am HYPERSOMNIA, SNORING, APNEIC EPISODES [facility] 2024 8:22pm HEIDY August 28, 2024 10:05 am Chief Complaint Admit Date HYPERSOMNIA, SNORING, APNEIC EPISODES [facility] ne 2024 8:22pm HEIDY August 28, 2024 10:05 am URGE INCONT RX HERE November 16, 2024 11:00am Chief Complaint Admit Date HYPERSOMNIA, SNORING, APNEIC EPISODES Ju ne 2024 8:22pm HEIDY August 28, 2024 10:05 [...] MAC; [facility] Giacomo Giang [address] [place] [address] [facility] Referral ID Status Reason Start Date Expiration Date V isits Requested Visits Authorized [id number] Pending Review 01/12/2024 01/11/2025 1 1 Additional Source Comments INFORMATION SOURCE (unrecogn ized section and content) DATE CREATED AUTHOR 07/22/2018 [facility] DATE CREATED AUTHOR AUTHOR'S ORGANIZ ATION 08/09/2022 [facility] DATE CREATED AUTHOR AUTHOR'S ORGANIZ ATION 08/09/2022 [facility] DATE CREATED AUTHOR AUTHOR'S ORGANIZ ATION 02/18/2024 [facility] DATE CREATED AUTHOR AUTHOR'S ORGANIZ ATION 07/24/2024 [facility] DATE CREATED AUTHOR AUTHOR'S ORGANIZ ATION 10/28/2024 [facility] DATE CREATED AUTHOR AUTHOR'S ORGANIZ ATION 12/08/2024 [facility] DATE CREATED AUTHOR AUTHOR'S GERARD PARISI 01/10/2025 [facility] Source Comments (unrecognize d section and content) In the event this informatio n is protected by the Federal Confidentiality of Alcohol and Drug Abuse Patient Records regulations: The Federal rules restrict any use of the information to criminally investigate or prosecute any alcohol or drug abuse patient.[facility] HospitalIn the event this information is protected by the Federal Confidentiality of Alcohol and Drug Abuse Patient Records regulations: The Federal rules restrict any use of the information to criminally investigate or prosecute any alcohol or drug abuse patient.[facility] HospitalIn the event this information is protected by the Federal Confidentiality of Alcohol and Drug Abuse Patient Records regulations: The Federal rules restrict any use of the information to criminally investigate or prosecute any alcohol or drug abuse patient.[facility] HospitalIn the event this information is protected by the Federal Confidentiality of Alcohol and Drug Abuse Patient Records regulations: The Federal rules restrict any use of the information to criminally investigate or prosecute any alcohol or drug abuse patient.[facility] HospitalIn the event this information is protected by the Federal Confidentiality of Alcohol and Drug Abuse Patient Records regulations: The Federal rules restrict any use of the information to criminally investigate or prosecute any alcohol or drug abuse patient.[facility] HospitalIn the event this information is protected by the Federal Confidentiality of Alcohol and Drug Abuse Patient Records regulations: The Federal rules restrict any use of the information to criminally investigate or prosecute any alcohol or drug abuse patient.[facility] HospitalIn the event this information is protected by the Federal Confidentiality of Alcohol and Drug Abuse Patient Records regulations: The Federal rules restrict any use of the information to criminally investigate or prosecute any alcohol or drug abuse patient.[facility] HospitalIn the event this information is protected by the Federal Confidentiality of Alcohol and Drug Abuse Patient Records regulations: The Federal rules restrict any use of the information to criminally investigate or prosecute any alcohol or drug abuse patient.[facility] HospitalIn the event this information is protected by the Federal Confidentiality of Alcohol and Drug Abuse Patient Records regulations: The Federal rules restrict any use of the information to criminally investigate or prosecute any alcohol or drug abuse patient.[facility] Reason for Visit (unrecogniz ed section and content) Reason Comments Retinal Break(s) Follow Up Reason Comments Yearly Exam Contact lens evaluation Reason Onset Date Comments Well Woman Gardasil Injection 11/14/2023 Specialty Diagnoses / Procedures Referred By Contac t Referred To Contact Diagnoses Ulcer of esophagus without bleeding Procedures EGD Anesthesia - MAC; [facility] Giacomo Giang [address] [place] [address] [facility] [place] Referral ID Status Reason Start Date Expiration Date V isits Requested Visits Authorized [id number] Pending Review 01/12/2024 01/11/2025 1 1 Reason Comments Sleep Problem Daytime Sleepiness Specialty Diagnoses / Procedures Referred By Contac t Referred To Contact Sleep Medicine Diagnoses Hypersomnia Maryann Cruz, GABBIE [address] [facility] [address] [place] [address] Phone: tel: fax: [facility] [address] [place] [address] Referral ID Status Reason Start Date Expiration Date V isits Requested Visits Authorized [id number] New Request 07/02/2024 07/27/2025 1 1 Reason Comments Urinary Frequency Frequency and urgenc y x 2 days Reason Comments Yearly Exam And contact lens exa m Reason Comments Patient Update Care Teams (unrecognized sec tion and content) Bricklayer Relationship Specialty Start Date End Date Maryjo Pickering PCP - General 08/30/19 Bricklayer Relationship Specialty Start Date End Date Vasquez Irwin [address] [facility] [place] [address] PCP - General Family Medicine 08/25/22 Team Status: Active Member Role Status Dates Dr. Vasquez Irwin MD Primary Care Provider Active Team Status: Inactive Member Role Status Dates Maryann Cruz INSIDE B2B SALES, INSIDE B2B SALES-C Attending Provider Active Team Status: Inactive Member Role Status Dates Maryann Cruz INSIDE B2B SALES, INSIDE B2B SALES-C Attending Provider, Alona velázquez Provider Active Dr. Vasquez Irwin MD Primary Care Provider Active Bricklayer Relationship Specialty Start Date End Date Vasquez Irwin MD [address] [facility] [place] [address] PCP - General Family Medicine 08/25/22 Bricklayer Relationship Specialty Start Date End Date Vasquez Irwin MD [address] [facility] [place] [address] PCP - General Family Medicine 08/25/22 Bricklayer Relationship Specialty Start Date End Date Vasquez Irwin MD [address] [facility] [place] [address] PCP - General Family Medicine 08/25/22 Bricklayer Relationship Specialty Start Date End Date Vasquez Irwin [address] [place] [phone] PCP - General Family Medicine 07/07/22 Bricklayer Relationship Specialty Start Date End Date Vasquez Irwin MD [address] [place] [phone] PCP - General 07/17/24 Team Status: Inactive Member Role Status Dates Dr. Vasquez Irwin MD Primary Care Provider Active Start: June 26, 2024 End: June 26, 2024 Dr. Vasquez Irwin MD Referring Provider Active Start: June 26, 2024 End: June 26, 2024 Maryann Cruz INSIDE B2B SALES, INSIDE B2B SALES-C Attending Provider Active Start: June 26, 2024 [...] 2024 End: June 26, 2024 Maryann Cruz INSIDE B2B SALES, INSIDE B2B SALES-C Attending Provider Active Start: June 26, 2024 [...] August 28, 2024 End: August 28, 2024 Bricklayer Relationship Specialty Start Date End Date Vasquez Irwin MD [address] [place] [address] PCP - General Family Medicine 08/25/22 Bricklayer Relationship Specialty Start Date End Date Vasquez Irwin MD [address] [place] [address] PCP - General Family Medicine 08/25/22 Bricklayer Relationship Specialty Start Date End Date Vasquez Irwin MD [address] [place] [address] PCP - General Family Medicine 08/25/22 Bricklayer Relationship Specialty Start Date End Date Vasquez Irwin MD [address] [facility] [place] [address] PCP - General Family Medicine 08/25/22 Team [...] Start: December 11, 2024 Jessica Barton NP-C Referring Provider Active Start: December 11, 2024 [...] BE BASED ON THE PRIMARY CLINICAL RECORDS. [facility] [employer] [facility]. provides no warranty or guarantee of the accuracy or completeness of information in this document.
[2025-02-27 09:35] LABS: AST(SGOT) 36 U/L (<=31); Alanine Aminotransfer ALT/SGPT 69 U/L (<=34); Albumin, Serum 4.4 g/dL (3.5-5.0); Alkaline Phosphatase 147 U/L (35-104); Anion Gap 13 (7-18); BUN 13 mg/dL (4-19); BUN/Creat Ratio 21.3 RATIO (10-20); Calcium,Total 9.4 mg/dL (7.6-11.0); Carbon Dioxide 24.6 mmol/L (20.0-29.0); Chloride 103 mmol/L (96-106); Globulin 3.4 g/dL (2.2-4.2); Glucose 117 mg/dL (70-99); Potassium 4.3 mmol/L (3.5-5.1)
== END | disposition home or self-care (01) ==
LOC: LAB 08:22
PROVIDERS: PCP Radiologic Technologist Bone Densitometry; Referring Provider Nurse Practitioner Family; Visit Provider Nurse Practitioner Family
DX: R79.89 Other specified abnormal findings of blood chemistry (principal)
CPT/HCPCS: 36415; 80053